=== PATIENT | male | born 1935 | race Caucasian/White ===

== ENCOUNTER 2020-01-11 09:53 | Outpatient (CLI) | payer MEDICARE, OTHER, SELFPAY ==
--- NOTE | 2020-01-11 10:04 | USCV_ITS ---
Rodríguez Cochran Age: 84 Gender: M : 1935 Exam Date: 01/11/2020 10:21 Ordering Phys: Raudel Granados MD ([email or web address]) Technologist: Farzad Richards [place] [facility] [place]: ASCENDING AO ANEUR BP: 140 / 76 HR: 61 Rhythm: Sinus Technical Quality: Good MEASUREMENTS (Male / Female) Normal Values 2D ECHO LV Diastolic Diameter PLAX 3.6 cm 4.2 - 5.9 / 3.9 - 5.3 cm LV Systolic Diameter PLAX 2.6 cm IVS Diastolic Thickness 1.2 cm 0.6 - 1.0 / 0.6 - 0.9 cm IVS Systolic Thickness 1.4 cm LVPW Diastolic Thickness 1.2 cm 0.6 - 1.0 / 0.6 - 0.9 cm LVPW Systolic Thickness 1.6 cm LVOT Diameter 2.1 cm LV Ejection Fraction 2D Teich 51.3 % LV Ejection Fraction MOD 2C 70.1 % LV Ejection Fraction 2C AL 73.0 % LA Diameter 4.1 cm LA Width 3.3 cm LA Height 7.0 cm RA Width 4.1 cm RA Height 6.3 cm Aorta at Sinotubular Diameter 3.3 cm M-MODE LV Diastolic Diameter MM 5.7 cm 4.2 - 5.9 / 3.9 - 5.3 cm LV Systolic Diameter MM 4.2 cm LV Ejection Fraction MM Teich 51.9 % IVS Diastolic Thickness MM 0.7 cm 0.6 - 1.0 / 0.6 - 0.9 cm IVS Systolic Thickness MM 1.5 cm LVPW Diastolic Thickness MM 1.2 cm 0.6 - 1.0 / 0.6 - 0.9 cm LVPW Systolic Thickness MM 1.7 cm RV Diastolic Diameter MM 1.9 cm Aortic Annulus Diameter 5.0 cm LA Ao Ratio MM 0.8 MV E Point Septal Separation 0.7 cm DOPPLER MV Area PHT 5.0 cm squared Mitral E to A Ratio 0.9 MV E' Velocity 9.0 cm/s Mitral E to MV E' Ratio 10.7 Mitral E to LV E' Lateral Ratio 9.0 Mitral E to LV E' Septal Ratio 13.5 TR Peak Velocity 157.0 cm/s TR Peak Gradient 9.9 mmHg FINDINGS Left Ventricle Normal left ventricular size, systolic function and wall thickness, with no regional wall motion abnormalities. Grade I/IV diastolic dysfunction (abnormal relaxation filling pattern), normal to mildly elevated filling pressures. Left ventricular ejection fraction is estimated at 60 %. Right Ventricle Normal right ventricular size and systolic function. Right Atrium Moderately increased right atrial size. Left Atrium Moderately increased left atrial size. Mitral Valve Structurally normal mitral valve. Trace mitral valve regurgitation. Aortic Valve Structurally normal aortic valve without significant sclerosis or stenosis. There is no aortic regurgitation. Tricuspid Valve Structurally normal tricuspid valve. Trace tricuspid valve regurgitation. Pulmonic Valve Pulmonic valve not well visualized. Pericardium Normal pericardium without effusion. Aorta The ascending aorta is dilated 4.5 cm CONCLUSIONS Normal left ventricular size, systolic function and wall thickness, with no regional wall motion abnormalities. Grade I/IV diastolic dysfunction (abnormal relaxation filling pattern), normal to mildly elevated filling pressures. Left ventricular ejection fraction is estimated at 60 %. Moderately increased right atrial size. Moderately increased left atrial size. Structurally normal mitral valve. Trace mitral valve regurgitation. The ascending aorta is dilated 4.5 cm. There are no prior echocardiogram studies to compare. Dr. Raudel Granados MD (Electronically Signed) Final Date: 11 January 2020 11:06 S
== END 2020-01-11 09:54 | disposition home or self-care (01) ==
LOC: US 09:59
PROVIDERS: Family Provider Family Medicine; PCP Family Medicine; Visit Provider Internal Medicine Cardiovascular Disease
DX: I71.2 Thoracic aortic aneurysm, without rupture (principal); I08.1 Rheumatic disorders of both mitral and tricuspid valves
CPT/HCPCS: 93306

== ENCOUNTER 2020-03-24 15:10 | Inpatient (IN) | payer MEDICARE, OTHER, SELFPAY ==
[2020-03-24] VITALS (15 sets, daily range): BP systolic 110–164; BP diastolic 58–84; PULSE 49–70; RESP 14–24; TEMP 36.4–36.7; O2SAT 83–98; BMI 27.2
--- NOTE | 2020-03-24 15:37 | ECG_ITS ---
Measurements Intervals [place] Rate: 59 P: 76 VA: 202 QRS: -35 QRSD: 94 T: 38 QT: 413 QTc: 411 SINUS BRADYCARDIA WITH OCCASIONAL VENTRICULAR PREMATURE COMPLEXES MARKED LEFT AXIS DEVIATION [QRS AXIS < -30] PATTERN CONSISTENT WITH PULMONARY DISEASE INTERPRETATION BASED ON A DEFAULT AGE OF 40 YEARS Compared to ECG 07/09/2019 12:44:06 Ventricular premature complex(es) now present Electronically Signed On 03-25-2020 11:06:00 CDT by Joaquín Cullen MD [email or web address]
--- NOTE | 2020-03-24 15:37 | XRR_ITS ---
PROCEDURE INFORMATION: Exam: XR Chest, 1 View Exam date and time: 03/24/2020 3:38 PM Age: 84 years old Clinical indication: Shortness of breath; Patient HX: C/O chest tightness and SOB for several weeks; Additional info: Chest pain TECHNIQUE: Imaging protocol: XR of the chest Views: 1 view. COMPARISON: CR Chest 1 [place] [id number] 07/09/2019 1:03 PM FINDINGS: Lungs: Increased bilateral peripheral pulmonary opacities most consistent with pneumonia with possible background pulmonary fibrosis. Stable COPD . Pleural space: Unremarkable. No pleural effusion. No pneumothorax. Heart/Mediastinum: Unremarkable. No cardiomegaly. Bones/joints: Unremarkable. XR/XR chest 1V portable [id number] IMPRESSION: 1. Increased bilateral peripheral pulmonary opacities most consistent with pneumonia with possible background pulmonary fibrosis. 2. Stable COPD .
[2020-03-24 17:23] LABS: Basophils # 0.1 10^3/uL (0.0-0.1); Basophils % 1.2 %; Eosinophils # 2.2 10^3/uL (0.0-0.8); Eosinophils % 26.7 %; Hematocrit 43.7 % (42.0-52.0); Hemoglobin 14.1 g/dL (11.7-16.6); Lymphocytes # 2.4 10^3/uL (0.8-4.8); Mean Corpuscular HGB Conc 32.3 g/dL (30.0-36.0); Mean Corpuscular Hemoglobin 29.3 pg (28.0-34.0); Mean Corpuscular Volume 90.9 fL (80-94); Mean Platelet Volume 9.7 fL (7.4-10.4); Monocytes # 0.7 10^3/uL (0.2-0.9); Monocytes % 8.7 %; Neutrophils # 2.9 10^3/uL (1.8-7.7); Neutrophils % 34.2 %; Nucleated Red Blood Cells % 0 %; Platelet Count 167 10^3/cmm (130-400); Red Blood Count 4.81 10^6/uL (4.1-5.3); White Blood Count 8.4 10^3/uL (4.0-10.0)
--- NOTE | 2020-03-24 17:23 | ED_ITS ---
HPI - Chest Pain General: Chief Complaint: Chest Pain Stated Complaint: chest tightness Time Seen by Provider: 03/24/20 17:08 History of Present Illness: HPI narrative: Patient is an 84 year old male presenting with chest pain. he reports that he has been having episodes of sharp chest pains for the past several days. He does not associate them with exertion, and walked on his treadmill without chest pain. He has been having shortness of breath in the recent weeks. He was treated by his PCP for a lung infection in December with antibiotics and steroids. He improved from that. He notes that he was coughing a lot last night, but doesn't seem like so much today. He spent the month of December in [place]. 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 known aortic aneurysm (thoracic) Onset (ago): hour(s) (2) Timing of current episode: episodic Onset: during rest Pain location: left chest Pain radiation: none Severity: moderate Quality: sharp Exacerbating factors: nothing Context: recent illness Associated symptoms: Reports dyspnea; Deny abdominal pain, fever(s), nausea or vomiting Review of Systems General: Reports: 10 or more systems reviewed and unremarkable except in HPI and below Const: Denies: fever(s), chills, fatigue or malaise Eyes: Denies: change in vision ENMT: Denies: odynophagia Card: Reports: chest pain; Denies: swelling of feet/ankles Resp: Reports: dyspnea and productive cough; Denies: non-productive cough GI: Denies: abdominal pain, nausea or vomiting : Denies: flank pain Musc: Denies: neck pain or back pain Skin/Breast: Denies: rash Neuro: Denies: headache(s), numbness in extremities or weakness in extremities Avery/Lymph: Denies: easy bruising or easy bleeding PFSH ED PFSH: Medical History Ascending aortic aneurysm ASHD (arteriosclerotic heart disease) Cerebrovascular accident (CVA) determined by clinical assessment Dyslipidemia HTN (hypertension) Surgical History S/P PTCA (percutaneous transluminal coronary angioplasty) Family History Brother Cancer PANCREATIC Stroke Other CAD (coronary artery disease) Social History Smoking and tobacco status: never smoked Physical Exam Const: COMMON NORMALS: no acute distress, patient oriented x3, no limitations and alert GENERAL APPEARANCE: cooperative and comfortable HENMT: HEAD & SCALP: normal to inspection FACE & SINUS: normal facial exam Eye: GENERAL EYE: appearance normal, both eyes and all related structures Neck/C-Spine: COMMON NORMALS: supple, no meningeal signs and no JVD Chest: COMMONS NORMALS: normal inspection of the chest Resp: COMMON NORMALS: normal respiratory effort, No use of accessory muscles and clear to auscultation bilaterally AUSCULTATION: clear to auscultation bilaterally Cardio: COMMON NORMALS: no JVD, regular rate, regular rhythm and No murmurs present (Cardio) RATE: regular rate RHYTHM: regular rhythm GI: COMMON NORMALS: Normal to inspection, nondistended, normoactive bowel sounds present, Soft to palpation and non-tender INSPECTION: Yes normal to inspection AUSCULTATION: Yes normoactive bowel sounds PALPATION: Yes Soft to palpation Back/Pelvis: COMMON NORMALS: thoracic and lumbar spine normal to inspection Extremity: COMMON NORMALS: normal to inspection Neuro: COMMON NORMALS: patient oriented x3, moves all extremities, no focal motor deficits and no sensory deficits noted SENSORIUM/ORIENTATION: Yes alert MENINGEAL SIGNS: Yes no meningeal signs Psych: COMMON NORMALS: mental status grossly normal, cooperative and normal affect Skin: COMMON NORMALS: no rashes or lesions noted and turgor normal GENERAL SKIN EXAM: no rashes or lesions noted and turgor normal Course ED course: Patient is having some chest pain off and on which is nonexertional. He has been quite short of breath recently. In the ED his sat was in the low 90s while sitting and resting however after ambulating to the bathroom and back his sat was in the low 80s. He is having cough and did have travel to [place] returning early in December. Although he still probably low risk for COVID we will rule that out. Have also covered him with Rocephin and Zithromax for community-acquired pneumonia based on his chest x-ray which showed diffuse bilateral infiltrates. His cardiac evaluation seems to be benign. His d-dimer was markedly elevated but due to the COVID precautions we will hold off on a CT scan at this point. He was covered empirically with a dose of Lovenox. Vital Signs: Vital signs: Vital Signs Temperature 97.5 F L 03/24/20 15:30 Pulse Rate 49 L 03/24/20 19:36 Respiratory Rate 16 03/24/20 19:36 Blood Pressure 121/61 03/24/20 19:36 Pulse Oximetry 96 03/24/20 19:36 MDM - Chest Pain Lab Data: Labs: Lab Results 03/24/20 03/24/20 03/24/20 Range/Units 17:15 17:15 17:15 WBC 8.4 (4.0-10.0) 10^3/ uL RBC 4.81 (4.1-5.3) 10^6/u L Hgb 14.1 (11.7-16.6) g/dL Hct 43.7 (42.0-52.0) % MCV 90.9 (80-94) fL MCH 29.3 (28.0-34.0) pg MCHC 32.3 (30.0-36.0) g/dL RDW 13.0 (12.1-15.1) % Plt Count 167 (130-400) 10^3/c mm MPV 9.7 (7.4-10.4) fL Neut % (Auto) 34.2 % Lymph % (Auto) 29.0 % [place] % (Auto) 8.7 % Eos % (Auto) 26.7 % Baso % (Auto) 1.2 % Neut # (Auto) 2.9 (1.8-7.7) 10^3/u L Lymph # (Auto) 2.4 (0.8-4.8) 10^3/u L [place] # (Auto) 0.7 (0.2-0.9) 10^3/u L Eos # (Auto) 2.2 H (0.0-0.8) 10^3/u L Baso # (Auto) 0.1 (0.0-0.1) 10^3/u L Nucleated RBC % (a uto) 0 % Nucleated RBCs # 0.0 /100WBC ESR (0-10) mm/hr D-Dimer (0-0.59) ug/mIFE U Sodium 137 (136-145) mmol/L Potassium 4.6 (3.5-5.1) mmol/L Chloride 102 (98-107) mmol/L Carbon Dioxide 25 (22-29) mmol/L Anion Gap 14.6 (5-19) BUN 26 H (8-23) mg/dL Creatinine 1.2 (0.7-1.2) mg/dL Glucose 97 (65-115) mg/dL Calculated Osmolal ity 281 L (285-295) mOsm/k g Calcium 10.0 (8.5-10.5) mg/dL Total Bilirubin 0.3 (0.15-1.2) mg/dL AST 16 (0-40) U/L ALT 11 (0-41) U/L Alkaline Phosphata se 79 (40-130) IU/L Troponin T Baselin e 17 H (0-15) ng/mL C-Reactive Protein (0.0-4.9) mg/L Total Protein 7.7 (6.6-8.7) g/dL Albumin 4.1 (3.5-5.2) g/dL Globulin 3.6 (1.3-4.6) g/dL Procalcitonin (0-0.5) ng/mL 03/24/20 03/24/20 03/24/20 Range/Units 17:15 17:15 17:15 WBC (4.0-10.0) 10^3/ uL RBC (4.1-5.3) 10^6/u L Hgb (11.7-16.6) g/dL Hct (42.0-52.0) % MCV (80-94) fL MCH (28.0-34.0) pg MCHC (30.0-36.0) g/dL RDW (12.1-15.1) % Plt Count (130-400) 10^3/c mm MPV (7.4-10.4) fL Neut % (Auto) % Lymph % (Auto) % [place] % (Auto) % Eos % (Auto) % Baso % (Auto) % Neut # (Auto) (1.8-7.7) 10^3/u L Lymph # (Auto) (0.8-4.8) 10^3/u L [place] # (Auto) (0.2-0.9) 10^3/u L Eos # (Auto) (0.0-0.8) 10^3/u L Baso # (Auto) (0.0-0.1) 10^3/u L Nucleated RBC % (a uto) % Nucleated RBCs # /100WBC ESR 45 H (0-10) mm/hr D-Dimer 3.26 H (0-0.59) ug/mIFE U Sodium (136-145) mmol/L Potassium (3.5-5.1) mmol/L Chloride (98-107) mmol/L Carbon Dioxide (22-29) mmol/L Anion Gap (5-19) BUN (8-23) mg/dL Creatinine (0.7-1.2) mg/dL Glucose (65-115) mg/dL Calculated Osmolal ity (285-295) mOsm/k g Calcium (8.5-10.5) mg/dL Total Bilirubin (0.15-1.2) mg/dL AST (0-40) U/L ALT (0-41) U/L Alkaline Phosphata se (40-130) IU/L Troponin T Baselin e (0-15) ng/mL C-Reactive Protein 3.8 (0.0-4.9) mg/L Total Protein (6.6-8.7) g/dL Albumin (3.5-5.2) g/dL Globulin (1.3-4.6) g/dL Procalcitonin (0-0.5) ng/mL 03/24/ Range/Units 17:15 WBC (4.0-10.0) 10^3/ uL RBC (4.1-5.3) 10^6/u L Hgb (11.7-16.6) g/dL Hct (42.0-52.0) % MCV (80-94) fL MCH (28.0-34.0) pg MCHC (30.0-36.0) g/dL RDW (12.1-15.1) % Plt Count (130-400) 10^3/c mm MPV (7.4-10.4) fL Neut % (Auto) % Lymph % (Auto) % [place] % (Auto) % Eos % (Auto) % Baso % (Auto) % Neut # (Auto) (1.8-7.7) 10^3/u L Lymph # (Auto) (0.8-4.8) 10^3/u L [place] # (Auto) (0.2-0.9) 10^3/u L Eos # (Auto) (0.0-0.8) 10^3/u L Baso # (Auto) (0.0-0.1) 10^3/u L Nucleated RBC % (a uto) % Nucleated RBCs # /100WBC ESR (0-10) mm/hr D-Dimer (0-0.59) ug/mIFE U Sodium (136-145) mmol/L Potassium (3.5-5.1) mmol/L Chloride (98-107) mmol/L Carbon Dioxide (22-29) mmol/L Anion Gap (5-19) BUN (8-23) mg/dL Creatinine (0.7-1.2) mg/dL Glucose (65-115) mg/dL Calculated Osmolal ity (285-295) mOsm/k g Calcium (8.5-10.5) mg/dL Total Bilirubin (0.15-1.2) mg/dL AST (0-40) U/L ALT (0-41) U/L Alkaline Phosphata se (40-130) IU/L Troponin T Baselin e (0-15) ng/mL C-Reactive Protein (0.0-4.9) mg/L Total Protein (6.6-8.7) g/dL Albumin (3.5-5.2) g/dL Globulin (1.3-4.6) g/dL Procalcitonin 0.08 (0-0.5) ng/mL Discharge Plan Discharge Patient Disposition: Admitted As Inpatient Admit Provider: Xiao Green Discharge Date/Time: 03/24/20 19:46 Coding Level of Care Code 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
[2020-03-24 17:40] LABS: Alanine Aminotransferase 11 U/L (0-41); Albumin Level 4.1 g/dL (3.5-5.2); Alkaline Phosphatase 79 IU/L (40-130); Anion Gap 14.6 (5-19); Aspartate Amino Transferase 16 U/L (0-40); Blood Urea Nitrogen 26 mg/dL (8-23); Carbon Dioxide 25 mmol/L (22-29); Chloride 102 mmol/L (98-107); Globulin 3.6 g/dL (1.3-4.6); Glucose 97 mg/dL (65-115); Osmolality Calculated 281 mOsm/kg (285-295); Potassium 4.6 mmol/L (3.5-5.1); Sodium 137 mmol/L (136-145); Total Bilirubin 0.3 mg/dL (0.15-1.2); Total Protein 7.7 g/dL (6.6-8.7)
[2020-03-24 17:42] LABS: Troponin(5th) Baseline 17 ng/mL (0-15)
--- NOTE | 2020-03-24 17:50 | PC.NURSE ---
EKG done at 1750 and shown to ER doctor
[2020-03-24 18:52] LABS: C Reactive Protein 3.8 mg/L (0.0-4.9)
[2020-03-24 18:53] LABS: D Dimer 3.26 ug/mIFEU (0-0.59)
[2020-03-24] MEDS: enoxaparin 100 mg/mL Syringe 90 MG SUBCUT (19:25)
[2020-03-24] MEDS: cefTRIAXone 1,000 MG in sodium chloride 0.9% (plus) 50 ML 100 MG IV (19:26)
[2020-03-24 19:28] LABS: Erythrocyte Sedimentation Rate 45 mm/hr (0-10); Procalcitonin 0.08 ng/mL (0-0.5)
[2020-03-24 19:43] LABS: Troponin 5 2HR 13.83 ng/mL (0-15)
[2020-03-24 19:51] LABS: NT Pro B Type Natriuretic Pept 124 pg/mL (0-450)
[2020-03-24 19:54] LABS: Troponin 5 2HR Delta -3.17 ABS# (0-10)
--- NOTE | 2020-03-24 20:00 | PC.NURSE ---
Admit Note Arrived from ER via gurney at this time. Pt placed in contact/droplet isolation for covid test pending. Pt alert and oriented X 4. Breathing even and non-labored on 2L NC. Lung sounds diminished. Pt running sinus rhythm/sinus maame with occasional PVC's. Reports dry non-productive cough. Denies chest pain at this time. Rocephin infusing on arrival to unit. Pt has belongings at bedside include full upper and lower dentures, glasses, Ipad, cell phone, and gold watch.
[2020-03-24] MEDS: azithromycin 500 MG in sodium chloride 0.9% 250 ML 250 MG IV (20:25)
--- NOTE | 2020-03-24 20:53 | P.HP_ITS ---
Providers/Chief Complaint Admitting Physician: Xiao Green MD Primary Care Provider: Julio Mccracken DO Chief Complaint: DYSPNEA; CP; PNEUMONIA; R/O COVID History of Present Illness Rodríguez Cochran is a 84 year old male with PMH CAD, dyslipidemia, hypertension and hypothyroidism, CVA s/p tPA 07/2019, AAA last known to be at 4.5cm. he presents to the ER today with c/o chest pain and increasing shortness of breath over the past few weeks. He has been experiencing increased intermittent coughing and subjective dyspnea over rthe past several weeks. He has often attributed his cough to allergies for which he takes medication every day. Last night he experienced a bout of coughing which seemed particularly worse and was associated with tightness in his chest. There is no h/o fever or productive cough. At a baseline he is able to walk on the treadmill daily for approx 30 min, and did this last yesterday afternoon without issues. He has been anxious about acquiring COVID since his return from [place] in December per discussion with . He had a similar bout of symptoms in December of this year when he presnted to his PCP and was treated with amoxicillin and prednisone for 10 days after being disgnosed with pneumonia. This improved his symptoms. Per discussion with his , his CXR is mostly read as being suspicious for PNA as there are residual shadows after pneumonia several years ago. He is ex heavy smoker. He has had PFTs and sleep studies ~10 years in the past, does not know results and does not believe he needed a CPAP. no h/o orthopnea, PND In ER he is saturating 92% on RA, with drop to 85% one time on minimal exertion in the room. Last travel to [place] in december this year. Labs without leukocytosis,D dimer 3.26, cr 1.2, baseline troponin at 17, with 2 hr delta of -3. Procalcitonin negative at 0.08. BNP not currently elevated at 124. CXR today shows increased bilateral peripheral pulmonary opacities most consistent with pneumonia with possible background pulmonary fibrosis per radiology read. Note made of COPD. Echocardiogram with LVEF 60% and gr 1 diastolic dysfunction from december. No acute St-T wave changes. CTA is being held off at this point while pending COVID testing, he has presumptively been started on anticoagulation with lovenox given elevated D- Dimer. Review of Systems General: Reports: 10 or more systems reviewed and unremarkable except in HPI and below Const: Denies: fever(s), chills or body aches Eyes: Denies: change in vision, blurry vision or photophobia ENMT: Reports: hoarseness; Denies: throat pain, enlarged tonsils, odynophagia or nasal congestion Card: Denies: chest pain, palpitations, irregular heart rhythm, edema, swelling of feet/ankles, lightheadedness, pre-syncope, dyspnea on exertion or orthopnea Resp: Denies: dyspnea, productive cough, non-productive cough, wheezing, stridor, pain on inspiration, change in phlegm color, hemoptysis or chest congestion GI: Denies: abdominal pain, nausea, vomiting, hematemesis, coffee ground emesis, dysphagia, heartburn, diarrhea, constipation, GI cramping, change in stool character, hematochezia or melena : Denies: flank pain, dysuria, urinary frequency, urinary urgency, urinary hesitancy or hematuria Musc: Denies: neck pain, back pain, extremity pain, joint swelling, joint warmth or deformity Neuro: Denies: headache(s), numbness in extremities, weakness in extremities, sensory changes, difficulty walking, frequent falls, dizziness, vertigo, behavioral changes, Slurred speech present or seizure-like activity Psych: Denies: anxiety, depression, suicidal ideation or homicidal ideation Endo: Denies: polyuria, polydipsia, tired all the time, cold intolerance or hot flashes Avery/Lymph: Denies: easy bruising or easy bleeding Medications/Allergies Home Medications Medication Instructions Recorded Confirmed Last Taken Type telmisartan 20 mg tablet 20 mg PO DAILY 90 Days #90 tab 12/26/19 03/24/20 03/24/20 08:00 Rx aspirin 81 mg tablet,delayed 81 mg PO DAILY 01/31/20 03/24/20 03/23/20 21:00 History release clopidogrel 75 mg tablet 75 mg PO DAILY 01/31/20 03/24/20 03/24/20 08:00 History levothyroxine 50 mcg tablet 50 mcg PO DAILY 01/31/20 03/24/20 03/24/20 07:00 History metoprolol succinate 25 mg 25 mg PO DAILY 01/31/20 03/24/20 03/24/20 08:00 History tablet,extended release 24 hr pantoprazole 40 mg tablet,delayed 40 mg PO DAILY 01/31/20 03/24/20 03/24/20 08: 00 History release rosuvastatin 10 mg tablet 10 mg PO DAILY 01/31/20 03/24/20 03/23/20 22:00 History loratadine 10 mg tablet 10 mg PO DAILY PRN 02/01/20 03/24/20 Unknown History Fiber Laxative (psyllium husk) 2 PO BID 03/24/20 Unknown History docusate sodium 200 mg PO BEDTIME 03/24/20 03/24/20 03/23/20 20:00 History multivitamin 1 tab PO DAILY 03/24/20 03/24/20 03/23/20 20:00 History Allergies Allergy/AdvReac Type Severity Reaction Status Date / Time No Known Allergies Allergy Verified 03/24/20 15:34 PFSH Acute PFSH: Medical History Ascending aortic aneurysm ASHD (arteriosclerotic heart disease) Cerebrovascular accident (CVA) determined by clinical assessment Dyslipidemia HTN (hypertension) Surgical History S/P PTCA (percutaneous transluminal coronary angioplasty) Family History Brother Cancer PANCREATIC Stroke Other CAD (coronary artery disease) Social History Smoking and tobacco status: never smoked Vitals/I&O/Wt Last Vital Signs Temp 98.0 F 03/24/20 20:00 Pulse 60 03/24/20 20:00 Resp 18 03/24/20 20:00 BP 164/79 03/24/20 20:00 Pulse Ox 92 03/24/20 20:00 Weight last 48 hrs Weight 86.183 kg Physical Exam Narrative: EXAM NARRATIVE: GEN: Awake, alert and oriented, no acute distress CVS: S1S2 N RS: CTA B/L Abd: Soft, nt/nd , bs+ 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 transplanted heart: kake heart Associated angina: without angina Qualified Code(s): I25.10 - Atherosclerotic heart disease of kake coronary artery without angina pectoris (3) Dyslipidemia: Status: Acute (4) HTN (hypertension): Status: Acute Qualifiers: Hypertension type: essential hypertension Qualified Code(s): I10 - Essential (primary) hypertension (5) D-dimer, elevated: Status: Acute (6) Suspected COVID-19 virus infection: Status: Acute (7) Chest pain: Status: Acute Additional A&P Information Admit to med/surg in observation - Chest pain, described as chest tightness troponins without remarkable Deltas, EKG without acute St-T changes , doubt ACS BNP not elevated, no current signs of CHF, last echo with EF 60%, gr 1 diastolic dysfunction Based on description of pain and above data, feel that chest tightness more likely to be pulmonary in nature CXR read as pulmonary infiltrates and pneumonia, however based on personal review, CXR looks grossly unchanged since 07/2019. Additonally with negative procalcitonin, no fever and leukocytosis , I do not believe he has any signs of bacterial pneumonia. He could however be experiencing acute viral bronchitis vs pneumonitis. 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 Since patient is on COVID rule out at this time, which may in itself be associated with micorthrombi, will start presumptive treatment with Lovenox and plan on doing CTA chest once COVID results are available to ascertain level of PPE and precautions needed for the study. My suspcion at this time is also for undiagnosed COPD given h/o chronic cough, subacute development and worsening of dyspnea, CXR with prominent markings and h/o chronic smoking. PFT may be done once COVID results are back, in the interim will start him on prn inhalers. Levaquin in the interim while above results are awaited Hold off on steroids for now unless acute worsening Supplemental 02 to keep sat >92% duonebs inhalation Full code DVT ppx: lovenox Coding Level of Care Code Acute Security Assurance Specialist for Chg Fwd Diagnoses Hypoxia R09.02 CAD (coronary artery disease) I25.10 Coronary Disease-Associated Artery/Lesion type: [place]ake artery [place] vs. transplanted heart: kake heart Associated angina: without angina Dyslipidemia E78.5 HTN (hypertension) I10 Hypertension type: essential hypertension D-dimer, elevated R79.89 Suspected COVID-19 virus infection Z20.828 Chest pain R07.9
--- NOTE | 2020-03-24 21:37 | ECG_ITS ---
Measurements Intervals [place] Rate: 54 P: 81 ID: [id number] QRS: -35 QRSD: 96 T: 42 QT: 439 QTc: 417 SINUS BRADYCARDIA WITH FREQUENT ECTOPIC PREMATURE COMPLEXES LEFT AXIS DEVIATION [QRS AXIS < -30] PATTERN CONSISTENT WITH PULMONARY DISEASE Compared to ECG 07/09/2019 12:44:06 No significant changes Electronically Signed On 03-25-2020 11:08:54 CDT by Joaquín Cullen MD [email or web address]
[2020-03-24 23:34] LABS: Troponin 5 6HR 15.64 ng/mL (0-15)
[2020-03-24 23:37] LABS: Troponin 5 6HR Delta -1.36 ng/L (0-12)
[2020-03-25] VITALS (18 sets, daily range): BP systolic 89–119; BP diastolic 32–77; PULSE 49–922; RESP 0–27; TEMP 36.7–36.9; O2SAT 88–96
--- NOTE | 2020-03-25 00:06 | PC.NURSE ---
Physician notification Pt requesting medication to help sleep in hospital. Denies taking medication for sleep at home. Dr. Green notified and received orders for alprazolam 0.25mg.
--- NOTE | 2020-03-25 00:21 | PC.NURSE ---
Bradycardia Dr. Green notified of asymptomatic bradycardia. Sinus maame rate from 45-60. Current BP 97/47. No new orders at this time, will continue to monitor.
[2020-03-25] MEDS: ALPRAZolam 0.25 mg Tablet PO ×2 (01:03→23:14)
[2020-03-25] MEDS: levoFLOXacin 750 mg Tablet PO (06:11)
[2020-03-25] MEDS: atorvastatin 40 mg Tablet DOBHOFF (08:20)
[2020-03-25] MEDS: levothyroxine 50 mcg Tablet PO (08:20)
[2020-03-25] MEDS: losartan 50 mg Tablet PO (08:20)
[2020-03-25] MEDS: pantoprazole DR 40 mg Tablet PO (08:20)
[2020-03-25] MEDS: aspirin 81 mg EC Tablet PO (08:21)
[2020-03-25] MEDS: clopidogrel 75 mg Tablet PO (08:21)
[2020-03-25] MEDS: enoxaparin 100 mg/mL Syringe 90 MG SUBCUT (08:21)
--- NOTE | 2020-03-25 14:36 | PC.NURSE ---
Called lab regarding COVID results. Lab states that his results did not go out until this am and they will be here tomorrow.
--- NOTE | 2020-03-25 15:16 | PM.PN ---
Subjective Subjective: Interval history: Chart reviewed, awaiting COVID-19 testing results, remains on isolation precautions, currently on 2 L nasal cannula, noted low to low normal blood pressure, bradycardic. Seems to have had somewhat of a difficult day and does not like being connected to so many things. Nasopharyngeal swab sent this AM so anticipate results on Thursday due to holiday weekend. No other complaints currently, he describes feeling worn out. Has been up to the chair several times, tolerating oral intake without difficulty. Medications: Reviewed: Yes Medication Review Details: Active Medications Generic Name Dose Route Start Last Admin Trade Name Freq PRN Reason Stop Dose Admin Acetaminophen 650 mg 03/24/20 21:53 Tylenol PO Q6H PRN Mild/Mod Pain Or Temp >/= 101 Albuterol/Ipratrop ium 1 puff 03/25/20 08:00 03/25/20 08:00 Combivent Respim at INHALATION Not Given QID.RESPIRATORY S CH Alprazolam 0.25 mg 03/25/20 00:15 03/25/20 01:03 Xanax PO 0.25 mg BEDTIME ZIYAD Administration Aspirin 81 mg 03/25/20 09:00 03/25/20 08:21 Aspirin Ec PO 81 mg DAILY ZIYAD Administration Atorvastatin Calci um 40 mg 03/25/20 09:00 03/25/20 08:20 Lipitor DOBHOFF 40 mg DAILY ZIYAD Administration Clopidogrel Bisulf ate 75 mg 03/25/20 09:00 03/25/20 08:21 Plavix PO 75 mg DAILY ZIYAD Administration Docusate Sodium 200 mg 03/25/20 21:00 Colace PO BEDTIME ZIYAD Enoxaparin Sodium 90 mg 03/25/20 09:00 03/25/20 08:21 Lovenox 1 mg/kg (90 mg) 90 mg SUBCUT Administration Q24H ZIYAD Levofloxacin 750 mg 03/25/20 06:00 03/25/20 06:11 Levaquin PO 750 mg DAILY@0600 ZIYAD Administration Protocol Levothyroxine Sodi um 50 mcg 03/25/20 09:00 03/25/20 08:20 Synthroid PO 50 mcg DAILY ZIYAD Administration Loratadine 10 mg 03/24/20 21:58 Claritin PO DAILY PRN Allergy Symptoms Losartan Potassium 50 mg 03/25/20 09:00 03/25/20 08:20 Cozaar PO 50 mg DAILY ZIYAD Administration Metoprolol Succina te 25 mg 03/25/20 09:00 03/25/20 08:21 Toprol Xl PO Not Given DAILY ZIYAD Morphine Sulfate 2 mg 03/24/20 21:53 Morphine IVP Q4H PRN SEVERE PAIN Naloxone HCl 0.1 mg 03/24/20 21:53 Narcan IVP Q2M PRN OPIATERV Ondansetron HCl 4 mg 03/24/20 21:53 Zofran IVP Q8H PRN vomiting, or N/V if npo Pantoprazole Sodiu m 40 mg 03/25/20 09:00 03/25/20 08:20 Protonix PO 40 mg DAILY ZIYAD Administration No Known Allergies Allergy (Verified 03/24/20 15:34) Vitals/I&O/Wt Last Vital Signs Temp 98.4 F 03/25/20 09:00 Pulse 64 03/25/20 14:09 Resp 20 H 03/25/20 14:09 BP 119/60 03/25/20 12:00 Pulse Ox 94 03/25/20 14:09 03/25/20 03/25/20 03/25/20 06:59 14:59 22:59 Intake Total 480 / 480 Output Total 575 / 650 500 / 500 Balance -575 / -650 - Weight last 48 hrs Weight 86.818 kg Weight 86.183 kg Physical Exam Const: COMMON NORMALS: no acute distress, patient oriented x3 and alert GENERAL APPEARANCE: cooperative and comfortable; not ill appearing ORIENTATION/CONSCIOUSNESS: Yes awake OTHER: -looks younger than stated age HENMT: COMMON NORMALS: normocephalic, atraumatic and moist oral mucous membranes HEAD & SCALP: normocephalic and atraumatic GENERAL EAR: hearing grossly impaired Laterality: bilateral Eye: COMMON NORMALS: Equal, round and reactive pupils present, EOMs intact bilaterally and conjunctivae normal CONJUNCTIVA: Yes conjunctivae normal PUPIL: Yes Equal, round and reactive pupils present Neck/C-Spine: COMMON NORMALS: full ROM GENERAL: Yes normal visual inspection and Yes trachea midline Chest: CHEST: Yes Symmetrical chest wall rise Resp: COMMON NORMALS: normal respiratory effort, No retractions and No use of accessory muscles EFFORT & INSPECTION: Yes able to speak in complete sentences, Yes symmetric chest movement and No tachypneic AUSCULTATION: wheezes expiratory wheezes (minimal) and diminished lung sounds bilateral in the lower lung nolasco OTHER: -on 2 L NC Cardio: COMMON NORMALS: regular rate, regular rhythm, S1 normal heart sound present, S2 normal heart sound present and No murmurs present (Cardio) RATE: regular rate RHYTHM: regular rhythm HEART SOUNDS: S1 normal heart sound present and S2 normal heart sound present GI: COMMON NORMALS: Normal to inspection, nondistended, normoactive bowel sounds present, Soft to palpation and non-tender INSPECTION: Yes central obesity PALPATION: Yes Soft to palpation Back/Pelvis: COMMON NORMALS: thoracic and lumbar spine normal to inspection Extremity: COMMON NORMALS: normal to inspection, full ROM and no clubbing, cyanosis or edema; negative for no pedal edema Neuro: COMMON NORMALS: patient oriented x3, moves all extremities, no focal motor deficits and no sensory deficits noted SENSORIUM/ORIENTATION: Yes alert Psych: COMMON NORMALS: mental status grossly normal, Normal thought process present, cooperative, normal affect and speech normal SPEECH: Yes normal speech THOUGHT PROCESS: Normal thought process present Skin: COMMON NORMALS: no rashes or lesions noted, no jaundice, no petechiae and no mottling GENERAL SKIN EXAM: no rashes or lesions noted Data : 03/24/20 17:15 03/24/20 17:15 Micro: Microbiology 03/24/20 19:20 Blood Culture - Preliminary Blood SPECIMEN COLLECTED 03/24/20 19:15 Blood Culture - Preliminary Blood SPECIMEN COLLECTED A&P Assessment and plan (1) Chest pain: -described as chest tightness, presentation seems more consistent with pulmonary etiology though patient does have known CAD -Noted troponins with no significant delta -Telemetry monitoring -LITZY -Echo (01/2020): EF=60%, G1DD, trace TR, trace MR -had cath done in 10/2014 showing 90% stenosis in small diagonal branch by LAD stent which is too small and not amenable for intervention, 85% stenosis in ostial RCA lesion which was stented, patent LAD stent Status: Acute Qualifiers: Chest pain type: unspecified Qualified Code(s): R07.9 - Chest pain, unspecified (2) Hypoxia: -presented with acute hypoxia (acute hypoxic respiratory failure), not oxygen dependent at baseline -likely secondary to acute COPD exacerbation, no previous diagnosis of this, chest x-ray is reported as stable COPD as well as bilateral peripheral pulmonary opacities with background of pulmonary fibrosis -Clinical suspicion for bacterial pneumonia is low given normal lactate and procalcitonin, lack of leukocytosis, afebrile; based on imaging could have bronchitis versus viral pneumonitis -Supplemental oxygen as needed -Continue to monitor respiratory status -Would benefit from pulmonary function testing which can be done as an outpatient -COVID-19 testing pending (will likely be delayed until Thursday due to holiday weekend), on isolation precautions -Continue empiric Levaquin -Follow-up blood cultures -Continue to monitor vital signs -Neb treatments, antitussives as needed Status: Acute (3) D-dimer, elevated: -D-dimer-3.26 -holding off on further imaging pending COVID-19 test results -on presumptive treatment with therapeutic lovenox Status: Acute (4) CAD (coronary artery disease): -follows up with Dr. Granados Status: Chronic Qualifiers: Associated angina: without angina Coronary Disease-Associated Artery/Lesion type: [place] artery [place] vs. transplanted heart: [place] heart Qualified Code(s): I25.10 - Atherosclerotic heart disease of [place] coronary artery without angina pectoris (5) Cerebrovascular accident (CVA) determined by clinical assessment: Status: Chronic (6) Ascending aortic aneurysm: Status: Chronic (7) Dyslipidemia: -on statin Status: Chronic (8) HTN (hypertension): -low to low normal BP; continue to monitor vital signs -continue oral antihypertensives, hold if hypotension Status: Chronic Qualifiers: Hypertension type: essential hypertension Qualified Code(s): I10 - Essential (primary) hypertension (9) Hypothyroidism: -continue levothyroxine Status: Chronic Qualifiers: Hypothyroidism type: unspecified Qualified Code(s): E03.9 - Hypothyroidism, unspecified Additional A&P Information -CKD stage 2; baseline Cr is around 1.2 -cardiac diet as tolerated -fall precautions -GI ppx with PPI -DVT ppx not needed as on therapeutic lovenox -Dispo: home -Code status: FULL code -ICU care due to COVID-19 r/o Attestations Medical Necessity Statement*: Patient requires hospitalization for continued treatment of acute hypoxic respiratory failure currently requiring close monitoring of his respiratory status, pending COVID 19 rule out and therapeutic anticoagulation pending PE rule out. Time Spent in Patient Care: Greater than 35 minutes (>than 50% of time spent in counselling and/or direct pt care on unit). Coding Level of Care Code Acute Delinquent Account Clerk for Chg Fwd Exam Comprehensive Diagnoses Chest pain R07.9 Chest pain type: unspecified Hypoxia R09.02 D-dimer, elevated R79.89 CAD (coronary artery disease) I25.10 Associated angina: without angina Coronary Disease-Associated Artery/Lesion type: [place] artery [place] vs. transplanted heart: [place] heart Cerebrovascular accident (CVA) determined by clinical assessment I63.9 Ascending aortic aneurysm I71.2 Dyslipidemia E78.5 HTN (hypertension) I10 Hypertension type: essential hypertension Hypothyroidism E03.9 Hypothyroidism type: unspecified
--- NOTE | 2020-03-25 18:12 | PC.RESP ---
Pulmonary Rehab information mailed to patient.
[2020-03-25 18:41] LABS: Coronavirus Lab Test PTC SEE REPORT
--- NOTE | 2020-03-25 20:20 | PC.NURSE ---
Pt off unit to CT, escorted by nurse and w/c, transport monitor, and 2L NC.
--- NOTE | 2020-03-25 20:26 | CTR_ITS ---
PROCEDURE INFORMATION: Exam: CT Angiography Chest With Contrast Exam date and time: 03/25/2020 9:00 PM Age: 84 years old Clinical indication: Shortness of breath; Patient HX: C/O chest tightness and SOB for weeks; Additional info: R/O pe TECHNIQUE: Imaging protocol: Computed tomographic angiography of the chest with intravenous contrast. 3D rendering: MIP and/or 3D reconstructed images were created by the technologist. Radiation optimization: All CT scans at this facility use at least one of these dose optimization techniques: automated exposure control; mA and/or kV adjustment per patient size (includes targeted exams where dose is matched to clinical indication); or iterative reconstruction. Contrast material: VISI 320; Contrast volume: 95 ml; Contrast route: 20G; COMPARISON: CR (CHEST, ) 03/24/2020 5:29 PM FINDINGS: There are degenerative changes of the spine. There is an old compression fracture of L1. Interstitial infiltrates are seen throughout the lungs. There is peripheral honeycombing. There is interlobular septal thickening. There is some underlying emphysematous changes. Findings are consistent with interstitial lung disease likely pulmonary fibrosis. There is a calcified granuloma within the right lower lobe. No suspicious pulmonary nodules are seen. There is no consolidation. There is no pleural effusion or pneumothorax. The thyroid gland is unremarkable. There is no axillary adenopathy. There is mediastinal adenopathy. There is hilar adenopathy. Interrogation of the pulmonary arteries in multiple planes shows no evidence for pulmonary embolism. The aorta is normal in caliber with no evidence for aneurysm or dissection. The heart is normal in size. There is no evidence for right heart failure. There is a simple cyst within the upper pole of the right kidney measuring 2.2 cm. No follow-up is required. CT/CT angio chest PE protcl [id number] IMPRESSION: 1. No evidence for pulmonary embolism. 2. Findings suggestive of interstitial lung disease likely pulmonary fibrosis mediastinal and hilar adenopathy. Comparison to old studies would be helpful. Radiation Dose CTDIVOL = (mGy): DLP = 601.97 (mGy-cm)
--- NOTE | 2020-03-25 20:35 | PC.NURSE ---
Back to room from CT at this time.
[2020-03-25] MEDS: iodixanol 320 mg/mL 100mL Btl IV (21:05)
--- NOTE | 2020-03-25 23:00 | PC.NURSE ---
Report called to KAMINI Lai. Pt transfered to [facility] room 254-1 with w/c and 2L NC. Belongings sent with patient.
[2020-03-25] MEDS: docusate sodium 100 mg Capsule 200 MG PO (23:14)
[2020-03-26] VITALS (11 sets, daily range): BP systolic 94–131; BP diastolic 51–69; PULSE 55–92; RESP 16–20; TEMP 36.4–36.6; O2SAT 90–97
[2020-03-26] MEDS: clopidogrel 75 mg Tablet PO (08:35)
[2020-03-26] MEDS: pantoprazole DR 40 mg Tablet PO (08:35)
[2020-03-26] MEDS: levothyroxine 50 mcg Tablet PO (08:35)
[2020-03-26] MEDS: atorvastatin 40 mg Tablet DOBHOFF (08:35)
[2020-03-26] MEDS: levoFLOXacin 750 mg Tablet PO (08:36)
[2020-03-26] MEDS: aspirin 81 mg EC Tablet PO (08:36)
--- NOTE | 2020-03-26 09:43 | PC.NURSE ---
Pt blood pressure at this time 83/54, spoke with Dr. Romero who said to hold second dose of Metoprolol 5mg IV
--- NOTE | 2020-03-26 15:23 | P.DS_ITS ---
Discharge Providers Date of Admission: 03/24/20 19:09 Date of Discharge: March 26, 2020 Attending Provider at Admission: Xiao Green MD Attending Provider at Discharge: Madiha Ball MD Primary Care Provider: Julio Mccracken DO Diagnoses at Discharge Discharge Diagnosis (1) Chest pain: Status: Acute Problem details: -described as chest tightness, presentation seems more consistent with pulmonary etiology though patient does have known CAD -Noted troponins with no significant delta -Telemetry monitoring -LITZY -Echo (01/2020): EF=60%, G1DD, trace TR, trace MR -had cath done in 10/2014 showing 90% stenosis in small diagonal branch by LAD stent which is too small and not amenable for intervention, 85% stenosis in ostial RCA lesion which was stented, patent LAD stent Qualifiers: Chest pain type: unspecified Qualified Code(s): R07.9 - Chest pain, unspecified (2) Hypoxia: Status: Resolved Problem details: -presented with acute hypoxia (acute hypoxic respiratory failure), not oxygen dependent at baseline -likely secondary to acute COPD exacerbation, no previous diagnosis of this, chest x-ray is reported as stable COPD as well as bilateral peripheral pulmonary opacities with background of pulmonary fibrosis -Clinical suspicion for bacterial pneumonia is low given normal lactate and procalcitonin, lack of leukocytosis, afebrile; based on imaging could have bronchitis versus viral pneumonitis -Supplemental oxygen as needed -Continue to monitor respiratory status -Would benefit from pulmonary function testing which can be done as an outpatient -COVID-19 testing negative, off isolation precautions -Continue empiric Levaquin -Follow-up blood cultures -Continue to monitor vital signs -Neb treatments, antitussives as needed (3) D-dimer, elevated: Status: Acute Problem details: -D-dimer-3.26 -CTA negative for PE -off presumptive treatment with therapeutic lovenox (4) CAD (coronary artery disease): Status: Chronic Problem details: -follows up with Dr. Granados Qualifiers: Coronary Disease-Associated Artery/Lesion type: [place] artery [place] vs. transplanted heart: [place] heart Associated angina: without angina Qualified Code(s): I25.10 - Atherosclerotic heart disease of [place] coronary artery without angina pectoris (5) Cerebrovascular accident (CVA) determined by clinical assessment: Status: Chronic (6) Ascending aortic aneurysm: Status: Chronic (7) Dyslipidemia: Status: Chronic (8) HTN (hypertension): Status: Chronic Problem details: -low to low normal BP; continue to monitor vital signs -continue oral antihypertensives, hold if hypotension Qualifiers: Hypertension type: essential hypertension Qualified Code(s): I10 - Essential (primary) hypertension (9) Hypothyroidism: Status: Chronic Problem details: -continue levothyroxine Qualifiers: Hypothyroidism type: unspecified Qualified Code(s): E03.9 - Hypothyroidism, unspecified Other Information Additional DC diagnoses/information: -CKD stage 2; baseline Cr is around 1.2 Reason for Visit Reason for Visit: Reason For Visit: DYSPNEA; CP; PNEUMONIA; R/O COVID Hospital Course Hospital Course: Patient was admitted to ICU and placed on isolation precautions due to need for COVID-19 testing based on symptom presentation. He required supplemental oxygen support and was started on empiric antibiotic therapy and nebulizer treatments with close monitoring of his respiratory status. He improved fairly quickly, COVID-19 testing is negative, and he is off isolation. He was transferred to the medical surgical floor for continued care. He did well overnight and would like to return home today. He had a CT to rule out PE which was negative with noted diffuse interstitial lung disease that seems consistent with pulmonary fibrosis; prior to this he was on presumptive therapeutic anticoagulation. There was no noted consolidation or indication of infection. There was no need for steroid therapy as patient did not have significant wheezing. He has been hemodynamically stable, afebrile throughout his hospital stay. He is not oxygen dependent at baseline and had a home oxygen evaluation done prior to discharge, did not qualify for continued oxygen use. Will be referred to pulmonology for continued evaluation and follow-up of pulmonary fibrosis. He will also need follow-up with his primary care physician. He is encouraged to seek medical attention should his symptoms worsen. Blood cultures have been negative as well. Discharge Summary: -Patient to follow-up with his primary care physician within 1 week -Patient to follow-up with Dr. Banks in 2 weeks for evaluation of pulmonary fibrosis -Patient to continue to follow up with Dr. Granados Physical Exam Const: COMMON NORMALS: no acute distress, patient oriented x3 and alert GENERAL APPEARANCE: cooperative and comfortable; not ill appearing ORIENTATION/CONSCIOUSNESS: Yes awake OTHER: -looks younger than stated age HENMT: COMMON NORMALS: normocephalic, atraumatic and moist oral mucous membranes HEAD & SCALP: normocephalic and atraumatic GENERAL EAR: hearing grossly impaired Laterality: bilateral Eye: COMMON NORMALS: Equal, round and reactive pupils present, EOMs intact bilaterally and conjunctivae normal CONJUNCTIVA: Yes conjunctivae normal PUPIL: Yes Equal, round and reactive pupils present Neck/C-Spine: COMMON NORMALS: full ROM GENERAL: Yes normal visual inspection and Yes trachea midline Chest: CHEST: Yes Symmetrical chest wall rise Resp: COMMON NORMALS: normal respiratory effort, No retractions and No use of accessory muscles EFFORT & INSPECTION: Yes able to speak in complete sentences, Yes symmetric chest movement and No tachypneic AUSCULTATION: diminished lung sounds bilateral in the lower lung [place] OTHER: -on 2 L NC Cardio: COMMON NORMALS: regular rate, regular rhythm, S1 normal heart sound present, S2 normal heart sound present and No murmurs present (Cardio) RATE: regular rate RHYTHM: regular rhythm HEART SOUNDS: S1 normal heart sound present and S2 normal heart sound present GI: COMMON NORMALS: Normal to inspection, nondistended, normoactive bowel sounds present, Soft to palpation and non-tender INSPECTION: Yes central obesity PALPATION: Yes Soft to palpation Back/Pelvis: COMMON NORMALS: thoracic and lumbar spine normal to inspection Extremity: COMMON NORMALS: normal to inspection, full ROM and no clubbing, cyanosis or edema; negative for no pedal edema Neuro: COMMON NORMALS: patient oriented x3, moves all extremities, no focal motor deficits and no sensory deficits noted SENSORIUM/ORIENTATION: Yes alert Psych: COMMON NORMALS: mental status grossly normal, Normal thought process present, cooperative, normal affect and speech normal SPEECH: Yes normal speech THOUGHT PROCESS: Normal thought process present Skin: COMMON NORMALS: no rashes or lesions noted, no jaundice, no petechiae and no mottling GENERAL SKIN EXAM: no rashes or lesions noted Discharge Data Data Completed and Pending: Completed Studies During Hospitalization Category Date Time Status CTA chest [CT ang io chest PE protcl [id number]] Routine Cat Scan 03/25/20 20:26 Completed XR chest 1V nomi ble [id number] Urgent Exams 03/24/20 15:37 Completed Pending at discharge Category Date Time Status Blood Culture Sta t Lab 03/24/20 19:20 Results Labs from last 24 hours 03/24/20 19:00 Nasal/Oral COVID-1 9 PCR See report Vitals: Last Vital Signs Temp 97.9 F 03/26/20 15:09 Pulse 79 03/26/20 15:09 Resp 18 03/26/20 15:09 BP 97/57 03/26/20 15:09 Pulse Ox 94 03/26/20 15:09 Discharge Plan Discharge Patient Disposition: Home, Self-Care Condition: Stable Prescriptions: New alprazolam 0.25 mg Tablet 0.25 mg PO BEDTIME Qty: 15 RF: 0 levofloxacin 750 mg Tablet 750 mg PO DAILY 5 Days Qty: 5 RF: 0 Combivent Respimat 20-100 mcg/actuation Mist 1 puff inhalation QID.RESPIRATORY 30 Days Qty: 4 RF: 0 Continued rosuvastatin [Crestor] 10 mg tablet 10 mg PO DAILY RF: 0 aspirin [Aspir-81] 81 mg tablet,delayed release (DR/EC) 81 mg PO DAILY RF: 0 metoprolol succinate [Toprol XL] 25 mg tablet extended release 24 hr 25 mg PO DAILY RF: 0 pantoprazole [Protonix] 40 mg tablet,delayed release (DR/EC) 40 mg PO DAILY RF: 0 levothyroxine 50 mcg tablet 50 mcg PO DAILY RF: 0 clopidogrel 75 mg tablet 75 mg PO DAILY RF: 0 loratadine [Allergy Relief (loratadine)] 10 mg tablet 10 mg PO DAILY PRN (Reason: Allergy Symptoms) RF: 0 telmisartan [Micardis] 20 mg tablet 20 mg PO DAILY 90 Days Qty: 90 RF: 3 docusate sodium 100 mg Tablet 200 mg PO BEDTIME RF: 0 Fiber Laxative (psyllium husk) capsule 2 caplet PO BID RF: 0 multivitamin Tablet 1 tab PO DAILY RF: 0 Discharge Orders: Discharge Order (Routine); Ordered 03/26/20 Ordered By: Madiha Ball Referrals: Julio Mccracken DO [Primary Care Provider] - 4-7 days (Please call Thursday to set up a follow up appointment ) Joel Banks MD [Physician] - 2 weeks (Please call Thursday to set up a follow up appointment ) Discharge Diet: Cardiac Discharge Activity: Increase activity as tolerated Patient Instructions: Alprazolam (By mouth), Levofloxacin (By mouth), Ipratropium/Albuterol (By breathing), Chest Pain (GEN), How to Use a Metered- Dose Inhaler (GEN), Chronic Hypertension (GEN), Chest Pain Stoplight Discharge Attestations Time Spent in Discharge Care*: greater than 30 min Specific Discharge Activities: Specific discharge activities: educating patient, discussing with medical case manager/social workers/dc planners, documenting/other paperwork and evaluating patient/reviewing data Status at Discharge: Cognitive status at discharge: cognitively intact , Behavioral status at discharge: cooperative , Functional status at discharge: independent ambulation Overall status at discharge: patient is progressing back to baseline Quality Metrics Clinical Quality Measures During this hospital stay, did patient experience: None Coding Level of Care Code Acute Traffic Director for Chg Fwd Diagnoses Chest pain R07.9 Chest pain type: unspecified Hypoxia R09.02 D-dimer, elevated R79.89 CAD (coronary artery disease) I25.10 Coronary Disease-Associated Artery/Lesion type: [place] artery [place] vs. transplanted heart: [place] heart Associated angina: without angina Cerebrovascular accident (CVA) determined by clinical assessment I63.9 Ascending aortic aneurysm I71.2 Dyslipidemia E78.5 HTN (hypertension) I10 Hypertension type: essential hypertension Hypothyroidism E03.9 Hypothyroidism type: unspecified
== END 2020-03-26 15:56 | disposition home or self-care (01) | DRG 190 ==
LOC: ER 19:39 → ICU 19:40 → MEDSURG 03-25 23:05
PROVIDERS: Emergency Medicine; Physician Assistant; Admitting Provider Student in an Organized Health Care Education/Training Program; PCP Family Medicine; Visit Provider Family Medicine
DX: J44.1 Chronic obstructive pulmonary disease with (acute) exacerbation (principal); J96.01 Acute respiratory failure with hypoxia; I25.10 Atherosclerotic heart disease of native coronary artery without angina pectoris; Z95.5 Presence of coronary angioplasty implant and graft; E78.5 Hyperlipidemia, unspecified; I12.9 Hypertensive chronic kidney disease with stage 1 through stage 4 chronic kidney disease, or unspecified chronic kidney disease; N18.2 Chronic kidney disease, stage 2 (mild); E03.9 Hypothyroidism, unspecified; Z86.73 Personal history of transient ischemic attack (TIA), and cerebral infarction without residual deficits; I71.4 Abdominal aortic aneurysm, without rupture; Z87.01 Personal history of pneumonia (recurrent); F17.210 Nicotine dependence, cigarettes, uncomplicated; Z20.828 Contact with and (suspected) exposure to other viral communicable diseases; J84.10 Pulmonary fibrosis, unspecified; Z79.82 Long term (current) use of aspirin; Z79.02 Long term (current) use of antithrombotics/antiplatelets
CPT/HCPCS: 12345; 36415; 71045; 71275; 80053; 83605; 83880; 84145; 84484; 85025; 85378; 85651; 86140; 87040; 87635; 93005; 93010; 94640; 94664; 96372; 99283; J0456; J0696; J1650; J7050; Q9967

== ENCOUNTER 2020-05-03 07:09 | Outpatient (CLI) | payer MEDICARE, OTHER, SELFPAY ==
--- NOTE | 2020-05-03 08:30 | CT_ITS ---
WS: [id number] CT CHEST TECHNIQUE: Noncontrast CT of the chest with coronal and sagittal reformatted images. High-resolution CT chest with inspiratory and expiratory imaging. Prone imaging. CLINICAL INFORMATION: Suspected interstitial lung disease COMPARISON: CTA chest March 25, 2026 DLP: 284.[address] scans at [facility] use at least one of these dose optimization techniques: automat ed exposure control; mA and/or kV adjustment per patient size (includes targeted exams where dose is matched to clinical indication); or iterative reconstruction. FINDINGS: Again seen are findings of interstitial lung disease with pulmonary fibrosis. Small amount of subpleu ral honeycombing. Paraseptal emphysematous changes. Scattered interstitial fibrosis in both lungs. No focal consolidation or pleural fluid. Calcific granuloma right lower lobe.No significant air trappin g on the expiratory images. Associated traction bronchiectasis in the left greater than right upper l obes, right middle lobe, lingula, and right greater than left lower lobes. Enlarged anterior mediastinal, paratracheal, subcarinal and hilar lymphadenopathy. This is nonspecifi c but may be reactive. No axillary lymphadenopathy. Vascular calcification including coronary. Adrena l glands are normal. Pancreatic fatty atrophy. Partially visualized renal cysts. Mild thoracic kyphosis. Anterior wedging in the lower thoracic spine. CT/CT chest wo con [id number] IMPRESSION: 1. Chronic interstitial lung disease with findings of subpleural honeycombing and interstitial fibrosis. 2. Associated traction bronchiectasis described above. 3. No acute pulmonary infiltrates. 4. Mediastinal, hilar, paratracheal, and subcarinal lymphadenopathy nonspecifi c but may be reactive.
--- NOTE | 2020-05-03 09:00 | FL_ITS ---
WS: [id number] MODIFIED BARIUM SWALLOW TECHNIQUE: Modified barium swallow with speech therapy using multiple consistencies. FLUOROSCOPY TIME: 1.7 minutes. CLINICAL INFORMATION: Difficulty swallowing COMPARISON: None. FINDINGS: Multiple consistencies utilized. No evidence of aspiration or penetration. No difficulties with bariu m tablet. Slightly delayed oropharyngeal phase. Mild esophageal dysmotility. FL/FL barium swallow modifd [id number] IMPRESSION: No evidence of aspiration or penetration
--- NOTE | 2020-05-03 13:20 | PFTS_ITS ---
Date of Study:05/03/20 Date of Dictation: MECHANICS: Forced vital capacity (FVC) is normal. Forced expiratory volume in one second (FEV1) is reduced. FEV1/FVC is reduced. FLOW VOLUME LOOP: Reduced flow especially at lower lung volumes. LUNG VOLUMES: Total lung capacity (TLC) is reduced. Residual volume (RV) is reduced. DIFFUSING CAPACITY FOR CARBON MONOXIDE: Moderately reduced. INTERPRETATION: The pulmonary function tests are consistent with moderate obstruction. Lung volumes are consistent with mild restriction. Gas exchange (DLCO) is moderately reduced. MTDD
== END 2020-05-03 07:10 | disposition home or self-care (01) ==
LOC: RT 07:10
PROVIDERS: PCP Family Medicine; Visit Provider Internal Medicine Critical Care Medicine
DX: J84.9 Interstitial pulmonary disease, unspecified (principal); J47.9 Bronchiectasis, uncomplicated; R59.1 Generalized enlarged lymph nodes
CPT/HCPCS: 71250; 74230; 92611; 94060; 94726; 94729; J7611

== ENCOUNTER → 2020-05-15 15:45 | Outpatient (BNVA) | payer MEDICARE, OTHER, SELFPAY | PROVIDERS: PCP Family Medicine; Visit Provider Internal Medicine Critical Care Medicine | DX: J84.9 Interstitial pulmonary disease, unspecified (principal); J44.9 Chronic obstructive pulmonary disease, unspecified; J30.9 Allergic rhinitis, unspecified | CPT/HCPCS: 82085; 82550; 85651; 86140; 86235; 86431 ==

== ENCOUNTER 2020-05-30 11:00 | Outpatient (CLI) | payer MEDICARE, OTHER, SELFPAY | END 2020-05-30 11:01 | disposition home or self-care (01) | LOC: SLEEP 05-31 14:37 | PROVIDERS: PCP Family Medicine; Visit Provider Internal Medicine Critical Care Medicine | DX: J44.9 Chronic obstructive pulmonary disease, unspecified (principal) | CPT/HCPCS: 94762 ==

== ENCOUNTER → 2020-07-02 10:34 | Outpatient (BNVA) | payer MEDICARE, OTHER, SELFPAY | PROVIDERS: PCP Family Medicine; Visit Provider Internal Medicine | DX: Z11.59 Encounter for screening for other viral diseases (principal) | CPT/HCPCS: 87635 ==

== ENCOUNTER → 2020-07-03 14:10 | Outpatient (BNVA) | payer MEDICARE, OTHER, SELFPAY | PROVIDERS: PCP Family Medicine; Visit Provider Internal Medicine | DX: I25.10 Atherosclerotic heart disease of native coronary artery without angina pectoris (principal); R76.8 Other specified abnormal immunological findings in serum; Z87.891 Personal history of nicotine dependence | CPT/HCPCS: 99202; 99203 ==

== ENCOUNTER → 2020-07-12 09:34 | Outpatient (BNVA) | payer MEDICARE, OTHER, SELFPAY | PROVIDERS: PCP Family Medicine; Referring Provider Family Medicine; Visit Provider Urology | DX: N48.1 Balanitis (principal) | CPT/HCPCS: 81001 ==

== ENCOUNTER 2020-07-16 12:56 | Outpatient (CLI) | payer MEDICARE, OTHER, SELFPAY ==
--- NOTE | 2020-07-16 12:45 | USCV_ITS ---
Rodríguez Cochran Age: 84 Gender: M : 1935 Exam Date: 07/16/2020 13:09 Ordering Phys: Raudel Granados MD ([email or web address]) Technologist: Susanne Bundy [place] [facility] [place]: AA RECHECK BP: 130 / 70 HR: 58 Rhythm: Sinus Technical Quality: Adequate MEASUREMENTS (Male / Female) Normal Values 2D ECHO LV Diastolic Diameter PLAX 4.0 cm 4.2 - 5.9 / 3.9 - 5.3 cm LV Systolic Diameter PLAX 2.7 cm LV Chamber Size 3.5 cm IVS Diastolic Thickness 1.3 cm 0.6 - 1.0 / 0.6 - 0.9 cm IVS Systolic Thickness 1.1 cm LVPW Diastolic Thickness 1.3 cm 0.6 - 1.0 / 0.6 - 0.9 cm LVPW Systolic Thickness 1.6 cm RV Chamber Size 3.4 cm LVOT Diameter 2.1 cm LV Ejection Fraction 2D Teich 61.0 % LV Ejection Fraction MOD 2C 36.5 % LV Ejection Fraction 2C AL 33.2 % LA Diameter 4.3 cm LA Width 2.9 cm LA Height 6.3 cm RA Width 2.8 cm RA Height 4.7 cm Aorta at Sinotubular Diameter 3.4 cm M-MODE LV Diastolic Diameter MM 4.0 cm 4.2 - 5.9 / 3.9 - 5.3 cm LV Systolic Diameter MM 2.7 cm LV Ejection Fraction MM Teich 61.3 % IVS Diastolic Thickness MM 1.4 cm 0.6 - 1.0 / 0.6 - 0.9 cm IVS Systolic Thickness MM 1.4 cm LVPW Diastolic Thickness MM 1.3 cm 0.6 - 1.0 / 0.6 - 0.9 cm LVPW Systolic Thickness MM 1.6 cm RV Diastolic Diameter MM 2.5 cm Aortic Annulus Diameter 5.2 cm LA Ao Ratio MM 0.8 MV E Point Septal Separation 0.4 cm DOPPLER AV Peak Velocity 111.0 cm/s LVOT Peak Velocity 85.0 cm/s AV Area Cont Eq vti 2.3 cm squared AV Area Cont Eq pk 2.6 cm squared MV Area PHT 3.2 cm squared Mitral E to A Ratio 1.0 MV E' Velocity 11.0 cm/s Mitral E to MV E' Ratio 9.2 Mitral E to LV E' Lateral Ratio 7.6 Mitral E to LV E' Septal Ratio 11.8 TR Peak Velocity 154.5 cm/s TR Peak Gradient 9.5 mmHg TR Mean Velocity 108.0 cm/s TR Mean Gradient 5.9 mmHg TR Velocity Time Integral 56.7 cm TV Peak E Velocity 58.0 cm/s PV Peak Velocity 65.0 cm/s RV Acceleration Time 0.1 s RV Ejection Time 0.4 s RV AcT/ET 0.3 FINDINGS Left Ventricle Normal left ventricular size, systolic function and wall thickness, with no regional wall motion abnormalities. Left ventricular ejection fraction is estimated at 70 %. Normal diastolic function. Right Ventricle Normal right ventricular size and systolic function. Right ventricular systolic pressure 13 mmHg. Right Atrium Mildly increased right atrial size. Right atrial pressure estimated at 3 mmHg. Left Atrium Moderately increased increased left atrial size. Mitral Valve Structurally normal mitral valve. No mitral valve stenosis. Trace mitral valve regurgitation. Aortic Valve Mildly thickened trileaflet aortic valve. No aortic valve stenosis. No aortic valve regurgitation. Tricuspid Valve Structurally normal tricuspid valve. Trace tricuspid valve regurgitation. Pulmonic Valve Pulmonic valve not well visualized. Pericardium No pericardial effusion. Normal-sized inferior vena cava. Aorta Aortic root at sinus of Valsalva measured at 42 mm and ascending aorta measured at 44 mm. Aortic arch measured at 30 mm. CONCLUSIONS 1. Normal left ventricular size, systolic function and wall thickness, with no regional wall motion abnormalities. Left ventricular ejection fraction is estimated at 70 %. Normal diastolic function. 2. Normal pulmonary artery pressure. 3. Aortic root at sinus of Valsalva measured at 42 mm and ascending aorta measured at 44 mm (previously measured at 45 mm). 4. There has been no significant change when compared to previous echocardiogram dated 01/11/2020 Cher Tolentino MD (Electronically Signed) Final Date: 18 July 2020 16:57 S
== END 2020-07-16 12:57 | disposition home or self-care (01) ==
LOC: US 12:56
PROVIDERS: PCP Family Medicine; Visit Provider Internal Medicine Cardiovascular Disease
DX: I77.810 Thoracic aortic ectasia; R76.8 Other specified abnormal immunological findings in serum
CPT/HCPCS: 36415; 84443; 93306

== ENCOUNTER → 2020-11-08 11:03 | Outpatient (BNVA) | payer MEDICARE, OTHER, SELFPAY | PROVIDERS: PCP Family Medicine; Visit Provider Internal Medicine Rheumatology | DX: M35.00 Sjogren syndrome, unspecified (principal); R76.8 Other specified abnormal immunological findings in serum; Z79.899 Other long term (current) drug therapy; J84.9 Interstitial pulmonary disease, unspecified; Z87.891 Personal history of nicotine dependence | CPT/HCPCS: 36415; 81001; 82565; 82570; 84156; 84520; 99214 ==

== ENCOUNTER 2020-11-23 15:17 | Emergency (ER) | payer MEDICARE, OTHER, SELFPAY ==
[2020-11-23 15:20] VITALS: BP 144/81; PULSE 65; RESP 16; TEMP 37; O2SAT 95; BMI 25.8
[2020-11-23 15:27] VITALS: RESP 18
--- NOTE | 2020-11-23 15:28 | W.ED.GENADLT ---
Documented by User: [email or web address] Weir 11/24/20 07:12 HPI - General Adult General: Chief complaint: General Medical Stated complaint: lump on throat Time Seen by Provider: 11/23/20 15:28 Source: patient Mode of arrival: ambulatory Limitations: no limitations History of Present Illness: HPI narrative: Patient is an 84-year-old male who presents to ED today for evaluation of a lump that he noticed to his anterior neck a few hours ago. Patient states the lump could have been present much longer and just have not noticed it . He tells me his told him she believes of the left side of his face is swollen. Patient has no physical complaints at this time. He is not complaining of difficulty swallowing. He does have a history of thyroid disease and states this has been controlled with his dose of levothyroxine. Onset (ago): hour(s) Radiation: non-radiation Pain Consistency: other (no pain) Associated symptoms: Reports no associated symptoms; Deny chest pain, dyspnea, headache(s), malaise, nausea, rash or vomiting Treatments prior to arrival: none Review of Systems Const: Denies: fever(s), chills, body aches, change in appetite, change in weight, fatigue, malaise, change in sleep pattern or daytime sleepiness Eyes: Denies: change in vision ENMT: Reports: other (reports anterior neck swelling); Denies: throat pain, uvular edema, enlarged tonsils, odynophagia, hoarseness, mouth pain, swelling of lips/tongue, oral sores or nasal congestion Card: Denies: chest pain Resp: Denies: dyspnea GI: Denies: nausea or vomiting Musc: Denies: neck pain, back pain, extremity pain, extremity swelling, joint pain or joint swelling Skin/Breast: Denies: rash Neuro: Denies: headache(s), numbness in extremities, weakness in extremities or sensory changes PFS ED PFSH: Medical History (Updated 11/23/20 @ 18:12 by VICKIE Mohr) Ascending aortic aneurysm ASHD (arteriosclerotic heart disease) Balanitis CAD (coronary artery disease) -follows up with Dr. Granados Cerebrovascular accident (CVA) determined by clinical assessment Dyslipidemia Emphysema/COPD High risk medication use History of nonmelanoma skin cancer HTN (hypertension) -low to low normal BP; continue to monitor vital signs -continue oral antihypertensives, hold if hypotension Hypothyroidism -continue levothyroxine Immunization counseling Obesity SS-B antibody positive Surgical History H/O hemorrhoidectomy S/P PTCA (percutaneous transluminal coronary angioplasty) Family History Brother Cancer PANCREATIC Stroke Other CAD (coronary artery disease) Social History Smoking and tobacco status: former smoker Quit status (tobacco): has quit using tobacco Year quit tobacco: 1994 - PD x 45 Years Second hand smoke exposure: No Smoking risk assessment/counseling performed?: No Alcohol intake: current Alcohol intake frequency: holidays/special occasions only Counseling given: No Desire information about substance/drug rehabilitation?: No Counseling given: No Lives independently: Yes Household members: spouse Marital status: Current occupational status: retired History of recent travel: No Current gender identity: Male Physical Exam Const: COMMON NORMALS: no acute distress, average body habitus, patient oriented x3, no limitations, healthy appearing, alert and well nourished ORIENTATION/CONSCIOUSNESS: Yes oriented to person, Yes oriented to place and Yes oriented to time HENMT: COMMON NORMALS: normocephalic, atraumatic, external ears normal and Normal external nose present HEAD & SCALP: normal to inspection, normocephalic and atraumatic FACE & SINUS: normal facial exam and sinuses nontender NOSE: Normal external nose present EXTERNAL EAR: Yes external ears normal MOUTH: Normal oral and palatal mucosa present, lip normal and tongue normal THROAT: posterior oropharynx normal, tonsils normal and uvula midline; no uvular edema Eye: COMMON NORMALS: Equal, round and reactive pupils present and EOMs intact bilaterally GENERAL EYE: appearance normal, both eyes and all related structures and no exophthalmos PUPIL: Yes Equal, round and reactive pupils present Neck/C-Spine: COMMON NORMALS: full ROM, no lymphadenopathy and no meningeal signs THYROID: not firm, no masses, no nodules, no palpable nodules, nontender and no warm Resp: COMMON NORMALS: normal respiratory effort and clear to auscultation bilaterally AUSCULTATION: clear to auscultation bilaterally Cardio: COMMON NORMALS: regular rate and regular rhythm RATE: regular rate RHYTHM: regular rhythm Neuro: ROCKY COMA SCALE: document GCS findings [place] coma scale eye opening: Spontaneous [place] coma scale verbal response: Orientated Rocky coma scale motor response: Obey commands [place] coma scale total score: 15 COMMON NORMALS: patient oriented x3 SENSORIUM/ORIENTATION: Yes alert, Yes oriented to person, Yes oriented to place and Yes oriented to time MENINGEAL SIGNS: Yes no meningeal signs Skin: COMMON NORMALS: no rashes or lesions noted GENERAL SKIN EXAM: no rashes or lesions noted Course Vital Signs: Vital signs: Vital Signs Temperature 98.6 F 11/23/20 15:20 Pulse Rate 65 11/23/20 15:20 Respiratory Rate 18 11/23/20 17:30 Blood Pressure 144/81 11/23/20 15:20 Pulse Oximetry 95 11/23/20 15:20 MDM - General Adult Lab Data: Labs: Lab Results 11/23/20 11/23/20 Range/Units 16:15 16:15 WBC 8.7 (4.0-10.0) 10^3/ uL RBC 4.61 (4.1-5.3) 10^6/u L Hgb 14.2 (11.7-16.6) g/dL Hct 43.2 (42.0-52.0) % MCV 93.7 (80-94) fL MCH 30.8 (28.0-34.0) pg MCHC 32.9 (30.0-36.0) g/dL RDW 15.9 H (12.1-15.1) % Plt Count 179 (130-400) 10^3/c mm MPV 8.8 (7.4-10.4) fL Neut % (Auto) 75.8 % Lymph % (Auto) 18.9 % Stanton % (Auto) 3.4 % Eos % (Auto) 0.3 % Baso % (Auto) 0.3 % Neut # (Auto) 6.62 (1.8-7.7) 10^3/u L Lymph # (Auto) 1.7 (0.8-4.8) 10^3/u L Stanton # (Auto) 0.3 (0.2-0.9) 10^3/u L Eos # (Auto) 0.0 (0.0-0.8) 10^3/u L Baso # (Auto) 0.0 (0.0-0.1) 10^3/u L Nucleated RBC % (a uto) 0 % Nucleated RBCs # 0.0 /100WBC Sodium 135 L (136-145) mmol/L Potassium 5.0 (3.5-5.1) mmol/L Chloride 101 (98-107) mmol/L Carbon Dioxide 23 (22-29) mmol/L Anion Gap 16.0 (5-19) BUN 28 H (8-23) mg/dL Creatinine 1.2 (0.7-1.2) mg/dL GFR Calculation Not Reportable Glucose 146 H (65-115) mg/dL Calculated Osmolal ity 288 (285-295) mOsm/k g Calcium 9.6 (8.5-10.5) mg/dL Total Bilirubin 0.5 (0.15-1.2) mg/dL AST 19 (0-40) U/L ALT 32 (0-41) U/L Alkaline Phosphata se 49 (40-130) IU/L Total Protein 6.3 L (6.6-8.7) g/dL Albumin 3.7 (3.5-5.2) g/dL Globulin 2.6 (1.3-4.6) g/dL TSH 1.67 (0.27-4.20) uIU/ mL Free T4 1.49 (0.82-1.77) ng/d L Imaging Data^: US thyroid : Radiologist's impression: [place] [address] Ultrasound Report Signed Patient: Rodríguez Cochran #: [id number] : 1936Acct#:[id number] Age/Sex: 84 / MADM Date: 11/23/20 Loc: ERRoom/Bed: Attending Dr: Ordering Provider/Ordering MD: Yecenia Cunha Date of Service: 11/23/20 Procedure(s): US thyroid 35802 Accession Number(s): [id number] Report Number: [id number] WS: [id number] THYROID ULTRASOUND HISTORY: goiter COMPARISON: None available. Right lobe: 3.6 cm x 1.3 cm x 1.6 cm. Volume: 4.0 cm3. Heterogeneous gland with no nodule. Tiny colloid cyst mid RIGHT gland. No increased vascularity. Left lobe: 3.9 cm x 1.3 cm x 1.6 cm. Volume: 4.2 cm3. Heterogeneous gland with no nodule or increased vascularity. Isthmus: 0.5 cm. No neck mass identified. US/ thyroid [id number] IMPRESSION: No thyroid or neck mass identified. Dictated By:Amanda Turcios DO Signed By:Amanda Turcios DOSigned Date/Time:11/23/201556 DD/ 54 Discharge Plan Discharge Patient Disposition: Home Clinical Impression: Localized swelling, mass or lump of neck, Fat pad Hypothyroid Qualifiers: Hypothyroidism type: unspecified Qualified Code(s): E03.9 - Hypothyroidism, unspecified Condition: Stable Prescriptions: No Action rosuvastatin [Crestor] 10 mg tablet 10 mg PO DAILY@2300 RF: 0 metoprolol succinate [Toprol XL] 25 mg tablet extended release 24 hr 25 mg PO DAILY@0900 RF: 0 pantoprazole [Protonix] 40 mg tablet,delayed release (DR/EC) 40 mg PO DAILY@0900 RF: 0 levothyroxine 50 mcg tablet 50 mcg PO DAILY@0800 RF: 0 clopidogrel 75 mg tablet 75 mg PO DAILY@0900 RF: 0 mycophenolate mofetil 500 mg tablet See Rx Instructions PO BID 90 Days Qty: 270 RF: 0 loratadine [Allergy Relief (loratadine)] 10 mg tablet 10 mg PO DAILY PRN (Reason: Allergy Symptoms) RF: 0 sulfamethoxazole-trimethoprim [Bactrim DS] 800-160 mg tablet 1 tab PO .COMPLEX Qty: 60 RF: 0 umeclidinium-vilanterol [Anoro Ellipta] 62.5-25 mcg/actuation blister with device See Rx Instructions .ROUTE .COMPLEX Qty: 120 RF: 5 docusate sodium 100 mg Tablet 200 mg PO BEDTIME@2300 RF: 0 Fiber Laxative (psyllium husk) capsule 2 caplet PO BID@0900,2300 RF: 0 multivitamin Tablet 1 tab PO DAILY@2300 RF: 0 prednisone 20 mg Tablet 20 mg PO DAILY@0900 RF: 0 Aspir-81 81 mg Tablet,Delayed Release (Dr/Ec) 81 mg PO DAILY@0900 RF: 0 alprazolam 0.25 mg tablet 0.25 mg PO BEDTIME@2300 RF: 0 Micardis 20 mg tablet 20 mg PO DAILY@0900 RF: 0 ibuprofen 200 mg Tablet 200 - 400 mg PO Q4H PRN (Reason: Pain) RF: 0 Discharge Orders: Discharge ED (Routine); Ordered 11/23/20 Ordered By: Elvira Lunsford Referrals: Julio Mccracken DO [Primary Care Provider] - Discharge Diet: Usual diet Discharge Activity: Resume usual activity Patient Instructions: Hypothyroidism (ED) Activity Restrictions/Additional Instructions: Continue current medications as prescribed Return to the emergency department if you develop concerning/worsening symptoms such as difficulty swallowing, pain in the neck, fever or enlargement Continue follow-up with your primary care provider Sign Out Sign Out Data: Patient Sign Out occurred on 11/23/20 at 17:17. Patient's care was discussed, and care was transferred from to VICKIE Mohr. Coding Level of Care Code ED Campus Monitor for Chg Fwd Exam Comprehensive Documented by User: VICKIE Mohr 11/23/20 18:36 HPI - General Adult General: Chief complaint: General Medical Stated complaint: lump on throat Time Seen by Provider: 11/23/20 15:28 PFSH ED PFSH: Medical History (Updated 11/23/20 @ 18:12 by VICKIE Mohr) Ascending aortic aneurysm ASHD (arteriosclerotic heart disease) Balanitis CAD (coronary artery disease) -follows up with Dr. Granados Cerebrovascular accident (CVA) determined by clinical assessment Dyslipidemia Emphysema/COPD High risk medication use History of nonmelanoma skin cancer HTN (hypertension) -low to low normal BP; continue to monitor vital signs -continue oral antihypertensives, hold if hypotension Hypothyroidism -continue levothyroxine Immunization counseling Obesity SS-B antibody positive Surgical History H/O hemorrhoidectomy S/P PTCA (percutaneous transluminal coronary angioplasty) Family History Brother Cancer PANCREATIC Stroke Other CAD (coronary artery disease) Social History Smoking and tobacco status: former smoker Quit status (tobacco): has quit using tobacco Year quit tobacco: 1994 - 2PPD x 45 Years Second hand smoke exposure: No Smoking risk assessment/counseling performed?: No Alcohol intake: current Alcohol intake frequency: holidays/special occasions only Counseling given: No Desire information about substance/drug rehabilitation?: No Counseling given: No Lives independently: Yes Household members: spouse Marital status: Current occupational status: retired History of recent travel: No Current gender identity: Male Course Vital Signs: Vital signs: Vital Signs Temperature 98.6 F 11/23/20 15:20 Pulse Rate 65 11/23/20 15:20 Respiratory Rate 18 11/23/20 17:30 Blood Pressure 144/81 11/23/20 15:20 Pulse Oximetry 95 11/23/20 15:20 MDM - General Adult MDM Narrative: Medical decision making narrative: 84-year-old male patient presents to the emergency department with concern of abnormal swelling to the lower anterior neck. Ultrasound of the thyroid with normal findings; TSH and free T4 with normal findings; CBC and CMP without acute findings as well; he has completed high-dose steroid treatment, findings consistent with steroid-induced skin changes, no acute findings of facial changes noted upon exam. He reports has CT scan of the chest scheduled next week along with a follow-up appointment with Dr. 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 I discussed prednisone use and skin changes that can occur including cartwright face appearance and other skin changes as well as development of fat pads, fat pad prominence noted to the base of the anterior neck as cause of his concern. Lab Data: Labs: Lab Results 11/23/20 11/23/20 Range/Units 16:15 16:15 WBC 8.7 (4.0-10.0) 10^3/ uL RBC 4.61 (4.1-5.3) 10^6/u L Hgb 14.2 (11.7-16.6) g/dL Hct 43.2 (42.0-52.0) % MCV 93.7 (80-94) fL MCH 30.8 (28.0-34.0) pg MCHC 32.9 (30.0-36.0) g/dL RDW 15.9 H (12.1-15.1) % Plt Count 179 (130-400) 10^3/c mm MPV 8.8 (7.4-10.4) fL Neut % (Auto) 75.8 % Lymph % (Auto) 18.9 % Stanton % (Auto) 3.4 % Eos % (Auto) 0.3 % Baso % (Auto) 0.3 % Neut # (Auto) 6.62 (1.8-7.7) 10^3/u L Lymph # (Auto) 1.7 (0.8-4.8) 10^3/u L Stanton # (Auto) 0.3 (0.2-0.9) 10^3/u L Eos # (Auto) 0.0 (0.0-0.8) 10^3/u L Baso # (Auto) 0.0 (0.0-0.1) 10^3/u L Nucleated RBC % (a uto) 0 % Nucleated RBCs # 0.0 /100WBC Sodium 135 L (136-145) mmol/L Potassium 5.0 (3.5-5.1) mmol/L Chloride 101 (98-107) mmol/L Carbon Dioxide 23 (22-29) mmol/L Anion Gap 16.0 (5-19) BUN 28 H (8-23) mg/dL Creatinine 1.2 (0.7-1.2) mg/dL GFR Calculation Not Reportable Glucose 146 H (65-115) mg/dL Calculated Osmolal ity 288 (285-295) mOsm/k g Calcium 9.6 (8.5-10.5) mg/dL Total Bilirubin 0.5 (0.15-1.2) mg/dL AST 19 (0-40) U/L ALT 32 (0-41) U/L Alkaline Phosphata se 49 (40-130) IU/L Total Protein 6.3 L (6.6-8.7) g/dL Albumin 3.7 (3.5-5.2) g/dL Globulin 2.6 (1.3-4.6) g/dL TSH 1.67 (0.27-4.20) uIU/ mL Free T4 1.49 (0.82-1.77) ng/d L Discharge Plan Discharge Patient Disposition: Home Clinical Impression: Localized swelling, mass or lump of neck, Fat pad Hypothyroid Qualifiers: Hypothyroidism type: unspecified Qualified Code(s): E03.9 - Hypothyroidism, unspecified Condition: Stable Prescriptions: No Action rosuvastatin [Crestor] 10 mg tablet 10 mg PO DAILY@2300 RF: 0 metoprolol succinate [Toprol XL] 25 mg tablet extended release 24 hr 25 mg PO DAILY@0900 RF: 0 pantoprazole [Protonix] 40 mg tablet,delayed release (DR/EC) 40 mg PO DAILY@0900 RF: 0 levothyroxine 50 mcg tablet 50 mcg PO DAILY@0800 RF: 0 clopidogrel 75 mg tablet 75 mg PO DAILY@0900 RF: 0 mycophenolate mofetil 500 mg tablet See Rx Instructions PO BID 90 Days Qty: 270 RF: 0 loratadine [Allergy Relief (loratadine)] 10 mg tablet 10 mg PO DAILY PRN (Reason: Allergy Symptoms) RF: 0 sulfamethoxazole-trimethoprim [Bactrim DS] 800-160 mg tablet 1 tab PO .COMPLEX Qty: 60 RF: 0 umeclidinium-vilanterol [Anoro Ellipta] 62.5-25 mcg/actuation blister with device See Rx Instructions .ROUTE .COMPLEX Qty: 120 RF: 5 docusate sodium 100 mg Tablet 200 mg PO BEDTIME@2300 RF: 0 Fiber Laxative (psyllium husk) capsule 2 caplet PO BID@0900,2300 RF: 0 multivitamin Tablet 1 tab PO DAILY@230 RF: 0 prednisone 20 mg Tablet 20 mg PO DAILY@0900 RF: 0 Aspir-81 81 mg Tablet,Delayed Release (Dr/Ec) 81 mg PO DAILY@0900 RF: 0 alprazolam 0.25 mg tablet 0.25 mg PO BEDTIME@2300 RF: 0 Micardis 20 mg tablet 20 mg PO DAILY@0900 RF: 0 ibuprofen 200 mg Tablet 200 - 400 mg PO Q4H PRN (Reason: Pain) RF: 0 Discharge Orders: Discharge ED (Routine); Ordered 11/23/20 Ordered By: Elvira Lunsford Referrals: Julio Mccracken, DO [Primary Care Provider] - Discharge Diet: Usual diet Discharge Activity: Resume usual activity Patient Instructions: Hypothyroidism (ED) Activity Restrictions/Additional Instructions: Continue current medications as prescribed Return to the emergency department if you develop concerning/worsening symptoms such as difficulty swallowing, pain in the neck, fever or enlargement Continue follow-up with your primary care provider Sign Out Sign Out Data: Patient Sign Out occurred on 11/23/20 at 17:17. Patient's care was discussed, and care was transferred from to VICKIE Mohr. Coding Level of Care Code ED Campus Monitor for Chg Fwd Exam Comprehensive
[2020-11-23 16:22] LABS: Basophils % 0.3 %; Eosinophils % 0.3 %; Hematocrit 43.2 % (42.0-52.0); Hemoglobin 14.2 g/dL (11.7-16.6); Lymphocytes # 1.7 10^3/uL (0.8-4.8); Lymphocytes % 18.9 %; Mean Corpuscular HGB Conc 32.9 g/dL (30.0-36.0); Mean Corpuscular Hemoglobin 30.8 pg (28.0-34.0); Mean Corpuscular Volume 93.7 fL (80-94); Mean Platelet Volume 8.8 fL (7.4-10.4); Monocytes # 0.3 10^3/uL (0.2-0.9); Monocytes % 3.4 %; Neutrophils # 6.62 10^3/uL (1.8-7.7); Neutrophils % 75.8 %; Nucleated Red Blood Cells % 0 %; Platelet Count 179 10^3/cmm (130-400); Red Blood Count 4.61 10^6/uL (4.1-5.3); Red Cell Distribution Width 15.9 % (12.1-15.1); White Blood Count 8.7 10^3/uL (4.0-10.0)
[2020-11-23 17:07] LABS: Alanine Aminotransferase 32 U/L (0-41); Albumin Level 3.7 g/dL (3.5-5.2); Alkaline Phosphatase 49 IU/L (40-130); Aspartate Amino Transferase 19 U/L (0-40); Blood Urea Nitrogen 28 mg/dL (8-23); Calcium 9.6 mg/dL (8.5-10.5); Carbon Dioxide 23 mmol/L (22-29); Chloride 101 mmol/L (98-107); Free T4 Free Thyroxine 1.49 ng/dL (0.82-1.77); Globulin 2.6 g/dL (1.3-4.6); Glucose 146 mg/dL (65-115); Osmolality Calculated 288 mOsm/kg (285-295); Sodium 135 mmol/L (136-145); Thyroid Stimulating Hormone 1.67 uIU/mL (0.27-4.20); Total Bilirubin 0.5 mg/dL (0.15-1.2); Total Protein 6.3 g/dL (6.6-8.7)
[2020-11-23 17:27] VITALS: RESP 18
[2020-11-23 17:30] VITALS: RESP 18
== END 2020-11-23 17:30 | disposition home or self-care (01) ==
PROVIDERS: Physician Assistant; Emergency Provider Nurse Practitioner Family; PCP Family Medicine
DX: R22.1 Localized swelling, mass and lump, neck (principal); E03.9 Hypothyroidism, unspecified; Z79.02 Long term (current) use of antithrombotics/antiplatelets; Z79.82 Long term (current) use of aspirin; I25.10 Atherosclerotic heart disease of native coronary artery without angina pectoris; E78.5 Hyperlipidemia, unspecified; J44.9 Chronic obstructive pulmonary disease, unspecified; I10 Essential (primary) hypertension; Z87.891 Personal history of nicotine dependence
CPT/HCPCS: 12345; 76536; 80053; 84439; 84443; 85025; 87635; 99281; 99283

== ENCOUNTER 2020-11-27 08:58 | Outpatient (CLI) | payer MEDICARE, OTHER, SELFPAY ==
--- NOTE | 2020-11-27 11:00 | CT_ITS ---
WS: [id number] CT CHEST HIGH-RESOLUTION TECHNIQUE: High-resolution Noncontrast CT of the chest with inspiratory and expiratory and prone imag ing CLINICAL INFORMATION: Interstitial lung disease COMPARISON: CT May 03, 2020 DLP: 284.[address] scans at [facility] use at least one of these dose optimization techniques: automat ed exposure control; mA and/or kV adjustment per patient size (includes targeted exams where dose is matched to clinical indication); or iterative reconstruction. FINDINGS: Again seen is chronic interstitial lung disease with pulmonary fibrosis. Areas of subpleural honeycom nathan are similar in appearance to the prior examination. Periseptal emphysematous changes. No focal c onsolidation or pleural fluid. Scattered interstitial fibrosis in both lungs. A few calcified granulo mas. No significant air trapping on the expiratory imaging. Traction bronchiectasis is seen in the left greater than right upper lobes, right middle lobe and horacio gula. Traction bronchiectasis in the lower lobes bilaterally. Previously described numerous mediastinal lymph nodes have decreased in prominence in number compared to previous. Partially visualized right renal cyst. Fatty atrophy of the pancreas. Vascular calcific ation including coronary. Cardiomegaly. CT/CT chest wo con [id number] IMPRESSION: 1. Stable findings of chronic interstitial lung disease with subpleural honeyc ombing and interstitial fibrosis. 2. Traction bronchiectasis similar in appearance as described above. 3. Previously described anterior mediastinal and peribronchial lymph nodes hav e decreased in size and number.
--- NOTE | 2020-11-27 11:11 | PFTS_ITS ---
Date of Study:11/27/20 Date of Dictation: MECHANICS: Forced vital capacity (FVC) is normal. Forced expiratory volume in one second (FEV1) is normal. FEV1/FVC is normal. FLOW VOLUME LOOP: Normal LUNG VOLUMES: Total lung capacity (TLC) is reduced. Residual volume (RV) is reduced. DIFFUSING CAPACITY FOR CARBON MONOXIDE: Moderately reduced. INTERPRETATION: The prebronchodilator spirometry is normal. Lung volumes showed mild reduction of total lung capacity and a high reduction of residual volume. This could be consistent with early interstitial lung disease. Gas exchange (DLCO) is moderately reduced. MTDD
== END 2020-11-27 08:59 | disposition home or self-care (01) ==
LOC: RT 09:02
PROVIDERS: PCP Family Medicine; Visit Provider Internal Medicine Critical Care Medicine
DX: J84.89 Other specified interstitial pulmonary diseases (principal); J47.9 Bronchiectasis, uncomplicated
CPT/HCPCS: 71250; 94010; 94726; 94729

== ENCOUNTER 2021-01-31 18:02 | Emergency (ER) | payer MEDICARE, OTHER, SELFPAY ==
[2021-01-31 18:17] VITALS: BP 137/71; PULSE 70; RESP 18; TEMP 36.6; O2SAT 92; BMI 27.6
--- NOTE | 2021-01-31 20:34 | ED_ITS ---
HPI - General Adult General: Chief complaint: General Medical Stated complaint: knot/lumps in right breast, pain underneath breast Time Seen by Provider: 01/31/21 20:34 Source: patient Mode of arrival: ambulatory Limitations: no limitations History of Present Illness: HPI narrative: 85-year-old male patient comes in today with mass to the right breast area that was recognized 3 weeks ago when patient was in [place]. Patient does have a familial history for breast cancer. Patient takes medications for Sojourn syndrome, COPD, ASHD, and skin cancer. Patient returned to [facility] today was referred to the ER by Dr. Madrid for evaluation and further treatment recommendations. Review of Systems General: Reports: 10 or more systems reviewed and unremarkable except in HPI and below Skin/Breast: Reports: breast mass and other PFSH ED PFSH: Medical History Ascending aortic aneurysm ASHD (arteriosclerotic heart disease) Balanitis CAD (coronary artery disease) -follows up with Dr. Granados Cerebrovascular accident (CVA) determined by clinical assessment Dyslipidemia Emphysema/COPD High risk medication use History of nonmelanoma skin cancer HTN (hypertension) -low to low normal BP; continue to monitor vital signs -continue oral antihypertensives, hold if hypotension Hypothyroidism -continue levothyroxine Immunization counseling Obesity SS-B antibody positive Surgical History H/O hemorrhoidectomy S/P PTCA (percutaneous transluminal coronary angioplasty) Family History Brother Cancer PANCREATIC Stroke Other CAD (coronary artery disease) Social History Smoking and tobacco status: former smoker Quit status (tobacco): has quit using tobacco Year quit tobacco: 1994 - PD x 45 Years Second hand smoke exposure: No Smoking risk assessment/counseling performed?: No Alcohol intake: current Alcohol intake frequency: holidays/special occasions only Counseling given: No Desire information about substance/drug rehabilitation?: No Counseling given: No Lives independently: Yes Household members: spouse Marital status: service: Yes Current occupational status: retired History of recent travel: No Current gender identity: Male Special chinedu needs: No Physical Exam Const: COMMON NORMALS: no acute distress and patient oriented x3 GENERAL APPEARANCE: cooperative HENMT: COMMON NORMALS: normocephalic and Normal external nose present HEAD & SCALP: normal to inspection and normocephalic NOSE: Normal external nose present MOUTH: Normal oral and palatal mucosa present THROAT: posterior oropharynx normal Eye: GENERAL EYE: appearance normal, both eyes and all related structures Neck/C-Spine: COMMON NORMALS: full ROM Lymph: LYMPHATIC: no lymphadenopathy noted Chest: NIPPLE/AREOLA: Yes nipple abnormal Nipple abnormal details: inversion (Right nipple has inversion and retraction.) OTHER: Palpable mass noted to the area of the right areola extending past the margins. Mild dimpling is noted of the skin. Resp: COMMON NORMALS: normal respiratory effort EFFORT & INSPECTION: Yes able to speak in complete sentences Cardio: COMMON NORMALS: regular rate and regular rhythm RATE: regular rate RHYTHM: regular rhythm GI: COMMON NORMALS: non-tender : COMMON NORMALS: Yes no CVA tenderness BLADDER/KIDNEY EXAM: Yes no CVA tenderness Back/Pelvis: COMMON NORMALS: no CVA tenderness and thoracic and lumbar spine normal to inspection Extremity: COMMON NORMALS: normal to inspection Neuro: COMMON NORMALS: patient oriented x3 and moves all extremities Psych: COMMON NORMALS: mental status grossly normal and cooperative Skin: COMMON NORMALS: no rashes or lesions noted GENERAL SKIN EXAM: no rashes or lesions noted Course Vital Signs: Vital signs: Vital Signs Temperature 97.8 F 01/31/21 18:17 Pulse Rate 70 01/31/21 18:17 Respiratory Rate 18 01/31/21 18:17 Blood Pressure 137/71 01/31/21 18:17 Pulse Oximetry 92 01/31/21 18:17 MDM - General Adult MDM Narrative: Medical decision making narrative: Patient comes in today for concerns of breast mass. On exam we palpate a irregularity of the breast tissue surrounding the right areola. He noticed dimpling in that area and also inversion of the nipple. No redness or tenderness is noted to palpation. Respirations are even lungs are clear to auscultation. Skin is warm and dry. Differential diagnosis includes not limited to breast cancer, fibrosis, abscess. Ultrasound was suspicious for solid mass to the area in question. I will recommend case management to set up patient for surgical evaluation and biopsy. Patient reports understanding and agrees to plan. Discharge Plan Discharge Patient Disposition: Home Clinical Impression: Breast mass in male Condition: Stable Prescriptions: No Action clopidogrel 75 mg tablet 75 mg PO QAM RF: 0 telmisartan 20 mg tablet 20 mg PO QAM RF: 0 pantoprazole [Protonix] 40 mg tablet,delayed release (DR/EC) 40 mg PO QAM RF: 0 levothyroxine [Synthroid] 50 mcg tablet 50 mcg PO QAM RF: 0 metoprolol succinate [Toprol XL] 25 mg tablet extended release 24 hr 25 mg PO QAM RF: 0 rosuvastatin [Crestor] 10 mg tablet 10 mg PO QPM RF: 0 aspirin [Adult Aspirin Regimen] 81 mg tablet,delayed release (DR/EC) 81 mg PO QPM RF: 0 docusate sodium 100 mg capsule 200 mg PO BID RF: 0 loratadine [Claritin] 10 mg tablet 10 mg PO QAM RF: 0 azathioprine 50 mg tablet 50 mg PO BID Qty: 120 RF: 0 Fiber Laxative (psyllium husk) capsule 2 tab PO BID RF: 0 alprazolam 0.25 mg tablet 0.25 mg PO BEDTIME PRN (Reason: unknown) RF: 0 multivitamin Tablet 1 tab PO QPM RF: 0 Restasis MultiDose 0.05 % drops 1 drp ophthalmic (eye) BID RF: 0 prednisone 5 mg tablet 5 mg PO QAM RF: 0 Anoro Ellipta 62.5-25 mcg/actuation blister with device 1 inh inhalation QAM RF: 0 Discharge Orders: Discharge ED (Routine); Ordered 01/31/21 Ordered By: Bala Self Referrals: Julio Mccracken DO [Primary Care Provider] - Discharge Diet: Usual diet Discharge Activity: Resume usual activity Patient Instructions: Opioid Safety Activity Restrictions/Additional Instructions: Case management should contact you tomorrow about surgical follow-up. You may call to talk to the ER charge nurse who can put you in contact with employment case manager if you do not hear from them by tomorrow afternoon. You will need a breast biopsy for definitive diagnosis. Follow-up with primary care as needed. Return to the emergency department for new concerns. Coding Level of Care Code ED [employer] for [employer] [facility] Exam Comprehensive
--- NOTE | 2021-01-31 20:43 | US_ITS ---
WS: [id number] ULTRASOUND BREAST RIGHT TECHNIQUE: Ultrasound right breast focused area of concern. CLINICAL INFORMATION: breast mass COMPARISON: None. FINDINGS: Ultrasound right breast near the nipple. Hypoechoic solid lesion at 12:00 measuring 5.4 x 5.5 x 4.4 m m. This has a suspicious appearance and recommend right diagnostic mammography and ultrasound guided biopsy. US/US breast RT limited* [id number] IMPRESSION: 1. Suspicious appearing hypoechoic solid lesion right breast measuring 5.4 x 5 .5 x 4.4 mm. RECOMMEND FURTHER EVALUATION WITH RIGHT DIAGNOSTIC MAMMOGRAPHY AND ULTRASOUND G UIDED BIOPSY.
[2021-01-31 21:55] VITALS: RESP 16
--- NOTE | 2021-02-01 08:08 | DCPLANNER ---
division manager had message to schedule a follow up appointment for patient with general surgery for a breast biopsy in a male. division manager emailed patients information to both Pamela and Pilar with general surgery. Patients information will be printed and reviewed. Clinic will call patient with appointment information.
--- NOTE | 2021-02-05 07:44 | DCPLANNER ---
Patient had a follow up appointment scheduled for 02.04.[address] Melendez at [facility] General Surgery - patient did attend appointment.
== END 2021-01-31 21:56 | disposition home or self-care (01) ==
PROVIDERS: Emergency Provider Nurse Practitioner Family; PCP Family Medicine
DX: N63.0 Unspecified lump in unspecified breast (principal); Z79.02 Long term (current) use of antithrombotics/antiplatelets; Z79.82 Long term (current) use of aspirin; I25.10 Atherosclerotic heart disease of native coronary artery without angina pectoris; Z86.73 Personal history of transient ischemic attack (TIA), and cerebral infarction without residual deficits; E78.5 Hyperlipidemia, unspecified; J43.9 Emphysema, unspecified; I10 Essential (primary) hypertension; Z87.891 Personal history of nicotine dependence
CPT/HCPCS: 76642; 99282

== ENCOUNTER 2021-02-08 10:21 | Outpatient (CLI) | payer MEDICARE, OTHER, SELFPAY ==
--- NOTE | 2021-02-08 10:28 | MM_ITS ---
WS: [id number] DIAGNOSTIC BILATERAL DIGITAL MAMMOGRAM WITH CAD HISTORY: N63.0 - Unspecified lump in unspecified breast COMPARISON: Ultrasound 01/31/2021. TECHNIQUE: Bilateral craniocaudad, mediolateral oblique, and mediolateral views are submitted. Comput er aided detection utilized. Breast composition: The breasts are almost entirely fatty. Lobulated soft tissue nodule and skin thic kening posterior to the RIGHT nipple. Nodular component measures 6.3 mm. There is mild thickening of the overlying areolar. No calcifications or significant nipple retraction. This corresponds to the ul trasound finding on 01/31/2021. This does not have the typical appearance of gynecomastia. MM/[place] [id number] IMPRESSION: BI-RADS: 4-Suspicious Finding-Biopsy Should Be Considered FOLLOW UP: Biopsy Recommended Ultrasound-guided biopsy recommended of the 6.3 mm mass in the RIGHT subareolar region. Not typical appearance for chronic or mass.
== END 2021-02-08 10:22 | disposition home or self-care (01) ==
PROVIDERS: PCP Family Medicine; Visit Provider Surgery
DX: N63.41 Unspecified lump in right breast, subareolar (principal)
CPT/HCPCS: 77066

== ENCOUNTER → 2021-02-12 15:12 | Outpatient (BNVA) | payer MEDICARE, OTHER, SELFPAY | PROVIDERS: PCP Family Medicine; Visit Provider Internal Medicine Rheumatology | DX: M35.00 Sjogren syndrome, unspecified (principal); J84.9 Interstitial pulmonary disease, unspecified; Z79.899 Other long term (current) drug therapy; R76.8 Other specified abnormal immunological findings in serum; Z87.891 Personal history of nicotine dependence | CPT/HCPCS: 99214 ==

== ENCOUNTER 2021-02-22 12:16 | Outpatient (CLI) | payer MEDICARE, OTHER, SELFPAY ==
--- NOTE | 2021-02-22 13:00 | US_ITS ---
WS: [id number] ULTRASOUND-GUIDED RIGHT BREAST BIOPSY CLINICAL INFORMATION: 6.3 mm Right subareolar breast mass COMPARISON: None. FINDINGS: The procedure including risks, benefits, and complications were discussed with the patient who agreed to proceed. Using sterile technique patient was prepped and draped in the usual sterile fashion. Aft er 1% lidocaine utilizing real-time ultrasound guidance 8 14-gauge cores were obtained of the right b reast lesion at the nipple. Subsequently a titanium clip was placed in the biopsy cavity. No immediat e complications. Pathology demonstrates 1. 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 Tumor Size: 0.9 cm (glass slide measurement) 4. No microcalcifications seen 5. Breast tumor studies ordered and pending at this time US/[place] [id number] IMPRESSION: 1. Uncomplicated ultrasound-guided right subareolar breast biopsy. 2. The pathology demonstrates moderately differentiated invasive ductal carcin ambika. Breast tumor studies are pending. See pathology report for further discuss ion. RECOMMEND BREAST SURGERY CONSULTATION FOR FURTHER EVALUATION BI-RADS: 6-Known Biopsy-Proven Malignancy FOLLOW UP: See Report
[2021-02-28 12:50] LABS: Miscellaneous Test See Scanned Lab Rpt
== END 2021-02-22 12:17 | disposition home or self-care (01) ==
LOC: RAD 12:17
PROVIDERS: PCP Family Medicine; Visit Provider Surgery
DX: N63.41 Unspecified lump in right breast, subareolar (principal); C50.021 Malignant neoplasm of nipple and areola, right male breast
CPT/HCPCS: 19083; 88305; 88361; 88374

== ENCOUNTER 2021-03-04 06:00 | Outpatient (RCR) | payer MEDICARE, OTHER, SELFPAY | END 2021-04-01 23:59 | disposition home or self-care (01) | LOC: SPT 06:00 | PROVIDERS: PCP Family Medicine; Referring Provider Surgery; Visit Provider Surgery | DX: C50.921 Malignant neoplasm of unspecified site of right male breast (principal) | CPT/HCPCS: 97140; 97161 ==

== ENCOUNTER 2021-03-06 07:31 | Day surgery (SDC) | payer MEDICARE, OTHER, SELFPAY ==
[2021-03-05 14:50] VITALS: BMI 27.6
[2021-03-06] VITALS (7 sets, daily range): BP systolic 104–126; BP diastolic 51–68; PULSE 49–67; RESP 12–20; TEMP 36.2–36.8; O2SAT 91–96
--- NOTE | 2021-03-06 07:54 | NM_ITS ---
WS: [id number] SENTINEL NODE TECHNIQUE: 1.1mci technetium 99m filtered sulfur colloid sentinel node injection CLINICAL INFORMATION: R Breast Mass COMPARISON: None. PROCEDURE: The procedure including risks, benefits, and complications were discussed; the patient agr eed to proceed. Patient was prepped and draped in usual sterile fashion. Subsequently, 1% lidocaine p reservative-free was administered at the 12:00, 3:00, 6:00, and 9:00 o'clock positions for local anes thesia. Subsequently, 4 aliquots of filtered technetium 99m sulfur colloid was injected into the subc utaneous soft tissues. A total dose of 1.1 mCi was administered. Patient tolerated the procedure well with no immediate complications. TX/TX sentinel node inject [id number] IMPRESSION: Uncomplicated right breast sentinel node injection with a total dose of 1.1 mCi .
--- NOTE | 2021-03-06 08:04 | ANES.PREANE2 ---
Pre-Anesthetic Assessment Pre-Anesthetic Assessment: Height/Weight: Height 1.78 m Weight 87.543 kg Pulse Resp BP Pulse Ox 67 18 114/68 96 03/06/21 07:51 03/06/21 07:51 03/06/21 07:51 03/06/21 07:51 Preop Diagnosis: Right breast cancer Proposed Procedure: Operation Date: 03/06/21 10:20 Proposed Procedures p Mastectomy Simple 14899 54901 C50.911(Right) - Marc Melendez MD s Sentinal Lymph Node Biopsy(Right) - Marc Melendez MD Was Beta Donaldo taken within 24 hours: N/A Was Clonidine taken within 24 hours: N/A Last intake: Intake Last Liquid Date 03/05/21 Last Liquid Time 19:00 Last Solid Date 03/05/21 Last Solid Time 19:00 Social: Social History: No alcohol and No tobacco Exam: Pre-Anes Outpt Exam: alert, oriented x 3, clear to auscultation bilaterally and regular rate & rhythm Airway: Submandibular: WNL Cervical ROM: WNL MP: 2 Dentition: False Pulmonary: Pulmonary: COPD CV/HEM: CV/HEM: CAD, HTN and PVD (Ascending Ao aneurysm) Musc/skel: Comments: Chronic steroids for Sjogren's Anesthetic Plan: ASA status: 3 Anesthesia: General Risk of > 500 ml blood loss (7ml/kg in children): No PFSH Anesthesia PFSH: Medical History (Updated 02/27/21 @ 10:19 by Marc Melendez MD) Ascending aortic aneurysm ASHD (arteriosclerotic heart disease) Balanitis Breast cancer, right CAD (coronary artery disease) -follows up with Dr. Granados Cerebrovascular accident (CVA) determined by clinical assessment Dyslipidemia Emphysema/COPD History of basal cell carcinoma History of nonmelanoma skin cancer HTN (hypertension) -low to low normal BP; continue to monitor vital signs -continue oral antihypertensives, hold if hypotension Hypothyroidism -continue levothyroxine Primary Sjogren's syndrome Surgical History (Updated 02/26/21 @ 14:05 by Marc Melendez MD) H/O hemorrhoidectomy History of colonoscopy 2014 History of ear surgery History of tonsillectomy S/P PTCA (percutaneous transluminal coronary angioplasty) Family History Brother Cancer PANCREATIC Stroke Other CAD (coronary artery disease) Social History Smoking and tobacco status: former smoker Quit status (tobacco): has quit using tobacco Year quit tobacco: 1994 - PD x 45 Years Second hand smoke exposure: No Smoking risk assessment/counseling performed?: No Alcohol intake: current Alcohol intake frequency: holidays/special occasions only Counseling given: No Desire information about substance/drug rehabilitation?: No Counseling given: No Lives independently: Yes Household members: spouse Marital status: service: Yes Current occupational status: retired History of recent travel: No Current gender identity: Male Special chinedu needs: No Data Anesthesia Cardiac Studies: No Data to Display
--- NOTE | 2021-03-06 08:10 | SUR.PREOP ---
0805: patient taken to [facility] for injection.
--- NOTE | 2021-03-06 08:34 | SUR.PREOP ---
Patient was injected with Tc99m Filtered Sulfur Colloid at 0815
--- NOTE | 2021-03-06 08:34 | W.PM.OPSUD ---
Surgery/Procedure H&P Update DATE OF PROCEDURE: March 06, 2021 DATE H&P PERFORMED: 02/26/21 H&P UPDATE INFORMATION: I have reviewed H&P completed within last 30 days, I have examined patient prior to procedure and No changes to prior documentation PREOP DIAGNOSIS: Right breast cancer PLANNED PROCEDURE: Operation Date: 03/06/21 10:20 Proposed Procedures p Mastectomy Simple [id number] C50.911(Right) - Marc Melendez MD s Sentinal Lymph Node Biopsy(Right) - Marc Melendez MD
[2021-03-06] MEDS: sodium chloride 0.9% 1,000 ML 30 ML IV (08:46)
[2021-03-06] MEDS: isosulfan blue 10 mg/mL SDV 5mL 50 MG (11:05)
--- NOTE | 2021-03-06 12:22 | PM.OP ---
Operative Report Date of procedure: March 06, 2021 Pre-op Diagnosis: Invasive ductal carcinoma right breast Post-op diagnosis: same Procedure Done: Right mastectomy Injection of 3 cc of 1% Lymphazurin Right axillary sentinel lymph node biopsy Specimens removed/disposition: 1. Right mastectomy, short stitch superior, long stitch lateral 2. Right axillary sentinel lymph node biopsy Surgeon: Marc Melendez Anesthesia: General Condition: stable Disposition: PACU Procedure: The patient was taken to the operating room and intubated under general anesthesia after IV antibiotic and instead. The right chest and arm was prepped and draped in a sterile manner. Using a 15 blade an elliptical incision was made around the nipple areolar complex and dermis was divided with electrocautery. Using electrocautery skin flaps were raised superiorly up to the second rib space, inferiorly to the inframammary line, medially up to the lateral edge of sternum and laterally up to the latissimus dorsi in the avascular plane. Using electrocautery the breast along with the pectoral fascia was dissected off the pectoralis muscle starting superiorly and medially and moving inferiorly and laterally. A short stitch was placed superiorly and long stitch was placed laterally using 2-0 silk on the partially excised breast specimen. The lateral edge of the breast was freed along with the axillary tail and the specimen was removed entirely from the operative field. There were couple of bleeding muscular branches from the pectoral muscle which were controlled with cautery. The wound was irrigated with warm water and the site was reexamined to ensure adequate hemostasis. There was no active bleeding noted. Surgifoam was placed at the mastectomy site for hemostasis. A technetium sulfur colloid had been injected previously by the radiologist in the periareolar area. 3 mL of 1% Lymphazurin was injected in the subareolar location. The clavipectoral fascia was divided with electrocautery and gentle dissection revealed lymphatics with stained lymph nodes. Using electrocautery the radioactive lymph nodes were dissected free. Examination of the axilla did not reveal any other radioactive lymph nodes. The clavipectoral fascia was approximated using 3-0 Vicryl suture. The skin flaps appeared healthy and of adequate thickness. The dermis was approximated using running 3-0 Vicryl suture and the skin was closed using running subcuticular 4-0 Monocryl suture and Dermabond. Fluffs and a Misha wrap was used for pressure dressing. Patient was transferred to the recovery room in stable condition.
--- NOTE | 2021-03-06 15:17 | ANE.PACU2 ---
Inpatient post-anesthesia follow up: Airway intact: Yes Vital signs: Temperature 97.7 F Pulse Rate 54 Respiratory Rate 16 Blood Pressure 109/59 Pulse Oximetry 96 Oxygen Delivery Me thod Room Air Oxygen Flow Rate 2 Fraction of Inspir ed Oxygen Hydration adequate: Yes Nausea and vomiting: No Pain level: 2 Mental status: Baseline
== END 2021-03-06 14:30 | disposition home or self-care (01) ==
PROVIDERS: PCP Family Medicine; Visit Provider Surgery
PROC: (CPT 19303; principal; 2021-03-06 10:10)
PROC: (CPT 19303; 2021-03-06 10:10)
DX: C50.921 Malignant neoplasm of unspecified site of right male breast (principal); I10 Essential (primary) hypertension; Z79.52 Long term (current) use of systemic steroids; E78.5 Hyperlipidemia, unspecified; J43.9 Emphysema, unspecified; E03.9 Hypothyroidism, unspecified; Z87.891 Personal history of nicotine dependence
CPT/HCPCS: 19303; 38525; 38792; 88305; A9541; J0690; J2250; J2405; J2704; J3010; J3490; J7030; Q9968

== ENCOUNTER 2021-03-25 08:42 | Outpatient (CLI) | payer OTHER, MEDICARE, SELFPAY ==
[2021-03-25 09:37] LABS: Free T4 Free Thyroxine 1.51 ng/dL (0.82-1.77); T3 Free 3.1 PG/ML (2.0-4.4); Thyroid Stimulating Hormone 2.65 uIU/mL (0.27-4.20)
== END 2021-03-25 08:43 | disposition home or self-care (01) ==
LOC: LAB 08:46
PROVIDERS: PCP Family Medicine; Visit Provider Orthopaedic Surgery
DX: E03.9 Hypothyroidism, unspecified (principal)
CPT/HCPCS: 36415; 84439; 84443; 84481

== ENCOUNTER → 2021-03-28 09:44 | Outpatient (BNVA) | payer MEDICARE, OTHER, SELFPAY | PROVIDERS: PCP Family Medicine; Visit Provider Internal Medicine Critical Care Medicine | DX: C50.021 Malignant neoplasm of nipple and areola, right male breast (principal); Z20.822 Contact with and (suspected) exposure to COVID-19 | CPT/HCPCS: 87635 ==

== ENCOUNTER 2021-04-02 09:09 | Outpatient (CLI) | payer MEDICARE, OTHER, SELFPAY ==
--- NOTE | 2021-04-02 12:41 | PFTS_ITS ---
Date of Study:04/02/21 Date of Dictation: MECHANICS: Forced vital capacity (FVC) is normal. Forced expiratory volume in one second (FEV1) is normal. FEV1/FVC is reduced. FLOW VOLUME LOOP: Mild scooping. LUNG VOLUMES: Total lung capacity (TLC) is reduced. Residual volume (RV) is reduced. DIFFUSING CAPACITY FOR CARBON MONOXIDE: Severely reduced. INTERPRETATION: The prebronchodilator spirometry is consistent with mild obstruction. The postbronchodilator spirometry results are likely erroneous. Lung volumes are consistent with restrictive lung disease. Gas exchange (DLCO) is severely reduced. MTDD
== END 2021-04-02 09:10 | disposition home or self-care (01) ==
PROVIDERS: PCP Family Medicine; Visit Provider Internal Medicine Critical Care Medicine
DX: J96.11 Chronic respiratory failure with hypoxia (principal)
CPT/HCPCS: 94060; 94726; 94729; J7611

== ENCOUNTER 2021-04-03 09:57 | Outpatient (CLI) | payer MEDICARE, OTHER, SELFPAY ==
--- NOTE | 2021-04-03 17:14 | ONC CON_ITS ---
Dr. Richards New Patient Note Patient: Rodríguez Cochran Unit #: [id number]: 1935 Dicatated By: Miryam Richards M.D.Date of Visit: Apr 03, 2021 Onc MED New Patient/Consult Referring Physician: Dr. CORNEL KIRBY M.D. History of Present Illness: Mr. Rodríguez Cochran, is a 85-year-old gentleman with recent history of knot/lumps in his right breast, as per patient he was [facility] [place] [facility] when he noticed a painless lump in his right breast but no overlying skin changes, no nipple discharge, patient has history of Sjogren's syndrome, COPD, skin cancer, patient came back to [place] and saw his PMD Dr. Sierra who ordered mammogram which was done on February 08, 2021 which showed lobulated soft tissue nodule and skin thickening posterior to the right nipple corresponds to ultrasound done on January 31, 2021, patient was referred to surgery and on February 22, 2021 patient underwent right subareolar breast mass needle core biopsy which confirmed moderately differentiated invasive ductal carcinoma grade 2 ER 99% positive MO 50% positive HER-2/joy negative, on March 06, 2021 patient underwent right modified mastectomy with right axillary sentinel lymph node biopsy, final pathology report showed 18 mm invasive tumor grade 2, with clear margins 0 out of 8 lymph node showed metastatic disease, T1c N0 M0. Patient tolerated procedure well now being evaluated for adjuvant therapy Patient denies any bony pains, denies any headaches blurred vision double vision., Patient is a former smoker quit smoking many years ago and 9095 but prior to that smoked for 45 years. Denies alcohol use on regular basis. Patient has history of hypothyroidism, on levothyroxine, coronary artery disease, status post PTCA, hypertension. History of nonmelanoma skin cancer removal. Past Medical History: Mr. Cochran's medical history consists of ascending aortic aneurysm, ASHD, balanitis, chronic obstructive pulmonary disease, coronary artery disease, dyslipidemia, emphysema, history of basal cell carcinoma, hypertension, hypothyroidism, Sjogren's syndrome, and stroke. Past Surgical History: Mr. Cochran's surgical/procedural history consists of colonoscopy, ear surgery, PTCA, tonsillectomy, mastectomy in 2020 - right, covid vaccine #2 moderna in 2020, and covid vaccine #1 moderna in 2020. Medications: Adult Aspirin Regimen 1 Tablet (of 81 mg) Tablet, enteric coated Oral daily, ALPRAZolam 1 Tablet (of 0.25 mg) Oral daily, Anoro Ellipta Aerosol Powder, Breath Activated Inhalation, azaTHIOprine 1 Tablet (of 50 mg) Oral b.i.d., Claritin 1 Capsule (of 10 mg) Oral daily, Crestor 1 Tablet (of 10 mg) Oral daily, Daily Multiple Vitamins 1 Tablet Oral daily, Docusate Sodium 1 Tablet (of 100 mg) Oral daily PRN, Fiber 1 Capsule Oral daily, Plavix 1 Tablet (of 75 mg) Oral daily, predniSONE 1 Tablet (of 50 mg) Oral daily, Protonix 1 Tablet (of 40 mg) Tablet, enteric coated Oral daily, Synthroid 1 Tablet (of 50 mcg) Oral daily, Telmisartan 1 Tablet (of 20 mg) Oral daily, Toprol XL 1 Tablet (of 25 mg) Tablet SR 24 HR Oral daily Allergies: Mycophenolate Mofetil Social History: Mr. Cochran is . Mr. Cochran quit smoking 26 years ago but had smoked 2.0 packs/day for 45 years. He drinks occasionally. Family History: Sister has colon cancer. Review Of Symptoms: Review of Systems is not available for this patient. Vital Signs: Performed on Apr 03, 2021 11:16: 9, 0, 27.81, 2.06 sq.m, 70 in, 94 % (LOW), 62 /min, 18 /min, 130/68 mm(hg), 97.5 F (LOW), and 193.8 lbs (HIGH). Performance Status: 0 - Fully active, able to carry on all predisease activities without restrictions. (ECOG) Physical Examination: ENMT - No mouth sores, no thrush, no jaundice, Respiratory - Lungs are clear to auscultation, Cardiovascular - Regular rate and rhythm of heart, Abdomen - Soft, bowel sounds present, Extremities - No visible edema. Lab/Imaging: Most recent lab results are not available for this patient. Impression: Moderately differentiated invasive ductal carcinoma, grade 2 involving right breast per mastectomy with right axillary lymph node biopsy done on March 06, 2021, final pathology report confirmed 18 mm moderately differentiated invasive ductal carcinoma, grade 2, with clear surgical margin,, pT1c, 0 out of 8 lymph node positive for metastatic disease, pN0, ER 99% positive MO 50% positive HER-2/joy negative History of coronary artery disease status post PTCA Hypothyroidism COPD emphysema Ascending aortic aneurysm History of nonmelanoma skin cancer. Hypertension Plan: Discussed with patient regarding his disease status and further treatment options, patient has early stage right breast cancer status post mastectomy with right axillary sentinel lymph node biopsy which showed no evidence of lymph node involvement and has ER/MO positive disease HER-2/joy negative, at this point will consider prognostic profiling with Oncotype DX score and discuss with radiation oncology regarding role of radiation therapy in close margin early stage breast cancer. Patient return to clinic in 3 weeks, if his Oncotype DX score is low, will consider adjuvant hormonal therapy for 5 years on the other hand if is high, will discuss about role of adjuvant chemotherapy followed by hormonal therapy. Signed By: Miryam Richards M.D. <<Signature on File>>
== END 2021-04-03 09:58 | disposition home or self-care (01) ==
PROVIDERS: PCP Family Medicine; Visit Provider Internal Medicine Hematology & Oncology
DX: C50.821 Malignant neoplasm of overlapping sites of right male breast (principal); C77.3 Secondary and unspecified malignant neoplasm of axilla and upper limb lymph nodes; I25.10 Atherosclerotic heart disease of native coronary artery without angina pectoris; E03.9 Hypothyroidism, unspecified; J44.9 Chronic obstructive pulmonary disease, unspecified; I71.4 Abdominal aortic aneurysm, without rupture; Z85.828 Personal history of other malignant neoplasm of skin; I10 Essential (primary) hypertension; Z17.0 Estrogen receptor positive status [ER+]
CPT/HCPCS: 99204

== ENCOUNTER 2021-05-09 12:48 | Outpatient (CLI) | payer MEDICARE, OTHER, SELFPAY ==
--- NOTE | 2021-05-19 18:07 | ONC FU_ITS ---
Dr. Richards follow up note Patient: Rodríguez Cochran Unit #: [id number]: 1935 Dicatated By: Miryam Richards M.D.Date of Visit:May 09, 2021 Onc Med Follow-up/Prog Note History of Present Illness: Mr. Rodríguez Cochran, is a 85-year-old gentleman with recent history of knot/lumps in his right breast, as per patient he was in [facility] when he noticed a painless lump in his right breast but no overlying skin changes, no nipple discharge, patient has history of Sjogren's syndrome, COPD, skin cancer, patient came back to [place] and saw his PMD Dr. 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 Oncotype DX score 9, means risk of distant recurrence risk at 9-year with tamoxifen or aromatase inhibitor is about 3% and less than 1% benefit from chemotherapy Patient tolerated procedure well now being evaluated for adjuvant therapy Patient denies any bony pains, denies any headaches blurred vision double vision., Patient is a former smoker quit smoking many years ago and 90 but prior to that smoked for 45 years. Denies alcohol use on regular basis. Patient has history of hypothyroidism, on levothyroxine, coronary artery disease, status post PTCA, hypertension. History of nonmelanoma skin cancer removal. Came for follow-up, denies any specific complaints, no fever chills, no nausea or vomiting, no diarrhea constipation, no new bony pains, appetite is good Medications: Adult Aspirin Regimen 1 Tablet (of 81 mg) Tablet, enteric coated Oral daily, ALPRAZolam 1 Tablet (of 0.25 mg) Oral daily, Anoro Ellipta Aerosol Powder, Breath Activated Inhalation, azaTHIOprine 1 Tablet (of 50 mg) Oral b.i.d., Claritin 1 Capsule (of 10 mg) Oral daily, Crestor 1 Tablet (of 10 mg) Oral daily, Daily Multiple Vitamins 1 Tablet Oral daily, Docusate Sodium 1 Tablet (of 100 mg) Oral daily PRN, Fiber 1 Capsule Oral daily, Plavix 1 Tablet (of 75 mg) Oral daily, predniSONE 1 Tablet (of 50 mg) Oral daily, Protonix 1 Tablet (of 40 mg) Tablet, enteric coated Oral daily, Synthroid 1 Tablet (of 50 mcg) Oral daily, Telmisartan 1 Tablet (of 20 mg) Oral daily, Toprol XL 1 Tablet (of 25 mg) Tablet SR 24 HR Oral daily Allergies: Mycophenolate Mofetil Review of Systems: Review of Systems is not available for this patient. Vital Signs: Performed on May 09, 2021 15:48 Height - 70.00 in Weight - 195.2 lbs (HIGH) BSA - 2.07 sq.m BMI - 28.01 Temperature - 97.9 F (LOW) Pulse - 68 /min Respiration - 18 /min BP - 163/68 mm(hg) (HIGH) O2 Sat - 93 % (LOW) Pain - 3 Performance Status: 0 - Fully active, able to carry on all predisease activities without restrictions. (ECOG) Physical Examination: Respiratory - Lungs are clear to auscultation, Cardiovascular - Regular rate and rhythm of heart, Gastrointestinal - Soft, bowel sounds present, Extremities - No visible edema no rash or cyanosis. Lab/Imaging: Most recent lab results are not available for this patient. Impression: Moderately differentiated invasive ductal carcinoma, grade 2 involving right breast per mastectomy with right axillary lymph node biopsy done on March 06, 2021, final pathology report confirmed 18 mm moderately differentiated invasive ductal carcinoma, grade 2, with clear surgical margin,, pT1c, 0 out of 8 lymph node positive for metastatic disease, pN0,Stage I, Oncotype DX score 9, means no benefit from chemotherapy and risk of distant mets at 9-year with tamoxifen or aromatase inhibitor is about 3% Started on tamoxifen 20 mg p.o. daily For 5 years in May 2021 ER 99% positive DC 50% positive HER-2/joy negative History of coronary artery disease status post PTCA Hypothyroidism COPD emphysema Ascending aortic aneurysm History of nonmelanoma skin cancer. Hypertension Plan: Discussed with patient regarding his Oncotype DX score which is low, e.g. 9, no benefit from chemotherapy and risk of distant mets at 9 years with tamoxifen or aromatase inhibitors alone is about 3% thus we will recommend tamoxifen 20 mg p.o. daily for 5 years, if patient could not tolerate then we may consider reducing dose to 10 mg as study has shown low-dose tamoxifen is better tolerable and noninferior to full dose but longer periods Observation is needed to confirm the efficacy of low dose tamoxifen. Patient agreed to start tamoxifen at 20 mg p.o. daily all the side effect possible benefits including but limited to hot flashes, mood swings, weight gain, risk of DVT/thrombosis, fluid retention, headache, bone demineralization were mentioned, patient expressed full understanding, will give him prescription for tamoxifen 20 mg p.o. daily for 1 month, if tolerated then will continue with same otherwise we will try reduced dose tamoxifen at 10 mg p.o. daily patient will return to clinic in 1 month with CBC CMP and for further discussion^Also discussed about referral to radiation therapy for evaluation but patient declined knowing the risk versus benefits] Signed By: Miryam Richards M.D. <<Signature on File>>
== END 2021-05-09 12:49 | disposition home or self-care (01) ==
LOC: ONCMED 12:53
PROVIDERS: PCP Family Medicine; Visit Provider Internal Medicine Hematology & Oncology
DX: C50.821 Malignant neoplasm of overlapping sites of right male breast (principal); I25.10 Atherosclerotic heart disease of native coronary artery without angina pectoris; E03.9 Hypothyroidism, unspecified; J43.9 Emphysema, unspecified; I71.4 Abdominal aortic aneurysm, without rupture; I10 Essential (primary) hypertension; Z85.828 Personal history of other malignant neoplasm of skin; Z79.811 Long term (current) use of aromatase inhibitors; Z92.21 Personal history of antineoplastic chemotherapy
CPT/HCPCS: 99214

== ENCOUNTER → 2021-05-21 13:01 | Outpatient (BNVA) | payer MEDICARE, OTHER, SELFPAY | PROVIDERS: PCP Family Medicine; Visit Provider Internal Medicine Rheumatology | DX: M35.00 Sjogren syndrome, unspecified (principal); Z79.899 Other long term (current) drug therapy | CPT/HCPCS: 36415; 80076; 82565; 85025; 86140 ==

== ENCOUNTER → 2021-05-28 13:47 | Outpatient (BNVA) | payer MEDICARE, OTHER, SELFPAY | PROVIDERS: PCP Family Medicine; Visit Provider Internal Medicine Rheumatology | DX: M35.00 Sjogren syndrome, unspecified (principal); C50.921 Malignant neoplasm of unspecified site of right male breast; Z79.899 Other long term (current) drug therapy; J84.9 Interstitial pulmonary disease, unspecified; Z87.891 Personal history of nicotine dependence | CPT/HCPCS: 99214 ==

== ENCOUNTER 2021-06-06 14:22 | Outpatient (CLI) | payer MEDICARE, OTHER, SELFPAY ==
[2021-06-06 15:16] LABS: Basophils # 0.1 10^3/uL (0.0-0.1); Basophils % 0.9 %; Eosinophils # 0.8 10^3/uL (0.0-0.8); Eosinophils % 10.8 %; Hematocrit 40.2 % (42.0-52.0); Hemoglobin 12.7 g/dL (11.7-16.6); Lymphocytes # 1.9 10^3/uL (0.8-4.8); Lymphocytes % 24.5 %; Mean Corpuscular HGB Conc 31.6 g/dL (30.0-36.0); Mean Corpuscular Hemoglobin 29.7 pg (28.0-34.0); Mean Corpuscular Volume 93.9 fL (80-94); Mean Platelet Volume 9.8 fL (7.4-10.4); Monocytes # 0.5 10^3/uL (0.2-0.9); Monocytes % 6.9 %; Neutrophils # 4.33 10^3/uL (1.8-7.7); Neutrophils % 56.4 %; Nucleated Red Blood Cells % 0 %; Platelet Count 166 10^3/cmm (130-400); Red Blood Count 4.28 10^6/uL (4.1-5.3); Red Cell Distribution Width 13.9 % (12.1-15.1); White Blood Count 7.7 10^3/uL (4.0-10.0)
[2021-06-06 15:48] LABS: Alanine Aminotransferase 7 U/L (0-41); Albumin Level 3.8 g/dL (3.5-5.2); Alkaline Phosphatase 50 IU/L (40-130); Anion Gap 11.4 (5-19); Aspartate Amino Transferase 14 U/L (0-40); Blood Urea Nitrogen 22 mg/dL (8-23); Calcium 8.8 mg/dL (8.5-10.5); Carbon Dioxide 27 mmol/L (22-29); Chloride 102 mmol/L (98-107); Globulin 3.3 g/dL (1.3-4.6); Glucose 117 mg/dL (65-115); Osmolality Calculated 286 mOsm/kg (285-295); Potassium 4.4 mmol/L (3.5-5.1); Sodium 136 mmol/L (136-145); Total Bilirubin 0.4 mg/dL (0.15-1.2); Total Protein 7.1 g/dL (6.6-8.7)
--- NOTE | 2021-06-06 16:22 | ONC FU_ITS ---
Dr. Richards follow up note Patient: Rodríguez Cochran Unit #: [id number]: 1935 Dicatated By: Miryam Richards M.D.Date of Visit:Jun 06, 2021 Onc Med Follow-up/Prog Note History of Present Illness: Mr. Rodríguez Cochran, is a 85-year-old gentleman with recent history of knot/lumps in his right breast, as per patient he was in [facility] when he noticed a painless lump in his right breast but no overlying skin changes, no nipple discharge, patient has history of Sjogren's syndrome, COPD, skin cancer, patient came back to [place] and saw his PMD Dr. 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 Oncotype DX score 9, means risk of distant recurrence risk at 9-year with tamoxifen or aromatase inhibitor is about 3% and less than 1% benefit from chemotherapy Patient tolerated procedure well now being evaluated for adjuvant therapy Patient denies any bony pains, denies any headaches blurred vision double vision., Patient is a former smoker quit smoking many years ago but prior to that smoked for 45 years. Denies alcohol use on regular basis. Patient has history of hypothyroidism, on levothyroxine, coronary artery disease, status post PTCA, hypertension. History of nonmelanoma skin cancer removal. Started on tamoxifen 20 mg p.o. daily for 5 years on April 03, 2021 Came for follow-up, denies any specific complaints, no fever chills, nausea or vomiting, no diarrhea constipation, no hot flashes, no leg swelling, no new bony pains, tolerating tamoxifen well otherwise Medications: Adult Aspirin Regimen 1 Tablet (of 81 mg) Tablet, enteric coated Oral daily, ALPRAZolam 1 Tablet (of 0.25 mg) Oral daily, Anoro Ellipta Aerosol Powder, Breath Activated Inhalation, azaTHIOprine 1 Tablet (of 50 mg) Oral b.i.d., Claritin 1 Capsule (of 10 mg) Oral daily, Crestor 1 Tablet (of 10 mg) Oral daily, Daily Multiple Vitamins 1 Tablet Oral daily, Docusate Sodium 1 Tablet (of 100 mg) Oral daily PRN, Fiber 1 Capsule Oral daily, Plavix 1 Tablet (of 75 mg) Oral daily, predniSONE 1 Tablet (of 50 mg) Oral daily, Protonix 1 Tablet (of 40 mg) Tablet, enteric coated Oral daily, Synthroid 1 Tablet (of 50 mcg) Oral daily, Telmisartan 1 Tablet (of 20 mg) Oral daily, Toprol XL 1 Tablet (of 25 mg) Tablet SR 24 HR Oral daily Allergies: Mycophenolate Mofetil Review of Systems: Review of Systems is not available for this patient. Vital Signs: Performed on Jun 06, 2021 15:58 Height - 70.00 in Weight - 195 lbs (LOW) BSA - 2.06 sq.m BMI - 27.98 Temperature - 98.4 F Pulse - 67 /min Respiration - 18 /min BP - 116/69 mm(hg) O2 Sat - 93 % (LOW) Pain - 0 Fatigue - 0 Performed on Jun 06, 2021 15:07 Height - 70.00 in Weight - 195.4 lbs (HIGH) BSA - 2.07 sq.m BMI - 28.04 Performance Status: 0 - Fully active, able to carry on all predisease activities without restrictions. (ECOG) Physical Examination: Respiratory - Lungs are clear to auscultation, Cardiovascular - Regular rate and rhythm of heart, Gastrointestinal - Soft, bowel sounds present, Extremities - No visible edema or rash. Lab/Imaging: Most recent lab results are not available for this patient. Impression: Moderately differentiated invasive ductal carcinoma, grade 2 involving right breast per mastectomy with right axillary lymph node biopsy done on March 06, 2021, final pathology report confirmed 18 mm moderately differentiated invasive ductal carcinoma, grade 2, with clear surgical margin,, pT1c, 0 out of 8 lymph node positive for metastatic disease, pN0,Stage I, Oncotype DX score 9, means no benefit from chemotherapy and risk of distant mets at 9-year with tamoxifen or aromatase inhibitor is about 3% Started on tamoxifen 20 mg p.o. daily For 5 years in May 2021 ER 99% positive MN 50% positive HER-2/joy negative History of coronary artery disease status post PTCA Hypothyroidism COPD emphysema Ascending aortic aneurysm History of nonmelanoma skin cancer. Hypertension Plan: Discussed with patient regarding his labs white blood count 7.7 hemoglobin 12.7 hematocrit 40.2 platelets are 66,000 CMP within normal limits Clinically, patient doing well with no new signs symptom suggestive of recurrence of disease tolerating tamoxifen 20 mg p.o. daily well, will continue with same and return to clinic in 3 months with CBC CMP Signed By: Miryam Richards M.D. <<Signature on File>>
== END 2021-06-06 14:23 | disposition home or self-care (01) ==
PROVIDERS: PCP Family Medicine; Visit Provider Internal Medicine Hematology & Oncology
DX: C50.821 Malignant neoplasm of overlapping sites of right male breast (principal); Z17.0 Estrogen receptor positive status [ER+]; Z79.811 Long term (current) use of aromatase inhibitors; I25.10 Atherosclerotic heart disease of native coronary artery without angina pectoris; E03.9 Hypothyroidism, unspecified; J43.9 Emphysema, unspecified; I71.4 Abdominal aortic aneurysm, without rupture; I10 Essential (primary) hypertension; Z85.828 Personal history of other malignant neoplasm of skin; Z79.899 Other long term (current) drug therapy
CPT/HCPCS: 36415; 80053; 85025; 99214

== ENCOUNTER → 2021-07-11 11:38 | Outpatient (BNVA) | payer MEDICARE, OTHER, SELFPAY | PROVIDERS: PCP Family Medicine; Visit Provider Internal Medicine Critical Care Medicine | DX: J96.11 Chronic respiratory failure with hypoxia (principal); Z20.822 Contact with and (suspected) exposure to COVID-19 | CPT/HCPCS: 87635 ==

== ENCOUNTER 2021-07-17 07:47 | Outpatient (CLI) | payer MEDICARE, OTHER, SELFPAY ==
--- NOTE | 2021-07-17 08:08 | CT_ITS ---
WS: [id number] CTA THORACIC TECHNIQUE: Contrast enhanced CTA of the thoracic aorta with coronal and sagittal reformatted images a nd maximum intensity projection (MIP) images. CLINICAL INFORMATION: I71.2 - Thoracic aortic aneurysm, without rupture COMPARISON: CT November 27, 2020 and CTA March 25, 2020 DLP: 1246.[address] scans at [facility] use at least one of these dose optimization techniques: automated e xposure control; mA and/or kV adjustment per patient size (includes targeted exams where dose is matc hed to clinical indication); or iterative reconstruction. FINDINGS: Normal noncontrast thoracic aorta. No evidence of intramural hematoma or dissection. Slight ly ectatic ascending thoracic aorta measuring 4.0 cm in maximum dimension. This is unchanged from the prior studies. Mild aortic atheromatous disease. Normal caliber descending thoracic aorta. Celiac an d SMA origins are patent. Moderate abdominal aortic atheromatous disease. Again seen is chronic interstitial lung disease with pulmonary fibrosis. Areas of subpleural honeycom nathan are similar in appearance to the prior examination. Periseptal emphysematous changes. No focal c onsolidation or pleural fluid. Scattered interstitial fibrosis in both lungs. Associated traction bro nchiectasis. Prominent mediastinal and AP window, peribronchial and subcarinal lymph nodes. Coronary calcification. No axillary lymphadenopathy. Adrenal glands are normal. Right renal cyst. A few tiny cysts in the dome the liver. Diffuse fatty in filtration the liver. Small esophageal hiatal hernia. Normal GE junction. Fatty atrophy of the pancre as. A few calcified granulomas. CT/CT angio chest [id number] IMPRESSION: 1. Stable ascending slightly ectatic thoracic aorta measuring 4.0 cm dimension unchanged. 2. Normal caliber descending thoracic aorta with moderate aortic atheromatous disease extending into the upper abdominal aorta. 3. Coronary calcification. 4. Stable findings of chronic interstitial lung disease. 5. Stable prominent AP window, mediastinal, peribronchial and subcarinal lymph nodes likely reactive.
[2021-07-17] MEDS: iohexol 350 mg/mL 100 mL Btl IV (08:31)
== END 2021-07-17 07:48 | disposition home or self-care (01) ==
PROVIDERS: PCP Family Medicine; Visit Provider Thoracic Surgery (Cardiothoracic Vascular Surgery)
DX: I71.2 Thoracic aortic aneurysm, without rupture (principal); I25.10 Atherosclerotic heart disease of native coronary artery without angina pectoris
CPT/HCPCS: 71275; Q9967

== ENCOUNTER 2021-07-17 08:58 | Outpatient (CLI) | payer MEDICARE, OTHER, SELFPAY ==
--- NOTE | 2021-07-17 10:56 | PFTS_ITS ---
Date of Study:07/17/21 Date of Dictation: 07/17/2021 MECHANICS: Forced vital capacity (FVC) is normal. Forced expiratory volume in one second (FEV1) is normal. FEV1/FVC is reduced corrected postbronchodilator. No significant postbronchodilator response. FLOW VOLUME LOOP: Sloping and expiratory limb suggestive of small airway obstruction. LUNG VOLUMES: not measured DIFFUSING CAPACITY FOR CARBON MONOXIDE: severely reduced . INTERPRETATION: Normal FEV1 and FVC with slightly reduced prebronchodilator FEV1/FVC corrected post bronchodilation suggestive of reversible obstructive ventilatory defect. Lung volumes are not measured. Severely reduced gas transfer out of proportion to the spirometry suggestive of coexisting pulmonary vascular disease. Correlate clinically. MTDD
== END 2021-07-17 08:59 | disposition home or self-care (01) ==
LOC: RT 09:01
PROVIDERS: PCP Family Medicine; Visit Provider Internal Medicine Critical Care Medicine
DX: J84.9 Interstitial pulmonary disease, unspecified (principal)
CPT/HCPCS: 94060; 94729; J7611

== ENCOUNTER 2021-07-31 13:00 | Outpatient (CLI) | payer MEDICARE, OTHER, SELFPAY ==
[2021-07-31 13:38] LABS: Basophils # 0.1 10^3/uL (0.0-0.1); Eosinophils % 11.7 %; Hematocrit 40.6 % (42.0-52.0); Hemoglobin 13.1 g/dL (11.7-16.6); Lymphocytes # 1.8 10^3/uL (0.8-4.8); Lymphocytes % 21.1 %; Mean Corpuscular HGB Conc 32.3 g/dL (30.0-36.0); Mean Corpuscular Hemoglobin 30.2 pg (28.0-34.0); Mean Corpuscular Volume 93.5 fl (80-94); Mean Platelet Volume 9.7 fL (7.4-10.4); Monocytes # 0.5 10^3/uL (0.2-0.9); Monocytes % 5.3 %; Neutrophils # 5.24 10^3/uL (1.8-7.7); Neutrophils % 60.6 %; Nucleated Red Blood Cells % 0 %; Platelet Count 174 10^3/cmm (130-400); Red Blood Count 4.34 10^6/uL (4.1-5.3); Red Cell Distribution Width 13.8 % (12.1-15.1); White Blood Count 8.7 10^3/uL (4.0-10.0)
[2021-07-31 13:59] LABS: Alanine Aminotransferase 8 U/L (0-41); Albumin Level 3.8 g/dL (3.5-5.2); Alkaline Phosphatase 40 IU/L (40-130); Anion Gap 13.8 (5-19); Aspartate Amino Transferase 13 U/L (0-40); Blood Urea Nitrogen 26 mg/dL (8-23); Calcium 9.1 mg/dL (8.5-10.5); Carbon Dioxide 25 mmol/L (22-29); Chloride 99 mmol/L (98-107); Globulin 3.2 g/dL (1.3-4.6); Glucose 131 mg/dL (65-115); Osmolality Calculated 283 mOsm/kg (285-295); Potassium 4.8 mmol/L (3.5-5.1); Sodium 133 mmol/L (136-145); Total Bilirubin 0.5 mg/dL (0.15-1.2)
--- NOTE | 2021-07-31 16:24 | ONC FU_ITS ---
Dr. Richards follow up note Patient: Rodríguez Cochran Unit #: [id number]: 1935 Dicatated By: Miryam Richards M.D.Date of Visit:Jul 31, 2021 Onc Med Follow-up/Prog Note History of Present Illness: Mr. Rodríguez Cochran, is a 85-year-old gentleman with recent history of knot/lumps in his right breast, as per patient he was in [facility] when he noticed a painless lump in his right breast but no overlying skin changes, no nipple discharge, patient has history of Sjogren's syndrome, COPD, skin cancer, patient came back to [place] and saw his PMD Dr. 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 Oncotype DX score 9, means risk of distant recurrence risk at 9-year with tamoxifen or aromatase inhibitor is about 3% and less than 1% benefit from chemotherapy Patient tolerated procedure well now being evaluated for adjuvant therapy Patient denies any bony pains, denies any headaches blurred vision double vision., Patient is a former smoker quit smoking many years ago but prior to that smoked for 45 years. Denies alcohol use on regular basis. Patient has history of hypothyroidism, on levothyroxine, coronary artery disease, status post PTCA, hypertension. History of nonmelanoma skin cancer removal. Started on tamoxifen 20 mg p.o. daily for 5 years on April 03, 2021 Came for follow-up, complaining of foggy head while on tamoxifen and stopped taking it last week, since then has a foggy head is improving, denies any palpitation, denies any dizziness, denies any heart flashes, denies any shortness of breath denies any lower extremity edema. Denies any chest pain denies any fever chills, patient is feeling well since he stopped taking his tamoxifen last week. Medications: Adult Aspirin Regimen 1 Tablet (of 81 mg) Tablet, enteric coated Oral daily, ALPRAZolam 1 Tablet (of 0.25 mg) Oral daily, Anoro Ellipta Aerosol Powder, Breath Activated Inhalation, azaTHIOprine 1 Tablet (of 50 mg) Oral b.i.d., Claritin 1 Capsule (of 10 mg) Oral daily, Crestor 1 Tablet (of 10 mg) Oral daily, Daily Multiple Vitamins 1 Tablet Oral daily, Docusate Sodium 1 Tablet (of 100 mg) Oral daily PRN, Fiber 1 Capsule Oral daily, Plavix 1 Tablet (of 75 mg) Oral daily, predniSONE 1 Tablet (of 50 mg) Oral daily, Protonix 1 Tablet (of 40 mg) Tablet, enteric coated Oral daily, Synthroid 1 Tablet (of 50 mcg) Oral daily, Telmisartan 1 Tablet (of 20 mg) Oral daily, Toprol XL 1 Tablet (of 25 mg) Tablet SR 24 HR Oral daily Allergies: Mycophenolate Mofetil Review of Systems: Review of Systems is not available for this patient. Vital Signs: Performed on Jul 31, 2021 15:14 Height - 70.00 in Weight - 193.8 lbs (LOW) BSA - 2.06 sq.m BMI - 27.81 Temperature - 99.8 F (HIGH) Pulse - 94 /min Respiration - 18 /min BP - 125/71 mm(hg) O2 Sat - 94 % (LOW) Pain - 0 Fatigue - 5 Performance Status: 0 - Fully active, able to carry on all predisease activities without restrictions. (ECOG) Physical Examination: Respiratory - Lungs are clear to auscultation, Cardiovascular - Regular rate and rhythm of heart, Gastrointestinal - Soft, bowel sounds present, Extremities - No visible edema. Lab/Imaging: Most recent lab results are not available for this patient. Impression: Moderately differentiated invasive ductal carcinoma, grade 2 involving right breast per mastectomy with right axillary lymph node biopsy done on March 06, 2021, final pathology report confirmed 18 mm moderately differentiated invasive ductal carcinoma, grade 2, with clear surgical margin,, pT1c, 0 out of 8 lymph node positive for metastatic disease, pN0,Stage I, Oncotype DX score 9, means no benefit from chemotherapy and risk of distant mets at 9-year with tamoxifen or aromatase inhibitor is about 3% Started on tamoxifen 20 mg p.o. daily For 5 years in May 2021 ER 99% positive RI 50% positive HER-2/joy negative History of coronary artery disease status post PTCA Hypothyroidism COPD emphysema Ascending aortic aneurysm History of nonmelanoma skin cancer. Hypertension Plan: Discussed with patient regarding his labs white blood count 8.7 hemoglobin 13.1 hematocrit 40.6 platelets 174,000 CMP within normal limit except creatinine 1.3 compared to 1.1 previously sodium 133 and Clinical, patient doing well with no new signs symptom except he was feeling 'foggy' head while he was on tamoxifen, as per patient since he stopped taking tamoxifen last week, his symptoms are improving and patient is planning to visit his son in [place] for 2 weeks so he would like not to take tamoxifen until he returns to clinic in a month. Treatment options including reduced dose tamoxifen at 10 mg p.o. daily versus observation versus Arimidex plus GnRH analogs like Lupron or Zoladex for sufficient estradiol suppression was discussed briefly, patient was also offered referral to tertiary care for second opinion or clinical trial if available. Patient will return to clinic in 1 month after his visit to his son in [place] and then we will discuss about these options again and plan accordingly. Signed By: Miryam Richards M.D. <<Signature on File>>
== END 2021-07-31 13:01 | disposition home or self-care (01) ==
PROVIDERS: PCP Family Medicine; Visit Provider Internal Medicine Hematology & Oncology
DX: C50.021 Malignant neoplasm of nipple and areola, right male breast (principal); Z17.0 Estrogen receptor positive status [ER+]; I25.10 Atherosclerotic heart disease of native coronary artery without angina pectoris; E03.9 Hypothyroidism, unspecified; J44.9 Chronic obstructive pulmonary disease, unspecified; I10 Essential (primary) hypertension; Z79.810 Long term (current) use of selective estrogen receptor modulators (SERMs); Z85.828 Personal history of other malignant neoplasm of skin; Z79.899 Other long term (current) drug therapy; Z79.52 Long term (current) use of systemic steroids
CPT/HCPCS: 36415; 80053; 85025; 99214

== ENCOUNTER → 2021-08-27 08:59 | Outpatient (BNVA) | payer MEDICARE, OTHER, SELFPAY | PROVIDERS: PCP Family Medicine; Visit Provider Internal Medicine Rheumatology | DX: M35.00 Sjogren syndrome, unspecified (principal); Z79.899 Other long term (current) drug therapy; C50.921 Malignant neoplasm of unspecified site of right male breast; J84.9 Interstitial pulmonary disease, unspecified; Z87.891 Personal history of nicotine dependence | CPT/HCPCS: 99214 ==

== ENCOUNTER 2021-09-10 15:51 | Outpatient (CLI) | payer MEDICARE, OTHER, SELFPAY ==
--- NOTE | 2021-09-10 16:51 | ONC FU_ITS ---
Dr. Richards follow up note Patient: Rodríguez Cochran Unit #: [id number]: 1935 Dicatated By: Miryam Richards M.D.Date of Visit:Sep 10, 2021 Onc Med Follow-up/Prog Note History of Present Illness: Mr. Rodríguez Cochran, is a 85-year-old gentleman with recent history of knot/lumps in his right breast, as per patient he was in [facility] when he noticed a painless lump in his right breast but no overlying skin changes, no nipple discharge, patient has history of Sjogren's syndrome, COPD, skin cancer, patient came back to [place] and saw his PMD Dr. 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 Oncotype DX score 9, means risk of distant recurrence risk at 9-year with tamoxifen or aromatase inhibitor is about 3% and less than 1% benefit from chemotherapy Patient tolerated procedure well now being evaluated for adjuvant therapy Patient denies any bony pains, denies any headaches blurred vision double vision., Patient is a former smoker quit smoking many years ago but prior to that smoked for 45 years. Denies alcohol use on regular basis. Patient has history of hypothyroidism, on levothyroxine, coronary artery disease, status post PTCA, hypertension. History of nonmelanoma skin cancer removal. Started on tamoxifen 20 mg p.o. daily for 5 years on April 03, 2021, was discontinued on July 23, 2021 because of related side effect generalized weakness and fatigue, foggy head. And restart on reduced dose tamoxifen 10 mg p.o. daily on September 10, 2021 Came for follow-up, denies any specific complaints, no fever chills, no nausea or vomiting, no diarrhea constipation, patient said he felt more energetic since he got B12 injection from his PMDs office. And now ready to start reduced dose tamoxifen. Medications: Adult Aspirin Regimen 1 Tablet (of 81 mg) Tablet, enteric coated Oral daily, ALPRAZolam 1 Tablet (of 0.25 mg) Oral daily, Anoro Ellipta Aerosol Powder, Breath Activated Inhalation, azaTHIOprine 1 Tablet (of 50 mg) Oral b.i.d., Claritin 1 Capsule (of 10 mg) Oral daily, Crestor 1 Tablet (of 10 mg) Oral daily, Daily Multiple Vitamins 1 Tablet Oral daily, Docusate Sodium 1 Tablet (of 100 mg) Oral daily PRN, Fiber 1 Capsule Oral daily, Plavix 1 Tablet (of 75 mg) Oral daily, predniSONE 1 Tablet (of 50 mg) Oral daily, Protonix 1 Tablet (of 40 mg) Tablet, enteric coated Oral daily, Synthroid 1 Tablet (of 50 mcg) Oral daily, Telmisartan 1 Tablet (of 20 mg) Oral daily, Toprol XL 1 Tablet (of 25 mg) Tablet SR 24 HR Oral daily Allergies: Mycophenolate Mofetil Review of Systems: Review of Systems is not available for this patient. Vital Signs: Performed on Sep 10, 2021 16:08 Height - 70.00 in Weight - 193.4 lbs (LOW) BSA - 2.06 sq.m BMI - 27.75 Temperature - 98.0 F (LOW) Pulse - 66 /min Respiration - 18 /min BP - 130/71 mm(hg) O2 Sat - 96 % Pain - 0 Fatigue - 0 Performance Status: 0 - Fully active, able to carry on all predisease activities without restrictions. (ECOG) Physical Examination: Respiratory - Lungs are clear to auscultation, Cardiovascular - Regular rate and rhythm of heart, Gastrointestinal - Soft, bowel sounds present, Extremities - No visible edema. Lab/Imaging: Most recent lab results are not available for this patient. Impression: Moderately differentiated invasive ductal carcinoma, grade 2 involving right breast per mastectomy with right axillary lymph node biopsy done on March 06, 2021, final pathology report confirmed 18 mm moderately differentiated invasive ductal carcinoma, grade 2, with clear surgical margin,, pT1c, 0 out of 8 lymph node positive for metastatic disease, pN0,Stage I, Oncotype DX score 9, means no benefit from chemotherapy and risk of distant mets at 9-year with tamoxifen or aromatase inhibitor is about 3% Started on tamoxifen 20 mg p.o. daily For 5 years in May 2021 ER 99% positive [place] 50% positive HER-2/joy negative History of coronary artery disease status post PTCA Hypothyroidism COPD emphysema Ascending aortic aneurysm History of nonmelanoma skin cancer. Hypertension Plan: Discussed with patient regarding his question concern about adjuvant hormonal therapy, patient could not tolerate full dose tamoxifen due to associated side effects like foggy head, generalized weakness and fatigue. So at that time discussed with him regarding reduced dose tamoxifen 10 mg p.o. daily versus aromatase inhibitors/GnRH inhibitor, patient said he would try reduced dose tamoxifen 10 mg p.o. daily so we will give him prescription for that and then he will return to clinic in 3 months with CBC CMP patient was advised to call us in case he has any signs symptoms related to tamoxifen or any question. Signed By: Miryam Richards M.D. <<Signature on File>>
== END 2021-09-10 15:52 | disposition home or self-care (01) ==
PROVIDERS: PCP Family Medicine; Visit Provider Internal Medicine Hematology & Oncology
DX: C50.821 Malignant neoplasm of overlapping sites of right male breast (principal); Z17.0 Estrogen receptor positive status [ER+]; I25.10 Atherosclerotic heart disease of native coronary artery without angina pectoris; Z95.5 Presence of coronary angioplasty implant and graft; E03.9 Hypothyroidism, unspecified; J43.9 Emphysema, unspecified; I71.4 Abdominal aortic aneurysm, without rupture; I10 Essential (primary) hypertension; Z85.828 Personal history of other malignant neoplasm of skin; Z79.810 Long term (current) use of selective estrogen receptor modulators (SERMs)
CPT/HCPCS: 99214

== ENCOUNTER 2021-11-22 13:40 | Outpatient (CLI) | payer MEDICARE, OTHER, SELFPAY ==
[2021-11-22 14:34] LABS: Basophils # 0.1 10^3/uL (0.0-0.1); Basophils % 0.8 %; Eosinophils # 0.9 10^3/uL (0.0-0.8); Eosinophils % 10.8 %; Hematocrit 38.9 % (42.0-52.0); Hemoglobin 12.6 g/dL (11.7-16.6); Lymphocytes # 1.9 10^3/uL (0.8-4.8); Lymphocytes % 22.6 %; Mean Corpuscular HGB Conc 32.4 g/dL (30.0-36.0); Mean Corpuscular Hemoglobin 30.7 pg (28.0-34.0); Mean Corpuscular Volume 94.6 fl (80-94); Mean Platelet Volume 9.3 fL (7.4-10.4); Monocytes # 0.5 10^3/uL (0.2-0.9); Monocytes % 5.5 %; Neutrophils # 5.11 10^3/uL (1.8-7.7); Neutrophils % 60.1 %; Nucleated Red Blood Cells % 0 %; Platelet Count 195 10^3/cmm (130-400); Red Blood Count 4.11 10^6/uL (4.1-5.3); White Blood Count 8.5 10^3/uL (4.0-10.0)
[2021-11-22 14:57] LABS: Alanine Aminotransferase 7 U/L (0-41); Albumin Level 3.8 g/dL (3.5-5.2); Alkaline Phosphatase 43 IU/L (40-130); Aspartate Amino Transferase 12 U/L (0-40); C Reactive Protein 3.1 mg/L (0.0-4.9); Globulin 3.2 g/dL (1.3-4.6); Total Bilirubin 0.4 mg/dL (0.15-1.2)
== END 2021-11-22 13:41 | disposition home or self-care (01) ==
LOC: LAB 13:52
PROVIDERS: PCP Family Medicine; Visit Provider Internal Medicine Rheumatology
DX: M35.00 Sjogren syndrome, unspecified (principal); Z79.899 Other long term (current) drug therapy
CPT/HCPCS: 80076; 82565; 85025; 86140

== ENCOUNTER → 2021-12-03 10:39 | Outpatient (BNVA) | payer MEDICARE, OTHER, SELFPAY | PROVIDERS: PCP Family Medicine; Visit Provider Internal Medicine Rheumatology | DX: M35.00 Sjogren syndrome, unspecified (principal); J84.9 Interstitial pulmonary disease, unspecified; Z79.899 Other long term (current) drug therapy; Z79.52 Long term (current) use of systemic steroids; C50.921 Malignant neoplasm of unspecified site of right male breast; Z71.89 Other specified counseling; Z87.891 Personal history of nicotine dependence | CPT/HCPCS: 99214 ==

== ENCOUNTER 2021-12-16 13:55 | Outpatient (CLI) | payer MEDICARE, OTHER, SELFPAY ==
[2021-12-16 14:25] LABS: Basophils # 0.1 10^3/uL (0.0-0.1); Eosinophils # 0.9 10^3/uL (0.0-0.8); Eosinophils % 11.5 %; Hematocrit 40.8 % (42.0-52.0); Lymphocytes # 2.3 10^3/uL (0.8-4.8); Lymphocytes % 28.1 %; Mean Corpuscular HGB Conc 31.9 g/dL (30.0-36.0); Mean Corpuscular Hemoglobin 30.7 pg (28.0-34.0); Mean Corpuscular Volume 96.2 fl (80-94); Mean Platelet Volume 9.8 fL (7.4-10.4); Monocytes # 0.6 10^3/uL (0.2-0.9); Monocytes % 7.2 %; Neutrophils # 4.18 10^3/uL (1.8-7.7); Neutrophils % 51.8 %; Nucleated Red Blood Cells % 0 %; Platelet Count 170 10^3/cmm (130-400); Red Blood Count 4.24 10^6/uL (4.1-5.3); White Blood Count 8.1 10^3/uL (4.0-10.0)
[2021-12-16 15:06] LABS: Alanine Aminotransferase 8 U/L (0-41); Albumin Level 4.1 g/dL (3.5-5.2); Alkaline Phosphatase 47 IU/L (40-130); Anion Gap 13.8 (5-19); Aspartate Amino Transferase 13 U/L (0-40); Blood Urea Nitrogen 28 mg/dL (8-23); Carbon Dioxide 25 mmol/L (22-29); Chloride 104 mmol/L (98-107); Globulin 3.1 g/dL (1.3-4.6); Glucose 131 mg/dL (65-115); Osmolality Calculated 293 mOsm/kg (285-295); Potassium 4.8 mmol/L (3.5-5.1); Sodium 138 mmol/L (136-145); Total Bilirubin 0.4 mg/dL (0.15-1.2); Total Protein 7.2 g/dL (6.6-8.7)
--- NOTE | 2021-12-16 17:10 | ONC FU_ITS ---
Dr. Richards follow up note Patient: Rodríguez Cochran Unit #: [id number]: 1935 Dicatated By: Miryam Richards M.D.Date of Visit:Dec 16, 2021 Onc Med Follow-up/Prog Note History of Present Illness: Mr. Rodríguez Cochran, is a 86-year-old gentleman with recent history of knot/lumps in his right breast, as per patient he was in [facility] when he noticed a painless lump in his right breast but no overlying skin changes, no nipple discharge, patient has history of Sjogren's syndrome, COPD, skin cancer, patient came back to [place] and saw his PMD Dr. 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 Oncotype DX score 9, means risk of distant recurrence risk at 9-year with tamoxifen or aromatase inhibitor is about 3% and less than 1% benefit from chemotherapy Patient tolerated procedure well now being evaluated for adjuvant therapy Patient denies any bony pains, denies any headaches blurred vision double vision., Patient is a former smoker quit smoking many years ago but prior to that smoked for 45 years. Denies alcohol use on regular basis. Patient has history of hypothyroidism, on levothyroxine, coronary artery disease, status post PTCA, hypertension. History of nonmelanoma skin cancer removal. Started on tamoxifen 20 mg p.o. daily for 5 years on April 03, 2021, was discontinued on July 23, 2021 because of related side effect generalized weakness and fatigue, foggy head. And restart on reduced dose tamoxifen 10 mg p.o. daily on September 10, 2021 Came for follow-up, denies any specific complaint except episode of lightheadedness, especially when standing up, as per patient it was happening more often when he started taking azathioprine prescribed by rheumatology along with his reduced dose tamoxifen. And then patient decided to stop both of them as he was not sure which one was causing his symptoms and with that his symptoms started improving, now feeling much better since resolved azathioprine and tamoxifen. Denies any new bony pain denies any nausea or vomiting denies any diarrhea or constipation denies any chest pain, patient has history of thoracic aneurysm for which she is being followed by Dr. Vargas. As per patient he used to follow with Dr. Granados before he left his practice and then his care was transferred to Dr. Vargas. Denies any palpitation denies any seizure-like activity denies any chest pain denies any heart flashes denies any melena or hematochezia. Medications: Adult Aspirin Regimen 1 Tablet (of 81 mg) Tablet, enteric coated Oral daily, ALPRAZolam 1 Tablet (of 0.25 mg) Oral daily, Anoro Ellipta Aerosol Powder, Breath Activated Inhalation, azaTHIOprine 1 Tablet (of 50 mg) Oral b.i.d., Claritin 1 Capsule (of 10 mg) Oral daily, Crestor 1 Tablet (of 10 mg) Oral daily, Daily Multiple Vitamins 1 Tablet Oral daily, Docusate Sodium 1 Tablet (of 100 mg) Oral daily PRN, Fiber 1 Capsule Oral daily, Plavix 1 Tablet (of 75 mg) Oral daily, predniSONE 1 Tablet (of 50 mg) Oral daily, Protonix 1 Tablet (of 40 mg) Tablet, enteric coated Oral daily, Synthroid 1 Tablet (of 50 mcg) Oral daily, Telmisartan 1 Tablet (of 20 mg) Oral daily, Toprol XL 1 Tablet (of 25 mg) Tablet SR 24 HR Oral daily Allergies: Mycophenolate Mofetil Review of Systems: Review of Systems is not available for this patient. Vital Signs: Performed on Dec 16, 2021 15:45 Height - 70.00 in Weight - 195.6 lbs (HIGH) BSA - 2.07 sq.m BMI - 28.07 Temperature - 98.0 F (LOW) Pulse - 64 /min Respiration - 18 /min BP - 141/71 mm(hg) (HIGH) O2 Sat - 93 % (LOW) Pain - 0 Fatigue - 5 Performance Status: 0 - Fully active, able to carry on all predisease activities without restrictions. (ECOG) Physical Examination: Respiratory - Lungs are clear to auscultation, Cardiovascular - Regular rate and rhythm of heart, Gastrointestinal - Soft, bowel sounds present, Extremities - No visible edema. Lab/Imaging: Test performed on Dec 16, 2021 14:15 Sodium 138 mmol/L Potassium 4.8 mmol/L Chloride 104 mmol/L CO2 25 mmol/L Anion Gap 13.8 BUN 28 mg/dL Creatinine 1.2 mg/dL Cr Clearance (Est) 55.4500 mL/min Glucose 131 mg/dL Osmolality - Calculated 293 mOsm/kg Calcium 9.0 mg/dL Protein, Total 7.2 g/dL Albumin 4.1 g/dL Globulin 3.1 g/dL Bilirubin, Total 0.4 mg/dL ALT (SGPT) 8 U/L AST (SGOT) 13 U/L Alkaline Phosphatase 47 IU/L WBC 8.1 10 3/uL RBC 4.24 10 6/uL HGB 13.0 g/dL HCT 40.8 % MCV 96.2 fl MCH 30.7 pg MCHC 31.9 g/dL RDW 14.0 % Platelet Count 170 10 3/cmm MPV 9.8 fL Neutrophils 4.18 10 3/uL Lymphocytes 2.3 10 3/uL Monocytes 0.6 10 3/uL Eosinophils 0.9 10 3/uL Basophils 0.1 10 3/uL Neutrophil % 51.8 % Lymphocyte % 28.1 % Monocyte % 7.2 % Eosinophil % 11.5 % Basophils % 1.0 % NRBC % 0 % Impression: Moderately differentiated invasive ductal carcinoma, grade 2 involving right breast per mastectomy with right axillary lymph node biopsy done on March 06, 2021, final pathology report confirmed 18 mm moderately differentiated invasive ductal carcinoma, grade 2, with clear surgical margin,, pT1c, 0 out of 8 lymph node positive for metastatic disease, pN0,Stage I, Oncotype DX score 9, means no benefit from chemotherapy and risk of distant mets at 9-year with tamoxifen or aromatase inhibitor is about 3% Started on tamoxifen 20 mg p.o. daily For 5 years in May 2021, Dose was reduced to 10 mg p.o. daily because of related side symptoms and patient stopped taking tamoxifen in first week of December 2021 because of recurrent episode of lightheadedness ER 99% positive [place] 50% positive HER-2/joy negative History of coronary artery disease status post PTCA Hypothyroidism COPD emphysema Ascending aortic aneurysm History of nonmelanoma skin cancer. Hypertension Plan: Discussed with patient regarding his labs white blood count 8.1 hemoglobin 13 hematocrit 40.8 platelets 170,000 CMP within normal limits Clinically, patient doing well with no signs symptoms history of recurrence of disease. Patient is on reduced dose tamoxifen 10 mg p.o. daily but as mentioned earlier patient stopped taking tamoxifen and azathioprine which was given by rheumatology, as per patient when azathioprine was added, he he did develop generalized weakness and fatigue and lightheadedness, now feeling much better since he is off both azathioprine and tamoxifen., Clinically it appears patient may have underlying cardiac issue and may require pacemaker, patient was advised to discuss with PMD regarding evaluation, cardiac monitoring may be helpful. As per patient, he never had palpitation but sometimes slow heartbeat which he think is normal for him. Patient was advised in case symptoms recur or worsening of lightheadedness, he need to go to hospital for evaluation. In the meantime planning was to restart his reduced dose tamoxifen for his breast cancer but patient is going out of town to [place] for 4 weeks so he will return back around 28 January, in that case, we will continue to hold his tamoxifen and we will see him back in first week of January and discussed with him regarding restarting him on reduced dose tamoxifen, patient could not tolerate, then we may consider Arimidex/Zoladex.. Signed By: Miryam Richards M.D. <<Signature on File>>
== END 2021-12-16 13:56 | disposition home or self-care (01) ==
LOC: ONCMED 13:58
PROVIDERS: Nurse Practitioner Family; PCP Family Medicine; Visit Provider Internal Medicine Hematology & Oncology
DX: C50.921 Malignant neoplasm of unspecified site of right male breast (principal); Z17.0 Estrogen receptor positive status [ER+]; E03.9 Hypothyroidism, unspecified; J43.9 Emphysema, unspecified; I71.4 Abdominal aortic aneurysm, without rupture; I10 Essential (primary) hypertension; Z79.899 Other long term (current) drug therapy
CPT/HCPCS: 36415; 80053; 85025; 99214

== ENCOUNTER → 2022-01-02 13:24 | Outpatient (BNVA) | payer MEDICARE, OTHER, SELFPAY | PROVIDERS: PCP Family Medicine; Visit Provider Internal Medicine Critical Care Medicine | DX: J44.9 Chronic obstructive pulmonary disease, unspecified (principal); J84.89 Other specified interstitial pulmonary diseases; J96.11 Chronic respiratory failure with hypoxia; Z87.891 Personal history of nicotine dependence | CPT/HCPCS: 99214 ==

== ENCOUNTER 2022-02-03 13:48 | Outpatient (CLI) | payer MEDICARE, OTHER, SELFPAY ==
--- NOTE | 2022-02-03 15:39 | ONC FU_ITS ---
Dr. Richards follow up note Patient: Rodríguez Cochran Unit #: [id number]: 1935 Dicatated By: Miryam Richards M.D.Date of Visit:Feb 03, 2022 Onc Med Follow-up/Prog Note History of Present Illness: Mr. Rodríguez Cochran, is a 86-year-old gentleman with recent history of knot/lumps in his right breast, as per patient he was in [facility] when he noticed a painless lump in his right breast but no overlying skin changes, no nipple discharge, patient has history of Sjogren's syndrome, COPD, skin cancer, patient came back to [place] and saw his PMD Dr. 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 Oncotype DX score 9, means risk of distant recurrence risk at 9-year with tamoxifen or aromatase inhibitor is about 3% and less than 1% benefit from chemotherapy Patient tolerated procedure well now being evaluated for adjuvant therapy Patient denies any bony pains, denies any headaches blurred vision double vision., Patient is a former smoker quit smoking many years ago but prior to that smoked for 45 years. Denies alcohol use on regular basis. Patient has history of hypothyroidism, on levothyroxine, coronary artery disease, status post PTCA, hypertension. History of nonmelanoma skin cancer removal. Started on tamoxifen 20 mg p.o. daily for 5 years on April 03, 2021, was discontinued on July 23, 2021 because of related side effect generalized weakness and fatigue, foggy head. And restart on reduced dose tamoxifen 10 mg p.o. daily on September 10ut patient discontinue tamoxifen in early December 2021 because of episode of lightheadedness especially when standing up as per patient it was happening more often since he started taking azathioprine prescribed by rheumatology for his arthritis and he was not sure which one is causing problems so he stopped taking both azathioprine as well as tamoxifen, then patient was seen by Dr.. Banks and Dr. Vargas as per patient he was informed his symptoms may not be due to either of this drug and now patient wants to restart both of these drugs e.g. azathioprine as well as tamoxifen but somewhat anxious and he is here to discuss. Came for follow-up, denies any specific complaints except off and on dizziness especially when standing up otherwise no fever chills, no nausea or vomiting, no headaches blurred vision double vision, no new bony pains, patient is off azathioprine as well as tamoxifen since November 2021 patient was supposed to start reduced dose tamoxifen but patient wanted to wait till he returns back from [facility] where he was planning to go for fishing till end of December 2021. Medications: Adult Aspirin Regimen 1 Tablet (of 81 mg) Tablet, enteric coated Oral daily, ALPRAZolam 1 Tablet (of 0.25 mg) Oral daily, Anoro Ellipta Aerosol Powder, Breath Activated Inhalation, azaTHIOprine 1 Tablet (of 50 mg) Oral b.i.d., Claritin 1 Capsule (of 10 mg) Oral daily, Crestor 1 Tablet (of 10 mg) Oral daily, Daily Multiple Vitamins 1 Tablet Oral daily, Docusate Sodium 1 Tablet (of 100 mg) Oral daily PRN, Fiber 1 Capsule Oral daily, Plavix 1 Tablet (of 75 mg) Oral daily, predniSONE 1 Tablet (of 50 mg) Oral daily, Protonix 1 Tablet (of 40 mg) Tablet, enteric coated Oral daily, Synthroid 1 Tablet (of 50 mcg) Oral daily, Telmisartan 1 Tablet (of 20 mg) Oral daily, Toprol XL 1 Tablet (of 25 mg) Tablet SR 24 HR Oral daily Allergies: Mycophenolate Mofetil Review of Systems: Review of Systems is not available for this patient. Vital Signs: Performed on Feb 03, 2022 14:01 Height - 70.00 in Weight - 198 lbs (HIGH) BSA - 2.08 sq.m BMI - 28.41 Temperature - 99.2 F (HIGH) Pulse - 62 /min Respiration - 19 /min BP - 142/62 mm(hg) (HIGH) O2 Sat - 93 % (LOW) Pain - 0 Fatigue - 0 Performance Status: 0 - Fully active, able to carry on all predisease activities without restrictions. (ECOG) Physical Examination: Respiratory - Poor air entry otherwise clear, Cardiovascular - Regular rate and rhythm of heart, Gastrointestinal - Soft, bowel sounds present, Extremities - No visible edema. Lab/Imaging: Test performed on Dec 16, 2021 14:15 Sodium 138 mmol/L Potassium 4.8 mmol/L Chloride 104 mmol/L CO2 25 mmol/L Anion Gap 13.8 BUN 28 mg/dL Creatinine 1.2 mg/dL Cr Clearance (Est) 55.4500 mL/min Glucose 131 mg/dL Osmolality - Calculated 293 mOsm/kg Calcium 9.0 mg/dL Protein, Total 7.2 g/dL Albumin 4.1 g/dL Globulin 3.1 g/dL Bilirubin, Total 0.4 mg/dL ALT (SGPT) 8 U/L AST (SGOT) 13 U/L Alkaline Phosphatase 47 IU/L WBC 8.1 10 3/uL RBC 4.24 10 6/uL HGB 13.0 g/dL HCT 40.8 % MCV 96.2 fl MCH 30.7 pg MCHC 31.9 g/dL RDW 14.0 % Platelet Count 170 10 3/cmm MPV 9.8 fL Neutrophils 4.18 10 3/uL Lymphocytes 2.3 10 3/uL Monocytes 0.6 10 3/uL Eosinophils 0.9 10 3/uL Basophils 0.1 10 3/uL Neutrophil % 51.8 % Lymphocyte % 28.1 % Monocyte % 7.2 % Eosinophil % 11.5 % Basophils % 1.0 % NRBC % 0 % Impression: Moderately differentiated invasive ductal carcinoma, grade 2 involving right breast per mastectomy with right axillary lymph node biopsy done on March 06, 2021, final pathology report confirmed 18 mm moderately differentiated invasive ductal carcinoma, grade 2, with clear surgical margin,, pT1c, 0 out of 8 lymph node positive for metastatic disease, pN0,Stage I, Oncotype DX score 9, means no benefit from chemotherapy and risk of distant mets at 9-year with tamoxifen or aromatase inhibitor is about 3% Started on tamoxifen 20 mg p.o. daily For 5 years in May 2021, Dose was reduced to 10 mg p.o. daily because of related side symptoms and patient stopped taking tamoxifen in first week of December 2021 because of recurrent episode of lightheadedness ER 99% positive ID 50% positive HER-2/joy negative History of coronary artery disease status post PTCA Hypothyroidism COPD emphysema Ascending aortic aneurysm History of nonmelanoma skin cancer. Hypertension Plan: Discussed with patient regarding his concern questions, patient said he is considering restarting azathioprine and tamoxifen, patient would prefer to start azathioprine for his rheumatoid arthritis and to see if it caused worsening of his lightheadedness and if not then he will consider restarting tamoxifen 10 mg p.o. daily too. As per patient earlier when he was on both of these drugs his chronic lightheadedness got worse and then he decided to discontinue both of these medications, later on he was evaluated by Dr. Vargas and Dr. Banks and he was informed that his symptoms were not due to those drugs so now he has decided to restart his medications. So he was started taking azathioprine and if tolerated well, then will consider resuming tamoxifen 10 mg p.o. daily when he return to clinic in 1 month. If patient could not tolerate then will consider aromatase inhibitor/Zoladex but patient is reluctant to consider Zoladex injection. Signed By: Miryam Richards M.D. <<Signature on File>>
== END 2022-02-03 13:49 | disposition home or self-care (01) ==
PROVIDERS: PCP Family Medicine; Visit Provider Internal Medicine Hematology & Oncology
DX: C50.821 Malignant neoplasm of overlapping sites of right male breast (principal); Z17.0 Estrogen receptor positive status [ER+]; Z79.811 Long term (current) use of aromatase inhibitors; I25.10 Atherosclerotic heart disease of native coronary artery without angina pectoris; Z95.5 Presence of coronary angioplasty implant and graft; E03.9 Hypothyroidism, unspecified; J43.9 Emphysema, unspecified; I71.2 Thoracic aortic aneurysm, without rupture; I10 Essential (primary) hypertension; Z85.828 Personal history of other malignant neoplasm of skin; Z79.899 Other long term (current) drug therapy; Z92.21 Personal history of antineoplastic chemotherapy
CPT/HCPCS: 99215

== ENCOUNTER 2022-02-06 06:00 | Outpatient (RCR) | payer MEDICARE, OTHER, SELFPAY | END 2022-02-17 23:59 | disposition home or self-care (01) | LOC: SPT 06:00 | PROVIDERS: PCP Family Medicine; Referring Provider Family Medicine; Visit Provider Family Medicine | DX: R42 Dizziness and giddiness (principal) | CPT/HCPCS: 95992; 97162 ==

== ENCOUNTER → 2022-03-13 15:27 | Outpatient (BNVA) | payer MEDICARE, OTHER, SELFPAY | PROVIDERS: PCP Family Medicine; Visit Provider Family Medicine | DX: R42 Dizziness and giddiness (principal); M35.00 Sjogren syndrome, unspecified; N28.9 Disorder of kidney and ureter, unspecified; R73.9 Hyperglycemia, unspecified; E03.9 Hypothyroidism, unspecified; I25.10 Atherosclerotic heart disease of native coronary artery without angina pectoris | CPT/HCPCS: 80053; 83036; 84443; 85025; 85651; 86140; 86225; 86235; 86431 ==

== ENCOUNTER 2022-03-30 16:36 | Emergency (ER) | payer MEDICARE, OTHER, SELFPAY ==
[2022-03-30 16:46] VITALS: BP 157/73; PULSE 63; RESP 16; TEMP 36.7; O2SAT 92; BMI 27.9
--- NOTE | 2022-03-30 17:01 | W.ED.DIZZY ---
HPI - Dizziness General: Chief Complaint: Dizziness Stated Complaint: Dizziness hx bp issues Time Seen by Provider: 03/30/22 16:52 History of Present Illness: HPI Narrative: 86-year-old presents due to lightheadedness. Denies any headache chest pain shortness of breath or palpitations. Denies any focal numbness or extremity pain. Denies any syncopal episodes. Has history of hypertension and states that today blood pressure admitted became involved in the 90s over 40s. Denies any nausea vomiting or diarrhea. Denies dysuria. Review of Systems Narrative: - CONSTITUTIONAL: Denies weight loss, fever and chills. - HEENT: Denies changes in vision and hearing. - RESPIRATORY: Denies SOB and cough. - CV: Denies palpitations and CP. - GI: Denies abdominal pain, nausea, vomiting and diarrhea. - : Denies dysuria and urinary frequency. - MSK: Denies myalgia and joint pain. - SKIN: Denies rash and pruritus. - NEUROLOGICAL: Denies headache, weakness, numbness and syncope. - PSYCHIATRIC: Denies suicidal ideation [facility] ED PFSH: Medical History Ascending aortic aneurysm ASHD (arteriosclerotic heart disease) Balanitis Breast cancer, right T1c N0 CAD (coronary artery disease) -follows up with Dr. Granados Cerebrovascular accident (CVA) determined by clinical assessment Dyslipidemia Emphysema/COPD History of basal cell carcinoma History of nonmelanoma skin cancer HTN (hypertension) -low to low normal BP; continue to monitor vital signs -continue oral antihypertensives, hold if hypotension Hypothyroidism -continue levothyroxine Primary Sjogren's syndrome Surgical History H/O hemorrhoidectomy History of colonoscopy 2014 History of ear surgery History of tonsillectomy S/P PTCA (percutaneous transluminal coronary angioplasty) S/P right mastectomy (03/06/21) with [facility] Family History Brother Cancer PANCREATIC Stroke Other CAD (coronary artery disease) Social History Smoking and tobacco status: never smoked Quit status (tobacco): has quit using tobacco Year quit tobacco: 1994 - 2PPD x 45 Years Second hand smoke exposure: No Smoking risk assessment/counseling performed?: No Alcohol intake: current Alcohol intake frequency: holidays/special occasions only Counseling given: No Desire information about substance/drug rehabilitation?: No Counseling given: No Lives independently: Yes Household members: spouse Marital status: service: Yes Current occupational status: retired History of recent travel: No Current gender identity: Male Special chinedu needs: No Physical Exam Narrative: EXAM NARRATIVE: - GENERAL: Alert and oriented x 3. No acute distress. Well-nourished. - EYES: EOMI. Anicteric. - HENT: Atraumatic, no C-spine tenderness. Moist mucous membranes. No scleral icterus. No cervical lymphadenopathy. - LUNGS: Clear to auscultation bilaterally. No accessory muscle use. Equal lung sounds bilaterally. No respiratory distress. - CARDIOVASCULAR: Regular rate and rhythm. No murmur. No JVD. - ABDOMEN: Soft, non-tender and non-distended. Negative CVA tenderness bilaterally, no rebound or guarding, negative Vaca sign. No palpable masses. - EXTREMITIES: No edema. Non-tender. - SKIN: No rashes or lesions. Warm. - NEUROLOGIC: No meningismus or focal neurological deficits. CN II-XII grossly intact. - PSYCHIATRIC: Cooperative. Appropriate mood and affect. Course Vital Signs: Vital signs: Vital Signs Temperature 98.0 F 03/30/22 16:46 Pulse Rate 52 L 03/30/22 18:00 Respiratory Rate 18 03/30/22 17:21 Blood Pressure 112/64 03/30/22 18:00 Pulse Oximetry 95 03/30/22 18:00 [facility] - Dizziness Medical Decision Making 86-year-old presents due to lower blood pressure readings at home and lightheadedness. Nonfocal neurologic exam. EKG does not show any sign of arrhythmia ischemia or other acute abnormality. Lab work unremarkable. Blood pressures in the emergency department are within normal limits. At this time I believe patient would be safe for discharge and outpatient follow-up. Return precautions provided. Plan was reviewed with the patient who expressed understanding. Questions answered. Patient will follow up with PCP. Patient discharged in stable condition. Lab Data : 03/30/22 17:14 03/30/22 17:14 Laboratory Results WBC 9.3 10^3/uL (4.0-10.0) 03/30/22 17:14 RBC 4.26 10^6/uL (4.1-5.3) 03/30/22 17:14 Hgb 13.3 g/dL (11.7-16.6) 03/30/22 17:14 Hct 38.8 % (42.0-52.0) L 03/30/22 17:14 MCV 91.1 fl (80-94) 03/30/22 17:14 MCH 31.2 pg (28.0-34.0) 03/30/22 17:14 MCHC 34.3 g/dL (30.0-36.0) 03/30/22 17:14 RDW 13.5 % (12.1-15.1) 03/30/22 17:14 Plt Count 185 10^3/cmm (130-400) 03/30/22 17:14 MPV 9.7 fL (7.4-10.4) 03/30/22 17:14 Neut % (Auto) 50.4 % 03/30/22 17:14 Lymph % (Auto) 28.0 % 03/30/22 17:14 [place] % (Auto) 8.1 % 03/30/22 17:14 Eos % (Auto) 12.3 % 03/30/22 17:14 Baso % (Auto) 0.9 % 03/30/22 17:14 Neut # (Auto) 4.67 10^3/uL (1.8-7.7) 03/30/22 17:14 Lymph # (Auto) 2.6 10^3/uL (0.8-4.8) 03/30/22 17:14 [place] # (Auto) 0.8 10^3/uL (0.2-0.9) 03/30/22 17:14 Eos # (Auto) 1.1 10^3/uL (0.0-0.8) H 03/30/22 17:14 Baso # (Auto) 0.1 10^3/uL (0.0-0.1) 03/30/22 17:14 Nucleated RBC % (auto) 0 % 03/30/22 17:14 Nucleated RBCs # 0.0 /100WBC 03/30/22 17:14 Sodium 133 mmol/L (136-145) L 03/30/22 17:14 Potassium 4.2 mmol/L (3.5-5.1) 03/30/22 17:14 Chloride 98 mmol/L (98-107) 03/30/22 17:14 Carbon Dioxide 24 mmol/L (22-29) 03/30/22 17:14 Anion Gap 15.2 (5-19) 03/30/22 17:14 BUN 24 mg/dL (8-23) H 03/30/22 17:14 Creatinine 1.3 mg/dL (0.7-1.2) H 03/30/22 17:14 GFR Calculation Not Reportable 03/30/22 17:14 Glucose 167 mg/dL (65-115) H 03/30/22 17:14 Calculated Osmolality 284 mOsm/kg (285-295) L 03/30/22 17:14 Calcium 9.0 mg/dL (8.5-10.5) 03/30/22 17:14 Total Bilirubin 0.5 mg/dL (0.15-1.2) 03/30/22 17:14 AST 14 U/L (0-40) 03/30/22 17:14 ALT 13 U/L (0-41) 03/30/22 17:14 Alkaline Phosphatase 65 IU/L (40-130) 03/30/22 17:14 Troponin T Baseline 16 ng/L (0-15) H 03/30/22 17:14 Total Protein 7.2 g/dL (6.6-8.7) 03/30/22 17:14 Albumin 3.8 g/dL (3.5-5.2) 03/30/22 17:14 Globulin 3.4 g/dL (1.3-4.6) 03/30/22 17:14 TSH 2.67 uIU/mL (0.27-4.20) 03/30/22 17:14 Free T4 1.55 ng/dL (0.82-1.77) 03/30/22 17:14 Urine Color Yellow (Yellow) 03/30/22 17:25 Urine Appearance Clear (CLEAR) 03/30/22 17:25 Urine pH 6 (5-7) 03/30/22 17:25 Ur Specific Media 1.005 (1.005-1.030) 03/30/22 17:25 Urine Protein Neg (Negative) 03/30/22 17:25 Urine Glucose (UA) Norm (Normal) 03/30/22 17:25 Urine Ketones Negative (Negative) 03/30/22 17:25 Urine Blood 2+ (Negative) H 03/30/22 17:25 Urine Nitrate Negative (Negative) 03/30/22 17:25 Urine Bilirubin Neg (Negative) 03/30/22 17:25 Urine Urobilinogen Norm mg/dL (Negative) 03/30/22 17:25 Ur Leukocyte Esterase Negative (Negative) 03/30/22 17:25 Urine RBC 0-4 /hpf (0-2) H 03/30/22 17:25 Urine WBC None /hpf (0-5) 03/30/22 17:25 Ur Squamous Epith Cells None /hpf (0-5) 03/30/22 17:25 Amorphous Sediment Not Reportable 03/30/22 17:25 Urine Bacteria Trace /hpf (NONE) 03/30/22 17:25 SARS-CoV-2 Ag (Rapid) Negative (Negative) 03/30/22 17:15 EKG Data EKG 1: Other EKG comments: Sinus bradycardia, rate of 59, no sign of acute ischemia or other acute abnormality. Discharge Plan Discharge Patient Disposition: Home Clinical Impression: Light-headed Condition: Stable Prescriptions: No Action clopidogrel 75 mg tablet 75 mg PO QAM 0RF Hold Instructions: Resume on 03/09/21. tamoxifen 20 mg tablet 10 mg PO DAILY 0RF telmisartan 20 mg tablet 20 mg PO QAM 0RF pantoprazole [Protonix] 40 mg tablet,delayed release (DR/EC) 40 mg PO QAM 0RF levothyroxine [Synthroid] 50 mcg tablet 50 mcg PO QAM 0RF metoprolol succinate [Toprol XL] 25 mg tablet extended release 24 hr 25 mg PO QAM 0RF rosuvastatin [Crestor] 10 mg tablet 10 mg PO QPM 0RF aspirin [Adult Aspirin Regimen] 81 mg tablet,delayed release (DR/EC) 81 mg PO QPM 0RF docusate sodium 100 mg capsule 200 mg PO BID 0RF loratadine [Claritin] 10 mg tablet 10 mg PO QAM 0RF Anoro Ellipta 62.5-25 mcg/actuation blister with device 1 inh inhalation QAM Qty: 60 3RF prednisone 5 mg tablet 5 mg PO QAM 90 Days Qty: 90 0RF Fiber Laxative (psyllium husk) capsule 2 tab PO BID 0RF alprazolam 0.25 mg tablet 0.25 mg PO BEDTIME PRN (Reason: unknown) 0RF hydrocodone-acetaminophen 5-325 mg tablet 1 tab PO Q6H PRN (Reason: pain) Qty: 20 0RF Zofran 4 mg tablet 4 mg PO Q6H PRN (Reason: nausea and vomiting) Qty: 20 0RF Colace 100 mg capsule 100 mg PO BID Qty: 30 0RF multivitamin Tablet 1 tab PO QPM 0RF Restasis MultiDose 0.05 % drops 1 drp ophthalmic (eye) BID 0RF Discharge Orders: Discharge ED (Routine); Ordered 03/30/22 Ordered By: Sorin Manley Referrals: Julio Mccracken DO [Primary Care Provider] - 1-3 days Patient Instructions: Lightheadedness (ED), Opioid Safety Coding Level of Care Code ED Freight Team Associate for [facility]
--- NOTE | 2022-03-30 17:02 | ECG_ITS ---
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 Measurements Intervals [place] Rate: 59 P: 34 AL: 195 QRS: -32 QRSD: 89 T: 34 QT: 403 QTc: 401 Interpretive Statements SINUS BRADYCARDIA LEFT AXIS DEVIATION [QRS AXIS < -30] PATTERN CONSISTENT WITH PULMONARY DISEASE Compared to ECG 03/24/2020 17:54:32 No significant changes Electronically Signed On 03-30-2022 20:24:07 CDT by Campbell Downs M.D. [id number]
[2022-03-30 17:21] VITALS: BP 133/68; PULSE 60; RESP 18; O2SAT 98
[2022-03-30 17:30] VITALS: BP 138/68; PULSE 60; O2SAT 93
[2022-03-30 17:30] LABS: Basophils # 0.1 10^3/uL (0.0-0.1); Basophils % 0.9 %; Eosinophils # 1.1 10^3/uL (0.0-0.8); Eosinophils % 12.3 %; Hematocrit 38.8 % (42.0-52.0); Hemoglobin 13.3 g/dL (11.7-16.6); Lymphocytes # 2.6 10^3/uL (0.8-4.8); Mean Corpuscular HGB Conc 34.3 g/dL (30.0-36.0); Mean Corpuscular Hemoglobin 31.2 pg (28.0-34.0); Mean Corpuscular Volume 91.1 fl (80-94); Mean Platelet Volume 9.7 fL (7.4-10.4); Monocytes # 0.8 10^3/uL (0.2-0.9); Monocytes % 8.1 %; Neutrophils # 4.67 10^3/uL (1.8-7.7); Neutrophils % 50.4 %; Nucleated Red Blood Cells % 0 %; Platelet Count 185 10^3/cmm (130-400); Red Blood Count 4.26 10^6/uL (4.1-5.3); Red Cell Distribution Width 13.5 % (12.1-15.1); White Blood Count 9.3 10^3/uL (4.0-10.0)
[2022-03-30 17:39] LABS: Add Urine Culture? No; Bacteria Urine TRACE /hpf; Bilirubin Urine Neg (Negative); Blood Urine 2+ (Negative); Glucose Urine UA Norm (Normal); Ketones Urine Negative (Negative); Leukocyte Esterase Urine Negative (Negative); Nitrate Urine Negative (Negative); Protein Urine Neg (Negative); RBC Urine 0-4 /hpf (0-2); Specific Gravity, Urine 1.005 (1.005-1.030); Urine Appearance Clear (CLEAR); Urine Color Yellow (Yellow); Urobilinogen Urine Norm (Negative); pH Urine 6 (5-7)
[2022-03-30 17:50] LABS: SARS Covid-2 Antigen Negative (Negative)
[2022-03-30 17:51] LABS: Troponin(5th) Baseline 16 ng/L (0-15)
[2022-03-30 18:00] VITALS: BP 112/64; PULSE 52; O2SAT 95
[2022-03-30 18:02] LABS: Alanine Aminotransferase 13 U/L (0-41); Albumin Level 3.8 g/dL (3.5-5.2); Alkaline Phosphatase 65 IU/L (40-130); Anion Gap 15.2 (5-19); Aspartate Amino Transferase 14 U/L (0-40); Blood Urea Nitrogen 24 mg/dL (8-23); Carbon Dioxide 24 mmol/L (22-29); Chloride 98 mmol/L (98-107); Free T4 Free Thyroxine 1.55 ng/dL (0.82-1.77); Globulin 3.4 g/dL (1.3-4.6); Glucose 167 mg/dL (65-115); Osmolality Calculated 284 mOsm/kg (285-295); Potassium 4.2 mmol/L (3.5-5.1); Sodium 133 mmol/L (136-145); Thyroid Stimulating Hormone 2.67 uIU/mL (0.27-4.20); Total Bilirubin 0.5 mg/dL (0.15-1.2); Total Protein 7.2 g/dL (6.6-8.7)
[2022-03-30 18:43] VITALS: BP 144/71; PULSE 56; RESP 16; O2SAT 94
[2022-03-30 18:46] VITALS: BP 144/71; PULSE 56; RESP 15; O2SAT 94
== END 2022-03-30 18:51 | disposition home or self-care (01) ==
PROVIDERS: Emergency Provider Emergency Medicine; PCP Family Medicine
DX: R42 Dizziness and giddiness (principal); R03.1 Nonspecific low blood-pressure reading; I10 Essential (primary) hypertension; I25.10 Atherosclerotic heart disease of native coronary artery without angina pectoris; Z20.822 Contact with and (suspected) exposure to COVID-19; Z86.73 Personal history of transient ischemic attack (TIA), and cerebral infarction without residual deficits
CPT/HCPCS: 80053; 81001; 84439; 84443; 84484; 85025; 87426; 93005; 99284

== ENCOUNTER → 2022-04-01 10:35 | Outpatient (BNVA) | payer MEDICARE, OTHER, SELFPAY | PROVIDERS: PCP Family Medicine; Visit Provider Internal Medicine Rheumatology | DX: M35.00 Sjogren syndrome, unspecified (principal); J84.9 Interstitial pulmonary disease, unspecified; R76.8 Other specified abnormal immunological findings in serum; C50.921 Malignant neoplasm of unspecified site of right male breast; Z79.899 Other long term (current) drug therapy; Z71.89 Other specified counseling | CPT/HCPCS: 99214 ==

== ENCOUNTER 2022-04-03 12:20 | Oncology outpatient (recurring) (ONCR) | payer MEDICARE, OTHER, SELFPAY | END 2022-04-03 23:59 | disposition home or self-care (01) | PROVIDERS: PCP Family Medicine; Visit Provider Internal Medicine Hematology & Oncology | DX: Z08 Encounter for follow-up examination after completed treatment for malignant neoplasm (principal); Z85.3 Personal history of malignant neoplasm of breast; M35.00 Sjogren syndrome, unspecified; H91.93 Unspecified hearing loss, bilateral; R76.8 Other specified abnormal immunological findings in serum; J44.9 Chronic obstructive pulmonary disease, unspecified; Z98.61 Coronary angioplasty status; Z87.891 Personal history of nicotine dependence; Z79.899 Other long term (current) drug therapy | CPT/HCPCS: 99214 ==

== ENCOUNTER → 2022-05-07 08:53 | Outpatient (BNVA) | payer MEDICARE, OTHER, SELFPAY | PROVIDERS: PCP Family Medicine; Visit Provider Internal Medicine Critical Care Medicine | DX: J44.9 Chronic obstructive pulmonary disease, unspecified (principal); J84.89 Other specified interstitial pulmonary diseases; J96.11 Chronic respiratory failure with hypoxia; J98.4 Other disorders of lung; R76.8 Other specified abnormal immunological findings in serum; Z87.891 Personal history of nicotine dependence; I10 Essential (primary) hypertension; E78.5 Hyperlipidemia, unspecified | CPT/HCPCS: 99214 ==

== ENCOUNTER → 2022-05-08 11:49 | Outpatient (BNVA) | payer MEDICARE, OTHER, SELFPAY | PROVIDERS: PCP Family Medicine; Visit Provider Internal Medicine Cardiovascular Disease | DX: I95.1 Orthostatic hypotension (principal); I71.2 Thoracic aortic aneurysm, without rupture; M35.00 Sjogren syndrome, unspecified; I25.10 Atherosclerotic heart disease of native coronary artery without angina pectoris; Z98.61 Coronary angioplasty status | CPT/HCPCS: 99214 ==

== ENCOUNTER 2022-05-19 16:08 | Outpatient (CLI) | payer MEDICARE, OTHER, SELFPAY ==
--- NOTE | 2022-05-19 16:00 | CT_ITS ---
WS: [id number] CT CHEST CT-HIGH RESOLUTION, NONCONTRAST. HISTORY: Interstitial lung disease. Technique: High-resolution chest CT is performed in inspiration, expiration, supine and prone positio josue. All CT scans at [facility] use at least one of these dose optimization techniques: automated exposure control; mA and/or kV adjustment per patient size (includes targeted exams where dose is mat ched to clinical indication); or iterative reconstruction. DLP: 2077.15 mGy.cm COMPARISON: 07/17/2021 Findings: Paraseptal and centrilobular emphysema. There are numerous bullous and bleb formations. Int erstitial and septal thickening in the periphery of the lungs involving both the lower lung nolasco. T here is no predominance of findings at the lung bases which would be seen with UIP. There are a few a reas of traction bronchiectasis. There is a very few scattered areas of mosaic attenuation. Air elliott ing in the RIGHT middle and RIGHT upper lobes. No pleural effusions. Heart is mildly enlarged. Atherosclerosis of aorta. Mild dilatation of the ascending aorta to 4.3 cm. There are numerous small mediastinal and hilar lymph nodes which maintain their normal ovoid shape. Low-attenuation mass upper pole RIGHT kidney measures 2.3 x 1.8 cm. Mild bilateral perinephric strand ing. Atherosclerotic plaque continues into the abdominal aorta. CT/CT chest wo con [id number] Impression: 1. Features are not completely typical for UIP. There is upper lobe involvemen t as much as lower lobe involvement with minimal honeycombing. Consider additio nal etiologies such as RB- ILD and hypersensitivity pneumonias. No progression since the prior examinations. 2. Mild atherosclerosis aorta. Mild dilatation ascending aorta to 4.3 cm. 3. Stable mediastinal and hilar lymph nodes.
== END 2022-05-19 16:09 | disposition home or self-care (01) ==
LOC: RAD 16:08
PROVIDERS: PCP Family Medicine; Visit Provider Internal Medicine Critical Care Medicine
DX: J84.89 Other specified interstitial pulmonary diseases (principal); R76.8 Other specified abnormal immunological findings in serum; I70.0 Atherosclerosis of aorta
CPT/HCPCS: 71250

== ENCOUNTER 2022-06-26 07:55 | Outpatient (CLI) | payer MEDICARE, OTHER, SELFPAY ==
--- NOTE | 2022-06-26 08:48 | PFTS_ITS ---
Date of Study:06/26/22 Date of Dictation: MECHANICS: Forced vital capacity (FVC) is . Forced expiratory volume in one second (FEV1) is . FEV1/FVC is . FLOW VOLUME LOOP: . LUNG VOLUMES: Total lung capacity (TLC) is . Residual volume (RV) is . DIFFUSING CAPACITY FOR CARBON MONOXIDE: . INTERPRETATION: The pulmonary function tests are . mechanics and lung volumes. Gas exchange (DLCO) is . MTDD
== END 2022-06-26 07:56 | disposition home or self-care (01) ==
LOC: RT 07:56
PROVIDERS: PCP Family Medicine; Visit Provider Internal Medicine Critical Care Medicine
DX: J84.89 Other specified interstitial pulmonary diseases (principal)
CPT/HCPCS: 94060; 94729; J7611

== ENCOUNTER 2022-07-10 06:00 | Oncology outpatient (recurring) (ONCR) | payer MEDICARE, OTHER, SELFPAY | END 2022-08-01 23:59 | disposition home or self-care (01) | PROVIDERS: PCP Family Medicine; Visit Provider Internal Medicine Hematology & Oncology | DX: C50.121 Malignant neoplasm of central portion of right male breast (principal) | CPT/HCPCS: 80053; 82607; 83036; 84443; 85025; 86300 ==

== ENCOUNTER → 2022-07-22 10:31 | Outpatient (BNVA) | payer MEDICARE, OTHER, SELFPAY | PROVIDERS: PCP Family Medicine; Visit Provider Internal Medicine Rheumatology | DX: M35.00 Sjogren syndrome, unspecified (principal); J84.89 Other specified interstitial pulmonary diseases; Z79.899 Other long term (current) drug therapy; Z71.89 Other specified counseling; Z79.52 Long term (current) use of systemic steroids; C50.921 Malignant neoplasm of unspecified site of right male breast; Z87.891 Personal history of nicotine dependence | CPT/HCPCS: 99214 ==

== ENCOUNTER 2022-08-12 11:44 | Oncology outpatient (recurring) (ONCR) | payer MEDICARE, OTHER, SELFPAY ==
[2022-08-12 13:06] LABS: Basophils # 0.1 10^3/uL (0.0-0.1); Basophils % 0.7 %; Eosinophils % 18.4 %; Hematocrit 41.1 % (42.0-52.0); Hemoglobin 13.2 g/dL (11.7-16.6); Lymphocytes # 2.3 10^3/uL (0.8-4.8); Lymphocytes % 21.2 %; Mean Corpuscular HGB Conc 32.1 g/dL (30.0-36.0); Mean Corpuscular Hemoglobin 30.4 pg (28.0-34.0); Mean Corpuscular Volume 94.7 fl (80-94); Mean Platelet Volume 9.6 fL (7.4-10.4); Monocytes # 0.8 10^3/uL (0.2-0.9); Neutrophils # 5.76 10^3/uL (1.8-7.7); Neutrophils % 52.2 %; Nucleated Red Blood Cells % 0 %; Platelet Count 207 10^3/cmm (130-400); Red Blood Count 4.34 10^6/uL (4.1-5.3); Red Cell Distribution Width 14.2 % (12.1-15.1)
[2022-08-12 13:13] LABS: Alanine Aminotransferase 8 U/L (0-41); Albumin Level 3.8 g/dL (3.5-5.2); Alkaline Phosphatase 64 U/L (40-130); Anion Gap 13.7 (5-19); Aspartate Amino Transferase 14 U/L (0-40); Blood Urea Nitrogen 18 mg/dL (8-23); CA 15-3 39.8 U/mL (0-25); Calcium 9.9 mg/dL (8.5-10.5); Carbon Dioxide 28 mmol/L (22-29); Chloride 98 mmol/L (98-107); Globulin 3.6 g/dL (1.3-4.6); Glucose 107 mg/dL (65-115); Osmolality Calculated 282 mOsm/kg (285-295); Potassium 4.7 mmol/L (3.5-5.1); Sodium 135 mmol/L (136-145); Total Bilirubin 0.5 mg/dL (0.15-1.2); Total Protein 7.4 g/dL (6.6-8.7)
== END 2022-09-01 23:59 | disposition home or self-care (01) ==
PROVIDERS: PCP Family Medicine; Visit Provider Internal Medicine Hematology & Oncology
DX: C50.121 Malignant neoplasm of central portion of right male breast (principal); Z17.0 Estrogen receptor positive status [ER+]; Z90.11 Acquired absence of right breast and nipple
CPT/HCPCS: 36415; 80053; 85025; 86300; 99214

== ENCOUNTER → 2022-09-08 08:40 | Outpatient (BNVA) | payer MEDICARE, OTHER, SELFPAY | PROVIDERS: PCP Family Medicine; Visit Provider Internal Medicine Pulmonary Disease | DX: J44.9 Chronic obstructive pulmonary disease, unspecified (principal); J98.4 Other disorders of lung; J84.89 Other specified interstitial pulmonary diseases; J96.11 Chronic respiratory failure with hypoxia; R76.8 Other specified abnormal immunological findings in serum; M35.00 Sjogren syndrome, unspecified; Z87.891 Personal history of nicotine dependence; Z99.81 Dependence on supplemental oxygen | CPT/HCPCS: 99214 ==

== ENCOUNTER → 2022-10-14 11:08 | Outpatient (BNVA) | payer MEDICARE, OTHER, SELFPAY | PROVIDERS: PCP Family Medicine; Visit Provider Internal Medicine Rheumatology | DX: M35.00 Sjogren syndrome, unspecified (principal); Z79.899 Other long term (current) drug therapy; J84.89 Other specified interstitial pulmonary diseases; Z71.89 Other specified counseling; R76.8 Other specified abnormal immunological findings in serum; J43.9 Emphysema, unspecified; Z87.891 Personal history of nicotine dependence; C50.921 Malignant neoplasm of unspecified site of right male breast | CPT/HCPCS: 99214 ==

== ENCOUNTER 2022-10-26 08:08 | Emergency (ER) | payer MEDICARE, OTHER, SELFPAY ==
[2022-10-26 08:15] VITALS: BP 160/75; PULSE 138; RESP 22; TEMP 37.1; O2SAT 97
--- NOTE | 2022-10-26 08:45 | XRR_ITS ---
PROCEDURE INFORMATION: Exam: XR Chest Exam date and time: 10/26/2022 8:56 AM Age: 86 years old Clinical indication: Shortness of breath; Additional info: SOB TECHNIQUE: Imaging protocol: Radiologic exam of the chest. Views: 1 view. COMPARISON: CT chest [facility] [id number] 05/19/2022 4:20 PM FINDINGS: Lungs: Prominent interstitial markings consistent with interstitial lung disease in the periphery. Pleural spaces: Unremarkable. No pleural effusion. No pneumothorax. Heart/Mediastinum: Cardiomegaly. Bones/joints: Unremarkable. XR/XR chest 1V portable [id number] IMPRESSION: Interstitial lung disease with no acute infiltrates.
--- NOTE | 2022-10-26 08:46 | ECG_ITS ---
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 Measurements Intervals [place] Rate: 103 P: 29 WI: 203 QRS: -38 QRSD: 94 T: 31 QT: 313 QTc: 410 Interpretive Statements SINUS TACHYCARDIA INDETERMINATE AXIS Compared to ECG 03/30/2022 17:13:45 Indeterminate axis now present Sinus bradycardia no longer present Left-axis deviation no longer present Electronically Signed On 10-27-2022 6:02:00 OSTEOPATHIC RESIDENT by Cher Tolentino M.D. [id number]
--- NOTE | 2022-10-26 08:47 | ED_ITS ---
HPI - General Adult General: Chief complaint: General Medical Stated complaint: shivering,n/v/d Time Seen by Provider: 10/26/22 08:23 History of Present Illness: Patient comes in with dysuria, body aches, nausea, midsternal chest pain. States the symptoms all started this morning. States he has some congestion and is developing a mild cough. On physical exam he is tachycardic. He states that he has not been running a fever, but he has been having significant chills all morning. His abdomen is soft, nontender. Associated symptoms: Reports chest pain and nausea; Deny dyspnea, headache(s), rash, palpitations or vomiting Review of Systems Const: Reports: chills and body aches; Denies: fever(s) Eyes: Denies: change in vision or blurry vision ENMT: Denies: throat pain or odynophagia Card: Reports: chest pain; Denies: palpitations Resp: Denies: dyspnea or productive cough GI: Reports: nausea; Denies: abdominal pain or vomiting : Reports: dysuria; Denies: flank pain Musc: Denies: neck pain or back pain Skin/Breast: Denies: rash or pruritus Neuro: Denies: headache(s) or numbness in extremities Psych: Denies: anxiety or change in appetite Endo: Denies: polyuria or excessive sweating PFSH ED PFSH: Medical History (Updated 10/26/22 @ 11:01 by Randolph Santiago MD) Ascending aortic aneurysm ASHD (arteriosclerotic heart disease) Balanitis Breast cancer, right T1c N0 CAD (coronary artery disease) -follows up with Dr. Granados Cerebrovascular accident (CVA) determined by clinical assessment Dyslipidemia Emphysema/COPD History of basal cell carcinoma History of nonmelanoma skin cancer HTN (hypertension) -low to low normal BP; continue to monitor vital signs -continue oral antihypertensives, hold if hypotension Hypothyroidism -continue levothyroxine Orthostatic hypotension Primary Sjogren's syndrome Primary Sjogren's syndrome Surgical History H/O hemorrhoidectomy History of colonoscopy 2014 History of ear surgery History of tonsillectomy S/P PTCA (percutaneous transluminal coronary angioplasty) S/P right mastectomy (03/06/21) with [facility] Family History Brother Cancer PANCREATIC Stroke Other CAD (coronary artery disease) Hyperlipidemia Hypertension Lung disease Denies family history of Diabetes Clotting disorder Dementia Psychiatric illness Chronic kidney disease (CKD) Suicide Anesthesia complication Bleeding disorder Social History Smoking and tobacco status: former smoker Quit status (tobacco): has quit using tobacco Year quit tobacco: 1994 - 2PPD x 45 Years Second hand smoke exposure: No Smoking risk assessment/counseling performed?: No Alcohol intake: current Alcohol intake frequency: holidays/special occasions only Counseling given: No Desire information about substance/drug rehabilitation?: No Counseling given: No Lives independently: Yes Household members: spouse Marital status: service: Yes Current occupational status: retired History of recent travel: No Current gender identity: Male Special chinedu needs: No Physical Exam Const: COMMON NORMALS: no acute distress, patient oriented x3, healthy appearing and alert HENMT: COMMON NORMALS: normocephalic and atraumatic HEAD & SCALP: normocephalic and atraumatic Eye: COMMON NORMALS: Equal, round and reactive pupils present and EOMs intact bilaterally PUPIL: Yes Equal, round and reactive pupils present OTHER: Bilateral glassy eyed appear Neck/C-Spine: COMMON NORMALS: full ROM and supple Resp: COMMON NORMALS: normal respiratory effort, No retractions and No use of accessory muscles Cardio: COMMON NORMALS: regular rhythm RHYTHM: regular rhythm GI: COMMON NORMALS: Normal to inspection, nondistended, normoactive bowel sounds present, Soft to palpation and non-tender PALPATION: Yes Soft to palpation Back/Pelvis: COMMON NORMALS: thoracic and lumbar spine normal to inspection and no thoracic nor lumbar tenderness Extremity: COMMON NORMALS: normal to inspection and full ROM Neuro: COMMON NORMALS: patient oriented x3 SENSORIUM/ORIENTATION: Yes alert Psych: COMMON NORMALS: mental status grossly normal and cooperative Skin: COMMON NORMALS: no rashes or lesions noted and no wounds GENERAL SKIN EXAM: no rashes or lesions noted Course Vital Signs: Vital signs: Vital Signs Temperature 98.7 F 10/26/22 08:15 Pulse Rate 88 10/26/22 10:57 Respiratory Rate 22 H 10/26/22 08:15 Blood Pressure 111/44 10/26/22 10:57 Pulse Oximetry 95 10/26/22 10:57 Oxygen Delivery Me thod 10/26/22 10:57 Oxygen Flow Rate 3 10/26/22 10:57 MDM - General Adult Medical Decision Making Patient comes in with dysuria, body aches, nausea, midsternal chest pain. States the symptoms all started this morning. States he has some congestion and is developing a mild cough. On physical exam he is tachycardic. He states that he has not been running a fever, but he has been having significant chills all morning. His abdomen is soft, nontender. Will check labs, x-ray, give IV fluids, and reassess On reassessment I talked to the patient about the test results. We will give him a dose of ceftriaxone here. We will write for antibiotics and discharged with precautions to return for worsening or changing symptoms. Lab Data 10/26/22 09:32 10/26/22 09:32 Radiology Impressions Chest X-Ray 10/26/22 08:45 IMPRESSION: Interstitial lung disease with no acute infiltrates. Laboratory Results WBC 15.1 10^3/uL (4.0-10.0) H 10/26/22 09:32 RBC 4.84 10^6/uL (4.1-5.3) 10/26/22 09:32 Hgb 14.7 g/dL (11.7-16.6) 10/26/22 09:32 Hct 44.8 % (42.0-52.0) 10/26/22 09:32 MCV 92.6 fl (80-94) 10/26/22 09:32 MCH 30.4 pg (28.0-34.0) 10/26/22 09:32 MCHC 32.8 g/dL (30.0-36.0) 10/26/22 09:32 RDW 13.7 % (12.1-15.1) 10/26/22 09:32 Plt Count 192 10^3/cmm (130-400) 10/26/22 09:32 MPV 9.5 fL (7.4-10.4) 10/26/22 09:32 Neut % (Auto) 73.6 % 10/26/22 09:32 Lymph % (Auto) 9.2 % 10/26/22 09:32 [place] % (Auto) 6.3 % 10/26/22 09:32 Eos % (Auto) 9.9 % 10/26/22 09:32 Baso % (Auto) 0.5 % 10/26/22 09:32 Neut # (Auto) 11.07 10^3/uL (1.8-7.7) H 10/26/22 09:32 Lymph # (Auto) 1.4 10^3/uL (0.8-4.8) 10/26/22 09:32 [place] # (Auto) 1.0 10^3/uL (0.2-0.9) H 10/26/22 09:32 Eos # (Auto) 1.5 10^3/uL (0.0-0.8) H 10/26/22 09:32 Baso # (Auto) 0.1 10^3/uL (0.0-0.1) 10/26/22 09:32 Nucleated RBC % (auto) 0 % 10/26/22 09:32 Nucleated RBCs # 0.0 /100WBC 10/26/22 09:32 Sodium 136 mmol/L (136-145) 10/26/22 09:32 Potassium 4.5 mmol/L (3.5-5.1) 10/26/22 09:32 Chloride 100 mmol/L (98-107) 10/26/22 09:32 Carbon Dioxide 26 mmol/L (22-29) 10/26/22 09:32 Anion Gap 14.5 (5-19) 10/26/22 09:32 BUN 22 mg/dL (8-23) 10/26/22 09:32 Creatinine 1.1 mg/dL (0.7-1.2) 10/26/22 09:32 GFR Calculation Not Reportable 10/26/22 09:32 Glucose 141 mg/dL (65-115) H 10/26/22 09:32 Calculated Osmolality 288 mOsm/kg (285-295) 10/26/22 09:32 Calcium 9.5 mg/dL (8.5-10.5) 10/26/22 09:32 Total Bilirubin 0.7 mg/dL (0.15-1.2) 10/26/22 09:32 AST 15 U/L (0-40) 10/26/22 09:32 ALT 10 U/L (0-41) 10/26/22 09:32 Alkaline Phosphatase 71 U/L (40-130) 10/26/22 09:32 Total Protein 7.8 g/dL (6.6-8.7) 10/26/22 09:32 Albumin 4.1 g/dL (3.5-5.2) 10/26/22 09:32 Globulin 3.7 g/dL (1.3-4.6) 10/26/22 09:32 Lipase 17 U/L (13-60) 10/26/22 09:32 Urine Color Yellow (Yellow) 10/26/22 09:15 Urine Appearance Hazy (CLEAR) A 10/26/22 09:15 Urine pH 7 (5-7) 10/26/22 09:15 Ur Specific [place] 1.005 (1.005-1.030) 10/26/22 09:15 Urine Protein 1+ (Negative) H 10/26/22 09:15 Urine Glucose (UA) Norm (Normal) 10/26/22 09:15 Urine Ketones Negative (Negative) 10/26/22 09:15 Urine Blood 3+ (Negative) H 10/26/22 09:15 Urine Nitrate Negative (Negative) 10/26/22 09:15 Urine Bilirubin Neg (Negative) 10/26/22 09:15 Urine Urobilinogen Norm mg/dL (Negative) 10/26/22 09:15 Ur Leukocyte Esterase 2+ (Negative) H 10/26/22 09:15 Urine RBC 0-4 /hpf (0-2) H 10/26/22 09:15 Urine WBC >100 /hpf (0-5) H 10/26/22 09:15 Ur Squamous Epith Cells None /hpf (0-5) 10/26/22 09:15 Amorphous Sediment Not Reportable 10/26/22 09:15 Urine Bacteria 2+ /hpf (NONE) H 10/26/22 09:15 Influenza Type A Ag negative (Negative) 10/26/22 09:36 Influenza Type B Ag negative (Negative) 10/26/22 09:36 Discharge Plan Discharge Patient Disposition: Home Clinical Impression: Acute pyelonephritis, Urinary tract infection Condition: Stable Prescriptions: New cephalexin 500 mg capsule 500 mg PO Q12H 7 Days Qty: 14 0RF No Action levothyroxine [Synthroid] 50 mcg tablet 50 mcg PO QAM aspirin [Adult Aspirin Regimen] 81 mg tablet,delayed release (DR/EC) 81 mg PO QPM azathioprine 50 mg tablet 50 mg PO BID 90 Days Qty: 180 1RF prednisone 5 mg tablet 5 mg PO QAM 90 Days Qty: 90 1RF Anoro Ellipta 62.5-25 mcg/actuation blister with device 1 inh inhalation QAM Qty: 60 3RF clopidogrel 75 mg tablet 75 mg PO QAM Qty: 90 3RF Hold Instructions: Resume on 03/09/21. loratadine 10 mg tablet See Rx Instructions .ROUTE .COMPLEX Qty: 90 3RF Dose Instruction: TAKE 1 TABLET DAILY FOR ALLERGIES Rx Instructions: TAKE 1 TABLET DAILY FOR ALLERGIES pantoprazole [Protonix] 40 mg tablet,delayed release (DR/EC) 40 mg PO QAM Qty: 90 3RF metoprolol succinate 25 mg tablet extended release 24 hr See Rx Instructions .ROUTE .COMPLEX Qty: 90 3RF Dose Instruction: TAKE 1 TABLET DAILY Rx Instructions: TAKE 1 TABLET DAILY rosuvastatin 10 mg tablet See Rx Instructions .ROUTE .COMPLEX Qty: 90 3RF Dose Instruction: TAKE 1 TABLET DAILY Rx Instructions: TAKE 1 TABLET DAILY Fiber Laxative (psyllium husk) capsule 2 tab PO BID alprazolam 0.25 mg tablet 0.25 mg PO BEDTIME PRN (Reason: unknown) multivitamin Tablet 1 tab PO QPM Discharge Orders: Discharge ED (Routine); Ordered 10/26/22 Ordered By: Randolph Santiago Referrals: Julio Mccracken DO [Primary Care Provider] - Patient Instructions: Urinary Tract Infection - Men Coding Level of Care Code ED 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
[2022-10-26 09:42] LABS: Add Urine Microscopic? YES; Bilirubin Urine Neg (Negative); Blood Urine 3+ (Negative); Glucose Urine UA Norm (Normal); Ketones Urine Negative (Negative); Leukocyte Esterase Urine 2+ (Negative); Nitrate Urine Negative (Negative); Protein Urine 1+ (Negative); Specific Gravity, Urine 1.005 (1.005-1.030); Urine Appearance Hazy (CLEAR); Urine Color Yellow (Yellow); Urobilinogen Urine Norm (Negative); pH Urine 7 (5-7)
[2022-10-26 09:44] LABS: Add Urine Culture? Yes; Bacteria Urine 2+ /hpf; RBC Urine 0-4 /hpf (0-2); WBC Urine >100 /hpf (0-5)
[2022-10-26 09:45] LABS: Basophils # 0.1 10^3/uL (0.0-0.1); Basophils % 0.5 %; Eosinophils # 1.5 10^3/uL (0.0-0.8); Eosinophils % 9.9 %; Hematocrit 44.8 % (42.0-52.0); Hemoglobin 14.7 g/dL (11.7-16.6); Lymphocytes # 1.4 10^3/uL (0.8-4.8); Lymphocytes % 9.2 %; Mean Corpuscular HGB Conc 32.8 g/dL (30.0-36.0); Mean Corpuscular Hemoglobin 30.4 pg (28.0-34.0); Mean Corpuscular Volume 92.6 fl (80-94); Mean Platelet Volume 9.5 fL (7.4-10.4); Monocytes % 6.3 %; Neutrophils # 11.07 10^3/uL (1.8-7.7); Neutrophils % 73.6 %; Nucleated Red Blood Cells % 0 %; Platelet Count 192 10^3/cmm (130-400); Red Blood Count 4.84 10^6/uL (4.1-5.3); Red Cell Distribution Width 13.7 % (12.1-15.1); White Blood Count 15.1 10^3/uL (4.0-10.0)
[2022-10-26] MEDS: sodium chloride 0.9% 500 ML IV (09:45)
[2022-10-26] MEDS: ondansetron 2 mg/ML SDV 2 mL 4 MG IVP (09:46)
[2022-10-26 09:53] VITALS: BP 126/62; PULSE 101; O2SAT 90
[2022-10-26 10:06] LABS: Alanine Aminotransferase 10 U/L (0-41); Albumin Level 4.1 g/dL (3.5-5.2); Alkaline Phosphatase 71 U/L (40-130); Anion Gap 14.5 (5-19); Aspartate Amino Transferase 15 U/L (0-40); Blood Urea Nitrogen 22 mg/dL (8-23); Calcium 9.5 mg/dL (8.5-10.5); Carbon Dioxide 26 mmol/L (22-29); Chloride 100 mmol/L (98-107); Globulin 3.7 g/dL (1.3-4.6); Glucose 141 mg/dL (65-115); Lipase 17 U/L (13-60); Osmolality Calculated 288 mOsm/kg (285-295); Potassium 4.5 mmol/L (3.5-5.1); Sodium 136 mmol/L (136-145); Total Bilirubin 0.7 mg/dL (0.15-1.2); Total Protein 7.8 g/dL (6.6-8.7)
[2022-10-26 10:27] LABS: Influenza A by IFA negative (Negative); Influenza B by IFA negative (Negative)
[2022-10-26] MEDS: cefTRIAXone 1,000 MG in sodium chloride 0.9% (plus) 50 ML 100 MG IV (10:52)
[2022-10-26 10:57] VITALS: BP 111/44; PULSE 88; O2SAT 95
[2022-10-26 11:48] LABS: Adenovirus Not Detected (NOT DETECT); Chlamydia Pneumoniae Not Detected (NOT DETECT); Coronavirus 229E,HKU1,NL63,OC4 Not Detected (NOT DETECT); Human Metapneumovirus Not Detected (NOT DETECT); Human Rhinovirus/Enterovirus Not Detected (NOT DETECT); Influenza A Not Detected (NOT DETECT); Influenza A H1 Not Detected (NOT DETECT); Influenza A H1-2009 Not Detected (NOT DETECT); Influenza A H3 Not Detected (NOT DETECT); Influenza B Not Detected (NOT DETECT); Mycoplasma Pneumoniae Not Detected (NOT DETECT); Parainfluenza Virus Type 1 Not Detected (NOT DETECT); Parainfluenza Virus Type 2 Not Detected (NOT DETECT); Parainfluenza Virus Type 3 Not Detected (NOT DETECT); Parainfluenza Virus Type 4 Not Detected (NOT DETECT); Respiratory Syncytial Virus A Not Detected (NOT DETECT); Respiratory Syncytial Virus B Not Detected (NOT DETECT); SARS-COV-2 Not Detected (NOT DETECT)
[2022-10-26 11:49] VITALS: BP 119/74; PULSE 90; O2SAT 94
== END 2022-10-26 11:48 | disposition home or self-care (01) ==
PROVIDERS: Emergency Provider Emergency Medicine; PCP Family Medicine
DX: N10 Acute pyelonephritis (principal); N39.0 Urinary tract infection, site not specified; Z79.82 Long term (current) use of aspirin; Z79.02 Long term (current) use of antithrombotics/antiplatelets; Z87.891 Personal history of nicotine dependence; I25.10 Atherosclerotic heart disease of native coronary artery without angina pectoris; Z85.3 Personal history of malignant neoplasm of breast; E78.5 Hyperlipidemia, unspecified; J44.9 Chronic obstructive pulmonary disease, unspecified; I10 Essential (primary) hypertension; Z20.822 Contact with and (suspected) exposure to COVID-19
CPT/HCPCS: 71045; 80053; 81001; 83690; 85025; 87077; 87086; 87186; 87635; 87804; 93005; 96365; 96375; 99285; J0696; J2405; J7040

== ENCOUNTER 2022-11-13 10:18 | Oncology outpatient (recurring) (ONCR) | payer MEDICARE, OTHER, SELFPAY ==
[2022-11-13 11:01] LABS: Basophils # 0.1 10^3/uL (0.0-0.1); Basophils % 1.4 %; Eosinophils # 1.7 10^3/uL (0.0-0.8); Hematocrit 41.1 % (42.0-52.0); Hemoglobin 12.9 g/dL (11.7-16.6); Lymphocytes # 2.4 10^3/uL (0.8-4.8); Lymphocytes % 30.6 %; Mean Corpuscular HGB Conc 31.4 g/dL (30.0-36.0); Mean Corpuscular Hemoglobin 29.5 pg (28.0-34.0); Mean Corpuscular Volume 94.1 fl (80-94); Mean Platelet Volume 9.2 fL (7.4-10.4); Monocytes # 0.7 10^3/uL (0.2-0.9); Monocytes % 8.4 %; Neutrophils # 3.06 10^3/uL (1.8-7.7); Neutrophils % 38.3 %; Nucleated Red Blood Cells % 0 %; Platelet Count 254 10^3/cmm (130-400); Red Blood Count 4.37 10^6/uL (4.1-5.3); Red Cell Distribution Width 13.8 % (12.1-15.1)
[2022-11-13 11:37] LABS: Alanine Aminotransferase 10 U/L (0-41); Albumin Level 3.8 g/dL (3.5-5.2); Alkaline Phosphatase 62 U/L (40-130); Anion Gap 11.8 (5-19); Aspartate Amino Transferase 15 U/L (0-40); Blood Urea Nitrogen 26 mg/dL (8-23); CA 15-3 33.4 U/mL (0-25); Calcium 9.9 mg/dL (8.5-10.5); Carbon Dioxide 29 mmol/L (22-29); Chloride 100 mmol/L (98-107); Globulin 3.7 g/dL (1.3-4.6); Glucose 122 mg/dL (65-115); Osmolality Calculated 288 mOsm/kg (285-295); Potassium 4.8 mmol/L (3.5-5.1); Sodium 136 mmol/L (136-145); Total Bilirubin 0.5 mg/dL (0.15-1.2); Total Protein 7.5 g/dL (6.6-8.7)
== END 2022-12-02 23:59 | disposition home or self-care (01) ==
LOC: ONCMED 10:20
PROVIDERS: PCP Family Medicine; Visit Provider Internal Medicine Hematology & Oncology
DX: C50.121 Malignant neoplasm of central portion of right male breast (principal); Z17.0 Estrogen receptor positive status [ER+]; Z90.11 Acquired absence of right breast and nipple
CPT/HCPCS: 36415; 80053; 85025; 86300

== ENCOUNTER → 2022-11-25 14:35 | Outpatient (BNVA) | payer MEDICARE, OTHER, SELFPAY | PROVIDERS: PCP Family Medicine; Visit Provider Dermatology | DX: D48.9 Neoplasm of uncertain behavior, unspecified (principal); D09.9 Carcinoma in situ, unspecified | CPT/HCPCS: 88305 ==

== ENCOUNTER → 2023-02-05 10:25 | Outpatient (BNVA) | payer MEDICARE, OTHER, SELFPAY | PROVIDERS: PCP Family Medicine; Visit Provider Family Medicine | DX: M35.00 Sjogren syndrome, unspecified (principal); E78.5 Hyperlipidemia, unspecified; E03.9 Hypothyroidism, unspecified; C50.121 Malignant neoplasm of central portion of right male breast; J44.9 Chronic obstructive pulmonary disease, unspecified; R76.8 Other specified abnormal immunological findings in serum; J84.9 Interstitial pulmonary disease, unspecified; Z79.899 Other long term (current) drug therapy | CPT/HCPCS: 80053; 80061; 80076; 82565; 82607; 83036; 84443; 85025; 86140; 86300 ==

== ENCOUNTER → 2023-02-09 11:19 | Outpatient (BNVA) | payer MEDICARE, OTHER, SELFPAY | PROVIDERS: PCP Family Medicine; Visit Provider Internal Medicine Rheumatology | DX: J84.9 Interstitial pulmonary disease, unspecified (principal); J84.89 Other specified interstitial pulmonary diseases; M35.00 Sjogren syndrome, unspecified; Z79.899 Other long term (current) drug therapy; Z71.89 Other specified counseling; R76.8 Other specified abnormal immunological findings in serum | CPT/HCPCS: 99214 ==

== ENCOUNTER 2023-03-11 13:54 | Outpatient (CLI) | payer MEDICARE, OTHER, SELFPAY ==
--- NOTE | 2023-03-11 14:00 | US_ITS ---
WS: [id number] RENAL ULTRASOUND HISTORY: R10.9 - Unspecified abdominal pain COMPARISON: None available. TECHNIQUE: 2-D and color Doppler imaging of the kidney submitted. Right kidney: 10.0 cm x 5.2 cm x 5.8 cm. Cortex: 1.7 cm Lobulated renal cortex but no thinning. Kidney is mildly echogenic. Cystic mass from the posterior RI GHT kidney measures 1.9 x 2.4 x 3.6 cm. Left kidney: 11.5 cm x 3.6 cm x 5.0 cm. Cortex: 1.2 cm Increased echogenicity throughout the kidney. Lobulated renal cortex with mild thinning. There are a few small cortical cysts which are less than a centimeter. Aorta: Normal. Urinary Bladder: Mildly distended bladder. There is mild wall thickening but this is probably due to only partial distention. Prostate is enlarged measuring 3.4 x 3.4 x 4.0 cm. US/US renal BI* [id number] IMPRESSION: 1. No renal obstruction or solid mass identified. 2. Enlarged prostate gland. 3. Mild chronic medical renal disease and bilateral renal cysts.
== END 2023-03-11 13:55 | disposition home or self-care (01) ==
LOC: RAD 13:59
PROVIDERS: PCP Family Medicine; Visit Provider Internal Medicine Rheumatology
DX: N28.1 Cyst of kidney, acquired (principal); N40.0 Benign prostatic hyperplasia without lower urinary tract symptoms
CPT/HCPCS: 76770

== ENCOUNTER → 2023-03-19 09:17 | Outpatient (BNVA) | payer MEDICARE, OTHER, SELFPAY | PROVIDERS: PCP Family Medicine; Visit Provider Internal Medicine Pulmonary Disease | DX: J44.9 Chronic obstructive pulmonary disease, unspecified (principal); J98.4 Other disorders of lung; J96.11 Chronic respiratory failure with hypoxia; R76.8 Other specified abnormal immunological findings in serum; M35.02 Sjogren syndrome with lung involvement; J84.178 Other interstitial pulmonary diseases with fibrosis in diseases classified elsewhere; Z79.52 Long term (current) use of systemic steroids; Z87.891 Personal history of nicotine dependence; Z99.81 Dependence on supplemental oxygen | CPT/HCPCS: 99214 ==

== ENCOUNTER 2023-03-26 09:57 | Emergency (ER) | payer MEDICARE, OTHER, SELFPAY ==
[2023-03-26 10:22] VITALS: BP 133/73; PULSE 84; RESP 20; TEMP 37.1; O2SAT 93; BMI 27.9
--- NOTE | 2023-03-26 10:31 | W.ED.CHESTPA ---
HPI - Chest Pain General: Chief Complaint: Chest Pain Stated Complaint: n/v, sob Time Seen by Provider: 03/26/23 10:31 History of Present Illness: Mr. Cochran is an 87-year-old gentleman with complex past medical history presenting to the emergency department for generalized illness. He notes 3 days of poor p.o. intake, worsening generalized illness, cough, congestion, nausea and vomiting. Intensity symptoms is moderate to severe. Course has worsened. No other specific changes in health, exacerbating, or alleviating factors identified. Onset (ago): day(s) Timing of current episode: constant Associated symptoms: Reports nausea, vomiting and other Review of Systems General: Reports: 10 or more systems reviewed and unremarkable except in HPI and below GI: Reports: nausea and vomiting PFSH ED PFSH: Medical History Ascending aortic aneurysm ASHD (arteriosclerotic heart disease) Balanitis Breast cancer, right T1c N0 CAD (coronary artery disease) -follows up with Dr. Granados Cerebrovascular accident (CVA) determined by clinical assessment Dyslipidemia Emphysema/COPD History of nonmelanoma skin cancer HTN (hypertension) -low to low normal BP; continue to monitor vital signs -continue oral antihypertensives, hold if hypotension Hypothyroidism -continue levothyroxine Orthostatic hypotension Primary Sjogren's syndrome Primary Sjogren's syndrome Surgical History H/O hemorrhoidectomy History of colonoscopy 2014 History of ear surgery History of tonsillectomy S/P PTCA (percutaneous transluminal coronary angioplasty) S/P right mastectomy (03/06/21) with [facility] Family History Brother Cancer PANCREATIC Stroke Other CAD (coronary artery disease) Hyperlipidemia Hypertension Lung disease Denies family history of Diabetes Clotting disorder Dementia Psychiatric illness Chronic kidney disease (CKD) Suicide Anesthesia complication Bleeding disorder Social History Smoking and tobacco status: former smoker Quit status (tobacco): has quit using tobacco Year quit tobacco: 1994 - PD x 45 Years Second hand smoke exposure: No Smoking risk assessment/counseling performed?: No Alcohol intake: current Alcohol intake frequency: holidays/special occasions only Counseling given: No Substance/Drug Use: never Desire information about substance/drug rehabilitation?: No Counseling given: No Lives independently: Yes Household members: spouse Marital status: service: Yes Current occupational status: retired Do you think of yourself as: Straight/Heterosexual Current gender identity: Male Special chinedu needs: No Physical Exam Const: COMMON NORMALS: alert GENERAL APPEARANCE: cooperative and well developed HENMT: COMMON NORMALS: normocephalic and atraumatic HEAD & SCALP: normocephalic and atraumatic Eye: COMMON NORMALS: conjunctivae normal CONJUNCTIVA: Yes conjunctivae normal SCLERA: sclerae normal Neck/C-Spine: COMMON NORMALS: supple GENERAL: Yes trachea midline Resp: COMMON NORMALS: clear to auscultation bilaterally EFFORT & INSPECTION: Yes able to speak in complete sentences AUSCULTATION: clear to auscultation bilaterally Cardio: COMMON NORMALS: regular rate and regular rhythm RATE: regular rate RHYTHM: regular rhythm GI: COMMON NORMALS: Soft to palpation PALPATION: Yes Soft to palpation, Yes Tenderness to palpation present (GI), No Guarding due to palpation present (GI) and No Rigid due to palpation Extremity: GENERAL: Yes normal exam except as noted and No edema Neuro: COMMON NORMALS: moves all extremities SENSORIUM/ORIENTATION: Yes alert and No Orientation impaired Psych: COMMON NORMALS: mental status grossly normal and Normal thought process present THOUGHT PROCESS: Normal thought process present Course Vital Signs: Vital signs: Vital Signs Temperature 98.7 F 03/26/23 10:22 Pulse Rate 86 03/26/23 15:42 Respiratory Rate 19 H 03/26/23 15:42 Blood Pressure 135/55 03/26/23 15:42 Pulse Oximetry 92 03/26/23 15:42 Oxygen Delivery Me thod Room Air 03/26/23 14:45 Oxygen Flow Rate 2 03/26/23 14:48 MDM - Chest Pain Medical Decision Making 87-year-old gentleman presenting from [facility] with abdominal concerns. He is nontoxic appearance and no evidence of surgical abdomen. Exam as above. EKG concerning sinus rhythm with left axis deviation, no STEMI. Labs with no leukocytosis, normal hemoglobin and platelet count. Metabolic panel with evidence of dehydration and hypomagnesemia. Negative range 2-hour delta troponin. No UTI though there is hematuria. Negative rapid viral testing. Chest x-ray with no lobar consolidation or pneumothorax. CT abdomen pelvis demonstrates incidental findings however no clear etiology of patient symptoms. Discussed incidental findings with patient. Patient feels improved with IV fluids, antiemetic, also given RT treatment for wheezing and magnesium replenishment. Most likely etiology of symptoms is multifactorial including nausea vomiting with dehydration and mild exacerbation of COPD. Patient to be appropriately treated to outpatient. The results of ED evaluation were discussed with the patient including prescriptions and/or symptomatic cares (if applicable) including appropriate and responsible use, followup plan, and return precautions. The patient verbalized understanding and felt safe for discharge. Medical Records I reviewed the patient's medical records. Lab Data I reviewed the patient's lab results. 03/26/23 10:54 03/26/23 10:54 Radiology Impressions Abdomen/Pelvis CT 03/26/23 12:05 IMPRESSION: 1. Diffuse fatty infiltration the liver. 2. No hydronephrosis in either kidney. No obstructing renal or ureteral calculi. 3. Bilateral renal cysts similar to the prior examination. 4. Enlarged prostate measuring 4.5 CM. Recommend correlation PSA. 5. Sigmoid diverticulosis. No evidence of acute diverticulitis. 6. Interstitial thickening in the lung bases similar to previous. Chest X-Ray 03/26/23 12:05 Impression: No change in chronic interstitial lung disease. Laboratory Results WBC 4.4 10^3/uL (4.0-10.0) 03/26/23 10:54 RBC 4.38 10^6/uL (4.1-5.3) 03/26/23 10:54 Hgb 13.0 g/dL (11.7-16.6) 03/26/23 10:54 Hct 40.2 % (42.0-52.0) L 03/26/23 10:54 MCV 91.8 fl (80-94) 03/26/23 10:54 MCH 29.7 pg (28.0-34.0) 03/26/23 10:54 MCHC 32.3 g/dL (30.0-36.0) 03/26/23 10:54 RDW 13.8 % (12.1-15.1) 03/26/23 10:54 Plt Count 130 10^3/cmm (130-400) 03/26/23 10:54 MPV 9.1 fL (7.4-10.4) 03/26/23 10:54 Neut % (Auto) 69.8 % 03/26/23 10:54 Lymph % (Auto) 14.9 % 03/26/23 10:54 [place] % (Auto) 12.8 % 03/26/23 10:54 Eos % (Auto) 0.7 % 03/26/23 10:54 Baso % (Auto) 0.7 % 03/26/23 10:54 Neut # (Auto) 3.10 10^3/uL (1.8-7.7) 03/26/23 10:54 Lymph # (Auto) 0.7 10^3/uL (0.8-4.8) L 03/26/23 10:54 [place] # (Auto) 0.6 10^3/uL (0.2-0.9) 03/26/23 10:54 Eos # (Auto) 0.0 10^3/uL (0.0-0.8) 03/26/23 10:54 Baso # (Auto) 0.0 10^3/uL (0.0-0.1) 03/26/23 10:54 Nucleated RBC % (auto) 0 % 03/26/23 10:54 Nucleated RBCs # 0.0 /100WBC 03/26/23 10:54 Sodium 130 mmol/L (136-145) L 03/26/23 10:54 Potassium 4.4 mmol/L (3.5-5.1) 03/26/23 10:54 Chloride 96 mmol/L (98-107) L 03/26/23 10:54 Carbon Dioxide 22 mmol/L (22-29) 03/26/23 10:54 Anion Gap 16.4 (5-19) 03/26/23 10:54 BUN 22 mg/dL (8-23) 03/26/23 10:54 Creatinine 1.2 mg/dL (0.7-1.2) 03/26/23 10:54 GFR Calculation Not Reportable 03/26/23 10:54 Glucose 136 mg/dL (65-115) H 03/26/23 10:54 Calculated Osmolality 275 mOsm/kg (285-295) L 03/26/23 10:54 Calcium 8.9 mg/dL (8.5-10.5) 03/26/23 10:54 Magnesium 1.5 mg/dL (1.7-2.3) L 03/26/23 10:54 Total Bilirubin 0.7 mg/dL (0.15-1.2) 03/26/23 10:54 AST 26 U/L (0-40) 03/26/23 10:54 ALT 14 U/L (0-41) 03/26/23 10:54 Alkaline Phosphatase 61 U/L (40-130) 03/26/23 10:54 Troponin T Baseline 24 ng/L (0-15) H 03/26/23 10:54 Troponin T 120 Minute 23.92 ng/L (0-15) H 03/26/23 12:04 Delta Troponin T -0.08 ABS# (0-10) L 03/26/23 12:04 Total Protein 6.9 g/dL (6.6-8.7) 03/26/23 10:54 Albumin 3.6 g/dL (3.5-5.2) 03/26/23 10:54 Globulin 3.3 g/dL (1.3-4.6) 03/26/23 10:54 Urine Color Yellow (Yellow) 03/26/23 11:23 Urine Appearance Clear (CLEAR) 03/26/23 11:23 Urine pH 6 (5-7) 03/26/23 11:23 Ur Specific [place] 1.015 (1.005-1.030) 03/26/23 11:23 Urine Protein Trace (Negative) 03/26/23 11:23 Urine Glucose (UA) Norm (Normal) 03/26/23 11:23 Urine Ketones 1+ (Negative) H 03/26/23 11:23 Urine Blood 3+ (Negative) H 03/26/23 11:23 Urine Nitrate Negative (Negative) 03/26/23 11:23 Urine Bilirubin Neg (Negative) 03/26/23 11:23 Urine Urobilinogen Norm mg/dL (Negative) 03/26/23 11:23 Ur Leukocyte Esterase Negative (Negative) 03/26/23 11:23 Urine RBC 50-80 /hpf (0-2) H 03/26/23 11:23 Urine WBC 0-4 /hpf (0-5) H 03/26/23 11:23 Ur Squamous Epith Cells None /hpf (0-5) 03/26/23 11:23 Amorphous Sediment Not Reportable 03/26/23 11:23 Urine Bacteria Trace /hpf (NONE) 03/26/23 11:23 Influenza Type A Ag negative (Negative) 03/26/23 10:54 Influenza Type B Ag negative (Negative) 03/26/23 10:54 SARS-CoV-2 Ag (Rapid) negative (Negative) 03/26/23 10:54 Discharge Plan Discharge Patient Disposition: Home Clinical Impression: Acute exacerbation of chronic obstructive pulmonary disease, Malaise and fatigue, Nausea & vomiting, Mild dehydration Condition: Stable Prescriptions: New albuterol sulfate 90 mcg/actuation HFA aerosol inhaler 2 inh inhalation Q4H PRN (Reason: shortness of breath or wheezing) Qty: 8.5 0RF ondansetron 4 mg tablet,disintegrating 4 mg PO Q8H PRN (Reason: nausea and vomiting) Qty: 15 0RF No Action aspirin [Adult Aspirin Regimen] 81 mg tablet,delayed release (DR/EC) 81 mg PO QPM loratadine 10 mg tablet 10 mg PO DAILY PRN (Reason: Allergy Symptoms) Dose Instruction: TAKE 1 TABLET DAILY FOR ALLERGIES azathioprine 50 mg tablet 50 mg PO BID 90 Days Qty: 180 1RF cyclobenzaprine 10 mg tablet See Rx Instructions PO TID PRN (Reason: muscle spasm) Qty: 30 0RF Rx Instructions: take 1 TID x5 days then call doctor with progress report orally three times daily PRN; prednisone 5 mg tablet 5 mg PO QAM 90 Days Qty: 90 1RF Anoro Ellipta 62.5-25 mcg/actuation blister with device 1 inh inhalation QAM Qty: 60 3RF clopidogrel 75 mg tablet 75 mg PO QAM Qty: 90 3RF Hold Instructions: Resume on 03/09/21. pantoprazole [Protonix] 40 mg tablet,delayed release (DR/EC) 40 mg PO QAM Qty: 90 3RF Fiber Laxative (psyllium husk) capsule 2 tab PO BID multivitamin Tablet 1 tab PO QPM Synthroid 50 mcg tablet 50 mcg PO DAILY metoprolol succinate 25 mg tablet extended release 24 hr 25 mg PO DAILY rosuvastatin 10 mg tablet 10 mg PO BEDTIME Discharge Orders: Discharge ED (Routine); Ordered 03/26/23 Ordered By: Juan Jose Rodriguez Referrals: Julio Mccracken DO [Primary Care Provider] - Discharge Diet: Usual diet Discharge Activity: Increase activity as tolerated Patient Instructions: Dehydration (ED), COPD (Chronic Obstructive Pulmonary Disease) (ED), Acute Nausea and Vomiting (ED) Activity Restrictions/Additional Instructions: Thank you for visiting the emergency department. You were seen and evaluated for generalized illness with nausea and vomiting as well as cough/shortness of breath. The exact cause of your symptoms is unclear however may be related to viral syndrome with exacerbation of underlying lung disease. I will prescribe steroids and antibiotics. Please also use your albuterol metered-dose inhaler 2 puffs every 4 hours for 24 hours followed by 2 puffs every 6 hours for 24 hours followed by 2 puffs every 8 hours for 24 hours and then return to the normal schedule. I will prescribe antinausea medication as well. Please ensure that you are staying hydrated. Please follow-up with your primary care provider. Return to the emergency department for worsening symptoms or anything else that you are concerned about and feel needs emergency room evaluation. Coding Level of Care Code ED Risk Assessment Consultant for Ash Segovia
--- NOTE | 2023-03-26 10:38 | ECG_ITS ---
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 Measurements Intervals [place] Rate: 90 P: 73 NM: 194 QRS: -44 QRSD: 85 T: 53 QT: 336 QTc: 412 Interpretive Statements SINUS RHYTHM LEFT AXIS DEVIATION [QRS AXIS < -30] PATTERN CONSISTENT WITH PULMONARY DISEASE Compared to ECG 10/26/2022 08:46:17 Left-axis deviation now present Sinus tachycardia no longer present Indeterminate axis no longer present Electronically Signed On 03-26-2023 20:43:12 CDT by Cher Tolentino M.D. [email or web address]
[2023-03-26] MEDS: sodium chloride 0.9% 1,000 ML 999 ML IV (10:51)
[2023-03-26] MEDS: ondansetron 2 mg/ML SDV 2 mL 4 MG IVP (10:51)
[2023-03-26 11:22] LABS: Basophils % 0.7 %; Eosinophils % 0.7 %; Hematocrit 40.2 % (42.0-52.0); Lymphocytes # 0.7 10^3/uL (0.8-4.8); Lymphocytes % 14.9 %; Mean Corpuscular HGB Conc 32.3 g/dL (30.0-36.0); Mean Corpuscular Hemoglobin 29.7 pg (28.0-34.0); Mean Corpuscular Volume 91.8 fl (80-94); Mean Platelet Volume 9.1 fL (7.4-10.4); Monocytes # 0.6 10^3/uL (0.2-0.9); Monocytes % 12.8 %; Neutrophils % 69.8 %; Nucleated Red Blood Cells % 0 %; Platelet Count 130 10^3/cmm (130-400); Red Blood Count 4.38 10^6/uL (4.1-5.3); Red Cell Distribution Width 13.8 % (12.1-15.1); White Blood Count 4.4 10^3/uL (4.0-10.0)
[2023-03-26 11:33] LABS: Influenza A by IFA negative (Negative); Influenza B by IFA negative (Negative); SARS Covid-2 Antigen negative (Negative)
[2023-03-26 11:37] LABS: Troponin(5th) Baseline 24 ng/L (0-15)
[2023-03-26 11:39] LABS: Alanine Aminotransferase 14 U/L (0-41); Albumin Level 3.6 g/dL (3.5-5.2); Alkaline Phosphatase 61 U/L (40-130); Anion Gap 16.4 (5-19); Aspartate Amino Transferase 26 U/L (0-40); Blood Urea Nitrogen 22 mg/dL (8-23); Calcium 8.9 mg/dL (8.5-10.5); Carbon Dioxide 22 mmol/L (22-29); Chloride 96 mmol/L (98-107); Globulin 3.3 g/dL (1.3-4.6); Glucose 136 mg/dL (65-115); Magnesium 1.5 mg/dL (1.7-2.3); Osmolality Calculated 275 mOsm/kg (285-295); Potassium 4.4 mmol/L (3.5-5.1); Sodium 130 mmol/L (136-145); Total Bilirubin 0.7 mg/dL (0.15-1.2); Total Protein 6.9 g/dL (6.6-8.7)
[2023-03-26 12:00] LABS: Specific Gravity, Urine 1.015 (1.005-1.030); Urine Appearance Clear (CLEAR); Urine Color Yellow (Yellow); pH Urine 6 (5-7)
[2023-03-26 12:00] LABS: Slide Review Slide Review Perform
[2023-03-26 12:01] LABS: Add Urine Microscopic? YES; Bilirubin Urine Neg (Negative); Blood Urine 3+ (Negative); Glucose Urine UA Norm (Normal); Ketones Urine 1+ (Negative); Leukocyte Esterase Urine Negative (Negative); Nitrate Urine Negative (Negative); Protein Urine Trace (Negative); Urobilinogen Urine Norm (Negative)
[2023-03-26 12:03] LABS: Bacteria Urine TRACE /hpf; RBC Urine 50-80 /hpf (0-2); WBC Urine 0-4 /hpf (0-5)
--- NOTE | 2023-03-26 12:05 | CT_ITS ---
WS: [id number] CT ABDOMEN PELVIS TECHNIQUE: Contrast-enhanced CT of the abdomen and pelvis with coronal and sagittal reformatted image s. CLINICAL INFORMATION: n/v, malaise, hematuria COMPARISON: 2019 DLP: 721.[address] scans at [facility] use at least one of these dose optimization techniques: automated e xposure control; mA and/or kV adjustment per patient size (includes targeted exams where dose is matc hed to clinical indication); or iterative reconstruction. FINDINGS: Diffuse fatty infiltration the liver. Normal portal vein and splenic vein. Normal gallbladder. Normal GE junction. Normal spleen. Fatty atrophy of the pancreas. Interstitial thickening in the lung bases . Adrenal glands are normal. Small renal cysts. Largest cyst RIGHT kidney measuring 2.5 CM. No hydron ephrosis in either kidney. No obstructing renal or ureteral calculi. Enlarged prostate measuring 4.5 CM. Sigmoid diverticulosis. No evidence of high-grade small or large bowel obstruction. Normal appendix in the RIGHT lower quadrant. Normal portal vein and splenic vein. 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 Moderate aortic atheromatous disease. Densely calcified iliac arteries. 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 CT/CT abdomen pelvis w con* [id number] IMPRESSION: 1. Diffuse fatty infiltration the liver. 2. No hydronephrosis in either kidney. No obstructing renal or ureteral calcul i. 3. Bilateral renal cysts similar to the prior examination. 4. Enlarged prostate measuring 4.5 CM. Recommend correlation PSA. 5. Sigmoid diverticulosis. No evidence of acute diverticulitis. 6. Interstitial thickening in the lung bases similar to previous.
--- NOTE | 2023-03-26 12:05 | XR_ITS ---
WS: [id number] Portable AP upright chest, 03/26/2023, 1115 hours Clinical Data: cough, malaise Comparison: Portable chest, 10/26/2022 Findings: There are diffuse pulmonary interstitial changes which remain the same. No nodules, masses or effusions are seen. The heart is large. The pulmonary vascularity is not increased. No pneumonia o r pneumothorax is seen. Monitor leads are on the chest wall. There is an old fracture of the distal r ight clavicle. XR/XR chest 1V portable [id number] Impression: No change in chronic interstitial lung disease.
--- NOTE | 2023-03-26 12:16 | ECG_ITS ---
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 Measurements Intervals [place] Rate: 80 P: 91 VT: 195 QRS: -35 QRSD: 98 T: 61 QT: 363 QTc: 419 Interpretive Statements SINUS RHYTHM WITH OCCASIONAL SUPRAVENTRICULAR PREMATURE COMPLEXES LEFT AXIS DEVIATION [QRS AXIS < -30] PATTERN CONSISTENT WITH PULMONARY DISEASE Compared to ECG 03/26/2023 10:49:32 No significant changes Electronically Signed On 03-26-2023 21:26:34 CDT by Cher Tolentino M.D. [id number]
[2023-03-26] MEDS: magnesium sulfate premix 2 GM/50 ML PIGGYBACK IV (12:30)
[2023-03-26 12:46] LABS: Troponin 5 2HR 23.92 ng/L (0-15)
[2023-03-26 12:54] LABS: Troponin 5 2HR Delta -0.08 ABS# (0-10)
[2023-03-26] MEDS: iohexol 350 mg/mL 500 mL Btl (per mL) IV (13:07)
[2023-03-26 14:30] VITALS: BP 140/50; PULSE 82; O2SAT 95
[2023-03-26] MEDS: ipratropium-albuterol 3 mL Neb INHALATION (14:37)
[2023-03-26 14:45] VITALS: PULSE 91; RESP 16; O2SAT 92
[2023-03-26 14:48] VITALS: O2SAT 85; O2SAT 92; O2SAT 95
[2023-03-26 15:42] VITALS: BP 135/55; PULSE 86; RESP 19; O2SAT 92
== END 2023-03-26 16:00 | disposition home or self-care (01) ==
PROVIDERS: Emergency Provider Emergency Medicine; PCP Family Medicine
DX: J44.1 Chronic obstructive pulmonary disease with (acute) exacerbation (principal); R53.81 Other malaise; R53.83 Other fatigue; R11.2 Nausea with vomiting, unspecified; E86.0 Dehydration; Z79.82 Long term (current) use of aspirin; Z79.02 Long term (current) use of antithrombotics/antiplatelets; Z20.822 Contact with and (suspected) exposure to COVID-19; I25.10 Atherosclerotic heart disease of native coronary artery without angina pectoris; Z85.3 Personal history of malignant neoplasm of breast; Z86.73 Personal history of transient ischemic attack (TIA), and cerebral infarction without residual deficits; E78.5 Hyperlipidemia, unspecified; J44.9 Chronic obstructive pulmonary disease, unspecified; I10 Essential (primary) hypertension
CPT/HCPCS: 36415; 71045; 74177; 80053; 81001; 83735; 84484; 85025; 87426; 87804; 93005; 94640; 96365; 96375; 99285; J2405; J3475; J7030; Q9967

== ENCOUNTER → 2023-04-01 11:17 | Outpatient (BNVA) | payer MEDICARE, OTHER, SELFPAY | PROVIDERS: PCP Family Medicine; Visit Provider Family Medicine | DX: N40.0 Benign prostatic hyperplasia without lower urinary tract symptoms (principal) | CPT/HCPCS: 84153 ==

== ENCOUNTER → 2023-04-06 12:54 | Outpatient (BNVA) | payer MEDICARE, OTHER, SELFPAY | PROVIDERS: PCP Family Medicine; Visit Provider Family Medicine | DX: Z09 Encounter for follow-up examination after completed treatment for conditions other than malignant neoplasm (principal); E87.1 Hypo-osmolality and hyponatremia | CPT/HCPCS: 80048 ==

== ENCOUNTER 2023-04-20 19:58 | Emergency (ER) | payer MEDICARE, OTHER, SELFPAY ==
[2023-04-20 20:14] VITALS: BP 130/73; PULSE 88; RESP 16; TEMP 36.8; O2SAT 92; BMI 28.7
--- NOTE | 2023-04-20 20:23 | W.ED.EXTPRO ---
HPI - Extremity Problem General: Chief complaint: Extremity Injury, Lower Stated complaint: both ankles swolling left is worse Time Seen by Provider: 04/20/23 20:23 History of Present Illness: 87-year-old gentleman presenting with atraumatic lower extremity edema. Notes onset of symptoms approximately 1 week ago and has been intermittent as far as degree of swelling however of course has worsened. Denies signs of stomach illness. No other specific changes in health, exacerbating, or alleviating factors identified. Onset (ago): week(s) Relieving factors: nothing Exacerbating factors: nothing Review of Systems General: Reports: 10 or more systems reviewed and unremarkable except in HPI and below PFSH ED PFSH: Medical History Ascending aortic aneurysm ASHD (arteriosclerotic heart disease) Balanitis Breast cancer, right T1c N0 CAD (coronary artery disease) -follows up with Dr. Granados Cerebrovascular accident (CVA) determined by clinical assessment Dyslipidemia Emphysema/COPD History of nonmelanoma skin cancer HTN (hypertension) -low to low normal BP; continue to monitor vital signs -continue oral antihypertensives, hold if hypotension Hypothyroidism -continue levothyroxine Orthostatic hypotension Primary Sjogren's syndrome Primary Sjogren's syndrome Surgical History H/O hemorrhoidectomy History of colonoscopy 2014 History of ear surgery History of tonsillectomy S/P PTCA (percutaneous transluminal coronary angioplasty) S/P right mastectomy (03/06/21) with [facility] Family History Brother Cancer PANCREATIC Stroke Other CAD (coronary artery disease) Hyperlipidemia Hypertension Lung disease Denies family history of Diabetes Clotting disorder Dementia Psychiatric illness Chronic kidney disease (CKD) Suicide Anesthesia complication Bleeding disorder Social History Smoking and tobacco status: former smoker Quit status (tobacco): has quit using tobacco Year quit tobacco: 1994 - PD x 45 Years Second hand smoke exposure: No Smoking risk assessment/counseling performed?: No Alcohol intake: current Alcohol intake frequency: holidays/special occasions only Counseling given: No Substance/Drug Use: never Desire information about substance/drug rehabilitation?: No Counseling given: No Lives independently: Yes Household members: spouse Marital status: service: Yes Current occupational status: retired Do you think of yourself as: Straight/Heterosexual Current gender identity: Male Special chinedu needs: No Physical Exam Const: COMMON NORMALS: alert GENERAL APPEARANCE: cooperative and well developed HENMT: COMMON NORMALS: normocephalic and atraumatic HEAD & SCALP: normocephalic and atraumatic Eye: COMMON NORMALS: conjunctivae normal CONJUNCTIVA: Yes conjunctivae normal SCLERA: sclerae normal Neck/C-Spine: COMMON NORMALS: supple GENERAL: Yes trachea midline Resp: COMMON NORMALS: normal respiratory effort EFFORT & INSPECTION: Yes able to speak in complete sentences Cardio: COMMON NORMALS: regular rate and regular rhythm RATE: regular rate RHYTHM: regular rhythm GI: COMMON NORMALS: Soft to palpation PALPATION: Yes Soft to palpation and No Tenderness to palpation present (GI) PERCUSSION: normal to percussion Extremity: NARRATIVE EXTREMITY EXAM: Bilateral lower extremity edema, soft, distal CMS intact. No acute overlying skin changes. GENERAL: Yes normal exam except as noted and Yes edema Neuro: COMMON NORMALS: moves all extremities SENSORIUM/ORIENTATION: Yes alert and No Orientation impaired Psych: COMMON NORMALS: mental status grossly normal and Normal thought process present THOUGHT PROCESS: Normal thought process present Course Vital Signs: Vital signs: Vital Signs Temperature 98.2 F 04/20/23 20:14 Pulse Rate 84 04/20/23 20:59 Respiratory Rate 16 04/20/23 20:59 Blood Pressure 142/75 04/20/23 20:59 Pulse Oximetry 91 04/20/23 20:59 Oxygen Delivery Me thod Room Air 04/20/23 20:59 MDM - Extremity (Nontraumatic) Medical Decision Making 87-year-old gentleman presenting for concern over lower extremity edema. Exam as above. Patient is nontoxic. Pulses intact. Labs with no significant hematologic or metabolic abnormalities. Ultrasound with no evidence of DVT. No evidence of pulmonary edema on physical exam. The results of ED evaluation were discussed with the patient including prescriptions and/or symptomatic cares (if applicable) including appropriate and responsible use, followup plan, and return precautions. The patient verbalized understanding and felt safe for discharge. Medical Records I reviewed the patient's medical records. Lab Data I reviewed the patient's lab results. 04/20/23 20:44 04/20/23 20:20 Radiology Impressions Venous Duplex 04/20/23 20:34 IMPRESSION: No evidence of deep vein thrombosis. Laboratory Results WBC 7.5 10^3/uL (4.0-10.0) 04/20/23 20:44 RBC 4.31 10^6/uL (4.1-5.3) 04/20/23 20:44 Hgb 12.9 g/dL (11.7-16.6) 04/20/23 20:44 Hct 40.1 % (42.0-52.0) L 04/20/23 20:44 MCV 93.0 fl (80-94) 04/20/23 20:44 MCH 29.9 pg (28.0-34.0) 04/20/23 20:44 MCHC 32.2 g/dL (30.0-36.0) 04/20/23 20:44 RDW 14.4 % (12.1-15.1) 04/20/23 20:44 Plt Count 218 10^3/cmm (130-400) 04/20/23 20:44 MPV 8.8 fL (7.4-10.4) 04/20/23 20:44 Neut % (Auto) 35.1 % 04/20/23 20:44 Lymph % (Auto) 41.5 % 04/20/23 20:44 [place] % (Auto) 7.6 % 04/20/23 20:44 Eos % (Auto) 14.2 % 04/20/23 20:44 Baso % (Auto) 0.9 % 04/20/23 20:44 Neut # (Auto) 2.64 10^3/uL (1.8-7.7) 04/20/23 20:44 Lymph # (Auto) 3.1 10^3/uL (0.8-4.8) 04/20/23 20:44 [place] # (Auto) 0.6 10^3/uL (0.2-0.9) 04/20/23 20:44 Eos # (Auto) 1.1 10^3/uL (0.0-0.8) H 04/20/23 20:44 Baso # (Auto) 0.1 10^3/uL (0.0-0.1) 04/20/23 20:44 Nucleated RBC % (auto) 0 % 04/20/23 20:44 Nucleated RBCs # 0.0 /100WBC 04/20/23 20:44 Sodium 136 mmol/L (136-145) 04/20/23 20:20 Potassium 4.2 mmol/L (3.5-5.1) 04/20/23 20:20 Chloride 102 mmol/L (98-107) 04/20/23 20:20 Carbon Dioxide 24 mmol/L (22-29) 04/20/23 20:20 Anion Gap 14.2 (5-19) 04/20/23 20:20 BUN 21 mg/dL (8-23) 04/20/23 20:20 Creatinine 1.1 mg/dL (0.7-1.2) 04/20/23 20:20 GFR Calculation Not Reportable 04/20/23 20:20 Glucose 138 mg/dL (65-115) H 04/20/23 20:20 Calculated Osmolality 287 mOsm/kg (285-295) 04/20/23 20:20 Calcium 9.3 mg/dL (8.5-10.5) 04/20/23 20:20 Total Bilirubin 0.3 mg/dL (0.15-1.2) 04/20/23 20:20 AST 16 U/L (0-40) 04/20/23 20:20 ALT 13 U/L (0-41) 04/20/23 20:20 Alkaline Phosphatase 68 U/L (40-130) 04/20/23 20:20 NT-Pro-B Natriuret Pep 130 pg/mL (0-450) 04/20/23 20:20 Total Protein 7.1 g/dL (6.6-8.7) 04/20/23 20:20 Albumin 3.7 g/dL (3.5-5.2) 04/20/23 20:20 Globulin 3.4 g/dL (1.3-4.6) 04/20/23 20:20 Discharge Plan Discharge Patient Disposition: Home Clinical Impression: Localized swelling of left lower extremity Condition: Stable Prescriptions: No Action aspirin [Adult Aspirin Regimen] 81 mg tablet,delayed release (DR/EC) 81 mg PO QPM loratadine 10 mg tablet 10 mg PO DAILY PRN (Reason: Allergy Symptoms) Dose Instruction: TAKE 1 TABLET DAILY FOR ALLERGIES azathioprine 50 mg tablet 50 mg PO BID 90 Days Qty: 180 1RF cyclobenzaprine 10 mg tablet See Rx Instructions PO TID PRN (Reason: muscle spasm) Qty: 30 0RF Rx Instructions: take 1 TID x5 days then call doctor with progress report orally three times daily PRN; prednisone 5 mg tablet 5 mg PO QAM 90 Days Qty: 90 1RF Anoro Ellipta 62.5-25 mcg/actuation blister with device 1 inh inhalation QAM Qty: 60 3RF clopidogrel 75 mg tablet 75 mg PO QAM Qty: 90 3RF Hold Instructions: Resume on 03/09/21. pantoprazole [Protonix] 40 mg tablet,delayed release (DR/EC) 40 mg PO QAM Qty: 90 3RF Fiber Laxative (psyllium husk) capsule 2 tab PO BID multivitamin Tablet 1 tab PO QPM Synthroid 50 mcg tablet 50 mcg PO DAILY metoprolol succinate 25 mg tablet extended release 24 hr 25 mg PO DAILY rosuvastatin 10 mg tablet 10 mg PO BEDTIME albuterol sulfate 90 mcg/actuation HFA aerosol inhaler 2 inh inhalation Q4H PRN (Reason: shortness of breath or wheezing) Qty: 8.5 0RF ondansetron 4 mg tablet,disintegrating 4 mg PO Q8H PRN (Reason: nausea and vomiting) Qty: 15 0RF Discharge Orders: Discharge ED (Routine); Ordered 04/20/23 Ordered By: Juan Jose Rodriguez Referrals: Julio Mccracken DO [Primary Care Provider] - Discharge Diet: Usual diet Discharge Activity: Resume usual activity Patient Instructions: Leg Edema (ED) Activity Restrictions/Additional Instructions: Thank you for visiting the emergency department. You were seen evaluated for leg swelling. The exact cause of your symptoms is unclear however does not appear to need hospitalization at this time. Please follow-up with your primary care provider and satellite tv technician. Return to the emergency department for worsening symptoms, loss of sensation movement or coldness of the extremity, or anything else that you are concerned about and feel needs emergency department evaluation. Coding Level of Care Code ED Leather Softener for Ash Segovia
--- NOTE | 2023-04-20 20:34 | USR_ITS ---
PROCEDURE INFORMATION: Exam: US Duplex Lower Extremity Veins, Bilateral Exam date and time: 04/20/2023 9:12 PM Age: 87 years old Clinical indication: Edema, localized; Lower extremity, bilateral; Patient HX: No HX dvt; Additional info: Lower ext edema TECHNIQUE: Imaging protocol: Real-time duplex ultrasound of the bilateral extremities with 2-D harvey scale, color Doppler flow and spectral waveform analysis including responses to compression and other maneuvers (when performed) with image documentation. Complete exam focused on the lower extremity veins. COMPARISON: US renal BI* [id number] 03/11/2023 2:23 PM FINDINGS: Right deep veins: Unremarkable. The common femoral, femoral, proximal profunda femoral and popliteal veins are patent without thrombus. Normal Doppler waveforms. Normal compressibility and/or augmentation response. Right superficial veins: Saphenofemoral junction is patent without thrombus. Left deep veins: Unremarkable. The common femoral, femoral, proximal profunda femoral and popliteal veins are patent without thrombus. Normal Doppler waveforms. Normal compressibility and/or augmentation response. Left superficial veins: Saphenofemoral junction is patent without thrombus. Soft tissues: Unremarkable. US/[place] [id number] IMPRESSION: No evidence of deep vein thrombosis.
[2023-04-20 20:50] LABS: Basophils # 0.1 10^3/uL (0.0-0.1); Basophils % 0.9 %; Eosinophils # 1.1 10^3/uL (0.0-0.8); Eosinophils % 14.2 %; Hematocrit 40.1 % (42.0-52.0); Hemoglobin 12.9 g/dL (11.7-16.6); Lymphocytes # 3.1 10^3/uL (0.8-4.8); Lymphocytes % 41.5 %; Mean Corpuscular HGB Conc 32.2 g/dL (30.0-36.0); Mean Corpuscular Hemoglobin 29.9 pg (28.0-34.0); Mean Platelet Volume 8.8 fL (7.4-10.4); Monocytes # 0.6 10^3/uL (0.2-0.9); Monocytes % 7.6 %; Neutrophils # 2.64 10^3/uL (1.8-7.7); Neutrophils % 35.1 %; Nucleated Red Blood Cells % 0 %; Platelet Count 218 10^3/cmm (130-400); Red Blood Count 4.31 10^6/uL (4.1-5.3); Red Cell Distribution Width 14.4 % (12.1-15.1); White Blood Count 7.5 10^3/uL (4.0-10.0)
[2023-04-20 20:59] VITALS: BP 142/75; PULSE 84; RESP 16; O2SAT 91
[2023-04-20 21:19] LABS: Alanine Aminotransferase 13 U/L (0-41); Albumin Level 3.7 g/dL (3.5-5.2); Alkaline Phosphatase 68 U/L (40-130); Anion Gap 14.2 (5-19); Aspartate Amino Transferase 16 U/L (0-40); Blood Urea Nitrogen 21 mg/dL (8-23); Calcium 9.3 mg/dL (8.5-10.5); Carbon Dioxide 24 mmol/L (22-29); Chloride 102 mmol/L (98-107); Globulin 3.4 g/dL (1.3-4.6); Glucose 138 mg/dL (65-115); NT Pro B Type Natriuretic Pept 130 pg/mL (0-450); Osmolality Calculated 287 mOsm/kg (285-295); Potassium 4.2 mmol/L (3.5-5.1); Sodium 136 mmol/L (136-145); Total Bilirubin 0.3 mg/dL (0.15-1.2); Total Protein 7.1 g/dL (6.6-8.7)
== END 2023-04-20 22:27 | disposition home or self-care (01) ==
PROVIDERS: Emergency Provider Emergency Medicine; PCP Family Medicine
DX: R60.0 Localized edema (principal)
CPT/HCPCS: 80053; 83880; 85025; 93970; 99284

== ENCOUNTER → 2023-05-08 09:10 | Outpatient (BNVA) | payer MEDICARE, OTHER, SELFPAY | PROVIDERS: PCP Family Medicine; Visit Provider Internal Medicine Cardiovascular Disease | DX: E78.5 Hyperlipidemia, unspecified (principal); E03.9 Hypothyroidism, unspecified; M35.00 Sjogren syndrome, unspecified; I71.21 Aneurysm of the ascending aorta, without rupture; I95.1 Orthostatic hypotension; J84.9 Interstitial pulmonary disease, unspecified; I25.10 Atherosclerotic heart disease of native coronary artery without angina pectoris; Z98.61 Coronary angioplasty status; D05.91 Unspecified type of carcinoma in situ of right breast; I10 Essential (primary) hypertension; Z87.891 Personal history of nicotine dependence | CPT/HCPCS: 99214 ==

== ENCOUNTER → 2023-05-18 10:53 | Outpatient (BNVA) | payer MEDICARE, OTHER, SELFPAY | PROVIDERS: PCP Family Medicine; Visit Provider Dermatology | DX: L82.1 Other seborrheic keratosis (principal); L57.0 Actinic keratosis; Z85.828 Personal history of other malignant neoplasm of skin; Z87.891 Personal history of nicotine dependence; L81.4 Other melanin hyperpigmentation | CPT/HCPCS: 17000; 17003; 99213 ==

== ENCOUNTER → 2023-05-19 10:27 | Outpatient (BNVA) | payer MEDICARE, OTHER, SELFPAY | PROVIDERS: PCP Family Medicine; Visit Provider Internal Medicine Rheumatology | DX: M35.00 Sjogren syndrome, unspecified (principal); J84.89 Other specified interstitial pulmonary diseases; Z79.899 Other long term (current) drug therapy; Z71.89 Other specified counseling; J84.9 Interstitial pulmonary disease, unspecified; R76.8 Other specified abnormal immunological findings in serum; Z79.52 Long term (current) use of systemic steroids | CPT/HCPCS: 99214 ==

== ENCOUNTER → 2023-08-04 14:40 | Outpatient (BNVA) | payer MEDICARE, OTHER, SELFPAY | PROVIDERS: PCP Family Medicine; Visit Provider Family Medicine | DX: E03.9 Hypothyroidism, unspecified (principal); E78.5 Hyperlipidemia, unspecified; J44.9 Chronic obstructive pulmonary disease, unspecified; J84.9 Interstitial pulmonary disease, unspecified; Z13.6 Encounter for screening for cardiovascular disorders; Z79.899 Other long term (current) drug therapy; N52.9 Male erectile dysfunction, unspecified | CPT/HCPCS: 80053; 80061; 82607; 83036; 84443; 85025; 86140 ==

== ENCOUNTER → 2023-08-06 14:40 | Outpatient (BNVA) | payer MEDICARE, OTHER, SELFPAY | PROVIDERS: PCP Family Medicine; Visit Provider Family Medicine | DX: E03.9 Hypothyroidism, unspecified (principal); E78.5 Hyperlipidemia, unspecified; J44.9 Chronic obstructive pulmonary disease, unspecified; J84.9 Interstitial pulmonary disease, unspecified; Z13.6 Encounter for screening for cardiovascular disorders; Z79.899 Other long term (current) drug therapy; N52.9 Male erectile dysfunction, unspecified | CPT/HCPCS: 82607 ==

== ENCOUNTER 2023-10-04 18:05 | Emergency (ER) | payer MEDICARE, OTHER, SELFPAY ==
[2023-10-04 18:11] VITALS: BP 174/136; PULSE 100; RESP 22; TEMP 36.8; O2SAT 88; BMI 28.4
--- NOTE | 2023-10-04 18:17 | XRR_ITS ---
PROCEDURE INFORMATION: Exam: XR Chest Exam date and time: 10/04/2023 6:25 PM Age: 87 years old Clinical indication: Shortness of breath; Additional info: SOA, copd TECHNIQUE: Imaging protocol: Radiologic exam of the chest. Views: 1 view. COMPARISON: CR XR chest 1V portable [id number] 03/26/2023 11:13 AM FINDINGS: Lungs: Similar interstitial lung changes. No focal consolidation. Pleural spaces: No pleural effusion. No pneumothorax. Heart/Mediastinum: Heart size is unchanged. Bones/joints: No acute findings. XR/XR chest 1V [id number] IMPRESSION: Interstitial lung disease without new focal consolidation.
--- NOTE | 2023-10-04 18:19 | ECG_ITS ---
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 Measurements Intervals [place] Rate: 93 P: 76 DE: 207 QRS: -39 QRSD: 85 T: 55 QT: 341 QTc: 425 Interpretive Statements SINUS RHYTHM LEFT AXIS DEVIATION [QRS AXIS < -30] PATTERN CONSISTENT WITH PULMONARY DISEASE Compared to ECG 03/26/2023 12:16:23 No significant changes Electronically Signed On 10-04-2023 21:25:51 SEEING EYE DOG TRAINER by Cher Tolentino M.D. [id number]
[2023-10-04 18:47] LABS: Base Excess VBG 4.5 mmol/L (-3.0-3.0); Basophils # 0.1 10^3/uL (0.0-0.1); Basophils % 0.4 %; Blood Gas Operator Identificat glc; Blood Gas Sample Site Not specified; Blood Gas Sample Type Venous; Eosinophils # 0.7 10^3/uL (0.0-0.8); Eosinophils % 4.8 %; HCO3 VBG 29.3 mmol/L (24-28); Hematocrit 43.1 % (37-53); Lymphocytes % 13.9 %; Mean Corpuscular HGB Conc 32.7 g/dL (30-55); Mean Corpuscular Hemoglobin 30.4 pg (27-33); Mean Corpuscular Volume 92.9 fl (82-101); Mean Platelet Volume 9.2 fL (7.4-10.4); Monocytes % 6.6 %; Neutrophils # 10.54 10^3/uL (1.8-7.7); Neutrophils % 73.7 %; Nucleated Red Blood Cells % 0 %; PCO2 VBG 43.3 mmHg (41-51); PO2 VBG 18.1 mmHg (25-40); Platelet Count 187 10^3/cmm (157-399); Red Blood Count 4.64 10^6/uL (3.85-5.65); Red Cell Distribution Width 13.8 % (12.1-15.1); Venous Blood Gas Hematocrit 39.7 % (42-52); pH VBG 7.44 (7.32-7.42)
[2023-10-04 19:05] LABS: Troponin(5th) Baseline 22 ng/L (0-15)
[2023-10-04 19:06] LABS: Add Urine Culture? Yes; Add Urine Microscopic? YES; Bacteria Urine 2+ /hpf; Bilirubin Urine Neg (Negative); Blood Urine 3+ (Negative); Glucose Urine UA Norm (Normal); Ketones Urine Negative (Negative); Leukocyte Esterase Urine Trace (Negative); Nitrate Urine Negative (Negative); Protein Urine Neg (Negative); RBC Urine 15-25 /hpf (0-2); Squamous Epithelial Cell Urine 0-4 /hpf (0-5); Urine Appearance Clear (CLEAR); Urine Color Yellow (Yellow); Urobilinogen Urine Neg (Negative); WBC Urine 15-25 /hpf (0-5); pH Urine 7 (5-7)
[2023-10-04 19:06] LABS: Lactic Sepsis W/Reflex 2.2 mmol/L (0.5-2.2)
[2023-10-04 19:13] LABS: Influenza A by IFA negative (Negative); Influenza B by IFA negative (Negative); SARS Covid-2 Antigen negative (Negative)
[2023-10-04] MEDS: acetaminophen 1,000 MG/100 ML PIGGYBACK 400 MG IV (19:33)
[2023-10-04] MEDS: sodium chloride 0.9% 1,000 ML 999 ML IV (19:33)
[2023-10-04 19:38] LABS: NT Pro B Type Natriuretic Pept 305 pg/mL (0-450); Procalcitonin 0.05 ng/mL (0-0.5)
[2023-10-04] MEDS: cefTRIAXone 1,000 MG in sodium chloride 0.9% (plus) 50 ML 100 MG IV (19:48)
[2023-10-04 19:49] LABS: Alanine Aminotransferase 11 U/L (0-41); Albumin Level 4.3 g/dL (3.5-5.2); Alkaline Phosphatase 68 U/L (40-130); Anion Gap 19.3 (5-19); Aspartate Amino Transferase 17 U/L (0-40); Blood Urea Nitrogen 21 mg/dL (8-23); Calcium 9.3 mg/dL (8.5-10.5); Carbon Dioxide 23 mmol/L (22-29); Chloride 102 mmol/L (98-107); Globulin 2.7 g/dL (1.3-4.6); Glucose 100 mg/dL (65-115); Osmolality Calculated 293 mOsm/kg (285-295); Potassium 4.3 mmol/L (3.5-5.1); Sodium 140 mmol/L (136-145); Total Bilirubin 0.6 mg/dL (0.15-1.2)
--- NOTE | 2023-10-04 19:56 | ED_ITS ---
HPI - SOB/Dyspnea 2 General: Chief Complaint: Shortness of Breath/Dyspnea Stated Complaint: low 02 @ home,chills Time Seen by Provider: 10/04/23 18:17 Source: patient Mode of arrival: ambulatory Limitations: no limitations History of Present Illness: HPI Narrative: Patient presents emergency department today accompanied by family for evaluation treatment of increased urination, chills, and acute shortness of breath. Patient reports feeling poorly the last couple of days with noticeable increase in urination. mentions that he has recently had urinary tract infections. Patient has only mild dysuria but has not noticed any hematuria. He has had some looser stools today. Patient's wanted him to be seen and evaluated sooner but, it was not until patient started having chills this evening that he decided to come in and be seen. He has not had any vomiting. He denies any back pain. Patient wears 2 L oxygen at night but does not wear oxygen during the day. They report his typical baseline is around 89 to 90% on room air. Review of Systems 2 General: Reports: 10 or more systems reviewed and unremarkable except in HPI and below PFSH ED 2 PFSH: Medical History Ascending aortic aneurysm ASHD (arteriosclerotic heart disease) Balanitis Breast cancer, right T1c N0 CAD (coronary artery disease) -follows up with Dr. Granados Cerebrovascular accident (CVA) determined by clinical assessment Dyslipidemia Emphysema/COPD History of nonmelanoma skin cancer HTN (hypertension) -low to low normal BP; continue to monitor vital signs -continue oral antihypertensives, hold if hypotension Hypothyroidism -continue levothyroxine Orthostatic hypotension Primary Sjogren's syndrome Primary Sjogren's syndrome Surgical History H/O hemorrhoidectomy History of colonoscopy 2014 History of ear surgery History of tonsillectomy S/P PTCA (percutaneous transluminal coronary angioplasty) S/P right mastectomy (03/06/21) with [facility] Family History Brother Cancer PANCREATIC Stroke Other CAD (coronary artery disease) Hyperlipidemia Hypertension Lung disease Denies family history of Diabetes Clotting disorder Dementia Psychiatric illness Chronic kidney disease (CKD) Suicide Anesthesia complication Bleeding disorder Social History Smoking and tobacco/nicotine status: former use of tobacco/nicotine Quit status (tobacco/nicotine): has quit using Year quit tobacco: 1994 - 2PPD x 45 Years Second hand smoke exposure: No Alcohol intake: current Alcohol intake frequency: holidays/special occasions only Substance/Drug Use: never Lives independently: Yes Household members: spouse Marital status: service: Yes Current occupational status: retired Do you think of yourself as: Straight/Heterosexual Current gender identity: Male Special chinedu needs: No Physical Exam 2 Const: COMMON NORMALS: average body habitus, patient oriented x3 and alert OTHER: Patient appears nontoxic but obviously fatigued. He is pleasant, social. Answers his own history. Actively chilling. HENMT: COMMON NORMALS: normocephalic, atraumatic, hearing grossly normal bilaterally and moist oral mucous membranes HEAD & SCALP: normocephalic and atraumatic Eye: COMMON NORMALS: Equal, round and reactive pupils present, EOMs intact bilaterally and conjunctivae normal CONJUNCTIVA: Yes conjunctivae normal P UPIL: Yes Equal, round and reactive pupils present Neck/C-Spine: COMMON NORMALS: no JVD Lymph: LYMPHATIC: no lymphadenopathy noted Resp: COMMON NORMALS: normal respiratory effort, No retractions and No use of accessory muscles OTHER: Diminished lung sounds bilaterally without rhonchi or wheezes noted. Cardio: COMMON NORMALS: no JVD and regular rate RATE: regular rate Extremity: COMMON NORMALS: normal to inspection, full ROM and capillary refill normal Neuro: COMMON NORMALS: patient oriented x3 SENSORIUM/ORIENTATION: Yes alert Psych: COMMON NORMALS: mental status grossly normal, cooperative, normal affect, speech normal and activity/motor behavior normal SPEECH: Yes normal speech Skin: NARRATIVE SKIN EXAM: No signs of edema or pitting edema into the lower extremities. Course 2 Vital Signs: Vital signs: Vital Signs Temperature 98.3 F 10/04/23 18:11 Pulse Rate 85 10/04/23 22:21 Respiratory Rate 22 H 10/04/23 18:11 Blood Pressure 131/72 10/04/23 22:21 Pulse Oximetry 93 10/04/23 22:21 Oxygen Delivery Me thod Room Air 10/04/23 18:11 MDM - SOB/Dyspnea Medical Decision Making Patient presented to the emergency department today for complaints of chills, increased shortness of breath from baseline and urinary frequency. Patient has had a urinary tract infection in the past according to the . Chart review shows a urine culture approximately 1 year ago growing E. coli. Patient has chronic emphysema and wears oxygen only at night. He has not required oxygen here in the emergency department to remain in the mid 90s. Patient has remained afebrile while here. Chest x-ray was negative for any acute consolidation concerning for pneumonia. Lab work did show slightly elevated white blood cell count but, urinalysis indicated findings of urinary tract infection. We will culture his urine for sensitivity purposes. However, after referencing his previous urine cultures, did treat with a gram of Rocephin and Omnicef as third- generation cephalosporin seemed to have had susceptibility. Patient had no signs of sepsis in his evaluation. Patient is stable for discharge home with continued oral medications. Discussed the importance of staying well-hydrated at this time. While we are culturing the urine, he was instructed to be seen and reevaluated for any acute change or worsening in his condition including high fever, vomiting without ability to tolerate fluids or his medication or acute worsening of pain or shortness of breath. Patient verbalizes understanding and agreement to treatment plan. Differential Diagnosis Unlikely acute exacerbation of chronic obstructive airways disease, congestive heart failure, community acquired pneumonia or asthma with exacerbation Lab Data 10/04/23 18:36 10/04/23 18:36 Labs/Radiology: Radiology Impressions Chest X-Ray 10/04/23 18:17 IMPRESSION: Interstitial lung disease without new focal consolidation. Laboratory Results WBC 14.30 10^3/uL (3.29-11.43) H 10/04/23 18:36 RBC 4.64 10^6/uL (3.85-5.65) 10/04/23 18:36 Hgb 14.10 g/dL (11.27-16.99) 10/04/23 18:36 Hct 43.1 % (37-53) 10/04/23 18:36 MCV 92.9 fl (82-101) 10/04/23 18:36 MCH 30.4 pg (27-33) 10/04/23 18:36 MCHC 32.7 g/dL (30-55) 10/04/23 18:36 RDW 13.8 % (12.1-15.1) 10/04/23 18:36 Plt Count 187 10^3/cmm (157-399) 10/04/23 18:36 MPV 9.2 fL (7.4-10.4) 10/04/23 18:36 Neut % (Auto) 73.7 % 10/04/23 18:36 Lymph % (Auto) 13.9 % 10/04/23 18:36 [place] % (Auto) 6.6 % 10/04/23 18:36 Eos % (Auto) 4.8 % 10/04/23 18:36 Baso % (Auto) 0.4 % 10/04/23 18:36 Neut # (Auto) 10.54 10^3/uL (1.8-7.7) H 10/04/23 18:36 Lymph # (Auto) 2.0 10^3/uL (0.8-4.8) 10/04/23 18:36 [place] # (Auto) 1.0 10^3/uL (0.2-0.9) H 10/04/23 18:36 Eos # (Auto) 0.7 10^3/uL (0.0-0.8) 10/04/23 18:36 Baso # (Auto) 0.1 10^3/uL (0.0-0.1) 10/04/23 18:36 Nucleated RBC % (auto) 0 % 10/04/23 18:36 Nucleated RBCs # 0.0 /100WBC 10/04/23 18:36 Specimen Type Venous 10/04/23 18:36 Sample Site Not specified 10/04/23 18:36 Marlo Test N/a 10/04/23 18:36 VBG pH 7.44 (7.32-7.42) H 10/04/23 18:36 VBG pCO2 43.3 mmHg (41-51) 10/04/23 18:36 VBG pO2 18.1 mmHg (25-40) L 10/04/23 18:36 VBG HCO3 29.3 mmol/L (24-28) H 10/04/23 18:36 VBG Base Excess 4.5 mmol/L (-3.0-3.0) H 10/04/23 18:36 VBG Hematocrit 39.7 % (42-52) L 10/04/23 18:36 O2 Delivery Device None 10/04/23 18:36 Power Wood Sawyer ID glc 10/04/23 18:36 Sodium 140 mmol/L (136-145) 10/04/23 18:36 Potassium 4.3 mmol/L (3.5-5.1) 10/04/23 18:36 Chloride 102 mmol/L (98-107) 10/04/23 18:36 Carbon Dioxide 23 mmol/L (22-29) 10/04/23 18:36 Anion Gap 19.3 (5-19) H 10/04/23 18:36 BUN 21 mg/dL (8-23) 10/04/23 18:36 Creatinine 1.0 mg/dL (0.7-1.2) 10/04/23 18:36 GFR Calculation Not Reportable 10/04/23 18:36 Glucose 100 mg/dL (65-115) 10/04/23 18:36 Calculated Osmolality 293 mOsm/kg (285-295) 10/04/23 18:36 Lactic Acid 2.2 mmol/L (0.5-2.2) 10/04/23 18:36 Calcium 9.3 mg/dL (8.5-10.5) 10/04/23 18:36 Total Bilirubin 0.6 mg/dL (0.15-1.2) 10/04/23 18:36 AST 17 U/L (0-40) 10/04/23 18:36 ALT 11 U/L (0-41) 10/04/23 18:36 Alkaline Phosphatase 68 U/L (40-130) 10/04/23 18:36 Troponin T Baseline 22 ng/L (0-15) H 10/04/23 18:36 Troponin T 120 Minute 19.75 ng/L (0-15) H 10/04/23 20:18 Delta Troponin T -2.25 ABS# (0-10) L 10/04/23 20:18 NT-Pro-B Natriuret Pep 305 pg/mL (0-450) 10/04/23 18:36 Total Protein 7.0 g/dL (6.6-8.7) 10/04/23 18:36 Albumin 4.3 g/dL (3.5-5.2) 10/04/23 18:36 Globulin 2.7 g/dL (1.3-4.6) 10/04/23 18:36 Procalcitonin 0.05 ng/mL (0-0.5) 10/04/23 18:36 Urine Color Yellow (Yellow) 10/04/23 18:44 Urine Appearance Clear (CLEAR) 10/04/23 18:44 Urine pH 7 (5-7) 10/04/23 18:44 Ur Specific [place] 1.010 (1.005-1.030) 10/04/23 18:44 Urine Protein Neg (Negative) 10/04/23 18:44 Urine Glucose (UA) Norm (Normal) 10/04/23 18:44 Urine Ketones Negative (Negative) 10/04/23 18:44 Urine Blood 3+ (Negative) H 10/04/23 18:44 Urine Nitrate Negative (Negative) 10/04/23 18:44 Urine Bilirubin Neg (Negative) 10/04/23 18:44 Urine Urobilinogen Neg mg/dL (Negative) 10/04/23 18:44 Ur Leukocyte Esterase Trace (Negative) H 10/04/23 18:44 Urine RBC 15-25 /hpf (0-2) H 10/04/23 18:44 Urine WBC 15-25 /hpf (0-5) H 10/04/23 18:44 Ur Squamous Epith Cells 0-4 /hpf (0-5) H 10/04/23 18:44 Amorphous Sediment Not Reportable 10/04/23 18:44 Urine Bacteria 2+ /hpf (NONE) H 10/04/23 18:44 Influenza Type A Ag negative (Negative) 10/04/23 18:46 Influenza Type B Ag negative (Negative) 10/04/23 18:46 SARS-CoV-2 Ag (Rapid) negative (Negative) 10/04/23 18:46 All radiology interpretation(s) finalized by discharge Discharge Plan Discharge Patient Disposition: Home Clinical Impression: Acute UTI Condition: Stable Prescriptions: New cefdinir 300 mg capsule 300 mg PO BID 10 Days Qty: 20 0RF No Action aspirin [Adult Aspirin Regimen] 81 mg tablet,delayed release (DR/EC) 81 mg PO QPM loratadine 10 mg tablet 10 mg PO DAILY PRN (Reason: Allergy Symptoms) Dose Instruction: TAKE 1 TABLET DAILY FOR ALLERGIES cyclobenzaprine 10 mg tablet See Rx Instructions PO TID PRN (Reason: muscle spasm) Qty: 30 0RF Rx Instructions: take 1 TID x5 days then call doctor with progress report orally three times daily PRN; azathioprine 50 mg tablet 50 mg PO BID 90 Days Qty: 180 1RF prednisone 5 mg tablet 5 mg PO QAM 90 Days Qty: 90 1RF alprazolam 0.25 mg tablet 0.25 - 0.5 mg PO BEDTIME PRN (Reason: rest/stress/sleep) Qty: 60 5RF sildenafil [Viagra] 50 mg tablet 50 mg PO ONCE MDD 50mg PRN (Reason: sexual activity) Qty: 30 0RF Rx Instructions: administer 30 minutes to 4 hours before sexual activity clopidogrel 75 mg tablet 75 mg PO QAM Qty: 90 3RF Hold Instructions: Resume on 03/09/21. Anoro Ellipta 62.5-25 mcg/actuation blister with device 1 inh inhalation QAM Qty: 60 3RF pantoprazole [Protonix] 40 mg tablet,delayed release (DR/EC) 40 mg PO QAM Qty: 90 3RF levothyroxine 50 mcg tablet See Rx Instructions .ROUTE .COMPLEX Qty: 90 3RF Dose Instruction: TAKE 1 TABLET DAILY FOR THYROID Rx Instructions: TAKE 1 TABLET DAILY FOR THYROID metoprolol succinate 25 mg tablet extended release 24 hr See Rx Instructions .ROUTE .COMPLEX Qty: 90 3RF Dose Instruction: TAKE 1 TABLET DAILY Rx Instructions: TAKE 1 TABLET DAILY Fiber Laxative (psyllium husk) capsule 2 tab PO BID multivitamin Tablet 1 tab PO QPM rosuvastatin 10 mg tablet 10 mg PO BEDTIME ondansetron 4 mg tablet,disintegrating 4 mg PO Q8H PRN (Reason: nausea and vomiting) Qty: 15 0RF Discharge Orders: Discharge ED (Routine); Ordered 10/04/23 Ordered By: Awilda Grossman Referrals: Julio Mccracken DO [Primary Care Provider] - Discharge Diet: Usual diet Discharge Activity: Increase activity as tolerated Patient Instructions: Urinary Tract Infection in Men (ED) Activity Restrictions/Additional Instructions: Evaluation today indicates findings of urinary tract infection. You do not show signs of sepsis and respiratory panels were all negative. We started you on a dose of antibiotic here in the emergency department and after looking back at previous urine cultures, I will start you on cefdinir as this medication has been shown susceptible to treating previous UTIs in the past for you. It will be very important that you stay well-hydrated. If after 48 hours on antibiotics you are still having fevers or, if you develop vomiting or decreased urine output you need to be seen and reevaluated again. We do recommend a follow-up appoint with your primary care doctor after the course of antibiotics is complete to assure full resolution of the infection however, we are sending your urine to lab for culture over the next 48 hours to assure proper antibiotic coverage. If necessary, we will notify you and change her antibiotics should the urine sensitivities indicate the need. 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
--- NOTE | 2023-10-04 20:19 | ECG_ITS ---
[facility] Test Date: 2023-10-04 Pat Name: Rodríguez Cochran Department: Room: Gender: Male Computer Systems Technician: : [id number] Requested By: Awilda Gilliland Order Number: [id number] Favio MD: Cher Tolentino M.D. Measurements Intervals [place] Rate: 75 P: 80 IN: 199 QRS: -43 QRSD: 98 T: 53 QT: 385 QTc: 431 Interpretive Statements SINUS RHYTHM WITH OCCASIONAL SUPRAVENTRICULAR PREMATURE COMPLEXES LEFT AXIS DEVIATION [QRS AXIS < -30] PATTERN CONSISTENT WITH PULMONARY DISEASE Compared to ECG 10/04/2023 18:39:41 No significant changes Electronically Signed On 10-04-2023 21:32:35 TELEVISION OPERATOR by Cher Tolentino M.D. [email or web address]
[2023-10-04 20:33] LABS: Reflex Lactate Order REFLEX LACTIC ORDERD
[2023-10-04 20:47] LABS: Troponin 5 2HR 19.75 ng/L (0-15)
[2023-10-04 20:48] LABS: Troponin 5 2HR Delta -2.25 ABS# (0-10)
[2023-10-04 22:21] VITALS: BP 131/72; PULSE 85; O2SAT 93
== END 2023-10-04 21:54 | disposition home or self-care (01) ==
PROVIDERS: Emergency Provider Physician Assistant; PCP Family Medicine
DX: N39.0 Urinary tract infection, site not specified (principal); Z79.02 Long term (current) use of antithrombotics/antiplatelets; Z79.82 Long term (current) use of aspirin; Z11.52 Encounter for screening for COVID-19; Z87.891 Personal history of nicotine dependence; I25.10 Atherosclerotic heart disease of native coronary artery without angina pectoris; Z85.3 Personal history of malignant neoplasm of breast; Z86.73 Personal history of transient ischemic attack (TIA), and cerebral infarction without residual deficits; E78.5 Hyperlipidemia, unspecified; J44.9 Chronic obstructive pulmonary disease, unspecified; I10 Essential (primary) hypertension
CPT/HCPCS: 36415; 71045; 80053; 81001; 82803; 83605; 83880; 84145; 84484; 85025; 87077; 87086; 87186; 87426; 87804; 93005; 96365; 96367; 99285; J0131; J0696; J7030

== ENCOUNTER 2023-10-19 09:33 | Emergency (ER) | payer MEDICARE, OTHER, SELFPAY ==
[2023-10-19 09:55] VITALS: BP 122/70; PULSE 74; RESP 25; O2SAT 96; BMI 28.4
[2023-10-19 10:04] VITALS: TEMP 36.6
[2023-10-19 10:29] LABS: Basophils # 0.1 10^3/uL (0.0-0.1); Basophils % 0.9 %; Eosinophils # 1.5 10^3/uL (0.0-0.8); Eosinophils % 12.8 %; Hematocrit 42.6 % (37-53); Lymphocytes # 2.7 10^3/uL (0.8-4.8); Lymphocytes % 22.7 %; Mean Corpuscular HGB Conc 32.2 g/dL (30-55); Mean Corpuscular Hemoglobin 29.9 pg (27-33); Monocytes # 0.9 10^3/uL (0.2-0.9); Monocytes % 7.3 %; Neutrophils # 6.66 10^3/uL (1.8-7.7); Nucleated Red Blood Cells % 0 %; Platelet Count 271 10^3/cmm (157-399); Red Blood Count 4.58 10^6/uL (3.85-5.65); Red Cell Distribution Width 13.6 % (12.1-15.1); White Blood Count 11.91 10^3/uL (3.29-11.43)
[2023-10-19 10:42] VITALS: BP 111/51; PULSE 59; O2SAT 97
[2023-10-19 10:51] LABS: Alanine Aminotransferase 10 U/L (0-41); Albumin Level 3.8 g/dL (3.5-5.2); Alkaline Phosphatase 70 U/L (40-130); Anion Gap 13.7 (5-19); Aspartate Amino Transferase 15 U/L (0-40); Blood Urea Nitrogen 21 mg/dL (8-23); Calcium 9.4 mg/dL (8.5-10.5); Carbon Dioxide 27 mmol/L (22-29); Chloride 102 mmol/L (98-107); Globulin 3.5 g/dL (1.3-4.6); Glucose 122 mg/dL (65-115); Osmolality Calculated 290 mOsm/kg (285-295); Potassium 4.7 mmol/L (3.5-5.1); Sodium 138 mmol/L (136-145); Total Bilirubin 0.7 mg/dL (0.15-1.2); Total Protein 7.3 g/dL (6.6-8.7)
--- NOTE | 2023-10-19 11:08 | ED_ITS ---
HPI - Male Genitourinary 2 General: Chief complaint: Urogenital-Male Stated complaint: urinary (blood) Time Seen by Provider: 10/19/23 09:52 Source: patient Mode of arrival: ambulatory History of Present Illness: 87-year-old male presents emergency room with complaints of hematuria and difficulty voiding. Began overnight has had difficulty in the past he is on Plavix no other anticoagulants. He noticed significant gross hematuria this morning and has improved since then. He is not recently been on antibiotics he is on aspirin Plavix no other anticoagulants. He also noticed passing some small clots this morning Onset (ago): hour(s) Duration: intermittent Quality: aching Relieving factors: none Exacerbating factors: none Associated symptoms: Reports dysuria and hematuria; Deny discharge, fevers/chills, nausea, rash, swelling, urinary incontinence, urinary retention, mass or vomiting Review of Systems 2 Const: Denies: fever(s) or chills Card: Denies: chest pain Resp: Denies: dyspnea GI: Denies: nausea or vomiting : Reports: dysuria, urinary frequency, urinary urgency and hematuria; Denies: urinary incontinence Musc: Denies: neck pain or back pain Skin/Breast: Denies: rash PFSH ED 2 PFSH: Medical History Primary Sjogren's syndrome Orthostatic hypotension Breast cancer, right T1c N0 Primary Sjogren's syndrome Emphysema/COPD History of nonmelanoma skin cancer Balanitis Hypothyroidism -continue levothyroxine CAD (coronary artery disease) -follows up with Dr. Granados Cerebrovascular accident (CVA) determined by clinical assessment Ascending aortic aneurysm ASHD (arteriosclerotic heart disease) Dyslipidemia HTN (hypertension) -low to low normal BP; continue to monitor vital signs -continue oral antihypertensives, hold if hypotension Surgical History S/P right mastectomy (03/06/21) with [facility] History of ear surgery History of colonoscopy 2015 History of tonsillectomy H/O hemorrhoidectomy S/P PTCA (percutaneous transluminal coronary angioplasty) Family History Brother Cancer PANCREATIC Stroke Other CAD (coronary artery disease) Hyperlipidemia Hypertension Lung disease Denies family history of Diabetes Clotting disorder Dementia Psychiatric illness Chronic kidney disease (CKD) Suicide Anesthesia complication Bleeding disorder Social History Smoking and tobacco/nicotine status: former use of tobacco/nicotine Quit status (tobacco/nicotine): has quit using Year quit tobacco: 1994 - 2PPD x 45 Years Second hand smoke exposure: No Alcohol intake: current Alcohol intake frequency: holidays/special occasions only Substance/Drug Use: never Lives independently: Yes Household members: spouse Marital status: service: Yes Current occupational status: retired Do you think of yourself as: Straight/Heterosexual Current gender identity: Male Special chinedu needs: No Physical Exam 2 Const: COMMON NORMALS: no acute distress GENERAL APPEARANCE: cooperative and comfortable ORIENTATION/CONSCIOUSNESS: Yes awake, Yes oriented to person, Yes oriented to place and Yes oriented to time HENMT: COMMON NORMALS: normocephalic, atraumatic and hearing grossly normal bilaterally HEAD & SCALP: normocephalic and atraumatic Resp: COMMON NORMALS: normal respiratory effort, No retractions, No use of accessory muscles and clear to auscultation bilaterally AUSCULTATION: clear to auscultation bilaterally Cardio: COMMON NORMALS: regular rate, regular rhythm and No murmurs present (Cardio) RATE: regular rate RHYTHM: regular rhythm GI: COMMON NORMALS: Soft to palpation and No hepatosplenomegaly present A USCULTATION: Yes normoactive bowel sounds PALPATION: Yes Soft to palpation, No Tenderness to palpation present (GI), No Guarding due to palpation present (GI) and Yes No hepatosplenomegaly present Extremity: COMMON NORMALS: normal to inspection, capillary refill normal, no clubbing, cyanosis or edema, no calf tenderness and no pedal edema Neuro: SENSORIUM/ORIENTATION: Yes oriented to person, Yes oriented to place and Yes oriented to time Skin: COMMON NORMALS: no rashes or lesions noted GENERAL SKIN EXAM: no rashes or lesions noted Course 2 Vital Signs: Vital signs: Vital Signs Temperature 97.8 F 10/19/23 10:04 Pulse Rate 58 L 10/19/23 13:01 Respiratory Rate 25 H 10/19/23 09:55 Blood Pressure 139/71 10/19/23 13:01 Pulse Oximetry 93 10/19/23 13:01 Oxygen Delivery Me thod Room Air 10/19/23 13:01 Oxygen Flow Rate 2 10/19/23 09:55 MDM - Male Medical Decision Making Patient reported difficulty emptying his bladder and passing several clots when he brought a urine sample on from earlier in the day that was grossly hematuric. Here in the ER there was little blood when catheter was placed he had a few 100 mL in his bladder once the catheter was placed. Given his description of gross hematuria will place Catheter for now and leave in place with a leg bag at discharge have him follow-up with urology for further evaluation. Continue same medications for now return if has difficulty with increased blood or difficulty with urine output. Medical Records I reviewed the patient's medical records. Lab Data I reviewed the patient's lab results. 10/19/23 10:20 10/19/23 10:20 Laboratory Results WBC 11.91 10^3/uL (3.29-11.43) H 10/19/23 10:20 RBC 4.58 10^6/uL (3.85-5.65) 10/19/23 10:20 Hgb 13.70 g/dL (11.27-16.99) 10/19/23 10:20 Hct 42.6 % (37-53) 10/19/23 10:20 MCV 93.0 fl (82-101) 10/19/23 10:20 MCH 29.9 pg (27-33) 10/19/23 10:20 MCHC 32.2 g/dL (30-55) 10/19/23 10:20 RDW 13.6 % (12.1-15.1) 10/19/23 10:20 Plt Count 271 10^3/cmm (157-399) 10/19/23 10:20 MPV 9.0 fL (7.4-10.4) 10/19/23 10:20 Neut % (Auto) 56.0 % 10/19/23 10:20 Lymph % (Auto) 22.7 % 10/19/23 10:20 Dickenson % (Auto) 7.3 % 10/19/23 10:20 Eos % (Auto) 12.8 % 10/19/23 10:20 Baso % (Auto) 0.9 % 10/19/23 10:20 Neut # (Auto) 6.66 10^3/uL (1.8-7.7) 10/19/23 10:20 Lymph # (Auto) 2.7 10^3/uL (0.8-4.8) 10/19/23 10:20 Dickenson # (Auto) 0.9 10^3/uL (0.2-0.9) 10/19/23 10:20 Eos # (Auto) 1.5 10^3/uL (0.0-0.8) H 10/19/23 10:20 Baso # (Auto) 0.1 10^3/uL (0.0-0.1) 10/19/23 10:20 Nucleated RBC % (auto) 0 % 10/19/23 10:20 Nucleated RBCs # 0.0 /100WBC 10/19/23 10:20 Sodium 138 mmol/L (136-145) 10/19/23 10:20 Potassium 4.7 mmol/L (3.5-5.1) 10/19/23 10:20 Chloride 102 mmol/L (98-107) 10/19/23 10:20 Carbon Dioxide 27 mmol/L (22-29) 10/19/23 10:20 Anion Gap 13.7 (5-19) 10/19/23 10:20 BUN 21 mg/dL (8-23) 10/19/23 10:20 Creatinine 1.3 mg/dL (0.7-1.2) H 10/19/23 10:20 GFR Calculation Not Reportable 10/19/23 10:20 Glucose 122 mg/dL (65-115) H 10/19/23 10:20 Calculated Osmolality 290 mOsm/kg (285-295) 10/19/23 10:20 Calcium 9.4 mg/dL (8.5-10.5) 10/19/23 10:20 Total Bilirubin 0.7 mg/dL (0.15-1.2) 10/19/23 10:20 AST 15 U/L (0-40) 10/19/23 10:20 ALT 10 U/L (0-41) 10/19/23 10:20 Alkaline Phosphatase 70 U/L (40-130) 10/19/23 10:20 Total Protein 7.3 g/dL (6.6-8.7) 10/19/23 10:20 Albumin 3.8 g/dL (3.5-5.2) 10/19/23 10:20 Globulin 3.5 g/dL (1.3-4.6) 10/19/23 10:20 Urine Color Brown (Yellow) A 10/19/23 10:59 Urine Appearance Cloudy (CLEAR) A 10/19/23 10:59 Urine pH 5 (5-7) 10/19/23 10:59 Ur Specific [place] 1.020 (1.005-1.030) 10/19/23 10:59 Urine Protein 3+ (Negative) H 10/19/23 10:59 Urine Glucose (UA) Norm (Normal) 10/19/23 10:59 Urine Ketones 1+ (Negative) H 10/19/23 10:59 Urine Blood 3+ (Negative) H 10/19/23 10:59 Urine Nitrate Positive (Negative) H 10/19/23 10:59 Urine Bilirubin Neg (Negative) 10/19/23 10:59 Urine Urobilinogen 1 mg/dL (Negative) H 10/19/23 10:59 Ur Leukocyte Esterase 2+ (Negative) H 10/19/23 10:59 Urine RBC >100 /hpf (0-2) H 10/19/23 10:59 Urine WBC 10-15 /hpf (0-5) H 10/19/23 10:59 Ur Squamous Epith Cells 0-4 /hpf (0-5) H 10/19/23 10:59 Amorphous Sediment Not Reportable 10/19/23 10:59 Urine Bacteria 1+ /hpf (NONE) H 10/19/23 10:59 All radiology interpretation(s) finalized by discharge Discharge Plan Discharge Patient Disposition: Home Clinical Impression: Hematuria, Acute urinary retention Condition: Stable Prescriptions: No Action aspirin [Adult Aspirin Regimen] 81 mg tablet,delayed release (DR/EC) 81 mg PO QPM loratadine 10 mg tablet 10 mg PO DAILY PRN (Reason: Allergy Symptoms) Dose Instruction: TAKE 1 TABLET DAILY FOR ALLERGIES cyclobenzaprine 10 mg tablet See Rx Instructions PO TID PRN (Reason: muscle spasm) Qty: 30 0RF Rx Instructions: take 1 TID x5 days then call doctor with progress report orally three times daily PRN; azathioprine 50 mg tablet 50 mg PO BID 90 Days Qty: 180 1RF prednisone 5 mg tablet 5 mg PO QAM 90 Days Qty: 90 1RF alprazolam 0.25 mg tablet 0.25 - 0.5 mg PO BEDTIME PRN (Reason: rest/stress/sleep) Qty: 60 5RF sildenafil [Viagra] 50 mg tablet 50 mg PO ONCE MDD 50mg PRN (Reason: sexual activity) Qty: 30 0RF Rx Instructions: administer 30 minutes to 4 hours before sexual activity clopidogrel 75 mg tablet 75 mg PO QAM Qty: 90 3RF Hold Instructions: Resume on 03/09/21. Anoro Ellipta 62.5-25 mcg/actuation blister with device 1 inh inhalation QAM Qty: 60 3RF pantoprazole [Protonix] 40 mg tablet,delayed release (DR/EC) 40 mg PO QAM Qty: 90 3RF levothyroxine 50 mcg tablet See Rx Instructions .ROUTE .COMPLEX Qty: 90 3RF Dose Instruction: TAKE 1 TABLET DAILY FOR THYROID Rx Instructions: TAKE 1 TABLET DAILY FOR THYROID metoprolol succinate 25 mg tablet extended release 24 hr See Rx Instructions .ROUTE .COMPLEX Qty: 90 3RF Dose Instruction: TAKE 1 TABLET DAILY Rx Instructions: TAKE 1 TABLET DAILY Fiber Laxative (psyllium husk) capsule 2 tab PO BID multivitamin Tablet 1 tab PO QPM rosuvastatin 10 mg tablet 10 mg PO BEDTIME ondansetron 4 mg tablet,disintegrating 4 mg PO Q8H PRN (Reason: nausea and vomiting) Qty: 15 0RF Discharge Orders: Discharge ED (Routine); Ordered 10/19/23 Ordered By: Ho Wan Referrals: Julio Mccracken, [Primary Care Provider] - Patient Instructions: Opioid Safety, Pain Management Activity Restrictions/Additional Instructions: Thank you for choosing [facility] for your healthcare needs today. Please realize this is an emergency room and that we are providing you with a medical screening exam and this may not be complete and all inclusive of all the testing and or work up that you may need to determine your ailment or severity of your illness. It is very important that you follow up as instructed or that you return to the Emergency Department should you have concerns or if your condition changes or worsens in any way. You are seen today for hematuria Kirkland catheter was placed to ensure the you are able to pass urine because of the report you gave of passing blood clots. Your urine has been cultured. Follow-up with urologist. Coding Level of Care Code ED Career Development Associate for Ash Segovia
[2023-10-19 11:48] VITALS: BP 154/66; PULSE 61; O2SAT 96
[2023-10-19 11:55] LABS: Add Urine Microscopic? YES; Bilirubin Urine Neg (Negative); Blood Urine 3+ (Negative); Glucose Urine UA Norm (Normal); Ketones Urine 1+ (Negative); Leukocyte Esterase Urine 2+ (Negative); Nitrate Urine Positive (Negative); Protein Urine 3+ (Negative); Urine Appearance Cloudy (CLEAR); Urine Color Brown (Yellow); Urobilinogen Urine 1 mg/dL (Negative); pH Urine 5 (5-7)
[2023-10-19 11:57] LABS: Add Urine Culture? Yes; Bacteria Urine 1+ /hpf; RBC Urine >100 /hpf (0-2); Squamous Epithelial Cell Urine 0-4 /hpf (0-5)
[2023-10-19] MEDS: cefTRIAXone 1,000 MG in water for injection-sterile 2.1 ML 2.1 MG IM (12:54)
[2023-10-19 13:01] VITALS: BP 139/71; PULSE 58; O2SAT 93
--- NOTE | 2023-10-19 17:07 | DCPLANNER ---
I faxed patients chart to [facility] on 10/19/23 at [phone]. Clinic to contact patient. Faxed to [phone]
== END 2023-10-19 13:55 | disposition home or self-care (01) ==
PROVIDERS: Emergency Provider Family Medicine; PCP Family Medicine
DX: R31.9 Hematuria, unspecified (principal); R33.9 Retention of urine, unspecified; Z79.02 Long term (current) use of antithrombotics/antiplatelets; Z79.82 Long term (current) use of aspirin; Z87.891 Personal history of nicotine dependence; Z85.3 Personal history of malignant neoplasm of breast; J44.9 Chronic obstructive pulmonary disease, unspecified; I25.10 Atherosclerotic heart disease of native coronary artery without angina pectoris; Z86.73 Personal history of transient ischemic attack (TIA), and cerebral infarction without residual deficits; E78.5 Hyperlipidemia, unspecified; I10 Essential (primary) hypertension
CPT/HCPCS: 36415; 51702; 80053; 81001; 85025; 87077; 87086; 87186; 96372; 99284; 99291; J0696

== ENCOUNTER 2023-10-24 19:18 | Emergency (ER) | payer MEDICARE, OTHER, SELFPAY ==
[2023-10-24 19:27] VITALS: BP 148/78; PULSE 79; RESP 20; TEMP 36.1; O2SAT 92; BMI 28.4
[2023-10-24 21:55] LABS: Bilirubin Urine Neg (Negative); Blood Urine 3+ (Negative); Glucose Urine UA Norm (Normal); Ketones Urine 1+ (Negative); Nitrate Urine Negative (Negative); Protein Urine 1+ (Negative); Urine Appearance Clear (CLEAR); Urine Color Yellow (Yellow); pH Urine 5 (5-7)
[2023-10-24] MEDS: mupirocin oint 22 gm 1 APPLIC TOPICAL (21:55)
[2023-10-24] MEDS: cephALEXin 500 mg Capsule 1000 MG PO (21:55)
[2023-10-24 21:56] LABS: Add Urine Culture? Yes; Add Urine Microscopic? YES; Amorphous Sediment Urine TRACE /hpf; Bacteria Urine 1+ /hpf; Hyaline Casts Urine 0-4 /lpf; Leukocyte Esterase Urine Negative (Negative); RBC Urine 15-25 /hpf (0-2); Squamous Epithelial Cell Urine 0-4 /hpf (0-5); Urobilinogen Urine 1 mg/dL (Negative)
--- NOTE | 2023-10-25 00:45 | W.ED.MALEGU ---
HPI - Male Genitourinary General: Chief complaint: Urogenital-Male Stated complaint: Catheter Pain Time Seen by Provider: 10/24/23 20:29 History of Present Illness: 87-year-old male who had a Kirkland placed a few days ago for urinary retention here in the emergency department. He had had hematuria at that point. Hematuria has cleared. He says that his catheter is draining freely. He is not running fever. However, he is experiencing skin irritation to his foreskin, and urethral meatus that is quite painful. He notes that he cannot find a comfortable position. He is not running fever. There is no significant discharge. Associated symptoms: Deny dysuria, nausea or vomiting Review of Systems Const: Denies: fever(s) or chills Resp: Denies: dyspnea GI: Denies: abdominal pain, nausea or vomiting : Denies: flank pain, difficulty urinating, dysuria or penile discharge [facility] ED PFSH: Medical History Primary Sjogren's syndrome Orthostatic hypotension Breast cancer, right T1c N0 Primary Sjogren's syndrome Emphysema/COPD History of nonmelanoma skin cancer Balanitis Hypothyroidism -continue levothyroxine CAD (coronary artery disease) -follows up with Dr. Granados Cerebrovascular accident (CVA) determined by clinical assessment Ascending aortic aneurysm ASHD (arteriosclerotic heart disease) Dyslipidemia HTN (hypertension) -low to low normal BP; continue to monitor vital signs -continue oral antihypertensives, hold if hypotension Surgical History S/P right mastectomy (03/06/21) with [facility] History of ear surgery History of colonoscopy 2015 History of tonsillectomy H/O hemorrhoidectomy S/P PTCA (percutaneous transluminal coronary angioplasty) Family History Brother Cancer PANCREATIC Stroke Other CAD (coronary artery disease) Hyperlipidemia Hypertension Lung disease Denies family history of Diabetes Clotting disorder Dementia Psychiatric illness Chronic kidney disease (CKD) Suicide Anesthesia complication Bleeding disorder Social History Smoking and tobacco/nicotine status: former use of tobacco/nicotine Quit status (tobacco/nicotine): has quit using Year quit tobacco: 1994 - 2PPD x 45 Years Second hand smoke exposure: No Alcohol intake: current Alcohol intake frequency: holidays/special occasions only Substance/Drug Use: never Lives independently: Yes Household members: spouse Marital status: service: Yes Current occupational status: retired Do you think of yourself as: Straight/Heterosexual Current gender identity: Male Special chinedu needs: No Physical Exam Const: COMMON NORMALS: no acute distress GENERAL APPEARANCE: cooperative; not ill appearing and not frail appearing HENMT: COMMON NORMALS: normocephalic, atraumatic and Normal external nose present HEAD & SCALP: normocephalic and atraumatic FACE & SINUS: normal facial exam and face symmetric NOSE: Normal external nose present Eye: COMMON NORMALS: Equal, round and reactive pupils present and EOMs intact bilaterally PUPIL: Yes Equal, round and reactive pupils present Neck/C-Spine: GENERAL: Yes trachea midline Chest: CHEST: Yes Symmetrical chest wall rise Resp: COMMON NORMALS: normal respiratory effort, No retractions, No use of accessory muscles and clear to auscultation bilaterally AUSCULTATION: clear to auscultation bilaterally Cardio: COMMON NORMALS: regular rate and regular rhythm RATE: regular rate RHYTHM: regular rhythm GI: COMMON NORMALS: Normal to inspection, nondistended, normoactive bowel sounds present : OTHER: Irritation of the glans with minimal discharge present. Inability to fully retract foreskin without significant discomfort. Kirkland is in place. Draining appropriately. No testicular problems. Extremity: COMMON NORMALS: no pedal edema Neuro: ROCKY COMA SCALE: document GCS findings [place] coma scale eye opening: Spontaneous [place] coma scale verbal response: Orientated [place] coma scale motor response: [place]bey commands [place] coma scale total score: 15 SENSORY EXAM: Yes extremities (intact) Psych: COMMON NORMALS: speech normal SPEECH: Yes normal speech Skin: COMMON NORMALS: no rashes or lesions noted GENERAL SKIN EXAM: no rashes or lesions noted Course Vital Signs: Vital signs: Vital Signs Temperature 97 F L 10/24/23 19:27 Pulse Rate 79 10/24/23 19:27 Respiratory Rate 20 H 10/24/23 19:27 Blood Pressure 148/78 10/24/23 19:27 Pulse Oximetry 92 10/24/23 19:27 Oxygen Delivery Me thod Room Air 10/24/23 19:27 MDM - Male Medical Decision Making Urinalysis shows minimal hematuria. Leukocyte Estrace is negative. He does have some skin irritation, and mild phimosis with adhesion. Mupirocin was placed at the meatus, glans, and around the foreskin. Foreskin is gently retracted using the help of a swab. He will continue this care. Given that his bladder scan is empty, and urinalysis is clear, Kirkland was pulled today. He knows to return for urinary retention, worsening hematuria, worsening pain or swelling of the foreskin or glans, any other concerns. Lab Data Laboratory Results Urine Color Yellow (Yellow) 10/24/23 21:20 Urine Appearance Clear (CLEAR) 10/24/23 21:20 Urine pH 5 (5-7) 10/24/23 21:20 Ur Specific [place] 1.020 (1.005-1.030) 10/24/23 21:20 Urine Protein 1+ (Negative) H 10/24/23 21:20 Urine Glucose (UA) Norm (Normal) 10/24/23 21:20 Urine Ketones 1+ (Negative) H 10/24/23 21:20 Urine Blood 3+ (Negative) H 10/24/23 21:20 Urine Nitrate Negative (Negative) 10/24/23 21:20 Urine Bilirubin Neg (Negative) 10/24/23 21:20 Urine Urobilinogen 1 mg/dL (Negative) H 10/24/23 21:20 Ur Leukocyte Esterase Negative (Negative) 10/24/23 21:20 Urine RBC 15-25 /hpf (0-2) H 10/24/23 21:20 Urine WBC 5-10 /hpf (0-5) H 10/24/23 21:20 Ur Squamous Epith Cells 0-4 /hpf (0-5) H 10/24/23 21:20 Amorphous Sediment Trace /hpf 10/24/23 21:20 Urine Bacteria 1+ /hpf (NONE) H 10/24/23 21:20 Hyaline Casts 0-4 /lpf H 10/24/23 21:20 No radiology studies performed this visit Discharge Plan Discharge Patient Disposition: Home Clinical Impression: Acquired phimosis of penis Condition: Stable Prescriptions: New cephalexin 500 mg tablet 500 mg PO QID 7 Days Qty: 28 0RF No Action aspirin [Adult Aspirin Regimen] 81 mg tablet,delayed release (DR/EC) 81 mg PO QPM loratadine 10 mg tablet 10 mg PO DAILY PRN (Reason: Allergy Symptoms) Dose Instruction: TAKE 1 TABLET DAILY FOR ALLERGIES cyclobenzaprine 10 mg tablet See Rx Instructions PO TID PRN (Reason: muscle spasm) Qty: 30 0RF Rx Instructions: take 1 TID x5 days then call doctor with progress report orally three times daily PRN; prednisone 5 mg tablet 5 mg PO QAM 90 Days Qty: 90 1RF alprazolam 0.25 mg tablet 0.25 - 0.5 mg PO BEDTIME PRN (Reason: rest/stress/sleep) Qty: 60 5RF sildenafil [Viagra] 50 mg tablet 50 mg PO ONCE MDD 50mg PRN (Reason: sexual activity) Qty: 30 0RF Rx Instructions: administer 30 minutes to 4 hours before sexual activity clopidogrel 75 mg tablet 75 mg PO QAM Qty: 90 3RF Hold Instructions: Resume on 03/09/21. Anoro Ellipta 62.5-25 mcg/actuation blister with device 1 inh inhalation QAM Qty: 60 3RF pantoprazole [Protonix] 40 mg tablet,delayed release (DR/EC) 40 mg PO QAM Qty: 90 3RF levothyroxine 50 mcg tablet See Rx Instructions .ROUTE .COMPLEX Qty: 90 3RF Dose Instruction: TAKE 1 TABLET DAILY FOR THYROID Rx Instructions: TAKE 1 TABLET DAILY FOR THYROID metoprolol succinate 25 mg tablet extended release 24 hr See Rx Instructions .ROUTE .COMPLEX Qty: 90 3RF Dose Instruction: TAKE 1 TABLET DAILY Rx Instructions: TAKE 1 TABLET DAILY azathioprine 50 mg tablet 50 mg PO BID 90 Days Qty: 180 1RF Fiber Laxative (psyllium husk) capsule 2 tab PO BID multivitamin Tablet 1 tab PO QPM rosuvastatin 10 mg tablet 10 mg PO BEDTIME ondansetron 4 mg tablet,disintegrating 4 mg PO Q8H PRN (Reason: nausea and vomiting) Qty: 15 0RF Discharge Orders: Discharge ED (Routine); Ordered 10/24/23 Ordered By: Miko Maciel Referrals: Julio Mccracken DO [Primary Care Provider] - 4-7 days Patient Instructions: Acute Paraphimosis (ED), Opioid Safety, Pain Management Activity Restrictions/Additional Instructions: Foreskin care as shown in the emergency department. Antibiotics as directed. Return for any increase in pain, drainage, inability to urinate, other concerning symptoms. See your doctor next week. Keep your urology appointment for further evaluation. Coding Level of Care Code ED Emergency Operator for Ash Segovia
== END 2023-10-24 22:00 | disposition home or self-care (01) ==
PROVIDERS: Emergency Provider Emergency Medicine; PCP Family Medicine
DX: N47.1 Phimosis (principal); Z79.02 Long term (current) use of antithrombotics/antiplatelets; Z79.82 Long term (current) use of aspirin; Z87.891 Personal history of nicotine dependence; Z85.3 Personal history of malignant neoplasm of breast; J44.9 Chronic obstructive pulmonary disease, unspecified; I25.10 Atherosclerotic heart disease of native coronary artery without angina pectoris; Z86.73 Personal history of transient ischemic attack (TIA), and cerebral infarction without residual deficits; E78.5 Hyperlipidemia, unspecified; I10 Essential (primary) hypertension
CPT/HCPCS: 81001; 87077; 87086; 87106; 87186; 99283

== ENCOUNTER 2023-11-04 10:45 | Emergency (ER) | payer MEDICARE, OTHER, SELFPAY ==
[2023-11-04 11:01] VITALS: BP 138/71; PULSE 91; RESP 18; TEMP 36.8; O2SAT 96; BMI 28.4
--- NOTE | 2023-11-04 11:40 | XR_ITS ---
WS: [id number] Portable AP upright chest, 11/04/2023 Clinical Data: shortness of brath Comparison: Portable chest, 10/04/2023 Findings: There are coarse interstitial lung changes which remain the same. The greatest involvement is in the left lung but there is significant involvement at the right lower lobe overlying the diaphr agm. No nodules or masses are seen. There is no pneumothorax. The heart is normal. The aortic arch an d descending thoracic aorta show calcification and tortuosity Impression: 1. Coarse interstitial lung changes which remain the same. 2. Atherosclerosis.
[2023-11-04 12:34] LABS: Basophils # 0.1 10^3/uL (0.0-0.1); Basophils % 0.8 %; Eosinophils # 1.3 10^3/uL (0.0-0.8); Hematocrit 42.1 % (37-53); Lymphocytes % 10.4 %; Mean Corpuscular HGB Conc 31.8 g/dL (30-55); Mean Corpuscular Volume 94.4 fl (82-101); Mean Platelet Volume 9.1 fL (7.4-10.4); Monocytes % 10.4 %; Neutrophils # 6.46 10^3/uL (1.8-7.7); Neutrophils % 64.9 %; Nucleated Red Blood Cells % 0 %; Platelet Count 156 10^3/cmm (157-399); Red Blood Count 4.46 10^6/uL (3.85-5.65); Red Cell Distribution Width 13.6 % (12.1-15.1); White Blood Count 9.94 10^3/uL (3.29-11.43)
[2023-11-04 12:35] VITALS: BP 138/69; PULSE 87; O2SAT 94
[2023-11-04 12:59] LABS: Influenza A by IFA negative (Negative); Influenza B by IFA negative (Negative)
[2023-11-04 13:02] LABS: NT Pro B Type Natriuretic Pept 306 pg/mL (0-450); Procalcitonin 0.03 ng/mL (0-0.5)
--- NOTE | 2023-11-04 13:08 | ED_ITS ---
HPI - URI/Sore Throat 2 General: Chief Complaint: Upper Respiratory Infection Stated Complaint: congested, sob Time Seen by Provider: 11/04/23 12:34 Source: patient and family Mode of arrival: wheelchair History of Present Illness: 87-year-old male with history of COPD is chronically prescribed oxygen but only uses it when he is up and active on normal days able to sit at home and will the activity will set in the low 90s with activity sats to the upper 80s and he uses 2 L per nasal cannula which is adequate for any activities he wishes to do. His recently was evaluated and tested positive for COVID in the last day and a half he has begun to have symptoms as well. Generalized aches and pains increasing shortness of breath he is now needing continuous oxygen at 2 L/min. He has some generalized muscle aches and pain and some mild headache subjective fever no diarrhea MD elicited complaint: fever and cough Onset (ago): day(s) Consistency: constant Severity: mild Exacerbating factors: exertion Relieving factors: nothing Associated symptoms: Deny abdominal pain, change in voice, chills, chest pain, congestion, cough, diarrhea, epistaxis, ear or mastoid pain, fever(s), headache(s), myalgias, nasal congestion, nausea, rash, rhinorrhea, short of breath, sinus pain, stiffness, sore throat or vomiting Review of Systems 2 Const: Denies: fever(s) or chills ENMT: Denies: ear or mastoid pain, nasal congestion, epistaxis or sinus pain Card: Denies: chest pain Resp: Denies: dyspnea, productive cough or non-productive cough GI: Denies: abdominal pain, nausea, vomiting or diarrhea : Denies: flank pain, dysuria, urinary frequency or urinary urgency Skin/Breast: Denies: rash or pruritus Neuro: Denies: headache(s) PFSH ED 2 PFSH: Medical History Primary Sjogren's syndrome Orthostatic hypotension Breast cancer, right T1c N0 Primary Sjogren's syndrome Emphysema/COPD History of nonmelanoma skin cancer Balanitis Hypothyroidism -continue levothyroxine CAD (coronary artery disease) -follows up with Dr. Granados Cerebrovascular accident (CVA) determined by clinical assessment Ascending aortic aneurysm ASHD (arteriosclerotic heart disease) Dyslipidemia HTN (hypertension) -low to low normal BP; continue to monitor vital signs -continue oral antihypertensives, hold if hypotension Surgical History S/P right mastectomy (03/06/21) with [facility] History of ear surgery History of colonoscopy 2014 History of tonsillectomy H/O hemorrhoidectomy S/P PTCA (percutaneous transluminal coronary angioplasty) Family History Brother Cancer PANCREATIC Stroke Other CAD (coronary artery disease) Hyperlipidemia Hypertension Lung disease Denies family history of Diabetes Clotting disorder Dementia Psychiatric illness Chronic kidney disease (CKD) Suicide Anesthesia complication Bleeding disorder Social History Smoking and tobacco/nicotine status: former use of tobacco/nicotine Quit status (tobacco/nicotine): has quit using Year quit tobacco: 1994 - PD x 45 Years Second hand smoke exposure: No Alcohol intake: current Alcohol intake frequency: holidays/special occasions only Substance/Drug Use: never Lives independently: Yes Household members: spouse Marital status: service: Yes Current occupational status: retired Do you think of yourself as: Straight/Heterosexual Current gender identity: Male Special chinedu needs: No Physical Exam 2 Const: COMMON NORMALS: no acute distress GENERAL APPEARANCE: cooperative and comfortable ORIENTATION/CONSCIOUSNESS: Yes awake, Yes oriented to person, Yes oriented to place and Yes oriented to time HENMT: COMMON NORMALS: normocephalic, atraumatic, hearing grossly normal bilaterally, external ears normal, EAC's normal, TM's normal bilaterally, Normal nasal mucous membranes and turbinates present, moist oral mucous membranes and oropharynx normal HEAD & SCALP: normocephalic and atraumatic NOSE: Normal nasal mucous membranes and turbinates present EXTERNAL EAR: Yes external ears normal EXTERNAL AUDITORY CANAL: EAC's normal TYMPANIC MEMBRANE: TM's normal bilaterally Eye: COMMON NORMALS: Equal, round and reactive pupils present, EOMs intact bilaterally, conjunctivae normal and no scleral icterus CONJUNCTIVA: Yes conjunctivae normal PUPIL: Yes Equal, round and reactive pupils present Neck/C-Spine: COMMON NORMALS: full ROM, no lymphadenopathy, supple and no JVD Lymph: LYMPHATIC: no lymphadenopathy noted and no lymphedema noted Resp: COMMON NORMALS: normal respiratory effort, No retractions, No use of accessory muscles and clear to auscultation bilaterally AUSCULTATION: clear to auscultation bilaterally Cardio: COMMON NORMALS: no JVD, regular rate, regular rhythm and No murmurs present (Cardio) RATE: regular rate RHYTHM: regular rhythm GI: COMMON NORMALS: Soft to palpation and No hepatosplenomegaly present A USCULTATION: Yes normoactive bowel sounds PALPATION: Yes Soft to palpation, No Tenderness to palpation present (GI), No Guarding due to palpation present (GI) and Yes No hepatosplenomegaly present Extremity: COMMON NORMALS: normal to inspection, capillary refill normal, no clubbing, cyanosis or edema, no calf tenderness and no pedal edema Neuro: SENSORIUM/ORIENTATION: Yes oriented to person, Yes oriented to place and Yes oriented to time Skin: COMMON NORMALS: no rashes or lesions noted GENERAL SKIN EXAM: no rashes or lesions noted Course 2 Vital Signs: Vital signs: Vital Signs Temperature 98.3 F 11/04/23 11:01 Pulse Rate 73 11/04/23 14:09 Respiratory Rate 18 11/04/23 11:01 Blood Pressure 141/67 11/04/23 14:09 Pulse Oximetry 96 11/04/23 14:09 Oxygen Delivery Me thod Nasal Cannula 11/04/23 13:37 Oxygen Flow Rate 2 11/04/23 13:37 MDM - URI/Sore Throat Medical Decision Making COVID-19 stable at this time. He usually uses 2 L/min. Will discharge home, dexamethasone 6 mg daily be aggressive use of nebulizers recheck if not improving Medical Records I reviewed the patient's medical records. Lab Data I reviewed the patient's lab results. 11/04/23 12:25 11/04/23 12:25 Laboratory Results WBC 9.94 10^3/uL (3.29-11.43) 11/04/23 12:25 RBC 4.46 10^6/uL (3.85-5.65) 11/04/23 12:25 Hgb 13.40 g/dL (11.27-16.99) 11/04/23 12:25 Hct 42.1 % (37-53) 11/04/23 12:25 MCV 94.4 fl (82-101) 11/04/23 12:25 MCH 30.0 pg (27-33) 11/04/23 12:25 MCHC 31.8 g/dL (30-55) 11/04/23 12:25 RDW 13.6 % (12.1-15.1) 11/04/23 12:25 Plt Count 156 10^3/cmm (157-399) L 11/04/23 12:25 MPV 9.1 fL (7.4-10.4) 11/04/23 12:25 Neut % (Auto) 64.9 % 11/04/23 12:25 Lymph % (Auto) 10.4 % 11/04/23 12:25 [place] % (Auto) 10.4 % 11/04/23 12:25 Eos % (Auto) 13.0 % 11/04/23 12:25 Baso % (Auto) 0.8 % 11/04/23 12:25 Neut # (Auto) 6.46 10^3/uL (1.8-7.7) 11/04/23 12:25 Lymph # (Auto) 1.0 10^3/uL (0.8-4.8) 11/04/23 12:25 [place] # (Auto) 1.0 10^3/uL (0.2-0.9) H 11/04/23 12:25 Eos # (Auto) 1.3 10^3/uL (0.0-0.8) H 11/04/23 12:25 Baso # (Auto) 0.1 10^3/uL (0.0-0.1) 11/04/23 12:25 Nucleated RBC % (auto) 0 % 11/04/23 12:25 Nucleated RBCs # 0.0 /100WBC 11/04/23 12:25 Sodium 137 mmol/L (136-145) 11/04/23 12:25 Potassium 4.6 mmol/L (3.5-5.1) 11/04/23 12:25 Chloride 101 mmol/L (98-107) 11/04/23 12:25 Carbon Dioxide 24 mmol/L (22-29) 11/04/23 12:25 Anion Gap 16.6 (5-19) 11/04/23 12:25 BUN 19 mg/dL (8-23) 11/04/23 12:25 Creatinine 1.0 mg/dL (0.7-1.2) 11/04/23 12:25 GFR Calculation Not Reportable 11/04/23 12:25 Glucose 124 mg/dL (65-115) H 11/04/23 12:25 Calculated Osmolality 288 mOsm/kg (285-295) 11/04/23 12:25 Lactic Acid 2.0 mmol/L (0.5-2.2) 11/04/23 12:25 Calcium 9.2 mg/dL (8.5-10.5) 11/04/23 12:25 Total Bilirubin 0.4 mg/dL (0.15-1.2) 11/04/23 12:25 AST 15 U/L (0-40) 11/04/23 12:25 ALT 11 U/L (0-41) 11/04/23 12:25 Alkaline Phosphatase 66 U/L (40-130) 11/04/23 12:25 NT-Pro-B Natriuret Pep 306 pg/mL (0-450) 11/04/23 12:25 Total Protein 7.3 g/dL (6.6-8.7) 11/04/23 12:25 Albumin 3.7 g/dL (3.5-5.2) 11/04/23 12:25 Globulin 3.6 g/dL (1.3-4.6) 11/04/23 12:25 Procalcitonin 0.03 ng/mL (0-0.5) 11/04/23 12:25 Coronavirus 229E (PCR) Not detected (NOT DETECT) 11/04/23 12:30 Influenza Type A Ag negative (Negative) 11/04/23 12:30 Influenza Type B Ag negative (Negative) 11/04/23 12:30 SARS-CoV-2 (PCR) Detected (NOT DETECT) A 11/04/23 12:30 All radiology interpretation(s) finalized by discharge Discharge Plan Discharge Patient Disposition: Home Clinical Impression: COVID-19, COPD (chronic obstructive pulmonary disease) Condition: Stable Prescriptions: New Paxlovid 300 mg (150 mg x 2)-100 mg tablets,dose pack See Rx Instructions .ROUTE .COMPLEX Qty: 30 0RF Rx Instructions: orally per package directions ipratropium-albuterol 0.5 mg-3 mg(2.5 mg base)/3 mL solution for nebulization 3 ml inhalation Q4H PRN (Reason: shortness of breath or wheezing) Qty: 90 0RF dexamethasone 6 mg tablet 6 mg PO DAILY Qty: 7 0RF No Action aspirin [Adult Aspirin Regimen] 81 mg tablet,delayed release (DR/EC) 81 mg PO QPM loratadine 10 mg tablet 10 mg PO DAILY PRN (Reason: Allergy Symptoms) Dose Instruction: TAKE 1 TABLET DAILY FOR ALLERGIES prednisone 5 mg tablet 5 mg PO QAM 90 Days Qty: 90 1RF alprazolam 0.25 mg tablet 0.25 - 0.5 mg PO BEDTIME PRN (Reason: rest/stress/sleep) Qty: 60 5RF clopidogrel 75 mg tablet 75 mg PO QAM Qty: 90 3RF Hold Instructions: Resume on 03/09/21. Anoro Ellipta 62.5-25 mcg/actuation blister with device 1 inh inhalation QAM Qty: 60 3RF pantoprazole [Protonix] 40 mg tablet,delayed release (DR/EC) 40 mg PO QAM Qty: 90 3RF azathioprine 50 mg tablet 50 mg PO BID 90 Days Qty: 180 1RF rosuvastatin 10 mg tablet 10 mg PO BEDTIME Qty: 90 3RF multivitamin Tablet 1 tab PO QPM Fiber-Lax 625 mg Tablet 1,250 mg PO BID levothyroxine 50 mcg tablet 50 mcg PO DAILY metoprolol succinate 25 mg tablet extended release 24 hr 25 mg PO DAILY amoxicillin-pot clavulanate 875-125 mg tablet 1 tab PO BID Discharge Orders: Discharge ED (Routine); Ordered 11/04/23 Ordered By: Ho Wan Other Ambulatory Orders: DME: Nebulizer with Neb Kit (Order) Location: None Selected Ordered By: Ho Wan Referrals: Julio Mccracken DO [Primary Care Provider] - Discharge Diet: Usual diet Discharge Activity: Limit activity as instructed Patient Instructions: COVID-19 (Coronavirus Disease 2019) (ED), Opioid Safety, Pain Management Activity Restrictions/Additional Instructions: Thank you for choosing [facility] for your healthcare needs today. Please realize this is an emergency room and that we are providing you with a medical screening exam and this may not be complete and all inclusive of all the testing and or work up that you may need to determine your ailment or severity of your illness. It is very important that you follow up as instructed or that you return to the Emergency Department should you have concerns or if your condition changes or worsens in any way. You are seen today for cough and congestion. You are being treated for COVID- 19. Recommend starting Paxlovid continue oxygen at 2 to 3 L/min 24 hours a day. Use albuterol ipratropium bromide nebs as needed at home start oral dexamethasone 1 tablet daily for 7 days. Recheck if you have any worsening or changes symptoms. Coding Level of Care Code ED Hardware Design Engineer for Ash Segovia
[2023-11-04 13:13] LABS: Alanine Aminotransferase 11 U/L (0-41); Albumin Level 3.7 g/dL (3.5-5.2); Alkaline Phosphatase 66 U/L (40-130); Anion Gap 16.6 (5-19); Aspartate Amino Transferase 15 U/L (0-40); Blood Urea Nitrogen 19 mg/dL (8-23); Calcium 9.2 mg/dL (8.5-10.5); Carbon Dioxide 24 mmol/L (22-29); Chloride 101 mmol/L (98-107); Globulin 3.6 g/dL (1.3-4.6); Glucose 124 mg/dL (65-115); Osmolality Calculated 288 mOsm/kg (285-295); Potassium 4.6 mmol/L (3.5-5.1); Sodium 137 mmol/L (136-145); Total Bilirubin 0.4 mg/dL (0.15-1.2); Total Protein 7.3 g/dL (6.6-8.7)
[2023-11-04 13:37] VITALS: PULSE 82; O2SAT 94
[2023-11-04 14:09] VITALS: BP 141/67; PULSE 73; O2SAT 96
[2023-11-04 14:27] LABS: Adenovirus Not Detected (NOT DETECT); Chlamydia Pneumoniae Not Detected (NOT DETECT); Coronavirus 229E,HKU1,NL63,OC4 Not Detected (NOT DETECT); Human Metapneumovirus Not Detected (NOT DETECT); Human Rhinovirus/Enterovirus Not Detected (NOT DETECT); Influenza A Not Detected (NOT DETECT); Influenza A H1 Not Detected (NOT DETECT); Influenza A H1-2009 Not Detected (NOT DETECT); Influenza A H3 Not Detected (NOT DETECT); Influenza B Not Detected (NOT DETECT); Mycoplasma Pneumoniae Not Detected (NOT DETECT); Parainfluenza Virus Type 1 Not Detected (NOT DETECT); Parainfluenza Virus Type 2 Not Detected (NOT DETECT); Parainfluenza Virus Type 3 Not Detected (NOT DETECT); Parainfluenza Virus Type 4 Not Detected (NOT DETECT); Respiratory Syncytial Virus A Not Detected (NOT DETECT); Respiratory Syncytial Virus B Not Detected (NOT DETECT)
[2023-11-04 14:55] LABS: SARS-COV-2 Detected (NOT DETECT)
== END 2023-11-04 14:11 | disposition home or self-care (01) ==
PROVIDERS: Emergency Medicine; Emergency Provider Family Medicine; PCP Family Medicine
DX: U07.1 COVID-19 (principal); J44.9 Chronic obstructive pulmonary disease, unspecified; Z79.02 Long term (current) use of antithrombotics/antiplatelets; Z79.82 Long term (current) use of aspirin; Z87.891 Personal history of nicotine dependence; Z85.3 Personal history of malignant neoplasm of breast; I25.10 Atherosclerotic heart disease of native coronary artery without angina pectoris; Z86.73 Personal history of transient ischemic attack (TIA), and cerebral infarction without residual deficits; E78.5 Hyperlipidemia, unspecified; I10 Essential (primary) hypertension
CPT/HCPCS: 36415; 71045; 80053; 83605; 83880; 84145; 85025; 87635; 87804; 99284

== ENCOUNTER → 2023-11-12 15:11 | Outpatient (BNVA) | payer MEDICARE, OTHER, SELFPAY | PROVIDERS: PCP Family Medicine; Visit Provider Dermatology | DX: D48.5 Neoplasm of uncertain behavior of skin (principal); L57.0 Actinic keratosis; L30.0 Nummular dermatitis; L81.4 Other melanin hyperpigmentation; L82.1 Other seborrheic keratosis; Z85.828 Personal history of other malignant neoplasm of skin | CPT/HCPCS: 17004; 69100; 99214 ==

== ENCOUNTER → 2023-11-24 10:24 | Outpatient (BNVA) | payer MEDICARE, OTHER, SELFPAY | PROVIDERS: Visit Provider Internal Medicine Rheumatology | DX: J84.89 Other specified interstitial pulmonary diseases (principal); M35.00 Sjogren syndrome, unspecified; Z79.899 Other long term (current) drug therapy; Z71.89 Other specified counseling; J84.9 Interstitial pulmonary disease, unspecified; R76.8 Other specified abnormal immunological findings in serum | CPT/HCPCS: 99214 ==

== ENCOUNTER 2023-12-13 09:42 | Emergency (ER) | payer MEDICARE, OTHER, SELFPAY ==
[2023-12-13 10:14] VITALS: BP 152/64; PULSE 93; RESP 16; TEMP 36.8; O2SAT 92; BMI 28.4
[2023-12-13 11:16] LABS: Basophils # 0.1 10^3/uL (0.0-0.1); Basophils % 0.4 %; Eosinophils # 0.3 10^3/uL (0.0-0.8); Eosinophils % 2.2 %; Hematocrit 41.4 % (37-53); Lymphocytes % 7.6 %; Mean Corpuscular HGB Conc 31.6 g/dL (30-55); Mean Corpuscular Hemoglobin 29.6 pg (27-33); Mean Corpuscular Volume 93.5 fl (82-101); Mean Platelet Volume 9.3 fL (7.4-10.4); Monocytes # 0.9 10^3/uL (0.2-0.9); Monocytes % 6.8 %; Neutrophils # 10.99 10^3/uL (1.8-7.7); Neutrophils % 82.4 %; Nucleated Red Blood Cells % 0 %; Platelet Count 199 10^3/cmm (157-399); Red Blood Count 4.43 10^6/uL (3.85-5.65); Red Cell Distribution Width 14.5 % (12.1-15.1); White Blood Count 13.34 10^3/uL (3.29-11.43)
[2023-12-13 11:23] LABS: Glucose Urine UA Norm (Normal); Ketones Urine Negative (Negative); Protein Urine 2+ (Negative); Urine Appearance Cloudy (CLEAR); Urine Color Amber (Yellow); pH Urine 6.5 (5-7)
[2023-12-13 11:24] LABS: Add Urine Culture? Yes; Bacteria Urine 2+ /hpf; Bilirubin Urine Neg (Negative); Blood Urine 3+ (Negative); Leukocyte Esterase Urine 2+ (Negative); Nitrate Urine Negative (Negative); Urobilinogen Urine 1 mg/dL (Negative); WBC Urine TOO NUMEROUS TO CNT /hpf (0-5)
[2023-12-13 11:31] LABS: Alanine Aminotransferase 10 U/L (0-41); Albumin Level 3.7 g/dL (3.5-5.2); Alkaline Phosphatase 67 U/L (40-130); Anion Gap 16.4 (5-19); Aspartate Amino Transferase 14 U/L (0-40); Blood Urea Nitrogen 23 mg/dL (8-23); Calcium 8.8 mg/dL (8.5-10.5); Carbon Dioxide 26 mmol/L (22-29); Chloride 103 mmol/L (98-107); Glucose 142 mg/dL (65-115); Osmolality Calculated 298 mOsm/kg (285-295); Potassium 4.4 mmol/L (3.5-5.1); Sodium 141 mmol/L (136-145); Total Bilirubin 0.5 mg/dL (0.15-1.2); Total Protein 6.7 g/dL (6.6-8.7)
[2023-12-13 11:38] VITALS: BP 152/64; PULSE 91; RESP 16; O2SAT 92
[2023-12-13] MEDS: ketorolac 30 mg/mL INJ IVP (12:26)
[2023-12-13] MEDS: cefTRIAXone 1,000 MG in sodium chloride 0.9% (plus) 50 ML 100 MG IV (12:27)
[2023-12-13] MEDS: sodium chloride 0.9% 1,000 ML 999 ML IV (12:30)
--- NOTE | 2023-12-13 13:03 | CTR_ITS ---
PROCEDURE INFORMATION: Exam: CT Abdomen And Pelvis With Contrast Exam date and time: 12/13/2023 1:20 PM Age: 88 years old Clinical indication: Abdominal pain; Generalized; Additional info: Abd flank pain--pyelonephritis TECHNIQUE: Imaging protocol: Computed tomography of the abdomen and pelvis with contrast. Radiation optimization: All CT scans at this facility use at least one of these dose optimization techniques: automated exposure control; mA and/or kV adjustment per patient size (includes targeted exams where dose is matched to clinical indication); or iterative reconstruction. Contrast material: OMNI 350; Contrast volume: 100 ml; Contrast route: INTRAVENOUS (IV); COMPARISON: CT abdomen pelvis w con* [id number] 03/26/2023 1:14 PM RADIATION DOSE METRICS: Total DLP (mGy-cm): 834.63 FINDINGS: Lungs: Interstitial/emphysematous changes. Liver: No acute findings Gallbladder and bile ducts: No acute findings. Pancreas: 1.5 cm pancreatic tail cystic lesion series 4, image 30. Spleen: No splenomegaly. Adrenal glands: No mass. Kidneys and ureters: No stones or hydronephrosis. Stomach and bowel: No obstruction. Appendix: No evidence of appendicitis. Intraperitoneal space: No free air. No significant fluid collection. Vasculature: Extensive atherosclerosis without aneurysm. Lymph nodes: No enlarged lymph nodes. Urinary bladder: Incompletely distended. Reproductive: Prostatomegaly. Bones/joints: Extensive degenerative changes without acute findings. Soft tissues: No acute findings. CT/CT abdomen pelvis w con* [id number] IMPRESSION: No acute abdominal findings. 1.5 cm pancreatic tail cystic lesion. 2 year follow-up pancreatic protocol CT or MRI recommended to ensure stability
[2023-12-13] MEDS: iohexol 350 mg/mL 500 mL Btl (per mL) IV (13:29)
--- NOTE | 2023-12-13 14:18 | W.ED.MALEGU ---
HPI - Male Genitourinary General: Chief complaint: Urogenital-Male Stated complaint: buring/pain when urinating Time Seen by Provider: 12/13/23 11:52 History of Present Illness: 88yo male presents to the emergency department with complaints of increased urinary frequency, urinary hesitancy and dysuria. He states he has not seen any obvious blood in the urine. He states that he is had an increase in urinary tract infections over the previous 2 months. He states he was previously seen by a urologist and told that his prostate was fine at that time. He does complain of bilateral flank pain. He states the pain is intermittent achy type pain that is a 2 out of 10. He denies fevers chills or night sweats. Associated symptoms: Reports dysuria Review of Systems General: Reports: 10 or more systems reviewed and unremarkable except in HPI and below : Reports: flank pain, difficulty urinating and dysuria [facility] ED PFSH: Medical History Primary Sjogren's syndrome Orthostatic hypotension Breast cancer, right T1c N0 Primary Sjogren's syndrome Emphysema/COPD History of nonmelanoma skin cancer Balanitis Hypothyroidism -continue levothyroxine CAD (coronary artery disease) -follows up with Dr. Granados Cerebrovascular accident (CVA) determined by clinical assessment Ascending aortic aneurysm ASHD (arteriosclerotic heart disease) Dyslipidemia HTN (hypertension) -low to low normal BP; continue to monitor vital signs -continue oral antihypertensives, hold if hypotension Surgical History S/P right mastectomy (03/06/21) with [facility] History of ear surgery History of colonoscopy 2014 History of tonsillectomy H/O hemorrhoidectomy S/P PTCA (percutaneous transluminal coronary angioplasty) Family History Brother Cancer PANCREATIC Stroke Other CAD (coronary artery disease) Hyperlipidemia Hypertension Lung disease Denies family history of Diabetes Clotting disorder Dementia Psychiatric illness Chronic kidney disease (CKD) Suicide Anesthesia complication Bleeding disorder Social History Smoking and tobacco/nicotine status: former use of tobacco/nicotine Quit status (tobacco/nicotine): has quit using Year quit tobacco: 1994 - 2PPD x 45 Years Second hand smoke exposure: No Alcohol intake: current Alcohol intake frequency: holidays/special occasions only Substance/Drug Use: never Lives independently: Yes Household members: spouse Marital status: service: Yes Current occupational status: retired Do you think of yourself as: Straight/Heterosexual Current gender identity: Male Special chinedu needs: No Physical Exam Narrative: EXAM NARRATIVE: constitutional: the patient appears well nourished and of normal development. Vital signs as documented. No acute distress at present. Alert and oriented-to person, place, time and situation. Head, eyes, ears, nose, mouth, throat: Normocephalic, atraumatic. Pupils-equal, round, reactive to light. No scleral icterus. Normal-appearing external ears. Normal appearing nasal turbinates, no drainage. No obvious oral lesions. Neck: Supple, trachea is midline, no lymphadenopathy, no jugular venous distension, thyromegaly, or carotid bruits. Lungs: clear to auscultation to all lung nolasco. Symmetrical rise and fall of chest, no obvious signs of increased work of breathing at present. Cardiac: Regular rate and rhythm, positive S1, S2. No murmurs, rubs or gallops that I can appreciate Abdomen: Soft, non-tender to palpation, normal active bowel sounds to all quadrants. No palpable masses, no organomegaly and abdominal bruits. Extremities: 2+ pulses in the upper extremities that are equal bilaterally, 2+ pulses in the lower extremities that are equal bilaterally. Non-edematous. Moves all extremities well, sensation to all extremities are noted. Skin: Warm, dry, intact Back: No CVA tenderness, normal alignment, Course Vital Signs: Vital signs: Vital Signs Temperature 98.3 F 12/13/23 14:39 Pulse Rate 91 12/13/23 14:39 Respiratory Rate 16 12/13/23 14:39 Blood Pressure 152/64 12/13/23 14:39 Pulse Oximetry 92 12/13/23 14:39 Oxygen Delivery Me thod Nasal Cannula 12/13/23 11:38 Oxygen Flow Rate 2 12/13/23 11:38 MDM - Male Medical Decision Making Physical exam completed and documented, I will obtain a CBC, CMP urinalysis and CT scan of the abdomen pelvis to rule out pyelonephritis, urinary tract infection, cystitis, BPH, prostatitis, I will provide the patient IV antibiotics as well as written prescription for antibiotics and recommend that he follow-up with his urologist and primary care provider. Medical Records I reviewed the patient's medical records. Lab Data I reviewed the patient's lab results. 12/13/23 10:54 12/13/23 10:54 Radiology Impressions Abdomen/Pelvis CT 12/13/23 13:03 IMPRESSION: No acute abdominal findings. 1.5 cm pancreatic tail cystic lesion. 2 year follow-up pancreatic protocol CT or MRI recommended to ensure stability Laboratory Results WBC 13.34 10^3/uL (3.29-11.43) H 12/13/23 10:54 RBC 4.43 10^6/uL (3.85-5.65) 12/13/23 10:54 Hgb 13.10 g/dL (11.27-16.99) 12/13/23 10:54 Hct 41.4 % (37-53) 12/13/23 10:54 MCV 93.5 fl (82-101) 12/13/23 10:54 MCH 29.6 pg (27-33) 12/13/23 10:54 MCHC 31.6 g/dL (30-55) 12/13/23 10:54 RDW 14.5 % (12.1-15.1) 12/13/23 10:54 Plt Count 199 10^3/cmm (157-399) 12/13/23 10:54 MPV 9.3 fL (7.4-10.4) 12/13/23 10:54 Neut % (Auto) 82.4 % 12/13/23 10:54 Lymph % (Auto) 7.6 % 12/13/23 10:54 [place] % (Auto) 6.8 % 12/13/23 10:54 Eos % (Auto) 2.2 % 12/13/23 10:54 Baso % (Auto) 0.4 % 12/13/23 10:54 Neut # (Auto) 10.99 10^3/uL (1.8-7.7) H 12/13/23 10:54 Lymph # (Auto) 1.0 10^3/uL (0.8-4.8) 12/13/23 10:54 [place] # (Auto) 0.9 10^3/uL (0.2-0.9) 12/13/23 10:54 Eos # (Auto) 0.3 10^3/uL (0.0-0.8) 12/13/23 10:54 Baso # (Auto) 0.1 10^3/uL (0.0-0.1) 12/13/23 10:54 Nucleated RBC % (auto) 0 % 12/13/23 10:54 Nucleated RBCs # 0.0 /100WBC 12/13/23 10:54 Sodium 141 mmol/L (136-145) 12/13/23 10:54 Potassium 4.4 mmol/L (3.5-5.1) 12/13/23 10:54 Chloride 103 mmol/L (98-107) 12/13/23 10:54 Carbon Dioxide 26 mmol/L (22-29) 12/13/23 10:54 Anion Gap 16.4 (5-19) 12/13/23 10:54 BUN 23 mg/dL (8-23) 12/13/23 10:54 Creatinine 1.0 mg/dL (0.7-1.2) 12/13/23 10:54 GFR Calculation Not Reportable 12/13/23 10:54 Glucose 142 mg/dL (65-115) H 12/13/23 10:54 Calculated Osmolality 298 mOsm/kg (285-295) H 12/13/23 10:54 Calcium 8.8 mg/dL (8.5-10.5) 12/13/23 10:54 Total Bilirubin 0.5 mg/dL (0.15-1.2) 12/13/23 10:54 AST 14 U/L (0-40) 12/13/23 10:54 ALT 10 U/L (0-41) 12/13/23 10:54 Alkaline Phosphatase 67 U/L (40-130) 12/13/23 10:54 Total Protein 6.7 g/dL (6.6-8.7) 12/13/23 10:54 Albumin 3.7 g/dL (3.5-5.2) 12/13/23 10:54 Globulin 3.0 g/dL (1.3-4.6) 12/13/23 10:54 Urine Color Brii (Yellow) 12/13/23 11:06 Urine Appearance Cloudy (CLEAR) A 12/13/23 11:06 Urine pH 6.5 (5-7) 12/13/23 11:06 Ur Specific [place] 1.010 (1.005-1.030) 12/13/23 11:06 Urine Protein 2+ (Negative) H 12/13/23 11:06 Urine Glucose (UA) Norm (Normal) 12/13/23 11:06 Urine Ketones Negative (Negative) 12/13/23 11:06 Urine Blood 3+ (Negative) H 12/13/23 11:06 Urine Nitrate Negative (Negative) 12/13/23 11:06 Urine Bilirubin Neg (Negative) 12/13/23 11:06 Urine Urobilinogen 1 mg/dL (Negative) H 12/13/23 11:06 Ur Leukocyte Esterase 2+ (Negative) H 12/13/23 11:06 Urine RBC 10-15 /hpf (0-2) H 12/13/23 11:06 Urine WBC Too numerous to cnt /hpf (0-5) H 12/13/23 11:06 Ur Squamous Epith Cells None /hpf (0-5) 12/13/23 11:06 Amorphous Sediment Not Reportable 12/13/23 11:06 Urine Bacteria 2+ /hpf (NONE) H 12/13/23 11:06 All radiology interpretation(s) finalized by discharge Discharge Plan Discharge Patient Disposition: Home Clinical Impression: Cystitis, Benign prostatic hyperplasia Condition: Stable Prescriptions: New Macrobid 100 mg capsule 100 mg PO Q12H 14 Days Qty: 28 0RF Rx Instructions: must administer with a meal/food No Action aspirin [Adult Aspirin Regimen] 81 mg tablet,delayed release (DR/EC) 81 mg PO QPM loratadine 10 mg tablet 10 mg PO DAILY PRN (Reason: Allergy Symptoms) Dose Instruction: TAKE 1 TABLET DAILY FOR ALLERGIES alprazolam 0.25 mg tablet 0.25 - 0.5 mg PO BEDTIME PRN (Reason: rest/stress/sleep) Qty: 60 5RF prednisone 5 mg tablet 5 mg PO QAM 90 Days Qty: 90 1RF clopidogrel 75 mg tablet 75 mg PO QAM Qty: 90 3RF Hold Instructions: Resume on 03/09/21. Anoro Ellipta 62.5-25 mcg/actuation blister with device 1 inh inhalation QAM Qty: 60 3RF pantoprazole [Protonix] 40 mg tablet,delayed release (DR/EC) 40 mg PO QAM Qty: 90 3RF azathioprine 50 mg tablet 50 mg PO BID 90 Days Qty: 180 1RF rosuvastatin 10 mg tablet 10 mg PO BEDTIME Qty: 90 3RF multivitamin Tablet 1 tab PO QPM Fiber-Lax 625 mg Tablet 1,250 mg PO BID levothyroxine 50 mcg tablet 50 mcg PO DAILY metoprolol succinate 25 mg tablet extended release 24 hr 25 mg PO DAILY amoxicillin-pot clavulanate 875-125 mg tablet 1 tab PO BID Paxlovid 300 mg (150 mg x 2)-100 mg tablets,dose pack See Rx Instructions .ROUTE .COMPLEX Qty: 30 0RF Rx Instructions: orally per package directions ipratropium-albuterol 0.5 mg-3 mg(2.5 mg base)/3 mL solution for nebulization 3 ml inhalation Q4H PRN (Reason: shortness of breath or wheezing) Qty: 90 0RF dexamethasone 6 mg tablet 6 mg PO DAILY Qty: 7 0RF Discharge Orders: Discharge ED (Routine); Ordered 12/13/23 Ordered By: Pepe Horton Referrals: Julio Mccracken, [Primary Care Provider] - Discharge Diet: Advance as tolerated Discharge Activity: Resume usual activity Patient Instructions: Opioid Safety, Pain Management Activity Restrictions/Additional Instructions: Activity Restrictions/Additional Instructions: Thank you for choosing [facility] for your healthcare needs today. Please realize that you were seen in the Emergency Department and that we are providing you with an emergency medical screening exam and this may not be a complete and all inclusive of all the testing and or medical work-up that you may need to determine your ailment or severity of your illness. It is very important that you follow-up as instructed with your Primary care provider or Specialist for additional evaluation and to discuss your medical treatment plan. You may return to the Emergency Department should you have concerns or if your condition changes or worsens in any way. Coding Level of Care Code ED Palliative Care Coordinator for Ash Segovia
[2023-12-13 14:39] VITALS: BP 152/64; PULSE 91; RESP 16; TEMP 36.8; O2SAT 92
== END 2023-12-13 14:50 | disposition home or self-care (01) ==
PROVIDERS: Emergency Provider Internal Medicine; PCP Family Medicine
DX: N30.90 Cystitis, unspecified without hematuria (principal); N40.0 Benign prostatic hyperplasia without lower urinary tract symptoms; Z79.02 Long term (current) use of antithrombotics/antiplatelets; Z79.82 Long term (current) use of aspirin; Z87.891 Personal history of nicotine dependence; Z85.3 Personal history of malignant neoplasm of breast; I25.10 Atherosclerotic heart disease of native coronary artery without angina pectoris; Z86.73 Personal history of transient ischemic attack (TIA), and cerebral infarction without residual deficits; E78.5 Hyperlipidemia, unspecified; I10 Essential (primary) hypertension
CPT/HCPCS: 36415; 74177; 80053; 81001; 85025; 87077; 87086; 87186; 96365; 96375; 99285; J0696; J1885; J7030; Q9967

== ENCOUNTER → 2023-12-21 09:14 | Outpatient (BNVA) | payer MEDICARE, OTHER, SELFPAY | PROVIDERS: PCP Family Medicine; Visit Provider Internal Medicine Pulmonary Disease | DX: J44.9 Chronic obstructive pulmonary disease, unspecified (principal); J98.4 Other disorders of lung; J84.89 Other specified interstitial pulmonary diseases; J96.11 Chronic respiratory failure with hypoxia; R76.8 Other specified abnormal immunological findings in serum; M35.00 Sjogren syndrome, unspecified; Z99.81 Dependence on supplemental oxygen; Z87.891 Personal history of nicotine dependence | CPT/HCPCS: 99214 ==

== ENCOUNTER → 2024-01-08 10:27 | Outpatient (BNVA) | payer MEDICARE, OTHER, SELFPAY | PROVIDERS: PCP Family Medicine; Visit Provider Family Medicine | DX: E78.5 Hyperlipidemia, unspecified (principal); E03.9 Hypothyroidism, unspecified; J44.9 Chronic obstructive pulmonary disease, unspecified; J84.9 Interstitial pulmonary disease, unspecified; N40.0 Benign prostatic hyperplasia without lower urinary tract symptoms | CPT/HCPCS: 82607; 84153 ==

== ENCOUNTER → 2024-02-18 11:05 | Outpatient (BNVA) | payer MEDICARE, OTHER, SELFPAY | PROVIDERS: PCP Family Medicine; Visit Provider Internal Medicine Cardiovascular Disease | DX: I25.10 Atherosclerotic heart disease of native coronary artery without angina pectoris (principal); Z98.61 Coronary angioplasty status; E78.5 Hyperlipidemia, unspecified; I95.1 Orthostatic hypotension; M35.00 Sjogren syndrome, unspecified; J84.9 Interstitial pulmonary disease, unspecified; I71.21 Aneurysm of the ascending aorta, without rupture; Z87.891 Personal history of nicotine dependence; I10 Essential (primary) hypertension | CPT/HCPCS: 99213 ==

== ENCOUNTER 2024-02-25 08:15 | Outpatient (CLI) | payer MEDICARE, OTHER, SELFPAY ==
--- NOTE | 2024-02-25 08:30 | CT_ITS ---
WS: [id number] CTA THORACIC AORTA WITH AND WITHOUT CONTRAST HISTORY: surveillance ascending ao aneurysm TECHNIQUE: CT imaging of the thorax is performed with and without contrast. After noncontrast imaging is performed, CT angiogram is performed during injection of Omnipaque 350; 100 mL IV.. Sagittal and coronal reconstructions, sagittal and coronal MIP imaging is submitted. All CT scans at [facility] use at least one of these dose optimization techniques: automated exposure control; mA and/or k V adjustment per patient size (includes targeted exams where dose is matched to clinical indication); or iterative reconstruction. DLP: 723.55 mGy.cm COMPARISON: 05/19/2022 Moderate atherosclerotic plaque throughout the thoracic aorta. Ascending aorta maximum diameter 4.4 c m. Aorta tapers normally through the arch. Normal descending diameter. Aortic root diameter 4.5 cm. S inotubular junction 2.8 cm. Mild atherosclerotic disease in the origin of the great vessels. 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 Moderate cardiomegaly. No pericardial or pleural effusions. Peripheral interstitial lung disease. Interstitial peripheral thickening and centrilobular emphysema. Very similar to the prior study. Slightly greater distribution of interstitial thickening in the upp er lobes. May be a combination of different interstitial lung diseases. No adenopathy. Bilateral cortical thinning of each kidney. Upper pole RIGHT renal cyst 2.7 x 2.8 cm. No adrenal mass . Increase in thoracic kyphosis. L1 anterior compression fracture IMPRESSION: 1. 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 No progression of ectasia. 2. Moderate atherosclerotic plaque thoracic aorta. 3. Chronic interstitial lung disease. Very similar to the study from 05/19/2022. 4. Simple cyst upper pole RIGHT kidney.
[2024-02-25 09:05] LABS: Blood Urea Nitrogen 20 mg/dL (8-23)
[2024-02-25] MEDS: iohexol 350 mg/mL 500 mL Btl (per mL) IV (09:18)
== END 2024-02-25 08:16 | disposition home or self-care (01) ==
LOC: RAD 08:16
PROVIDERS: PCP Family Medicine; Visit Provider Internal Medicine Cardiovascular Disease
DX: I71.20 Thoracic aortic aneurysm, without rupture, unspecified (principal); I77.810 Thoracic aortic ectasia; J84.9 Interstitial pulmonary disease, unspecified; N28.1 Cyst of kidney, acquired
CPT/HCPCS: 71275; 82565; 84520; Q9967

== ENCOUNTER → 2024-05-03 10:00 | Outpatient (BNVA) | payer MEDICARE, OTHER, SELFPAY | PROVIDERS: PCP Family Medicine; Visit Provider Family Medicine | DX: Z13.6 Encounter for screening for cardiovascular disorders (principal); Z79.899 Other long term (current) drug therapy; E78.5 Hyperlipidemia, unspecified; E03.9 Hypothyroidism, unspecified; M35.00 Sjogren syndrome, unspecified; J84.9 Interstitial pulmonary disease, unspecified; R53.1 Weakness; E55.9 Vitamin D deficiency, unspecified; E11.9 Type 2 diabetes mellitus without complications | CPT/HCPCS: 80053; 80061; 82607; 82652; 83036; 84443; 85025 ==

== ENCOUNTER → 2024-05-11 10:13 | Outpatient (BNVA) | payer MEDICARE, OTHER, SELFPAY | PROVIDERS: PCP Family Medicine; Visit Provider Internal Medicine Rheumatology | DX: J84.89 Other specified interstitial pulmonary diseases (principal); M35.00 Sjogren syndrome, unspecified; Z79.899 Other long term (current) drug therapy; Z71.85 Encounter for immunization safety counseling; J84.9 Interstitial pulmonary disease, unspecified; R76.8 Other specified abnormal immunological findings in serum; Z87.891 Personal history of nicotine dependence | CPT/HCPCS: 99214 ==

== ENCOUNTER → 2024-05-12 13:45 | Outpatient (BNVA) | payer MEDICARE, OTHER, SELFPAY | PROVIDERS: PCP Family Medicine; Visit Provider Nurse Practitioner Family | DX: L57.0 Actinic keratosis (principal); L30.0 Nummular dermatitis; L81.4 Other melanin hyperpigmentation; L82.1 Other seborrheic keratosis; Z85.828 Personal history of other malignant neoplasm of skin; L82.0 Inflamed seborrheic keratosis; L91.8 Other hypertrophic disorders of the skin; L72.0 Epidermal cyst | CPT/HCPCS: 10060; 11200; 17000; 17110; 99214 ==

== ENCOUNTER 2024-08-03 09:59 | Outpatient (CLI) | payer MEDICARE, OTHER, SELFPAY | END 2024-08-03 10:00 | disposition home or self-care (01) | PROVIDERS: PCP Family Medicine; Visit Provider Internal Medicine Critical Care Medicine | DX: J98.4 Other disorders of lung (principal); M36.8 Systemic disorders of connective tissue in other diseases classified elsewhere; J43.2 Centrilobular emphysema; R94.2 Abnormal results of pulmonary function studies | CPT/HCPCS: 94010; 94726; 94729 ==

== ENCOUNTER 2024-08-31 14:53 | Outpatient (RCR) | payer MEDICARE, OTHER, SELFPAY | END 2024-09-01 23:59 | disposition home or self-care (01) | LOC: CR 14:53 | PROVIDERS: PCP Family Medicine; Referring Provider Family Medicine; Visit Provider Family Medicine | DX: J84.9 Interstitial pulmonary disease, unspecified (principal); J96.11 Chronic respiratory failure with hypoxia; J84.10 Pulmonary fibrosis, unspecified; J98.4 Other disorders of lung; M36.8 Systemic disorders of connective tissue in other diseases classified elsewhere | CPT/HCPCS: 94626 ==

== ENCOUNTER 2024-09-02 10:02 | Outpatient (RCR) | payer MEDICARE, OTHER, SELFPAY | END 2024-10-01 23:59 | disposition home or self-care (01) | LOC: CR 10:02 | PROVIDERS: PCP Family Medicine; Referring Provider Family Medicine; Visit Provider Family Medicine | DX: J44.9 Chronic obstructive pulmonary disease, unspecified (principal) | CPT/HCPCS: 94626 ==

== ENCOUNTER 2024-10-03 09:30 | Outpatient (RCR) | payer MEDICARE, OTHER, SELFPAY | END 2024-11-01 23:59 | disposition home or self-care (01) | LOC: CR 09:30 | PROVIDERS: PCP Family Medicine; Referring Provider Family Medicine; Visit Provider Family Medicine | DX: J44.9 Chronic obstructive pulmonary disease, unspecified (principal) | CPT/HCPCS: 94626 ==

== ENCOUNTER → 2024-10-11 11:09 | Outpatient (BNVA) | payer MEDICARE, OTHER, SELFPAY | PROVIDERS: PCP Family Medicine; Visit Provider Nurse Practitioner Family | DX: L72.0 Epidermal cyst (principal); D69.2 Other nonthrombocytopenic purpura; L81.4 Other melanin hyperpigmentation; L82.1 Other seborrheic keratosis; Z08 Encounter for follow-up examination after completed treatment for malignant neoplasm; Z85.828 Personal history of other malignant neoplasm of skin; L82.0 Inflamed seborrheic keratosis; L53.8 Other specified erythematous conditions; R20.8 Other disturbances of skin sensation; L29.89 Other pruritus; L57.0 Actinic keratosis | CPT/HCPCS: 17000; 17110; 80053; 80061; 82607; 82652; 83036; 84443; 85025; 99213 ==

== ENCOUNTER → 2024-10-12 15:13 | Outpatient (BNVA) | payer MEDICARE, OTHER, SELFPAY | PROVIDERS: PCP Family Medicine; Visit Provider Nurse Practitioner Family | DX: L82.1 Other seborrheic keratosis (principal); D48.5 Neoplasm of uncertain behavior of skin | CPT/HCPCS: 69100; 99212 ==

== ENCOUNTER → 2024-10-13 13:54 | Outpatient (BNVA) | payer MEDICARE, OTHER, SELFPAY | PROVIDERS: PCP Family Medicine; Visit Provider Internal Medicine Cardiovascular Disease | DX: I65.21 Occlusion and stenosis of right carotid artery (principal); I25.10 Atherosclerotic heart disease of native coronary artery without angina pectoris; Z87.891 Personal history of nicotine dependence | CPT/HCPCS: 99213 ==

== ENCOUNTER 2024-10-24 10:41 | Emergency (ER) | payer MEDICARE, OTHER, SELFPAY ==
[2024-10-24 10:48] VITALS: BP 147/71; PULSE 69; RESP 18; TEMP 36.7; O2SAT 91; BMI 28.7
--- NOTE | 2024-10-24 12:32 | CT_ITS ---
WS: [id number] CT HEAD NONCONTRAST HISTORY: Possible stroke TECHNIQUE: Contiguous axial imaging performed through the brain. Bone and soft tissue windows. Sagitt al and coronal reformats reviewed. All CT scans at [facility] use at least one of these dose optimization techniques: automated exposure control; mA and/or kV adjustment per patient size (includ es targeted exams where dose is matched to clinical indication); or iterative reconstruction. DLP: 1251.43 mGy.cm COMPARISON: 07/09/2019 No acute intracranial hemorrhage, midline shift or mass effect. Mild symmetric atrophy and small vessel disease. New area of decreased attenuation and sulcal effacem ent RIGHT occipital lobe. Consistent with a subacute infarct. New finding since 2019. Ventricles: Normal size with no hydrocephalus. Paranasal sinuses: As visualized are clear. Mastoid air cells: Well pneumatized. Calvarium and scalp: Skull is intact with no soft tissue edema or swelling. CT/CT head wo con* [id number] IMPRESSION: 1. No acute intracranial hemorrhage or edema. 2. New area of decreased attenuation in the RIGHT occipital lobe. Suspect suba cute infarct. 3. Mild cerebral atrophy and small vessel disease otherwise.
--- NOTE | 2024-10-24 12:33 | CT_ITS ---
WS: [id number] CT ANGIOGRAM CEREBRAL AND CAROTID ARTERIES HISTORY: Possible stroke TECHNIQUE: CT angiogram is performed of the carotid and cerebral arteries. During arterial injection imaging is obtained from the skull vertex to the aortic arch in 1.25 mm imaging. Coronal and sagittal reformats are submitted. Additional multi planar reformats of the carotid and cerebral arteries are submitted, MIP imaging also reviewed. NASCET criteria utilized. [facility] least one of these dose optimization techniques: automated exposure control; mA and/or kV adjust ment per patient size (includes targeted exams where dose is matched to clinical indication); or iter ative reconstruction. CONTRAST: Omnipaque 350; 100 mL IV. DLP: 445.24 mGy.cm COMPARISON: 07/09/2019 Carotid Angiogram: Origin of the great vessels has not been included on this examination. Right carotid: Common carotid artery: Intimal thickening and plaque scattered throughout the common carotid artery. Towards the bifurcation there is a very dense heavy calcified plaque. Calcifications at the distal co mmon carotid artery extending to the bifurcation. Stenosis approaching 70 to 80%. Internal carotid artery: Beyond the bifurcation irregular calcified plaque continues with stenosis es timated near 50 to 60%. External carotid artery: Patent. Left carotid: Common carotid artery: Mild intimal thickening and plaque. Increasing plaque at the bifurcation. No h igh-grade stenosis. Internal carotid artery: LEFT ICA stenosis estimated at 40%. External carotid artery: Patent. Right vertebral artery: Small caliber RIGHT vertebral artery. Left vertebral artery: Dominant. No stenosis. Subclavian arteries: No stenosis or significant abnormality. Upper thorax: Severe interstitial fibrotic changes at the apices. Atherosclerotic plaque thoracic aor tic arch. Thyroid gland: Normal. Osseous structures: Unremarkable. CEREBRAL ANGIOGRAM: Intracranial vertebral arteries: Small caliber but patent distal RIGHT vertebral artery. LEFT vertebr al artery is patent. Basilar artery: No significant stenosis or occlusion. No aneurysm. Intracranial Internal carotid arteries: Mild scattered plaque in the intracranial carotid arteries th e cavernous carotids. No aneurysm or stenosis. Middle cerebral arteries: Normal. Anterior cerebral arteries and ACOM: Hypoplastic RIGHT A1 segment. Posterior cerebral arteries and PCOM's: Persistent RIGHT posterior circulation. Both posterior communicating arteries are identified. Dural venous sinuses are normally enhancing. CT/CT angio headneck* [id number] IMPRESSION: 1. Large amount of calcified plaque in the distal RIGHT common carotid artery extending to the bifurcation. High-grade stenosis estimated at 70 to 80% involv ing the distal RIGHT common carotid artery. This has progressed since the prior study from 2019. 2. RIGHT ICA stenosis estimated at 50 to 60%. 3. LEFT ICA stenosis estimated at 40%. 4. Small caliber RIGHT vertebral artery is unchanged. 5. No aneurysm in the [place] or occlusions.
--- NOTE | 2024-10-24 12:43 | ED_ITS ---
HPI - Eye Problem 2 General: Chief complaint: Eye Problems Stated complaint: sent from clinic, loss of vision Time Seen by Provider: 10/24/24 12:29 History of Present Illness: 88-year-old man with a history of Sjogre n syndrome, COPD, hypertension, hyperlipidemia, coronary artery disease, ascending aortic aneurysm, CVA in the past who is on Plavix who presents to the emergency room from the eye clinic with vision problems in his right eye. He says that sometime yesterday afternoon or evening he was watching TV when he suddenly noticed vision changes in his right eye. He says initially when he would close his left eye his right eye all he could see is blue with sparkles. Today he went to [facility] and had an evaluation. He says that his vision has improved some and now he cannot see in the lower medial quadrant of his right eye. On exam surgical oncologist reports that they can see an area on the retina that would indicate an occlusion. He was sent to the emergency room to have carotid artery studies. He has known carotid disease. No altered mental status. No other focal motor deficits. No facial droop. No chest pain. No abdominal pain. No nausea or vomiting. No slurred speech Related Data Home Medications Medication Instructions Recorded Confirmed multivitamin 1 tab PO QPM 01/31/21 10/24/24 calcium polycarbophil 625 mg 1,250 mg PO BID 11/04/23 10/24/24 tablet (Fiber-Lax) levothyroxine 50 mcg tablet 50 mcg PO DAILY 10/24/24 10/24/24 loratadine 10 mg tablet 10 mg PO DAILY 10/24/24 10/24/24 metoprolol succinate 25 mg 25 mg PO DAILY 10/24/24 10/24/24 tablet,extended release 24 hr triamcinolone acetonide 0.1 % 1 applic topical DAILY 10/24/24 10/24/24 topical cream Previous Rx's Medication Instructions Recorded azathioprine 50 mg tablet 50 mg PO BID 3 months #180 tabs 05/11/24 prednisone 5 mg tablet 5 mg PO QAM 90 days #90 tabs 05/11/24 clopidogrel 75 mg tablet 75 mg PO QAM #90 tabs 06/27/24 pantoprazole 40 mg tablet,delayed 40 mg PO QAM #90 tabs 07/15/24 release (Protonix) umeclidinium 62.5 mcg-vilanterol 1 inh inhalation QAM #60 ea 09/21/24 25 mcg/actuation powdr for inhalation (Anoro Ellipta) rosuvastatin 10 mg tablet 10 mg PO BEDTIME lipids #90 tabs 10/10/24 aspirin 325 mg tablet 325 mg PO DAILY #30 tabs 10/24/24 Allergies Allergy/AdvReac Type Severity Reaction Status Date / Time ofloxacin [From Floxin] Allergy Intermediate violently Verified 10/17/24 11:37 ill mycophenolate mofetil AdvReac Intermediate felt bad Verified 10/17/24 11:37 and brain fog Review of Systems 2 Narrative: Constitutional symptoms: Negative except as documented in HPI. Skin symptoms: Negative except as documented in HPI. Eye symptoms: Negative except as documented in HPI. ENMT symptoms: Negative except as documented in HPI. Respiratory symptoms: Negative except as documented in HPI. Cardiovascular symptoms: Negative except as documented in HPI. Gastrointestinal symptoms: Negative except as documented in HPI. Genitourinary symptoms: Negative except as documented in HPI. Musculoskeletal symptoms: Negative except as documented in HPI. Neurologic symptoms: Negative except as documented in HPI. Psychiatric symptoms: Negative except as documented in HPI. Endocrine symptoms: Negative except as documented in HPI. PFSH ED 2 PFSH: Medical History Primary Sjogren's syndrome Orthostatic hypotension Breast cancer, right T1c N0 Primary Sjogren's syndrome Emphysema/COPD History of nonmelanoma skin cancer Balanitis Hypothyroidism -continue levothyroxine CAD (coronary artery disease) -follows up with Dr. Granados Cerebrovascular accident (CVA) determined by clinical assessment Ascending aortic aneurysm ASHD (arteriosclerotic heart disease) Dyslipidemia HTN (hypertension) -low to low normal BP; continue to monitor vital signs -continue oral antihypertensives, hold if hypotension Surgical History S/P right mastectomy (03/06/21) with [facility] History of ear surgery History of colonoscopy 2014 History of tonsillectomy H/O hemorrhoidectomy S/P PTCA (percutaneous transluminal coronary angioplasty) Family History Brother Cancer PANCREATIC Stroke Other CAD (coronary artery disease) Hyperlipidemia Hypertension Lung disease Denies family history of Diabetes Clotting disorder Dementia Psychiatric illness Chronic kidney disease (CKD) Suicide Anesthesia complication Bleeding disorder Social History Smoking and tobacco/nicotine status: former use of tobacco/nicotine Quit status (tobacco/nicotine): has quit using Year quit tobacco: 1994 - 2PPD x 45 Years Second hand smoke exposure: No Alcohol intake: current Alcohol intake frequency: holidays/special occasions only Substance/Drug Use: never Lives independently: Yes Household members: spouse Marital status: service: Yes Current occupational status: retired Do you think of yourself as: Straight/Heterosexual Current gender identity: Male Special chinedu needs: No Physical Exam 2 Narrative: EXAM NARRATIVE: General: Alert, no acute distress. Skin: Warm, dry. Head: Normocephalic, atraumatic. Neck: Supple, trachea midline. Eye: Extraocular movements are intact. Ears, nose, mouth and throat: mucosa moist. Cardiovascular: Regular, Normal peripheral perfusion. Respiratory: Lungs are clear to auscultation, respirations are non-labored, breath sounds are equal, Symmetrical chest wall expansion. Gastrointestinal: Soft, Nontender, Non distended Musculoskeletal: Normal ROM, no deformity. Neurological: Alert and oriented, No focal neurological deficit observed. Vision loss in the medial lower quadrant of his right eye. No other vision changes. Psychiatric: Cooperative, appropriate mood & affect. Course 2 Vital Signs: Vital signs: Vital Signs Temperature 98.1 F 10/24/24 10:48 Pulse Rate 50 L 10/24/24 13:30 Respiratory Rate 18 10/24/24 13:30 Blood Pressure 160/93 10/24/24 13:30 Pulse Oximetry 94 10/24/24 13:30 Oxygen Delivery Me thod Nasal Cannula 10/24/24 13:30 Oxygen Flow Rate 2 10/24/24 13:30 MDM - Eye Problem Medical Decision Making Medical decision making: Differential diagnosis for patient with focal neurologic deficit(s) includes but not limited to and based on the above HPI, review of systems and physical exam: ischemic stroke, hemorrhagic stroke and embolic stroke secondary to atrial fibrillation), TIA, Shields's palsey, metabolic encephalopathy with previous stroke. Orders placed to evaluate differential diagnosis based on the above differential, HPI and physical exam Lab Review: Laboratory results were reviewed and interpreted by myself the emergency room physician. Lab work is unremarkable. Stable renal function. No anemia. CT of the head without contrast: Suspected right occipital lobe infarct otherwise no hemorrhage or edema. These findings are not consistent with the right eye findings. This was reviewed and interpreted by myself the emergency room physician. I also reviewed the radiology report. CTA of the head neck: Extensive carotid disease. Particularly on the right. This was reviewed and interpreted by myself the emergency room physician. I also reviewed the radiology report. I reviewed the patient's medical record. Reexamination: Patient remained stable. No increased work of breathing. No altered mental status. No focal motor deficits. Consultation: I spoke with Dr. Samuels with neurology. She recommends addition of a full-strength aspirin to the patient's statin and Plavix. She recommends follow-up with primary and consultation with vascular to consider revascularization of his carotids. Patient does have an appoint with Dr. Hartley next week. Assessment and plan: Retinal artery occlusion Carotid vascular disease ?Full-strength aspirin given here in the emergency room. - Discharged home - Discussed plan with patient. Answered any questions. - Evaluation and treatment of this problem were appropriate in the emergency setting. Lab Data 10/24/24 12:40 10/24/24 12:[address] 10/24/24 12:32 IMPRESSION: 1. No acute intracranial hemorrhage or edema. 2. New area of decreased attenuation in the RIGHT occipital lobe. Suspect subacute infarct. 3. Mild cerebral atrophy and small vessel disease otherwise. Head/Neck CTA 10/24/24 12:33 IMPRESSION: 1. Large amount of calcified plaque in the distal RIGHT common carotid artery extending to the bifurcation. High-grade stenosis estimated at 70 to 80% involving the distal RIGHT common carotid artery. This has progressed since the prior study from 2019. 2. RIGHT ICA stenosis estimated at 50 to 60%. 3. LEFT ICA stenosis estimated at 40%. 4. Small caliber RIGHT vertebral artery is unchanged. 5. No aneurysm in the [place] or occlusions. Laboratory Results WBC 9.69 10^3/uL (3.29-11.43) 10/24/24 12:40 RBC 4.70 10^6/uL (3.85-5.65) 10/24/24 12:40 Hgb 14.10 g/dL (11.27-16.99) 10/24/24 12:40 Hct 44.3 % (37-53) 10/24/24 12:40 MCV 94.3 fl (82-101) 10/24/24 12:40 MCH 30.0 pg (27-33) 10/24/24 12:40 MCHC 31.8 g/dL (30-55) 10/24/24 12:40 RDW 13.8 % (12.1-15.1) 10/24/24 12:40 Plt Count 223 10^3/cmm (157-399) 10/24/24 12:40 MPV 9.8 fL (7.4-10.4) 10/24/24 12:40 Neut % (Auto) 66.2 % 10/24/24 12:40 Lymph % (Auto) 18.8 % 10/24/24 12:40 Dickinson % (Auto) 5.8 % 10/24/24 12:40 Eos % (Auto) 8.0 % 10/24/24 12:40 Baso % (Auto) 0.8 % 10/24/24 12:40 Neut # (Auto) 6.41 10^3/uL (1.8-7.7) 10/24/24 12:40 Lymph # (Auto) 1.8 10^3/uL (0.8-4.8) 10/24/24 12:40 Dickinson # (Auto) 0.6 10^3/uL (0.2-0.9) 10/24/24 12:40 Eos # (Auto) 0.8 10^3/uL (0.0-0.8) 10/24/24 12:40 Baso # (Auto) 0.1 10^3/uL (0.0-0.1) 10/24/24 12:40 Nucleated RBC % (auto) 0 % 10/24/24 12:40 Nucleated RBCs # 0.0 /100WBC 10/24/24 12:40 PT 13.00 SECONDS (12.1-14.9) 10/24/24 12:40 INR 0.96 (0.8-1.2) 10/24/24 12:40 APTT 27.2 SECONDS (23.9-36.7) 10/24/24 12:40 Sodium 139 mmol/L (136-145) 10/24/24 12:40 Potassium 4.5 mmol/L (3.5-5.1) 10/24/24 12:40 Chloride 102 mmol/L (98-107) 10/24/24 12:40 Carbon Dioxide 27 mmol/L (22-29) 10/24/24 12:40 Anion Gap 14.5 (5-19) 10/24/24 12:40 BUN 22 mg/dL (8-23) 10/24/24 12:40 Creatinine 1.2 mg/dL (0.7-1.2) 10/24/24 12:40 GFR Calculation Not Reportable 10/24/24 12:40 Glucose 105 mg/dL (65-115) 10/24/24 12:40 Calculated Osmolality 292 mOsm/kg (285-295) 10/24/24 12:40 Calcium 9.4 mg/dL (8.5-10.5) 10/24/24 12:40 Total Bilirubin 0.5 mg/dL (0.15-1.2) 10/24/24 12:40 AST 16 U/L (0-40) 10/24/24 12:40 ALT 12 U/L (0-41) 10/24/24 12:40 Alkaline Phosphatase 73 U/L (40-130) 10/24/24 12:40 Total Protein 7.1 g/dL (6.6-8.7) 10/24/24 12:40 Albumin 4.1 g/dL (3.5-5.2) 10/24/24 12:40 Globulin 3.0 g/dL (1.3-4.6) 10/24/24 12:40 All radiology interpretation(s) finalized by discharge Discharge Plan Discharge Patient Disposition: Home Clinical Impression: Occlusion of ophthalmic artery, Carotid arterial disease, Vision changes Condition: Stable Prescriptions: New aspirin 325 mg tablet 325 mg PO DAILY Qty: 30 0RF No Action azathioprine 50 mg tablet 50 mg PO BID 90 Days Qty: 180 1RF prednisone 5 mg tablet 5 mg PO QAM 90 Days Qty: 90 1RF clopidogrel 75 mg tablet 75 mg PO QAM Qty: 90 3RF Hold Instructions: Resume on 03/09/21. pantoprazole [Protonix] 40 mg tablet,delayed release (DR/EC) 40 mg PO QAM Qty: 90 3RF Anoro Ellipta 62.5-25 mcg/actuation blister with device 1 inh inhalation QAM Qty: 60 3RF rosuvastatin 10 mg tablet 10 mg PO BEDTIME Qty: 90 3RF multivitamin Tablet 1 tab PO QPM triamcinolone acetonide 0.1 % cream 1 applic TOPICAL DAILY levothyroxine 50 mcg tablet 50 mcg PO DAILY Rx Instructions: TAKE 1 TABLET DAILY FOR THYROID metoprolol succinate 25 mg tablet extended release 24 hr 25 mg PO DAILY Rx Instructions: TAKE 1 TABLET DAILY loratadine 10 mg tablet 10 mg PO DAILY Rx Instructions: TAKE 1 TABLET DAILY FOR ALLERGIES calcium polycarbophil [Fiber-Lax] 625 mg Tablet 1,250 mg PO BID Discharge Orders: Discharge ED (Routine); Ordered 10/24/24 Ordered By: Delphine Gallegos Referrals: Julio Mccracken DO [Primary Care Provider] - Discharge Diet: Usual diet Discharge Activity: Increase activity as tolerated Patient Instructions: Self Care Measures After a Stroke (ED), Opioid Safety, Pain Management Activity Restrictions/Additional Instructions: Neurology recommends that you take a full-strength aspirin daily in addition to the Plavix and statin that you are taking for stroke prevention. Neurologist also recommends that you follow with Dr. Sierra as soon as possible to be referred for evaluation of revascularization of your carotid arteries. Thank you for choosing [facility] for your healthcare needs today. Please realize this is an emergency room and that we are providing you with a medical screening exam and this may not be complete and all inclusive of all the testing and or work up that you may need to determine your ailment or severity of your illness. You have been screened and evaluated and felt safe for discharge. Health conditions do change or evolve sometimes and as such it is important that you follow up with your Primary Doctor to be re checked, 3-5 days is a general good time frame for follow up. 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
[2024-10-24] MEDS: iohexol 350 mg/mL 500 mL Btl (per mL) IV (12:50)
[2024-10-24 13:19] LABS: Basophils # 0.1 10^3/uL (0.0-0.1); Basophils % 0.8 %; Eosinophils # 0.8 10^3/uL (0.0-0.8); Hematocrit 44.3 % (37-53); Lymphocytes # 1.8 10^3/uL (0.8-4.8); Lymphocytes % 18.8 %; Mean Corpuscular HGB Conc 31.8 g/dL (30-55); Mean Corpuscular Volume 94.3 fl (82-101); Mean Platelet Volume 9.8 fL (7.4-10.4); Monocytes # 0.6 10^3/uL (0.2-0.9); Monocytes % 5.8 %; Neutrophils # 6.41 10^3/uL (1.8-7.7); Neutrophils % 66.2 %; Nucleated Red Blood Cells % 0 %; Platelet Count 223 10^3/cmm (157-399); Red Cell Distribution Width 13.8 % (12.1-15.1); White Blood Count 9.69 10^3/uL (3.29-11.43)
[2024-10-24 13:30] VITALS: BP 160/93; PULSE 50; RESP 18; O2SAT 94
[2024-10-24 13:30] LABS: INR 0.96 (0.8-1.2)
[2024-10-24 13:31] LABS: Partial Thromboplastin Time 27.2 SECONDS (23.9-36.7)
[2024-10-24 13:35] LABS: Alanine Aminotransferase 12 U/L (0-41); Albumin Level 4.1 g/dL (3.5-5.2); Alkaline Phosphatase 73 U/L (40-130); Anion Gap 14.5 (5-19); Aspartate Amino Transferase 16 U/L (0-40); Blood Urea Nitrogen 22 mg/dL (8-23); Calcium 9.4 mg/dL (8.5-10.5); Carbon Dioxide 27 mmol/L (22-29); Chloride 102 mmol/L (98-107); Creatinine Clr Calc Pharmacy 48.2006; Glucose 105 mg/dL (65-115); Osmolality Calculated 292 mOsm/kg (285-295); Potassium 4.5 mmol/L (3.5-5.1); Sodium 139 mmol/L (136-145); Total Bilirubin 0.5 mg/dL (0.15-1.2); Total Protein 7.1 g/dL (6.6-8.7)
[2024-10-24] MEDS: aspirin 81 mg Chew Tablet 324 MG PO (14:02)
[2024-10-24 14:15] VITALS: BP 157/83; PULSE 58; O2SAT 95
== END 2024-10-24 14:16 | disposition home or self-care (01) ==
PROVIDERS: Emergency Provider Emergency Medicine; PCP Family Medicine
DX: I70.8 Atherosclerosis of other arteries (principal); I25.10 Atherosclerotic heart disease of native coronary artery without angina pectoris; Z87.891 Personal history of nicotine dependence; E78.5 Hyperlipidemia, unspecified; I10 Essential (primary) hypertension; J44.9 Chronic obstructive pulmonary disease, unspecified; Z86.73 Personal history of transient ischemic attack (TIA), and cerebral infarction without residual deficits; C50.921 Malignant neoplasm of unspecified site of right male breast
CPT/HCPCS: 70450; 70496; 70498; 80053; 85025; 85610; 85730; 99285

== ENCOUNTER → 2024-11-01 09:40 | Outpatient (BNVA) | payer MEDICARE, OTHER, SELFPAY | PROVIDERS: PCP Family Medicine; Visit Provider Nurse Practitioner Family | DX: I65.21 Occlusion and stenosis of right carotid artery (principal); I25.10 Atherosclerotic heart disease of native coronary artery without angina pectoris; H34.9 Unspecified retinal vascular occlusion; Z87.891 Personal history of nicotine dependence; I10 Essential (primary) hypertension | CPT/HCPCS: 99214 ==

== ENCOUNTER 2024-11-02 08:45 | Outpatient (RCR) | payer MEDICARE, OTHER, SELFPAY | END 2024-12-02 23:59 | disposition home or self-care (01) | LOC: CR 08:45 | PROVIDERS: PCP Family Medicine; Referring Provider Family Medicine; Visit Provider Family Medicine | DX: J96.11 Chronic respiratory failure with hypoxia (principal) | CPT/HCPCS: 94626 ==

== ENCOUNTER → 2024-11-16 11:30 | Outpatient (BNVA) | payer MEDICARE, OTHER, SELFPAY | PROVIDERS: PCP Family Medicine; Visit Provider Internal Medicine Rheumatology | DX: M35.00 Sjogren syndrome, unspecified (principal); Z79.899 Other long term (current) drug therapy; J84.89 Other specified interstitial pulmonary diseases; Z71.89 Other specified counseling; J84.9 Interstitial pulmonary disease, unspecified; R76.8 Other specified abnormal immunological findings in serum | CPT/HCPCS: 36415; 80076; 82565; 82657; 85025; 85651; 86140; 99214 ==

== ENCOUNTER 2024-12-05 13:18 | Outpatient (RCR) | payer MEDICARE, OTHER, SELFPAY | END 2024-12-30 23:59 | disposition home or self-care (01) | LOC: CR 13:18 | PROVIDERS: PCP Family Medicine; Referring Provider Family Medicine; Visit Provider Family Medicine | DX: J96.11 Chronic respiratory failure with hypoxia (principal) | CPT/HCPCS: 94626 ==

== ENCOUNTER → 2024-12-07 15:25 | Outpatient (BNVA) | payer MEDICARE, OTHER, SELFPAY | PROVIDERS: PCP Family Medicine; Visit Provider Nurse Practitioner Family | DX: D69.2 Other nonthrombocytopenic purpura (principal); L81.4 Other melanin hyperpigmentation; L82.1 Other seborrheic keratosis; Z08 Encounter for follow-up examination after completed treatment for malignant neoplasm; Z85.828 Personal history of other malignant neoplasm of skin; D48.5 Neoplasm of uncertain behavior of skin; L57.0 Actinic keratosis | CPT/HCPCS: 11102; 17000; 99213 ==

== ENCOUNTER 2024-12-16 11:38 | Outpatient (CLI) | payer MEDICARE, OTHER, SELFPAY ==
[2024-12-16 11:55] LABS: Basophils # 0.1 10^3/uL (0.0-0.1); Basophils % 0.9 %; Eosinophils # 0.8 10^3/uL (0.0-0.8); Eosinophils % 9.7 %; Hematocrit 44.2 % (37-53); Lymphocytes % 25.2 %; Mean Corpuscular Hemoglobin 29.8 pg (27-33); Mean Corpuscular Volume 96.3 fl (82-101); Mean Platelet Volume 9.3 fL (7.4-10.4); Monocytes # 0.6 10^3/uL (0.2-0.9); Monocytes % 7.8 %; Neutrophils # 4.51 10^3/uL (1.8-7.7); Neutrophils % 55.9 %; Nucleated Red Blood Cells % 0 %; Platelet Count 235 10^3/cmm (157-399); Red Blood Count 4.59 10^6/uL (3.85-5.65); Red Cell Distribution Width 14.3 % (12.1-15.1); White Blood Count 8.06 10^3/uL (3.29-11.43)
[2024-12-16 12:01] LABS: Erythrocyte Sedimentation Rate 9 mm/hr (0-10)
[2024-12-16 12:21] LABS: Alanine Aminotransferase 74 U/L (0-41); Albumin Level 3.9 g/dL (3.5-5.2); Alkaline Phosphatase 99 U/L (40-130); Aspartate Amino Transferase 61 U/L (0-40); C Reactive Protein 4.7 mg/L (0.0-4.9); Total Bilirubin 0.7 mg/dL (0.15-1.2); Total Protein 6.9 g/dL (6.6-8.7)
== END 2024-12-16 11:39 | disposition home or self-care (01) ==
PROVIDERS: PCP Family Medicine; Visit Provider Internal Medicine Rheumatology
DX: M35.00 Sjogren syndrome, unspecified (principal); Z79.899 Other long term (current) drug therapy
CPT/HCPCS: 80076; 82565; 85025; 85651; 86140

== ENCOUNTER → 2024-12-27 09:29 | Outpatient (BNVA) | payer MEDICARE, OTHER, SELFPAY | PROVIDERS: PCP Family Medicine; Visit Provider Dermatology | DX: C44.629 Squamous cell carcinoma of skin of left upper limb, including shoulder (principal); L57.0 Actinic keratosis | CPT/HCPCS: 11603; 13121; 17000 ==

== ENCOUNTER 2025-01-02 12:06 | Outpatient (CLI) | payer MEDICARE, OTHER, SELFPAY ==
[2025-01-02 13:23] LABS: Alanine Aminotransferase 46 U/L (0-41); Albumin Level 3.7 g/dL (3.5-5.2); Alkaline Phosphatase 82 U/L (40-130); Aspartate Amino Transferase 29 U/L (0-40); Globulin 2.8 g/dL (1.3-4.6); Total Bilirubin 0.6 mg/dL (0.15-1.2); Total Protein 6.5 g/dL (6.6-8.7)
== END 2025-01-02 12:07 | disposition home or self-care (01) ==
LOC: LAB 12:10
PROVIDERS: PCP Family Medicine; Visit Provider Internal Medicine Rheumatology
DX: M35.00 Sjogren syndrome, unspecified (principal)
CPT/HCPCS: 36415; 80076

== ENCOUNTER 2025-01-03 08:58 | Outpatient (RCR) | payer MEDICARE, OTHER, SELFPAY | END 2025-01-30 23:59 | disposition home or self-care (01) | LOC: CR 08:58 | PROVIDERS: PCP Family Medicine; Referring Provider Family Medicine; Visit Provider Family Medicine | DX: J96.11 Chronic respiratory failure with hypoxia (principal) | CPT/HCPCS: 94626 ==

== ENCOUNTER 2025-01-31 10:00 | Outpatient (RCR) | payer MEDICARE, OTHER, SELFPAY | END 2025-03-01 23:59 | disposition home or self-care (01) | LOC: CR 10:00 | PROVIDERS: PCP Family Medicine; Referring Provider Family Medicine; Visit Provider Family Medicine | DX: J96.11 Chronic respiratory failure with hypoxia (principal) | CPT/HCPCS: 94626 ==

== ENCOUNTER → 2025-02-28 10:58 | Outpatient (BNVA) | payer MEDICARE, OTHER, SELFPAY | PROVIDERS: PCP Family Medicine; Visit Provider Family Medicine | DX: Z79.899 Other long term (current) drug therapy (principal); I25.10 Atherosclerotic heart disease of native coronary artery without angina pectoris; E78.5 Hyperlipidemia, unspecified; E03.9 Hypothyroidism, unspecified; M35.00 Sjogren syndrome, unspecified; J84.9 Interstitial pulmonary disease, unspecified; R53.1 Weakness | CPT/HCPCS: 80053; 80061; 82306; 82607; 83036; 84443; 85025 ==

== ENCOUNTER 2025-03-02 11:05 | Outpatient (RCR) | payer SELFPAY | END 2025-04-01 23:59 | disposition home or self-care (01) | LOC: CR 11:05 | PROVIDERS: PCP Family Medicine; Referring Provider Family Medicine; Visit Provider Family Medicine | DX: J96.11 Chronic respiratory failure with hypoxia (principal) ==

== ENCOUNTER → 2025-04-03 13:26 | Outpatient (BNVA) | payer MEDICARE, OTHER, SELFPAY | PROVIDERS: PCP Family Medicine; Visit Provider Internal Medicine Rheumatology | DX: J84.89 Other specified interstitial pulmonary diseases (principal); M35.00 Sjogren syndrome, unspecified; Z79.899 Other long term (current) drug therapy; Z71.89 Other specified counseling; J84.9 Interstitial pulmonary disease, unspecified; R76.8 Other specified abnormal immunological findings in serum | CPT/HCPCS: 99214 ==

== ENCOUNTER → 2025-04-11 13:23 | Outpatient (BNVA) | payer MEDICARE, OTHER, SELFPAY | PROVIDERS: PCP Family Medicine; Visit Provider Nurse Practitioner Family | DX: L72.0 Epidermal cyst (principal); S50.911A Unspecified superficial injury of right forearm, initial encounter; X58.XXXA Exposure to other specified factors, initial encounter; L82.1 Other seborrheic keratosis; D69.2 Other nonthrombocytopenic purpura; L81.4 Other melanin hyperpigmentation; Z08 Encounter for follow-up examination after completed treatment for malignant neoplasm; Z85.828 Personal history of other malignant neoplasm of skin; L57.0 Actinic keratosis | CPT/HCPCS: 17004; 99214 ==

== ENCOUNTER → 2025-06-06 13:38 | Outpatient (BNVA) | payer MEDICARE, OTHER, SELFPAY | PROVIDERS: PCP Family Medicine; Visit Provider Internal Medicine | DX: J43.9 Emphysema, unspecified (principal); J96.11 Chronic respiratory failure with hypoxia; J98.4 Other disorders of lung; M36.8 Systemic disorders of connective tissue in other diseases classified elsewhere; J84.10 Pulmonary fibrosis, unspecified; Z87.891 Personal history of nicotine dependence; Z99.81 Dependence on supplemental oxygen | CPT/HCPCS: 99204; 99215 ==

== ENCOUNTER 2025-06-12 09:36 | Outpatient (CLI) | payer MEDICARE, OTHER, SELFPAY ==
--- NOTE | 2025-06-12 09:45 | CT_ITS ---
WS: [id number] CT CHEST CT-HIGH RESOLUTION, NONCONTRAST. HISTORY: Interstitial lung disease. Short of breath. Technique: High-resolution chest CT is performed in inspiration, expiration, supine and prone positioning. All CT scans at [facility] use at least one of these dose optimization techniques: automated exposure control; mA and/or kV adjustment per patient size (includes targeted exams where dose is matched to clinical indication); or iterative reconstruction. DLP: 1330.56 mGy.cm COMPARISON: 02/25/2024, chest CT 05/19/2022 Findings: Progression of basilar and peripheral reticular opacifications. Reticular basal opacifications are in the upper and lower lung [place]. There is no sparing of the periphery. Greater distribution in the lower lung n[place]. Bilateral upper and lower lobe honeycombing the but greatest at the lung bases. There is traction bronchiectasis greatest also in the lung bases. Progression of changes associated with UIP since 2021. No lobar collapse. Benign granuloma RIGHT lower lobe. On prone imaging there is no change in the areas of reticulation. No mosaic attenuation. There is volume loss during expiration within both lungs. Mediastinal and hilar lymph nodes. Lymph nodes are similar to the prior study from 02/25/2024. Moderate atherosclerotic plaque within the aorta. Aorta is mildly ectatic but nonaneurysmal. Mild dilatation of the pulmonary arteries. Mild cardiomegaly. No pericardial or pleural effusions. Mild perinephric stranding. Suprarenal aortic calcifications. L1 mild anterior wedging. CT/CT chest wo con [id number] Impression: 1. 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 Bronchiectasis, basilar opacifications and traction bronchiectasis, greatest in the lower lung nolasco. 2. No mediastinal or hilar lymphadenopathy. 3. Atherosclerosis aorta. 4. Mild dilatation of the pulmonary artery.
== END 2025-06-12 09:37 | disposition home or self-care (01) ==
LOC: RAD 09:37
PROVIDERS: PCP Family Medicine
DX: J84.9 Interstitial pulmonary disease, unspecified (principal); R06.00 Dyspnea, unspecified; J47.9 Bronchiectasis, uncomplicated; I70.0 Atherosclerosis of aorta; I37.8 Other nonrheumatic pulmonary valve disorders
CPT/HCPCS: 71250

== ENCOUNTER 2025-06-13 13:35 | Outpatient (CLI) | payer MEDICARE, OTHER, SELFPAY ==
[2025-06-13 13:57] VITALS: PULSE 76; RESP 18; O2SAT 90
== END 2025-06-13 13:36 | disposition home or self-care (01) ==
LOC: RT 13:36
PROVIDERS: PCP Family Medicine; Visit Provider Internal Medicine
DX: J96.11 Chronic respiratory failure with hypoxia (principal); J84.9 Interstitial pulmonary disease, unspecified; Z99.81 Dependence on supplemental oxygen; R94.2 Abnormal results of pulmonary function studies
CPT/HCPCS: 94060; 94726; 94729; J7613

== ENCOUNTER → 2025-07-04 13:41 | Outpatient (BNVA) | payer MEDICARE, OTHER, SELFPAY | PROVIDERS: PCP Family Medicine; Visit Provider Family Medicine | DX: Z79.899 Other long term (current) drug therapy (principal) | CPT/HCPCS: 80076; 82565; 85025; 85651; 86140 ==

== ENCOUNTER 2025-07-06 13:12 | Outpatient (CLI) | payer MEDICARE, OTHER, SELFPAY ==
--- NOTE | 2025-07-06 13:30 | USCV_ITS ---
Rodríguez Cochran Age: 89 Gender: M : 1935 Exam Date: 07/06/2025 13:41 Ordering Phys: Marycarmen Santiago Technologist: LAMAR Exam Location: [facility] Indication: SoB BP: 132 / 78 HR: 59 Rhythm: Sinus Technical Quality: Adequate MEASUREMENTS (Male / Female) Normal Values 2D ECHO LV Diastolic Diameter PLAX 4.6 cm 4.2 - 5.9 / 3.9 - 5.3 cm IVS Diastolic Thickness 0.9 cm 0.6 - 1.0 / 0.6 - 0.9 cm IVS Systolic Thickness 1.3 cm LVPW Diastolic Thickness 1.2 cm 0.6 - 1.0 / 0.6 - 0.9 cm LVPW Systolic Thickness 2.0 cm LVOT Diameter 2.1 cm LV Ejection Fraction 2D Teich 53.8 % LV Ejection Fraction MOD 4C 57.0 % LV Ejection Fraction MOD 2C 55.3 % LV Ejection Fraction 2C AL 55.8 % LA Diameter 4.0 cm RA Systolic Volume 4C AL 63.4 ml RA Systolic Volume 4C MOD 62.1 ml Aorta at Sinotubular Diameter 3.5 cm M-MODE LA Ao Ratio MM 1.3 AV Cusp Separation MM 1.3 cm DOPPLER AV Peak Velocity 114.0 cm/s LVOT Peak Velocity 75.0 cm/s AV Area Cont Eq vti 2.2 cm squared AV Area Cont Eq pk 2.2 cm squared MV Peak Velocity 69.0 cm/s MV Area PHT 3.6 cm squared Mitral E to A Ratio 0.7 TR Peak Velocity 91.0 cm/s TR Peak Gradient 3.3 mmHg TV Peak E Velocity 66.0 cm/s PV Peak Velocity 101.0 cm/s FINDINGS Left Ventricle Normal LV size and ejection fraction of 57%. No gross wall motion abnormalities.Grade I/IV diastolic dysfunction (abnormal relaxation filling pattern), normal to mildly elevated filling pressures. Right Ventricle Normal RV size with slightly diminished ejection fraction Right Atrium Mildly increased right atrial size. Left Atrium Mildly increased left atrial size. Mitral Valve No gross abnormalities noted Aortic Valve Thickened aortic valve. Tricuspid Valve No gross abnormalities noted Pulmonic Valve Trace pulmonary valve regurgitation. Pericardium No pericardial effusion. Aorta Aortic root measured at 4.3 cm at the level of the sinuses IVC Inferior vena cava not visualized. CONCLUSIONS Normal LV size and ejection fraction of 57%. No gross wall motion abnormalities.Grade I/IV diastolic dysfunction (abnormal relaxation filling pattern), normal to mildly elevated filling pressures. Mild biatrial enlargementThickened aortic valve. Trace pulmonary valve regurgitation. Dilated aortic root measuring 4.3 cm at the level of the sinuses. Compared to study from 07/16/2020, there may not be a significant change. Exact comparison is difficult because of the differences in the technical quality of the study Dr Andriy Wall MD [facility] (Electronically Signed) Final Date: 09 July 2025 22:35 S
== END 2025-07-06 13:13 | disposition home or self-care (01) ==
LOC: RAD 13:13
PROVIDERS: PCP Family Medicine
DX: R06.00 Dyspnea, unspecified (principal); R06.02 Shortness of breath; I51.7 Cardiomegaly; I51.89 Other ill-defined heart diseases; I35.8 Other nonrheumatic aortic valve disorders; I37.1 Nonrheumatic pulmonary valve insufficiency
CPT/HCPCS: 93306

== ENCOUNTER → 2025-07-12 12:49 | Outpatient (BNVA) | payer MEDICARE, OTHER, SELFPAY | PROVIDERS: PCP Family Medicine; Visit Provider Internal Medicine | DX: J96.11 Chronic respiratory failure with hypoxia (principal); J98.4 Other disorders of lung; M36.8 Systemic disorders of connective tissue in other diseases classified elsewhere; J84.10 Pulmonary fibrosis, unspecified; J43.9 Emphysema, unspecified; Z99.81 Dependence on supplemental oxygen; Z87.891 Personal history of nicotine dependence | CPT/HCPCS: 99214 ==

== ENCOUNTER 2025-08-23 13:52 | Outpatient (CLI) | payer MEDICARE, OTHER, SELFPAY ==
[2025-08-23 14:10] VITALS: O2SAT 84; O2SAT 91
== END 2025-08-23 13:53 | disposition home or self-care (01) ==
LOC: RT 13:56
PROVIDERS: PCP Family Medicine
DX: J96.11 Chronic respiratory failure with hypoxia (principal); Z99.81 Dependence on supplemental oxygen
CPT/HCPCS: 94618; 94760

== ENCOUNTER → 2025-08-31 11:42 | Outpatient (BNVA) | payer MEDICARE, OTHER, SELFPAY | PROVIDERS: PCP Family Medicine; Visit Provider Family Medicine | DX: Z79.899 Other long term (current) drug therapy (principal); E78.5 Hyperlipidemia, unspecified; E03.9 Hypothyroidism, unspecified; J96.11 Chronic respiratory failure with hypoxia; R53.1 Weakness; M35.02 Sjogren syndrome with lung involvement; R73.9 Hyperglycemia, unspecified | CPT/HCPCS: 80053; 80061; 82607; 83036; 84443; 85025 ==

== ENCOUNTER → 2025-09-01 10:51 | Outpatient (BNVA) | payer MEDICARE, OTHER, SELFPAY | PROVIDERS: PCP Family Medicine; Visit Provider Nurse Practitioner Family | DX: L82.1 Other seborrheic keratosis (principal); Z08 Encounter for follow-up examination after completed treatment for malignant neoplasm; Z85.828 Personal history of other malignant neoplasm of skin; B07.8 Other viral warts; R20.8 Other disturbances of skin sensation; L53.8 Other specified erythematous conditions; Z78.9 Other specified health status; L82.0 Inflamed seborrheic keratosis; D48.5 Neoplasm of uncertain behavior of skin; L57.0 Actinic keratosis | CPT/HCPCS: 11102; 17000; 17110; 69100; 99213 ==

== ENCOUNTER 2025-09-22 17:46 | Emergency (ER) | payer MEDICARE, OTHER, SELFPAY ==
--- OUTSIDE RECORDS SUMMARY | 2024-04-23 03:00 | XMS_ITS ---
Author Organization [facility] Address [address] [place] [address] Care Team Providers Care Configuration Management Architect Name Role Phone Migration, Provider Unavailable Unavailable REASON FOR VISIT EMR-Grant Encounters Encounter Location Date Provider Diagnosis Migrated_Facility 0 0 04/23/2024 Provider Migration Plan Of Treatment No Information Progress Notes * MANUEL RIBERA HDOB:[birth year] (89 yo M)Acc No.[id number]:04/23/2024 Patient: Daniel PAZ MANUEL Hilary :1935 A ge:88 Y S ex:Male Address:[address] [place] [address], [id number] Subjective: * Chief Complaints: * E MR-Grant * * Date:
--- OUTSIDE RECORDS SUMMARY | 2024-04-24 03:00 | XMS_ITS ---
Author Organization [facility] Address [address] [place] [address] Care Team Providers Care Director Of Institutional Giving Name Role Phone Migration, Provider Unavailable Unavailable REASON FOR VISIT EMR-Grant Medications Medication SIG (Take, Route, Frequency, Duration) Notes Start Date End Date Status rosuvastatin calcium 10 MG Oral Tablet [Crestor] ORAL *Reorder from [facility] for eRx and Interaction Alerts* 05/09/2020 Active pantoprazole 40 MG Delayed Release Oral Tablet [Protonix] ORAL *Reorder from [facility] for eRx and Interaction Alerts* 05/09/2020 Active levothyroxine sodium 0.05 MG Oral Tablet [Synthroid] ORAL *Reorder from [facility] for eRx and Interaction Alerts* 05/09/2020 Active clopidogrel 75 MG Oral Tablet [Plavix] ORAL *Reorder from [facility] for eRx and Interaction Alerts* 05/09/2020 Active Docusate Sodium 100 MG Oral Tablet ORAL *Reorder from [facility] for eRx and Interaction Alerts* 05/09/2020 Active telmisartan 20 MG Oral Tablet [Micardis] ORAL *Reorder from [facility] for eRx and Interaction Alerts* 05/09/2020 Active Aspirin 81 81 MG Tablet Delayed Release Oral 05/09/2020 Active Encounters Encounter Location Date Provider Diagnosis Migrated_Facility 0 0 04/24/2024 Provider Migration Plan Of Treatment No Information Progress Notes * MANUEL RIBERA HDOB:[birth year] (89 yo M)Acc No.[id number]:04/24/2024 Patient: MANUEL QUINTANA :1935 A ge:88 Y S ex:Male Address:[address] [place] [address], [id number] Subjective: * Chief Complaints: * E MR-Grant * Family History: F ather: PRN - Father: . M other: PRN - Mother: . * Medications: T akingAspirin 81 81 MG Tablet Delayed Release Oral Docusate Sodium 100 MG Oral Tablet ORAL , Notes to Pharmacist: *Reorder from [facility] for eRx and Interaction Alerts*clopidogrel 75 MG Oral Tablet [Plavix] ORAL , Notes to Pharmacist: *Reorder from [facility] for eRx and Interaction Alerts*levothyroxine sodium 0.05 MG Oral Tablet [Synthroid] ORAL , Notes to Pharmacist: *Reorder from [facility] for eRx and Interaction Alerts*pantoprazole 40 MG Delayed Release Oral Tablet [Protonix] ORAL , Notes to Pharmacist: *Reorder from [facility] for eRx and Interaction Alerts*rosuvastatin calcium 10 MG Oral Tablet [Crestor] ORAL , Notes to Pharmacist: *Reorder from [facility] for eRx and Interaction Alerts*telmisartan 20 MG Oral Tablet [Micardis] ORAL , Notes to Pharmacist: *Reorder from [facility] for eRx and Interaction Alerts*Taking Aspirin 81 81 MG Tablet Delayed Release Oral Taking Docusate Sodium 100 MG Oral Tablet ORAL , Notes to Pharmacist: *Reorder from [facility] for eRx and Interaction Alerts*Taking clopidogrel 75 MG Oral Tablet [Plavix] ORAL , Notes to Pharmacist: *Reorder from [facility] for eRx and Interaction Alerts*Taking levothyroxine sodium 0.05 MG Oral Tablet [Synthroid] ORAL , Notes to Pharmacist: *Reorder from [facility] for eRx and Interaction Alerts*Taking pantoprazole 40 MG Delayed Release Oral Tablet [Protonix] ORAL , Notes to Pharmacist: *Reorder from [facility] for eRx and Interaction Alerts*Taking rosuvastatin calcium 10 MG Oral Tablet [Crestor] ORAL , Notes to Pharmacist: *Reorder from [facility] for eRx and Interaction Alerts*Taking telmisartan 20 MG Oral Tablet [Micardis] ORAL , Notes to Pharmacist: *Reorder from [facility] for eRx and Interaction Alerts* * * Date:
--- OUTSIDE RECORDS SUMMARY | 2024-05-17 01:25 | XMS_ITS ---
Author Organization [facility] Address [address] [facility] [place] [address] Care Team Providers Care Profile Mill Operator Tape Control Name Role Phone Julio Mccracken Primary Care Provider FRENCH Potts Unavailable [phone] TREVOR FERGUSON Unavailable [phone] REASON FOR VISIT 3 mo w/ ua/pvr Encounters Encounter Location Date Provider Diagnosis [facility] [address] [place] [facility] [place] [address] 05/17/2024 TREVOR FERGUSON Plan Of Treatment No Information Progress Notes * Rodríguez RIBERADOB:1935 (89 yo M)Acc No.[id number]:05/17/2024 Progress Notes Patient: Rodríguez QUINTANA Provider: SHELLY Negro :1935 A ge:88 Y S ex:Male Date:05/17/2024 Address:[address] [place], [place] [id number] Pcp:Julio Mccracken Subjective: * Chief Complaints: * 1 . 3 mo w/ ua/pvr. * Medical History: Objective: * Vitals: Assessment: Plan: * Treatment: * Billing Information: * Visit Code: * Procedure Codes: * Electronic signature of TREVOR FERGUSON APRN on 09/22/2025 at 05:53 PM MACHINE ROPE MAKER Sign off status: Pending * Provider: SHELLY Negro Date: 0 05/17/2024 Generated for Mikala stevens/Collette/eTransmitting on: 11/22/2024 05:53 PM MACHINE ROPE MAKER
--- OUTSIDE RECORDS SUMMARY | 2025-09-22 17:53 | XMS_ITS | Patient Health Record ---
Author Organization [facility] Address [address] [place] [address] Care Team Providers Care Health Care Administrator Name Role Phone Julio Mccracken Primary Care Provider FRENCH Potts Unavailable [phone] Allergies No Known Allergies Reason For Referral No Information Medications Medication SIG (Take, Route, Frequency, Duration) Notes Start Date End Date Status Plavix 75 MG 1 tablet Orally Once a day 11/10/2023 Active predniSONE 5 MG 1 tablet Orally Once a day 11/10/2023 Active Protonix 40 MG 1 tablet Orally Once a day 11/10/2023 Active azaTHIOprine 50 MG as directed Orally t wice a day 11/10/2023 Active Multivitamin - 1 tablet Orally Once a day 11/10/2023 Active Colace 100 MG 1 capsule as needed Orally twice a day 11/10/2023 Active ALPRAZolam 0.25 MG 1 tablet as needed Orally 11/10 Active Claritin 10 MG 1 tablet Orally Once a day 11/10/2023 Active Toprol XL 25 MG 1 tablet Orally Once a day 11/10/2023 Active Synthroid 50 MCG 1 tablet in the morn ing on an empty stomach Orally Once a day 11/10/2023 Active Aspirin Adult Low Dose 81 MG 1 tablet Orally Once a day 11/10/2023 Active Crestor 10 MG 1 tablet Orally Once a day 11/10/2023 Active Social History Tobacco Use: Social History Observation Description Date Details (start date - stop date) Former Smoker NA - NA Tobacco Use/Smoking Question Answer Notes Tobacco use: former smoker How long has it been since you last smoked? > 10 years Problems Problem Type SNOMED Code ICD Code Onset Dates Problem Status W/U Status Risk Notes Problem Urinary hesitancy (2588610) Urinary hesitancy (R39.11) Active confirmed Plan Of Treatment No Information Insurance Providers Payer Name Payer Address Payer Phone Subscriber Number Group Number Insured Name Patient Relationship to Insured Coverage Start Date Coverage End Date [place] Medicare [address] DONALD KAVEH MACK [id number] [phone] [id number] Rodríguez Cochran Self - patient is the insured for Life Secondary to Medicare [address] [place], [place] [id number] [phone] [id number] Rodríguez Cochran Self - patient is the insured Medical (General) History Medical History History ICD Code sjogren's syndrome right breast cancer COPD skin cancer balanitis Hypothyroidism CAD CVA ascending aortic aneursm dyslipidemia hypertension hematuria UTIs Surgical History Surgery Date(Month/Year) right mastectomy 03/06/2021 ear surgery colonoscopy 2014 tonsillectomy hemorrhoidectomy [facility] Hospitalization History Reason Date(Month/Year) hematuria UTI surgery
[2025-09-22 17:54] VITALS: BP 116/63; PULSE 65; RESP 18; TEMP 36.5; O2SAT 90
--- OUTSIDE RECORDS SUMMARY | 2025-09-22 17:54 | XMS_ITS | Patient Health Record ---
Author Organization [facility] Address [address] [place] [address] Support Name Relationship Address Phone YOUSIF RIBERA Emergency Contact Unknown MOUNIKAMANUEL Guarantor Unknown [phone] Reason For Referral Reason ILD/COPD/ Pulm Fibro sis PFT report from 08/03/2024, last CT was 02/2024. 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) Diagnosis 4 Centrilobular emphys chaz (J43.2) Diagnosis 5 Pulmonary fibrosis, unspecified (J84.10) Diagnosis 6 Emphysema, unspecifi ed (J43.9) Referring Provider First Name Julio Referring Provider Last Name Kaykay Referring Provider Speciality [facility] Referred Organization [facility] Referred Provider Stepan Moreno Referred Address [address] [place], [place],[address], Referred Provider Specialty Pulmonary Di seases General Notes Simin Ray 2024 08:15:11 AM >01/13- Patient will call back once they talk to their primary Referral Priority Routine Medications Medication SIG (Take, Route, Frequency, Duration) Notes Start Date End Date Status telmisartan 20 MG Oral Tablet [Micardis] ORAL *Reorder from [facility] for eRx and Interaction Alerts* 05/09/2020 Active rosuvastatin calcium 10 MG Oral Tablet [Crestor] ORAL [facility]* 05/09/2020 Active pantoprazole 40 MG Delayed Release Oral Tablet [Protonix] ORAL *Reorder from [facility] for eRx and Interaction Alerts* 05/09/2020 Active levothyroxine sodium 0.05 MG Oral Tablet [Synthroid] ORAL *[facility] Interaction Alert[facility]* 05/09/2020 Active clopidogrel 75 MG Oral Tablet [Plavix] ORAL *Reorder from [facility] for eRx and Interaction Alerts* 05/09/2020 Active Docusate Sodium 100 MG Oral Tablet ORAL *[facility] Interaction Alert[facility]* 05/09/2020 Active Aspirin 81 81 MG Tablet Delayed Release Oral 05/09/2020 Active Problems Problem Type SNOMED Code ICD Code Onset Dates Problem Status W/U Status Risk Notes Problem Centrilobular emphysema (67643082) Centrilobular emphysema (J43.2) Active confirmed Problem Emphysema (52288465) Emphysema, unspecified (J43.9) Active confirmed Problem Pulmonary fibrosis (02815376) Pulmonary fibrosis, unspecified (J84.10) Active confirmed 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) Interstitial pulmonary disease, unspecified (J84.9) Active confirmed Problem 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
--- NOTE | 2025-09-22 19:14 | W.ED.WOUNDLC ---
HPI - Wound/Laceration General: Chief Complaint: Wound/Laceration Stated Complaint: Fall Time Seen by Provider: 09/22/25 19:07 History of Present Illness: Patient is a 89yo male with a history of CAD status post PCI, hypothyroidism, HLD, hypertension who presents to the ED with a right elbow injury. He reports bumping into a sharp wall corner approximately 2?3 hours prior, resulting in a large area of skin peeling and bleeding through his shirt. He denies significant pain at the site, no numbness or tingling of his right lower extremity. He does take Plavix and a bASA after his PCI. Wound was wrapped and bleeding subsided prior to arrival. He had no associated fall with this, did not hit his head, no loss of consciousness, no vomiting, no confusion since, denies any other traumatic injury. States his last tetanus shot was just over 5 years ago. Related Data Home Medications ?Medication ?Instructions ?Recorded ?Confirmed multivitamin 1 tab PO QPM 01/31/21 07/12/25 calcium polycarbophil 625 mg 1,250 mg PO BID 11/04/23 07/12/25 tablet (Fiber-Lax) loratadine 10 mg tablet 10 mg PO DAILY 10/24/24 07/12/25 triamcinolone acetonide 0.1 % 1 applic topical DAILY 10/24/24 07/12/25 topical cream aspirin 81 mg tablet,delayed 81 mg PO DAILY 11/16/24 07/12/25 release (Adult Low Dose Aspirin) ipratropium bromide 21 mcg (0.03 2 spray intranasal BID PRN 07/12/25 07/12/25 %) nasal spray Previous Rx's ?Medication ?Instructions ?Recorded rosuvastatin 10 mg tablet 10 mg PO BEDTIME lipids #90 tabs 10/10/24 azathioprine 50 mg tablet 50 mg PO BID 3 months #180 tabs 04/03/25 prednisone 5 mg tablet 5 mg PO QAM 90 days #90 tabs 04/03/25 pantoprazole 40 mg tablet,delayed 40 mg PO QAM #90 tabs 05/24/25 release (Protonix) umeclidinium 62.5 mcg-vilanterol 1 inh inhalation QAM #60 ea 05/29/25 25 mcg/actuation powdr for inhalation (Anoro Ellipta) albuterol sulfate 90 mcg/actuation 2 puff inhalation Q4H PRN 07/12/25 aerosol inhaler (Ventolin HFA) shortness of breath or wheezing #6.7 grams covid booster #1 ea 08/03/25 clopidogrel 75 mg tablet 75 mg PO QAM #90 tabs 08/08/25 levothyroxine 50 mcg tablet See Rx Instructions .Route 08/16/25 .COMPLEX #90 tabs metoprolol succinate 25 mg See Rx Instructions .Route 09/01/25 tablet,extended release 24 hr .COMPLEX #90 tabs Allergies Allergy/AdvReac Type Severity Reaction Status Date / Time ofloxacin (From Floxin) Allergy Intermediate violently Verified 09/05/25 11:48 ill mycophenolate mofetil AdvReac Intermediate felt bad Verified 09/05/25 11:48 and brain fog Review of Systems General: Reports: 10 or more systems reviewed and unremarkable except in HPI and below Skin/Breast: Reports: new lesions [facility] ED PFSH: Medical History (Updated 09/22/25 @ 20:29 by Mckay Garcia DO) Primary Sjogren's syndrome Orthostatic hypotension Breast cancer, right T1c N0 Primary Sjogren's syndrome Emphysema/COPD History of nonmelanoma skin cancer Balanitis Hypothyroidism -continue levothyroxine CAD (coronary artery disease) -follows up with Dr. Granados Cerebrovascular accident (CVA) determined by clinical assessment Ascending aortic aneurysm ASHD (arteriosclerotic heart disease) Dyslipidemia HTN (hypertension) -low to low normal BP; continue to monitor vital signs -continue oral antihypertensives, hold if hypotension Surgical History S/P right mastectomy (03/06/21) with [facility] History of ear surgery History of colonoscopy 2014 History of tonsillectomy H/O hemorrhoidectomy S/P PTCA (percutaneous transluminal coronary angioplasty) Family History Brother Cancer PANCREATIC Stroke Other CAD (coronary artery disease) Hyperlipidemia Hypertension Lung disease Denies family history of Diabetes Clotting disorder Dementia Psychiatric illness Chronic kidney disease (CKD) Suicide Anesthesia complication Bleeding disorder Social History Smoking and tobacco/nicotine status: never used tobacco/nicotine Quit status (tobacco/nicotine): has quit using Year quit tobacco: 1994 - 2PPD x 45 Years Second hand smoke exposure: No Alcohol intake: current Alcohol intake frequency: holidays/special occasions only Substance/Drug Use: never Lives independently: Yes Household members: spouse Marital status: service: Yes Current occupational status: retired Do you think of yourself as: Straight/Heterosexual Current gender identity: Male Special chinedu needs: No Physical Exam Narrative: EXAM NARRATIVE: Patient well-appearing, nontoxic, afebrile, satting well on home 3 L of oxygen, otherwise vital stable, no acute distress. Large area of ecchymosis just inferior to right elbow, L-shaped 5 cm laceration with dried blood surrounding, 2+ radial pulse distally, compartments soft, 5 out of 5 motor and sensation. Full range of motion at right shoulder, elbow and wrist joint. GCS 15, no other signs of injury. Procedures Laceration Laceration 1: Site: upper extremity Side (If applicable): right Size (cm): 10 Description: irregular Depth: simple, single layer Local Anesthetic: lidocaine 1% Amount of anesthesia used (mL): 5 Pre-repair: irrigated extensively Skin layer closed with: vicryl Size (cm): 4-0 Number of sutures: 6 Technique: simple, interrupted Course Vital Signs: Vital signs: Vital Signs Temperature 97.7 F 09/22/25 17:54 Pulse Rate 60 09/22/25 20:37 Respiratory Rate 16 09/22/25 20:37 Blood Pressure 131/67 09/22/25 20:37 Pulse Oximetry 92 09/22/25 20:37 Oxygen Delivery Me thod Nasal Cannula 09/22/25 17:54 Oxygen Flow Rate 3 09/22/25 17:54 MDM - Wound/Laceration Medical Decision Making -ddx: Skin avulsion, coagulopathy, acute blood loss, bony contusion, considered but less likely fracture, dislocation - Patient very well-appearing, with isolated minor trauma, is on Plavix and baby aspirin, had mild amount of bleeding that was controlled prior to arrival, no range of motion restrictions, neurovascularly intact, large area of ecchymosis with L-shaped laceration that is superficial, stated the skin will probably fall off but could place a few sutures in here just to prevent it from getting worse to which he would like so lidocaine ordered, sutures placed with good hemostasis, wrapped in antibiotic gauze ointment and then wrapped with Kerlix and unchanged MSK and neurovascular exams show patient discharged after tetanus and oxycodone given, no indications for x-ray at this time with full range of motion, unchanged neurovascular exam and low mechanism of injury with no pain at the site, discharged in stable condition with at bedside, strict return precautions given. No radiology studies performed this visit Discharge Plan Discharge Patient Disposition: Home Clinical Impression: Laceration of elbow, right Condition: Stable Prescriptions: No Action aspirin [Adult Low Dose Aspirin] 81 mg tablet,delayed release (DR/EC) 81 mg PO DAILY azathioprine 50 mg tablet 50 mg PO BID 90 Days Qty: 180 1RF prednisone 5 mg tablet 5 mg PO QAM 90 Days Qty: 90 1RF albuterol sulfate [Ventolin HFA] 90 mcg/actuation HFA aerosol inhaler 2 puff inhalation Q4H PRN (Reason: shortness of breath or wheezing) Qty: 6.7 1RF ipratropium bromide 21 mcg (0.03 %) spray,non-aerosol 2 spray intranasal BID PRN Rx Instructions: administer into each nostril rosuvastatin 10 mg tablet 10 mg PO BEDTIME Qty: 90 3RF pantoprazole [Protonix] 40 mg tablet,delayed release (DR/EC) 40 mg PO QAM Qty: 90 3RF Anoro Ellipta 62.5-25 mcg/actuation blister with device 1 inh inhalation QAM Qty: 60 3RF (DME) covid booster See Rx Instructions .Route .MEDSUPPLY Qty: 1 0RF Rx Instructions: As directed clopidogrel 75 mg tablet 75 mg PO QAM Qty: 90 3RF levothyroxine 50 mcg tablet See Rx Instructions .ROUTE .COMPLEX Qty: 90 3RF Dose Instruction: TAKE 1 TABLET DAILY FOR THYROID Rx Instructions: TAKE 1 TABLET DAILY FOR THYROID metoprolol succinate 25 mg tablet extended release 24 hr See Rx Instructions .ROUTE .COMPLEX Qty: 90 3RF Dose Instruction: TAKE 1 TABLET DAILY Rx Instructions: TAKE 1 TABLET DAILY multivitamin Tablet 1 tab PO QPM triamcinolone acetonide 0.1 % cream 1 applic TOPICAL DAILY loratadine 10 mg tablet 10 mg PO DAILY Rx Instructions: TAKE 1 TABLET DAILY FOR ALLERGIES calcium polycarbophil [Fiber-Lax] 625 mg Tablet 1,250 mg PO BID Discharge Orders: Discharge ED (Routine); Ordered 09/22/25 Ordered By: Mckay Garcia Referrals: Julio Mccracken, DO [Primary Care Provider, Family Practice] Discharge Diet: Usual diet Discharge Activity: Resume usual activity Patient Instructions: Opioid Safety, Pain Management, Patient Portal & Charles Instructions Activity Restrictions/Additional Instructions: You were seen for your right elbow injury, you were evaluated and your skin tear was repaired with 6 sutures, these are absorbable and should go away on their own in 7 to 10 days, some of the tissue might off so do not be alarmed from this, you can have some residual bleeding from the site. Keep the antibiotic gauze and original wrapping on for the next 24 hours if possible and then you can remove it and wash it as normal, then apply a Vaseline/Aquaphor to keep it moist and rewrapping for the next week to prevent secondary infection. Otherwise there are no activity restrictions with your right arm. Return to the ED with severe worsening of the bleeding, inability to move or feel the arm, severe pain at the site, any other emergent concerns. Print Language: Persian Coding Level of Care Code ED [employer]bs[employer] Specialist for [facility] [place]
[2025-09-22] MEDS: tetanus-dipt-pertussis 0.5 mL SDV IM (19:55)
[2025-09-22] MEDS: oxyCODONE 5 mg IR Tab/Cap PO (19:55)
[2025-09-22 20:37] VITALS: BP 131/67; PULSE 60; RESP 16; O2SAT 92
== END 2025-09-22 20:35 | disposition home or self-care (01) ==
PROVIDERS: Emergency Provider Student in an Organized Health Care Education/Training Program; PCP Family Medicine
DX: S51.011A Laceration without foreign body of right elbow, initial encounter (principal); Z79.82 Long term (current) use of aspirin; Z79.02 Long term (current) use of antithrombotics/antiplatelets; Z87.891 Personal history of nicotine dependence; Z86.73 Personal history of transient ischemic attack (TIA), and cerebral infarction without residual deficits; Z85.3 Personal history of malignant neoplasm of breast; Z85.828 Personal history of other malignant neoplasm of skin; J44.9 Chronic obstructive pulmonary disease, unspecified; E78.5 Hyperlipidemia, unspecified; I10 Essential (primary) hypertension; I25.10 Atherosclerotic heart disease of native coronary artery without angina pectoris; W22.8XXA Striking against or struck by other objects, initial encounter
CPT/HCPCS: 12004; 90471; 90715; 99283; J9999

== ENCOUNTER → 2025-10-03 12:52 | Outpatient (BNVA) | payer MEDICARE, OTHER, SELFPAY | PROVIDERS: PCP Family Medicine; Visit Provider Internal Medicine Rheumatology | DX: J84.89 Other specified interstitial pulmonary diseases (principal); M35.00 Sjogren syndrome, unspecified; Z79.899 Other long term (current) drug therapy; Z71.85 Encounter for immunization safety counseling; R76.89 Other specified abnormal immunological findings in serum | CPT/HCPCS: 99214 ==

== ENCOUNTER → 2025-10-05 09:48 | Outpatient (BNVA) | payer MEDICARE, OTHER, SELFPAY | PROVIDERS: PCP Family Medicine; Visit Provider Dermatology | DX: S41.111A Laceration without foreign body of right upper arm, initial encounter (principal); L57.0 Actinic keratosis; C44.622 Squamous cell carcinoma of skin of right upper limb, including shoulder; X58.XXXA Exposure to other specified factors, initial encounter | CPT/HCPCS: 11623; 15240; 99213 ==

== ENCOUNTER → 2025-10-16 10:47 | Outpatient (BNVA) | payer MEDICARE, OTHER, SELFPAY | PROVIDERS: PCP Family Medicine; Visit Provider Internal Medicine Cardiovascular Disease | DX: I65.29 Occlusion and stenosis of unspecified carotid artery (principal); Z79.899 Other long term (current) drug therapy; I25.10 Atherosclerotic heart disease of native coronary artery without angina pectoris; Z87.891 Personal history of nicotine dependence; I10 Essential (primary) hypertension | CPT/HCPCS: 99214 ==